=== PATIENT | female | born 1955 | race Caucasian/White ===

== ENCOUNTER → 2020-04-05 | Outpatient (CLI) | payer OTHER, SELFPAY ==
--- NOTE | 2020-04-05 09:29 | US_ITS ---
STUDY: ULTRASOUND BREAST - RIGHT REASON FOR EXAM: Female, 64 years old. Pain in the right breast. TECHNIQUE: Axial and longitudinal images of the RIGHT breast were performed with a high resolution ultrasound transducer. # OF IMAGES: 71 COMPARISON: Comparison is made with prior mammogram done earlier today. FINDINGS: RIGHT Breast: There is a 1.2 cm x 1.8 cm x 0.9 cm well-defined hypoechoic nodule with central echogenic hilum in the axillary region of the breast. This is in keeping with a small benign appearing axillary lymph node. US/Breast Limited Unilateral IMPRESSION: Findings in keeping with a 1.2 cm x 1.8 cm x 0.9 cm benign appearing lymph node in the right axillary region. ASSESSMENT CATEGORY: BIRADS Category 2: Benign. A letter regarding these results will be sent to the patient by the facility within 30 days. Electronically Signed: Manjeet Owens, at 12:25 EDT , Service support ,
--- NOTE | 2020-04-05 09:29 | BI_ITS ---
MAMMOGRAPHY - BILATERAL DIAGNOSTIC REASON FOR EXAM: Female, 64 years old. Right upper quadrant breast pain. PERTINENT HISTORY: Sister with breast cancer. Aunt with breast cancer. TECHNIQUE: Digital bilateral breast alma (3D mammographic acquisition) in the CC and MLO projections. 2-D mediolateral oblique (MLO) and craniocaudad (CC) views of both breasts were obtained. CAD: Full Field Digital Mammography with Computer Added Detection was performed. COMPARISON: Comparison is made with prior examination dated 08/12/2016. FINDINGS: Breast Composition: There are scattered areas of fibroglandular density. There are no dominant masses or suspicious calcifications. Stable small benign appearing bilateral axillary lymph nodes. No other significant abnormalities are identified. There has been no significant change since the prior study. BI/DIAG MAMM W/CAD, BILAT IMPRESSION: Stable bilateral diagnostic mammogram. One year follow-up recommended. (A) ASSESSMENT CATEGORY: BIRADS Category 2: Benign. A letter regarding these results will be sent to the patient by the facility within 30 days. Approximately 10% of breast cancers are not detected by mammography. A normal mammogram should not delay biopsy of a clinically suspicious abnormality. Electronically Signed: Manjeet Owens, at 10:51 EDT , Service support ,
--- NOTE | 2020-04-05 10:19 | RAD_ITS ---
STUDY: X-RAY CHEST REASON FOR EXAM: Female, 64 years old. RIGHT SIDE PAIN UNDER BREAST THAT RADIATES TO BACK X 1 WEEK TECHNIQUE: PA and lateral views of the chest. COMPARISON: Comparison is made with prior examination dated 08/04/2015. FINDINGS: Hyperinflation. The lungs are clear. There is no demonstrated pleural abnormality. Normal size heart. Normal mediastinum and derrell. Normal visualized pulmonary arteries. Normal visualized aortic arch and descending thoracic aorta. Normal visualized thoracic spine. Normal visualized ribs, clavicles, and shoulders. There is no demonstrated abnormality of the visualized soft tissue structures of the upper abdomen. RAD/Chest PA and Lateral IMPRESSION: Hyperinflation. No acute abnormality is seen. Electronically Signed: Manjeet Owens, at 15:28 EDT , Service support ,
== END | disposition home or self-care (01) ==
PROVIDERS: PCP Nurse Practitioner Family; Referring Provider Nurse Practitioner Family; Visit Provider Nurse Practitioner Family
DX: N64.4 Mastodynia (principal); R07.9 Chest pain, unspecified
CPT/HCPCS: 71046; 76642; 77062; 77066; G0279

== ENCOUNTER → 2020-07-06 16:38 | Outpatient (CLI) | payer OTHER, SELFPAY ==
--- NOTE | 2020-07-06 16:55 | RAD_ITS ---
STUDY: X-RAY CHEST REASON FOR EXAM: Female, 64 years old. SOB FOR MONTHS. HEART BURN WHEN EATING. TECHNIQUE: PA and lateral COMPARISON: 04/05/2020. FINDINGS: The lungs are clear and expanded. There is no demonstrated pleural abnormality. Normal size heart. Normal mediastinum and derrell. Normal visualized pulmonary arteries. Normal visualized aortic arch and descending thoracic aorta. Dorsal spine demonstrates mild spondylosis.. Normal visualized ribs, clavicles, and shoulders. There is no demonstrated abnormality of the visualized soft tissue structures of the upper abdomen No significant change since prior exam.. RAD/Chest PA and Lateral IMPRESSION: No acute cardiopulmonary pathology Electronically Signed: Domenico Deluna MD at 22:49 EST , Service support ,
[2020-07-06 17:30] LABS: Absolute Neutrophil Count 4.8 X10^3/uL (2.0-7.7); Basophil# 0.04 X10^3/uL; Basophil% 0.4 % (0-1); Eosinophil# 0.16 X10^3/uL; Eosinophils% 1.8 % (0-5); Hemoglobin 15.5 g/dL (12.0-15.0); Mean Corp Hgb Conc 33.7 g/dL (32-36); Mean Corpuscular Hgb 31.3 pg (27.0-32.0); Mean Corpuscular Volume 92.7 fL (81-99); Mean Platelet Vol. 11.3 fl (6.2-12.0); Monocyte# 1.02 X10^3/uL; Monocyte% 11.2 % (0-10); NRBC Flagged by Analyzer 0 % (0-5); Neutrophil # 4.77 X10^3/uL (2.7-7.7); Neutrophil % 52.4 % (47-70); Platelet Count 277 K/mm3 (150-450); RBC Distribution Width CV 12.3 % (11.6-14.6); RBC Distribution Width SD 42.1 fl (35.1-43.9); Red Blood Count 4.96 M/mm3 (4.2-5.4); White Blood Count 9.1 K/mm3 (4.4-11.0)
[2020-07-06 18:12] LABS: ALB/GLOB Ratio 1.1 RATIO (0.9-2.4); AST(SGOT) 32 U/L (15-37); Alanine Aminotransfer ALT/SGPT 70 U/L (13-56); Alkaline Phosphatase 73 U/L (45-117); Anion Gap 6 (5-15); BUN 10 mg/dL (7-18); Calcium,Total 9.2 mg/dL (8.5-10.1); Chloride 100 mmol/L (98-107); Creatinine, Serum 0.84 mg/dL (0.55-1.02); EST Glomerular Filtration Rate 73 mL/min (>60); Est Glom Filt Rate - Afr Amer 89 mL/min (>60); Globulin 3.6 g/dL (2.2-4.2); Glucose 89 mg/dL (74-106); Potassium 3.7 mmol/L (3.5-5.1); Protein, Total 7.6 g/dL (6.4-8.2); Sodium Level 138 mmol/L (136-145); Thyroid Stim Hormone (TSH) 0.68 uIU/mL (0.358-3.74)
[2020-07-07 10:00] LABS: Hepatitis C Antibody Non-Reactive (Nonreactive); Vitamin D,25 Hydroxy 20.8 ng/mL
[2020-07-08 06:07] LABS: HEPATITIS B SURFACE AG Negative (Negative); Hepatitis A AB, Total Positive (Negative); Hepatitis A IgM Antibody Negative (Negative); Hepatitis B Core AB IgM Negative (Negative); Hepatitis B Core Ab Total Negative (Negative); Hepatitis C Ab <0.1 s/co ratio (0.0-0.9)
[2020-07-09 04:43] LABS: Hep B Surface Antibodies Non Reactive (.)
== END ==
LOC: POLAB3 16:39 → RAD 16:54
PROVIDERS: PCP Family Medicine Geriatric Medicine; Referring Provider Family Medicine Geriatric Medicine; Visit Provider Family Medicine Geriatric Medicine
DX: E55.9 Vitamin D deficiency, unspecified (principal); I10 Essential (primary) hypertension; Z13.89 Encounter for screening for other disorder
CPT/HCPCS: 36415; 71046; 80053; 82306; 84443; 85025; 86704; 86705; 86706; 86708; 86709; 86803; 87340

== ENCOUNTER → 2020-07-12 08:51 | Outpatient (CLI) | payer OTHER, SELFPAY ==
--- NOTE | 2020-07-12 08:55 | US_ITS ---
STUDY: ABDOMINAL ULTRASOUND - RIGHT UPPER QUADRANT REASON FOR VISIT: Female, 64 years old ELEVATED ALT TECHNIQUE: Ultrasound evaluation of the right upper quadrant was performed with real-time and static reece-scale imaging. TECHNICAL QUALITY: Adequate. COMPARISON: Comparison with prior examination dated 09/07/2012. FINDINGS: Liver: The liver measures 16.2 cm. There is normal echogenicity of the liver. The bile ducts are within normal limits. There is hepatic color flow. The direction of portal flow is hepatopetal. There is no demonstrated mass lesion. Gallbladder: Normal distended gallbladder. The gallbladder wall measures 3 mm. There is a negative sonographic Schwartz''s sign. There is no pericholecystic fluid. There are no gallstones. Common Bile Duct (C.B.D.): The common bile duct measures 4 mm. Pancreas: Normal size of the head, body and tail of the pancreas. There is mild increased echogenicity of the pancreas. There is no demonstrated pancreatic mass or cyst. Right Kidney: Normal size of the right kidney. The right kidney measures 12.5 cm x 4.9 cm x 4.9 cm. Normal renal cortex. The right cortex measures 1.5 cm. There is no demonstrated renal mass or cyst. There is no right hydronephrosis. US/Abdomen Limited IMPRESSION: Normal right upper quadrant ultrasound examination. Electronically Signed: Manjeet Owens, at 10:17 EST , Service support ,
== END ==
PROVIDERS: PCP Nurse Practitioner Family; Referring Provider Family Medicine Geriatric Medicine; Visit Provider Family Medicine Geriatric Medicine
DX: R74.8 Abnormal levels of other serum enzymes (principal)
CPT/HCPCS: 76705

== ENCOUNTER 2020-07-12 18:49 | Emergency (ER) | payer OTHER, SELFPAY ==
[2020-07-12 18:51] VITALS: BP 125/71; PULSE 92; RESP 16; TEMP 36.6; O2SAT 97; BMI 31.3
--- NOTE | 2020-07-12 19:23 | CT_ITS ---
STUDY: CT ABDOMEN AND PELVIS WITHOUT CONTRAST REASON FOR EXAM: Female, 64 years old. LEFT LOWR PELVIC PAIN WITH ALL OVER WEAKNESS, HX HTN RADIATION DOSAGE (If Supplied By Facility): CTDIvol = ( 11.21 ) mGy, DLP = ( 551.54 ) mGycm TECHNIQUE: Transaxial images were obtained from the dome of the diaphragm to the symphysis pubis without oral contrast, and without intravenous contrast. Sagittal and coronal images were reconstructed. Individualized dose optimization techniques were used for this CT. COMPARISON: None. FINDINGS: The visualized lung bases are unremarkable. The visualized portions of the heart are within normal limits. Normal liver. Normal gallbladder and extrahepatic biliary system. Normal spleen. Normal pancreas. Normal bilateral adrenal glands. Normal right kidney. Normal left kidney. Normal visualized stomach. Normal small intestine. Mild diverticulosis of the colon. Mesenteric inflammation adjacent to the proximal sigmoid colon which can be due to focal diverticulitis or possible epiploic appendagitis. The appendix is visualized and appears normal. Normal abdominal aorta. Normal inferior vena cava. Normal retroperitoneum. Normal urinary bladder. Normal abdominal wall. Mild degenerative vertebral changes. CT/Abdomen/Pelvis without Cont IMPRESSION: Mild diverticulosis of the colon. Mesenteric inflammation adjacent to the proximal sigmoid colon which can be due to focal diverticulitis or possible epiploic appendagitis. Electronically Signed: Billy Lopez DO at 21:07 EST Tel [phone], Service support ,
--- NOTE | 2020-07-12 19:24 | ED.DCSUM_ITS ---
- ER Visit Summary Date of Service: 07/12/20 Chief Complaint: Left lower abdominal pain History of Present Illness: The patient is a 64 F who presents with left lower abdominal pain and pelvic pain that has been getting worse over the past 3 days. Patient describes the pain is aching. Patient states it is worse whenever she ambulates or pushes on the left lower quadrant. Patient states it gets better when she rests. Patient admits to some nausea today but denies any vomiting. Patient admits to some dysuria but denies any hematuria. Patient denies any fevers or chills. Patient admits to a mild headache. Physical Examination: Vital signs are stable. Patient is afebrile. Patient is in no acute distress. Oral mucosa is pink and moist. Neck is supple. Trachea is midline. There is no JVD noted. Heart was regular rate and rhythm. Lungs are clear and equal bilaterally. Abdomen is soft. Bowel sounds are normal. There is mild left lower quadrant tenderness. There is no rebound or guarding noted. Skin is warm dry. Cranial nerves II through XII are intact. There are no focal motor or sensory deficits noted. Extremities are intact. There is no calf tenderness or edema. Test Results: CBC shows a mild leukocytosis of 12.6. Comprehensive metabolic profile and urinalysis were obtained and were essentially within normal limits. CT scan of the abdomen pelvis was obtained. There is some inflammation adjacent to the proximal sigmoid colon. This could be due to focal diverticulitis or possible epiploic appendagitis. This was interpreted by the radiologist and reviewed by myself. COVID-19 rapid antigen test was obtained and was negative. Emergency Department Course and Treatment: Patient was given IV fluids. Patient was feeling better on reevaluation. Patient was given a prescription for Augmentin. Patient was given her first dose here. Patient was instructed to follow-up with her primary care physician in 5 to 7 days. Patient understood and was agreeable with the plan. All questions were answered. Disposition: Discharge home Impression: 1. Diverticulitis This note was generated with eTippingation software. It may contain incorrect words, spelling, and punctuation that were not noted in review of the chart prior to signing ED Disposition - Plan for ED Patient: Disposition: Home or Assisted Living Diagnosis: Diverticulitis Instructions: ED Diverticulitis Prescriptions: Amox/Clavulanate Tablet [Augmentin Tablet] 875 mg PO Q12H #20 tab Transmission Status: Pending to [id number] Referrals: Christo Gonzalez BIOMEDICAL ENGINEER, BIOMEDICAL ENGINEER-C [Primary Care Provider] - 5-7 Days
[2020-07-12 19:34] LABS: Absolute Neutrophil Count 7.8 X10^3/uL (2.0-7.7); Basophil# 0.04 X10^3/uL; Basophil% 0.3 % (0-1); Eosinophil# 0.14 X10^3/uL; Eosinophils% 1.1 % (0-5); Hematocrit 44.9 % (37-47); Hemoglobin 15.4 g/dL (12.0-15.0); Lymphocyte % 24.5 % (19-41); Mean Corp Hgb Conc 34.3 g/dL (32-36); Mean Corpuscular Hgb 31.4 pg (27.0-32.0); Mean Corpuscular Volume 91.4 fL (81-99); Mean Platelet Vol. 11.2 fl (6.2-12.0); Monocyte% 11.9 % (0-10); NRBC Flagged by Analyzer 0 % (0-5); Neutrophil % 61.8 % (47-70); Platelet Count 265 K/mm3 (150-450); RBC Distribution Width CV 12.2 % (11.6-14.6); RBC Distribution Width SD 40.8 fl (35.1-43.9); Red Blood Count 4.91 M/mm3 (4.2-5.4); White Blood Count 12.6 K/mm3 (4.4-11.0)
[2020-07-12 19:44] LABS: AST(SGOT) 21 U/L (15-37); Alanine Aminotransfer ALT/SGPT 55 U/L (13-56); Albumin, Serum 3.9 g/dL (3.2-5.0); Alkaline Phosphatase 83 U/L (45-117); Anion Gap 8 (5-15); BUN 12 mg/dL (7-18); BUN/Creat Ratio 14.4 RATIO (10-20); Calcium,Total 9.3 mg/dL (8.5-10.1); Chloride 102 mmol/L (98-107); Creatinine, Serum 0.83 mg/dL (0.55-1.02); EST Glomerular Filtration Rate 73 mL/min (>60); Est Glom Filt Rate - Afr Amer 89 mL/min (>60); Estimated Creatinine Clearance 64.95 ml/min; Globulin 3.9 g/dL (2.2-4.2); Glucose 100 mg/dL (74-106); Potassium 3.3 mmol/L (3.5-5.1); Protein, Total 7.8 g/dL (6.4-8.2); Sodium Level 138 mmol/L (136-145)
[2020-07-12] MEDS: 0.9% Normal Saline 1,000 ML 1000 ML IV (19:49)
[2020-07-12 19:58] LABS: Mucous, Urine 0 SEEN /hpf (<or=2+); Red Blood Cells-Urine 0 SEEN /hpf (0-5)
[2020-07-12 20:01] LABS: Color, Urine Yellow (Yellow); Glucose, Dipstick Normal (Normal); Ketone-Dipstick Negative (Negative); Leukocyte Esterase-Dipstick 100 /ul (Negative); Nitrite-Dipstick Negative (Negative); Occult Blood-Urine Negative /ul (Negative); Protein-Dipstick Negative (Negative); Urine Bilirubin Dipstick Negative (Negative); Urine Clarity Clear (Clear); Urine Urobilinogen Normal (Normal); Urine pH 6.5 (5.0 - 8.0)
[2020-07-12 20:08] LABS: Bacteria 1+ /hpf (None Seen); Squamous Epithelial Cells - UA 0-5 SEEN /hpf (5-10); White Blood Cells 0-5 SEEN /hpf (0-5)
[2020-07-12 21:09] VITALS: BP 158/77; PULSE 69; RESP 20; O2SAT 99
[2020-07-12] MEDS: Amox/Clavulanate 875 MG Tablet PO (21:29)
== END 2020-07-12 21:34 | disposition home or self-care (01) ==
PROVIDERS: Emergency Provider Emergency Medicine; PCP Nurse Practitioner Family
DX: K57.32 Diverticulitis of large intestine without perforation or abscess without bleeding (principal); I10 Essential (primary) hypertension; F32.9 Major depressive disorder, single episode, unspecified; Z79.899 Other long term (current) drug therapy
CPT/HCPCS: 74176; 80053; 81001; 85025; 87426; 96360; 96361; 99284; J7030; A4216

== ENCOUNTER → 2020-10-04 15:32 | Outpatient (CLI) | payer OTHER, SELFPAY ==
[2020-10-04 17:08] LABS: Absolute Lymphocyte Count 3.34 X10^3/uL (0.83-4.51); Absolute Neutrophil Count 5.4 X10^3/uL (2.0-7.7); Basophil# 0.05 X10^3/uL; Basophil% 0.5 % (0-1); Eosinophil# 0.14 X10^3/uL; Eosinophils% 1.4 % (0-5); Hemoglobin 15.4 g/dL (12.0-15.0); Lymphocyte # 3.34 X10^3/ul (4.0); Lymphocyte % 32.4 % (19-41); Mean Corp Hgb Conc 33.5 g/dL (32-36); Mean Corpuscular Hgb 31.2 pg (27.0-32.0); Mean Corpuscular Volume 93.1 fL (81-99); Mean Platelet Vol. 11.9 fl (6.2-12.0); Monocyte# 1.35 X10^3/uL; Monocyte% 13.1 % (0-10); NRBC Flagged by Analyzer 0 % (0-5); Neutrophil # 5.39 X10^3/uL (2.7-7.7); Neutrophil % 52.3 % (47-70); Platelet Count 304 K/mm3 (150-450); RBC Distribution Width CV 12.6 % (11.6-14.6); RBC Distribution Width SD 42.8 fl (35.1-43.9); Red Blood Count 4.94 M/mm3 (4.2-5.4); White Blood Count 10.3 K/mm3 (4.4-11.0)
[2020-10-04 17:24] LABS: Vitamin D,25 Hydroxy 10.8 ng/mL
[2020-10-04 19:01] LABS: AST(SGOT) 41 U/L (15-37); Alanine Aminotransfer ALT/SGPT 77 U/L (13-56); Albumin, Serum 3.9 g/dL (3.2-5.0); Alkaline Phosphatase 81 U/L (45-117); Anion Gap 8 (5-15); BUN 9 mg/dL (7-18); BUN/Creat Ratio 8.1 RATIO (10-20); Calcium,Total 9.6 mg/dL (8.5-10.1); Chloride 102 mmol/L (98-107); Creatinine, Serum 1.11 mg/dL (0.55-1.02); EST Glomerular Filtration Rate 53 mL/min (>60); Est Glom Filt Rate - Afr Amer 64 mL/min (>60); Globulin 3.8 g/dL (2.2-4.2); Glucose 77 mg/dL (74-106); Potassium 3.4 mmol/L (3.5-5.1); Protein, Total 7.7 g/dL (6.4-8.2); Sodium Level 140 mmol/L (136-145); Thyroid Stim Hormone (TSH) 0.58 uIU/mL (0.358-3.74)
== END ==
PROVIDERS: PCP Family Medicine Geriatric Medicine; Visit Provider Family Medicine Geriatric Medicine
DX: E55.9 Vitamin D deficiency, unspecified (principal); I10 Essential (primary) hypertension
CPT/HCPCS: 36415; 80053; 82306; 84443; 85025

== ENCOUNTER → 2020-11-01 10:19 | Outpatient (CLI) | payer OTHER, SELFPAY ==
--- NOTE | 2020-11-01 12:35 | RAD_ITS ---
STUDY: X-RAY - ABDOMEN/PELVIS REASON FOR EXAM: Female, 64 years old. OTALGIA TECHNIQUE: AP supine and upright views of the abdomen and pelvis. COMPARISON: None. FINDINGS: Normal visualized lung bases. There is an unremarkable bowel gas pattern. There is no demonstrated free abdominal air. The visualized liver, spleen and kidneys are grossly normal in size and morphology. Normal soft tissue structures. Mild dextroscoliosis of the lumbar spine with degenerative disc disease. RAD/Abd Inc Decub and/or Erect IMPRESSION: Normal x-ray examination of the abdomen and pelvis. Electronically Signed: Christo Greene MD at 9:09 EDT Tel , Service support ,
[2020-11-01 12:48] LABS: Absolute Lymphocyte Count 1.87 X10^3/uL (0.83-4.51); Absolute Neutrophil Count 4.9 X10^3/uL (2.0-7.7); Basophil# 0.02 X10^3/uL; Basophil% 0.3 % (0-1); Eosinophil# 0.01 X10^3/uL; Eosinophils% 0.1 % (0-5); Hematocrit 53.9 % (37-47); Lymphocyte # 1.87 X10^3/ul (0.83-4.51); Mean Corp Hgb Conc 33.4 g/dL (32-36); Mean Corpuscular Hgb 30.9 pg (27.0-32.0); Mean Corpuscular Volume 92.6 fL (81-99); Mean Platelet Vol. 11.4 fl (6.2-12.0); Monocyte# 0.95 X10^3/uL; Monocyte% 12.2 % (0-10); NRBC Flagged by Analyzer 0 % (0-5); Neutrophil # 4.91 X10^3/uL (2.7-7.7); Platelet Count 249 K/mm3 (150-450); RBC Distribution Width CV 12.8 % (11.6-14.6); RBC Distribution Width SD 43.8 fl (35.1-43.9); Red Blood Count 5.82 M/mm3 (4.2-5.4); White Blood Count 7.8 K/mm3 (4.4-11.0)
[2020-11-01 12:59] LABS: Anion Gap 7 (5-15); BUN 15 mg/dL (7-18); BUN/Creat Ratio 17.1 RATIO (10-20); Calcium,Total 9.4 mg/dL (8.5-10.1); Chloride 98 mmol/L (98-107); Creatinine, Serum 0.88 mg/dL (0.55-1.02); EST Glomerular Filtration Rate 69 mL/min (>60); Est Glom Filt Rate - Afr Amer 84 mL/min (>60); Glucose 99 mg/dL (74-106); Sodium Level 130 mmol/L (136-145)
== END ==
PROVIDERS: PCP Family Medicine Geriatric Medicine; Referring Provider Family Medicine Geriatric Medicine; Visit Provider Family Medicine Geriatric Medicine
DX: H92.09 Otalgia, unspecified ear (principal)
CPT/HCPCS: 36415; 74019; 80048; 85025

== ENCOUNTER → 2020-11-01 16:32 | Outpatient (CLI) | payer OTHER, SELFPAY | PROVIDERS: PCP Family Medicine Geriatric Medicine; Referring Provider Family Medicine Geriatric Medicine; Visit Provider Family Medicine Geriatric Medicine | DX: U07.1 COVID-19 (principal) | CPT/HCPCS: 87635; C9803; U0002 ==

== ENCOUNTER → 2022-10-24 | Outpatient (CLI) | payer MEDICARE, SELFPAY ==
[2022-10-24 10:45] LABS: AST(SGOT) 27 U/L (15-37); Alanine Aminotransfer ALT/SGPT 49 U/L (13-56); Albumin, Serum 3.7 g/dL (3.2-5.0); Alkaline Phosphatase 59 U/L (45-117); Anion Gap 3 (5-15); BUN 11 mg/dL (7-18); BUN/Creat Ratio 15.8 RATIO (10-20); Calcium,Total 8.9 mg/dL (8.5-10.1); Chloride 106 mmol/L (98-107); Cholesterol 196 mg/dL (200); EST Glomerular Filtration Rate 89 mL/min (>60); Est Glom Filt Rate - Afr Amer 108 mL/min (>60); Globulin 3.6 g/dL (2.2-4.2); Glucose 91 mg/dL (74-106); High Density Lipoprotein 63 mg/dL; Potassium 3.6 mmol/L (3.5-5.1); Protein, Total 7.3 g/dL (6.4-8.2); Sodium Level 137 mmol/L (136-145); Triglycerides 138 mg/dL; Very Low Density Lipoprotein 28 mg/dL (5-40)
== END | disposition home or self-care (01) ==
PROVIDERS: PCP Nurse Practitioner Family; Referring Provider Nurse Practitioner Family; Visit Provider Nurse Practitioner Family
DX: Z13.1 Encounter for screening for diabetes mellitus (principal); Z13.6 Encounter for screening for cardiovascular disorders
CPT/HCPCS: 36415; 80053; 80061

== ENCOUNTER 2022-11-12 13:08 | Day surgery (SDC) | payer MEDICARE, SELFPAY ==
[2022-11-12 13:57] VITALS: BP 163/90; PULSE 67; RESP 17; TEMP 36.9; O2SAT 97; BMI 30.2
[2022-11-12] MEDS: Lactated Ringers 1,000 ML 15 ML IV (13:57)
--- NOTE | 2022-11-12 14:23 | PCM.HP.BLA ---
History and Physical Date of Admission: 11/12/22 66 F who presents to the office today for Initial consult. GI Hx diverticulitis with hospitalization. PMH anxiety, HTN, hyperinflation of lung, axillary lymphadenopathy Colonoscopy approximately 8-10 years prior without polyps. *BGI established 2.. with referral from PCP. Constipation (straining with difficulty initiating BM that is relieved with manual manipulation. Stool is then soft/formed but thin, BM occur daily) is an issue recently with subsequent intermittent BRBPR with concern for hemorrhoids, rectal pain and fecal smearing approximately 3 times a week, though not consistent. Focuses on increased dietary fiber following diverticulitis; if she does not feel she gets enough during the day she supplements with Metamucil. Has noted decreased movement r/t husbands? recent hospitalizations. ROS Const Constitutional: No anorexia, fatigue, fever(s), weight change or sleep problems Eyes Eyes: No change in vision ENT ENT: No abnormal hearing, difficulty swallowing, mouth lesions, tongue swelling or throat swelling Resp Respiratory: No cough or shortness of breath Cardio Cardiology: No chest pain at rest, chest pain with exertion, shortness of breath or dyspnea on exertion Gastro GI: No difficulty swallowing Genitourinary-Female: No difficulty urinating or burning urination Musc Musculoskeletal: No joint pain, joint swelling, muscle weakness or decreased muscle mass Skin Skin: No hair loss in leg, yellowing of the eye, itchy eyes, rash, skin ulcer or skin swelling Neuro Neurology: No abnormal hearing, abnormal movements, confusion, unsteady gait/balance or memory loss Psych Psychiatric: No anxiety, No confusion and No memory loss Endo Endocrine: No fatigue or weight change Aller/Imm Allergy/Immunologic: No itchy eyes, throat swelling or tongue swelling Jose Luis/Lymp Hematologic/Lymphatic: No easy bleeding, easy bruising or enlarged lymph nodes Exam Const General: cooperative and comfortable Nutritional Appearance: average body habitus and well nourished HENMT Head: normal to inspection Ears: hearing grossly normal bilaterally Nose: external nose normal Face and sinus: normal facial exam Mouth: oral mucosae normal Throat: posterior oropharynx normal Eyes General: appearance normal, both eyes and all related structures Neck Neck: normal visual inspection Chest Chest palpation & inspection: normal inspection of the chest and normal palpation of entire chest wall Resp Effort & Inspection: normal respiratory effort Auscultation: Bilateral: Clear to Auscultation Cardio Palpation: normal PMI Rate: regular rate Rhythm: regular rhythm GI Inspection: normal to inspection Auscultation: normal bowel sounds Percussion: normal to percussion Palpation: no hepatosplenomegaly Skin General: no rashes or lesions noted Neuro General: patient alert Extrem General: normal to inspection Psych Affect: normal affect Quality Reporting Tobacco Screening ([facility] 138) Smoking Status: Never smoker Assessment and Plan Assessment and Plan (1) Constipation: ?Status:?Chronic ?Plan: The differential diagnosis for her symptoms to include celiac disease, inflammatory bowel disease, IBS with diarrhea, hypergastrinemia, protein-losing enteropathy, exocrine pancreatic insufficiency.? We will do biochemical testing and stool testing For full evaluation of her GI tract as she has had other evaluations including upper and lower endoscopy which may need to be repeated.? However I would like to see if we can find a organic cause prior to invasive testing. I have examined the patient and the H&P has been reviewed. There are no clinical changes since date of exam.
--- NOTE | 2022-11-12 14:30 | COLBX_PTH ---
PATIENT: ARMIDA CASTRO LOC: [facility] U#:[id number] AGE/SX: 66/F ROOM: RE11/12/[address]: Dr. Mt Hope DO : 1955 BED: DIS: 11/12/2022 SPEC #: [id number] RECD: 11/12/22 16:05 STATUS: JAIRON VICTORINA #: [id number] SANTIAGO: 11/12/22 14:[address]: Mt Hope DEPT: SURGICAL PATHOLOGY RECD BY: Oriana Andrews ENTERED: 11/13/22 08:04 SP TYPE: COLON BX NGUYEN DR: Christo Gonzalez, EDUCATOR SENIOR CLINICAL-C Tissues: A - Ileum, NOS B - COLON BIOPSY Procedures: Surgery Specimen Level IV HEADER OPERATION: Colonoscopy with biopsies ([facility] [place]), hemorrhoid banding PRE-OP DIAGNOSIS: Lower GI bleed TISSUE SUBMITTED: A ? Terminal ileum biopsy, B ? Random colon biopsy MICROSCOPIC DIAGNOSIS A. Terminal ileum, biopsy: No pathologic change. B. Colon, random biopsy: Tubular adenoma. See comment. AM:heather 11/14/2022 COMMENT B. Adenomatous change is identified in one fragment. The remainder of the colonic mucosal fragments are unremarkable. Clinical correlation is suggested. MICROSCOPIC DESCRIPTION Slides are reviewed. GROSS DESCRIPTION A - Received in fixative is one container labeled with the patient's name and designated terminal ileum biopsy. The specimen consists of two irregular fragments of light angelo soft tissue that in aggregate measure 0.8 x 0.5 x 0.1 cm. The specimen is totally submitted in one cassette. B - Received in fixative is one container labeled with the patient's name and designated random colon biopsy. The specimen consists of multiple irregular fragments of light angelo soft tissue that in aggregate measure 1.5 x 0.5 x 0.1 cm. The specimen is totally submitted in one cassette. / AM:heather 11/13/2022 TC:5 [facility]: [id number] x2
[2022-11-12 14:55] VITALS: BP 118/62; BP 163/90; PULSE 67; RESP 16; TEMP 36.4; O2SAT 94
--- NOTE | 2022-11-12 14:59 | OP.COLON_ITS ---
Patient Name: Ade Villar Procedure Date: 11/12/2022 2:15 PM Date of : 1955 Age: 66 Procedure: Colonoscopy Indications: Pelvic pain, Constipation, Obstipation, Fecal incontinence, Rectal pain Providers: Mt Hope DO Referring MD: Christo Gonzalez Medicines: Monitored Anesthesia Care Patient Profile: This is a 66 year old female. Refer to note in patient chart for documentation of history and physical. Last Colonoscopy: 10 years ago. Complications: No immediate complications. Procedure: Pre-Anesthesia Assessment: - Prior to the procedure, a History and Physical was performed, and patient medications and allergies were reviewed. The patient is competent. The risks and benefits of the procedure and the sedation options and risks were discussed with the patient. All questions were answered and informed consent was obtained. Patient identification and proposed procedure were verified by the physician in the pre-procedure area. Mental Status Examination: alert and oriented. Airway Examination: normal oropharyngeal airway and neck mobility. Respiratory Examination: clear to auscultation. CV Examination: normal. Prophylactic Antibiotics: The patient does not require prophylactic antibiotics. Prior Anticoagulants: The patient has taken no previous anticoagulant or antiplatelet agents. ASA Grade Assessment: III - A patient with severe systemic disease. After reviewing the risks and benefits, the patient was deemed in satisfactory condition to undergo the procedure. The anesthesia plan was to use monitored anesthesia care (MAC). Immediately prior to administration of medications, the patient was re-assessed for adequacy to receive sedatives. The heart rate, respiratory rate, oxygen saturations, blood pressure, adequacy of pulmonary ventilation, and response to care were monitored throughout the procedure. The physical status of the patient was re-assessed after the procedure. After I obtained informed consent, the scope was passed under direct vision. Throughout the procedure, the patient's blood pressure, pulse, and oxygen saturations were monitored continuously. The colonoscope was introduced through the anus and advanced to the terminal ileum. The colonoscopy was performed without difficulty. The patient tolerated the procedure well. The quality of the bowel preparation was adequate. Scope In: 2:31:01 PM Scope Withdrawal Time 0 hours 16 minutes 2 seconds Scope Out: 2:50:20 PM Total Procedure Duration Time 0 hours 19 minutes 19 seconds Findings: The perianal and digital rectal examinations were normal. A few small and large-mouthed diverticula were found in the recto-sigmoid colon, sigmoid colon and descending colon. An area of mildly congested mucosa was found in the recto-sigmoid colon, in the sigmoid colon, in the descending colon, at the splenic flexure and at the hepatic flexure. Biopsies were taken with a cold forceps for histology. Verification of patient identification for the specimen was done. Estimated blood loss was minimal. A patchy area of the terminal ileum was congested. Biopsies were taken with a cold forceps for histology. Verification of patient identification for the specimen was done. Estimated blood loss was minimal. Non-bleeding internal hemorrhoids were found during retroflexion. The hemorrhoids were Grade II (internal hemorrhoids that prolapse but reduce spontaneously). A hemorrhoid was isolated with anoscopy. The ShortShot ligator was positioned over the hemorrhoid at the left lateral position. Suction was applied and one rubber band was placed over the hemorrhoid. This was checked to make certain that the muscularis was free of the band. Post-banding digital rectal exam showed band in good position. The patient appeared stable and comfortable at the end of the procedure. Impression: - Diverticulosis in the recto-sigmoid colon, in the sigmoid colon and in the descending colon. - Congested mucosa in the recto-sigmoid colon, in the sigmoid colon, in the descending colon, at the splenic flexure and at the hepatic flexure. Biopsied. - Congested mucosa in the terminal ileum. Biopsied. - Non-bleeding internal hemorrhoids. Banded. Recommendation: - Repeat colonoscopy in 10 years for screening purposes. - Continue present medications. Procedure Code(s): --- Professional --- 59726, Colonoscopy, flexible; with band ligation(s) (eg, hemorrhoids) 15045, Colonoscopy, flexible; with biopsy, single or multiple CPT copyright 2017 [employer]. All rights reserved. The codes documented in this report are preliminary and upon storekeeper steward review may be revised to meet current compliance requirements. Mt Hope DO 11/12/2022 2:59:25 PM This report has been signed electronically. Number of Addenda: 0 Note Initiated On: 11/12/2022 2:15 PM
--- NOTE | 2022-11-12 15:00 | OP.CCLET_ITS ---
11/12/2022 Christo Gonzalez Re : Colonoscopy procedure for Ade Villar Dear Lisa This procedure was performed on Saturday, November 12, 2022. My impressions and recommendations are as follows: Impressions : - Diverticulosis in the recto-sigmoid colon, in the sigmoid colon and in the descending colon. - Congested mucosa in the recto-sigmoid colon, in the sigmoid colon, in the descending colon, at the splenic flexure and at the hepatic flexure. Biopsied. - Congested mucosa in the terminal ileum. Biopsied. - Non-bleeding internal hemorrhoids. Banded. Recommendations : - Repeat colonoscopy in 10 years for screening purposes. - Continue present medications. My findings are described in the full procedure note, which is enclosed. If I can be of further assistance, please feel free to contact me at . Sincerely, Mt Hope, 11/12/2022 2:59:25 PM This report has been signed electronically.
[2022-11-12 15:01] VITALS: BP 127/69; BP 163/90; PULSE 64; RESP 16; O2SAT 92
[2022-11-12 15:05] VITALS: BP 120/68; BP 163/90; PULSE 58; RESP 16; O2SAT 93
[2022-11-12 15:10] VITALS: BP 124/68; BP 163/90; PULSE 62; RESP 16; TEMP 36.1; O2SAT 93
[2022-11-12 15:30] VITALS: BP 163/90
== END 2022-11-12 15:48 | disposition home or self-care (01) ==
LOC: EN 13:09 → AC 13:10
PROVIDERS: PCP Nurse Practitioner Family; Referring Provider Nurse Practitioner Family; Visit Provider Internal Medicine Gastroenterology
PROC: 0DJD8ZZ Inspection of Lower Intestinal Tract, Via Natural or Artificial Opening Endoscopic (ICD-10-PCS; CPT 45378; principal; 2022-11-12 14:25)
DX: K57.30 Diverticulosis of large intestine without perforation or abscess without bleeding (principal); K64.1 Second degree hemorrhoids; I10 Essential (primary) hypertension; D12.6 Benign neoplasm of colon, unspecified; Z79.899 Other long term (current) drug therapy; Z87.19 Personal history of other diseases of the digestive system
CPT/HCPCS: 45380; 45398; 88305; J7120; J2405

== ENCOUNTER → 2023-05-12 | Outpatient (CLI) | payer MEDICARE, SELFPAY ==
[2023-05-12 09:35] LABS: ALB/GLOB Ratio 0.9 RATIO (0.9-2.4); AST(SGOT) 41 U/L (15-37); Alanine Aminotransfer ALT/SGPT 44 U/L (13-56); Albumin, Serum 3.7 g/dL (3.2-5.0); Alkaline Phosphatase 60 U/L (45-117); Anion Gap 4 (5-15); BUN 11 mg/dL (7-18); BUN/Creat Ratio 14.3 RATIO (10-20); Calcium,Total 9.2 mg/dL (8.5-10.1); Chloride 105 mmol/L (98-107); Cholesterol 206 mg/dL (200); Creatinine, Serum 0.77 mg/dL (0.55-1.02); EST Glomerular Filtration Rate 80 mL/min (>60); Est Glom Filt Rate - Afr Amer 96 mL/min (>60); Glucose 98 mg/dL (74-106); High Density Lipoprotein 62 mg/dL; Potassium 3.8 mmol/L (3.5-5.1); Protein, Total 7.7 g/dL (6.4-8.2); Sodium Level 140 mmol/L (136-145); Triglycerides 186 mg/dL; Very Low Density Lipoprotein 37 mg/dL (5-40)
[2023-05-12 09:36] LABS: Hemoglobin A1c 5.4 % (3.8-5.6)
== END | disposition home or self-care (01) ==
LOC: LAB 08:26
PROVIDERS: PCP Nurse Practitioner Family; Referring Provider Nurse Practitioner Family; Visit Provider Nurse Practitioner Family
DX: Z00.00 Encounter for general adult medical examination without abnormal findings (principal); Z13.1 Encounter for screening for diabetes mellitus; Z13.6 Encounter for screening for cardiovascular disorders
CPT/HCPCS: 36415; 80053; 80061; 83036

== ENCOUNTER 2023-06-05 06:45 | Day surgery (SDC) | payer MEDICARE, SELFPAY ==
--- NOTE | 2023-06-05 07:10 | PCM.HP.BLA ---
History and Physical Date of Admission: 06/05/23 67 F who presents to the office today for GI Hx diverticulitis with hospitalization. PMH anxiety, HTN, hyperinflation of lung, axillary lymphadenopathy Colonoscopy approximately 8-10 years prior without polyps. *BGI established 2. with referral from PCP. Constipation (straining with difficulty initiating BM that is relieved with manual manipulation. Stool is then soft/formed but thin, BM occur daily) is an issue recently with subsequent intermittent BRBPR with concern for hemorrhoids, rectal pain and fecal smearing approximately 3 times a week, though not consistent. Focuses on increased dietary fiber following diverticulitis; if she does not feel she gets enough during the day she supplements with Metamucil. Has noted decreased movement r/t husbands? recent hospitalizations. Colonoscopy 11.12.22 colonic diverticulosis; congested RS through splenic flexure and hepatic flexure and TI colons; nonbleeding internal hemorrhoids, banded. Random biopsy TA. OV 11.27.22 BM in the morning with initial incomplete evacuation and second evacuation with complete; no straining but will sometimes use perineal pressure, but not as often. Bleeding has resolved. Notes some chronic urinary difficulty which she has discussed with PCP and will follow up with PCP and/or urology in the future. ROS Const Constitutional: No anorexia, fatigue, fever(s), weight change or sleep problems Eyes Eyes: No change in vision ENT ENT: No abnormal hearing, difficulty swallowing, mouth lesions, tongue swelling or throat swelling Resp Respiratory: No cough or shortness of breath Cardio Cardiology: No chest pain at rest, chest pain with exertion, shortness of breath or dyspnea on exertion Gastro GI: No difficulty swallowing Genitourinary-Female: No difficulty urinating or burning urination Musc Musculoskeletal: No joint pain, joint swelling, muscle weakness or decreased muscle mass Skin Skin: No hair loss in leg, yellowing of the eye, itchy eyes, rash, skin ulcer or skin swelling Neuro Neurology: No abnormal hearing, abnormal movements, confusion, unsteady gait/balance or memory loss Psych Psychiatric: No anxiety, No confusion and No memory loss Endo Endocrine: No fatigue or weight change Aller/Imm Allergy/Immunologic: No itchy eyes, throat swelling or tongue swelling Jose Luis/Lymp Hematologic/Lymphatic: No easy bleeding, easy bruising or enlarged lymph nodes Exam Const General: cooperative and comfortable Nutritional Appearance: average body habitus and well nourished [facility] Head: normal to inspection Ears: hearing grossly normal bilaterally Nose: external nose normal Face and sinus: normal facial exam Mouth: oral mucosae normal Throat: posterior oropharynx normal Eyes General: appearance normal, both eyes and all related structures Neck Neck: normal visual inspection Chest Chest palpation & inspection: normal inspection of the chest and normal palpation of entire chest wall Resp Effort & Inspection: normal respiratory effort Auscultation: Bilateral: Clear to Auscultation Cardio Palpation: normal PMI Rate: regular rate Rhythm: regular rhythm GI Inspection: normal to inspection Auscultation: normal bowel sounds Percussion: normal to percussion Palpation: no hepatosplenomegaly Skin General: no rashes or lesions noted Neuro General: patient alert Extrem General: normal to inspection Psych Affect: normal affect Quality Reporting Tobacco Screening ([facility] 138) Smoking Status: Never smoker Assessment and Plan Assessment and Plan (1) Constipation: Status: Chronic Plan: Constipation secondary to hemorrhoidal disease status post banding. She has a history of chronic idiopathic constipation that is likely secondary to slow transit constipation with the presence of a pelvic floor dysfunction with perineal manipulation in order to have a complete evacuation. That is a lot better and she is having 2 bowel movements in the morning with the use of Metamucil every morning. She is also taking extra supplemental fiber. She is very satisfied after undergoing banding of internal hemorrhoids. She had prolapsed internal hemorrhoids and 3 bands were placed to hemorrhoidal tissue. She is not requiring any stool softeners. She is having less obstipation symptoms. She did have a small tubular adenoma that was removed so we will request that repeat colonoscopy back in 5 years. Continue current bowel regimen. I have examined the patient and the H&P has been reviewed. There are no clinical changes since date of exam.
[2023-06-05] MEDS: Lactated Ringers 1,000 ML 15 ML IV (07:12)
[2023-06-05 07:13] VITALS: BP 132/65; PULSE 70; RESP 18; TEMP 36.9; O2SAT 97; BMI 36.5
--- NOTE | 2023-06-05 08:00 | IMM_PTH ---
PATIENT: ARMIDA CASTRO LOC: EN U#:[id number] AGE/SX: 67/F ROOM: RE06/05/[address]: Dr. Mt Hope DO : 1955 BED: DIS: 06/05/2023 SPEC #: [id number] RECD: 06/05/23 14:50 STATUS: JAIRON REJen #: [id number] SANTIAGO: 06/05/23 08:[address]: Mt Hope DEPT: IMMUNOHISTOCHEMISTRY RECD BY: Jeanette Flynn ENTERED: 06/05/23 14:51 SP TYPE: IMMUNO OTHR DR: Christo Gonzalez, GETTER OPERATOR-C Tissues: C - Stomach, NOS A - Esophagus, NOS Procedures: H Pylori (initial) P53 (initial) KI-67 (add) MOC-31 (add) PHYSICIAN & INSTITUTION [place] [id number] SPECIMEN INFORMATION: Tissue Source: A - Distal esophagus, C - Antrum Clinical Info: Bourgeois's esophagus Specimen Number: [id number] A & C CPT code: 87867 x2, 99535 x2 METHODOLOGY: Deparaffinized sections of prefer/formalin-fixed tissue or PAP/DQ stained slides are incubated with monoclonal/polyclonal antibodies/oligonucleotide probes. Localization is made via biotin free immunoperoxidase method. Appropriate controls are performed and reacted as expected. Results on target cell population are indicated in the following table: RESULTS: ANTIBODY / CLONE RESULT Block A P53 (DO-7) positive, wild type pattern Ki-67 (30-9) positive, low MOC-31 (4561) positive Block C H Pylori (polyclonal) negative These tests were developed and their performance characteristics determined by [facility]. They may not have been cleared or approved by the U.S. Food and Drug Administration. The FDA has determined that such clearance or approval is not necessary. The above immunohistochemical/dualISH markers are ordered and reviewed by the Pathologist. INTERPRETATION: A. Distal esophagus, biopsy: No evidence of dysplasia. C. Gastric antrum, biopsy: Negative for Helicobacter pylori organisms. AM:heather 06/09/2023
--- NOTE | 2023-06-05 08:00 | EGD_PTH ---
PATIENT: ARMIDA CASTRO LOC: EN U#:[id number] AGE/SX: 67/F ROOM: RE06/05/[address]: Dr. Mt Hope DO : 1955 BED: DIS: 06/05/2023 SPEC #: [id number] RECD: 06/05/23 11:50 STATUS: JAIRON VICTORINA #: [id number] SANTIAGO: 06/05/23 08:[address]: Mt Hope DEPT: SURGICAL PATHOLOGY RECD BY: Lilia Paz ENTERED: 06/05/23 11:51 SP TYPE: EGD BIOPSY OT DR: Christo Gonzalez, DISTRIBUTION SYSTEMS SUPERINTENDENT-C Tissues: A - Esophageal mucous membrane B - Duodenum, NOS C - Gastric mucous membrane Procedures: Special Stain Group II Surgery Specimen Level IV Alcian Blue/PAS (control) HEADER OPERATION: EGD PRE-OP DIAGNOSIS: Bourgeois's esophagus TISSUE SUBMITTED: A - Distal esophagus biopsy, B - Duodenum biopsy, C - Antrum for H. pylori and path MICROSCOPIC DIAGNOSIS A. Distal esophagus, biopsy: Gastroesophageal junctional mucosa with mild chronic inflammation. 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 No evidence of dysplasia. See comment. B. Duodenum, biopsy: Focal gastric metaplasia. C. Gastric antrum, biopsy: Mild chronic gastritis. See comment. AM:heather 06/06/2023 COMMENT A. Immunohistochemistry ([id number]) for P53 and Ki-67 will be performed and results will be reported separately. Alcian blue/PAS stain with matched control supports the above diagnosis. C. The results of immunohistochemistry for Helicobacter pylori will be reported separately ([id number]). MICROSCOPIC DESCRIPTION Slides are reviewed. GROSS DESCRIPTION A - Received in fixative is one container labeled with the patient's name and designated distal esophagus. The specimen consists of multiple irregular fragments of light angelo soft tissue that in aggregate measure 2.0 x 0.6 x 0.1 cm. The specimen is totally submitted in one cassette. B - Received in fixative is one container labeled with the patient's name and designated duodenal biopsy. The specimen consists of two irregular fragments of light angelo soft tissue that in aggregate measure 0.6 x 0.3 x 0.1 cm. The specimen is totally submitted in one cassette. C - Received in fixative is one container labeled with the patient's name and designated antrum. The specimen consists of two irregular fragments of light angelo soft tissue that in aggregate measure 0.7 x 0.3 x 0.1 cm. The specimen is totally submitted in one cassette. / AM:heather 06/05/2023 TC:3 CPT: 17406 x3, 32985
[2023-06-05 08:10] VITALS: BP 120/65; BP 132/65; PULSE 72; RESP 18; TEMP 36.8; O2SAT 95
--- NOTE | 2023-06-05 08:14 | OP.EGD_ITS ---
Patient Name: Ade Villar Procedure Date: 06/05/2023 7:48 AM Date of : 1955 Age: 67 Procedure: Upper GI endoscopy Indications: Epigastric abdominal pain, Functional Dyspepsia, Heartburn Providers: Mt Hope DO Referring MD: Mt Hope DO Medicines: Monitored Anesthesia Care Patient Profile: This is a 67 year old female. Refer to note in patient chart for documentation of history and physical. Patient has symptoms of chronic abdominal distention, chronic dyspepsia and chronic heartburn. Refer to note in patient chart for documentation of history and physical. Complications: No immediate complications. Procedure: Pre-Anesthesia Assessment: - Prior to the procedure, a History and Physical was performed, and patient medications and allergies were reviewed. The patient is competent. The risks and benefits of the procedure and the sedation options and risks were discussed with the patient. All questions were answered and informed consent was obtained. Patient identification and proposed procedure were verified by the physician in the pre-procedure area. Mental Status Examination: alert and oriented. Airway Examination: normal oropharyngeal airway and neck mobility. Respiratory Examination: clear to auscultation. CV Examination: normal. Prophylactic Antibiotics: The patient does not require prophylactic antibiotics. Prior Anticoagulants: The patient has taken no anticoagulant or antiplatelet agents. ASA Grade Assessment: II - A patient with mild systemic disease. After reviewing the risks and benefits, the patient was deemed in satisfactory condition to undergo the procedure. The anesthesia plan was to use monitored anesthesia care (MAC). Immediately prior to administration of medications, the patient was re-assessed for adequacy to receive sedatives. The heart rate, respiratory rate, oxygen saturations, blood pressure, adequacy of pulmonary ventilation, and response to care were monitored throughout the procedure. The physical status of the patient was re-assessed after the procedure. After obtaining informed consent, the endoscope was passed under direct vision. Throughout the procedure, the patient's blood pressure, pulse, and oxygen saturations were monitored continuously. The Endoscope was introduced through the mouth, and advanced to the second part of duodenum. The upper GI endoscopy was accomplished without difficulty. The patient tolerated the procedure well. Scope In: 7:58:47 AM Scope Out: 8:05:11 AM Total Procedure Duration Time 0 hours 6 minutes 24 seconds Findings: There were esophageal mucosal changes consistent with short-segment Bourgeois's esophagus present in the lower third of the esophagus. The maximum longitudinal extent of these mucosal changes was 2 cm in length. Mucosa was biopsied with a cold forceps for histology in 4 quadrants at intervals of 1 cm in the lower third of the esophagus. One specimen bottle was sent to pathology. Verification of patient identification for the specimen was done. Estimated blood loss was minimal. A medium-sized hiatal hernia was present. Patchy mildly erythematous mucosa without bleeding was found in the gastric antrum. Biopsies were taken with a cold forceps for histology. Verification of patient identification for the specimen was done. Estimated blood loss was minimal. No gross lesions were noted in the second portion of the duodenum. Biopsies were taken with a cold forceps for histology. Verification of patient identification for the specimen was done. Estimated blood loss was minimal. 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 Biopsied. - Medium-sized hiatal hernia. - Erythematous mucosa in the antrum. Biopsied. - No gross lesions in the second portion of the duodenum. Biopsied. Recommendation: - Discharge patient to home. - Resume previous diet. - Continue present medications. - Await pathology results. Procedure Code(s): --- Professional --- 02933, Esophagogastroduodenoscopy, flexible, transoral; with biopsy, single or multiple CPT copyright 2021 [employer]. All rights reserved. The codes documented in this report are preliminary and upon newspaper photojournalist review may be revised to meet current compliance requirements. Mt Hope DO 06/05/2023 8:14:30 AM This report has been signed electronically. Number of Addenda: 0 Note Initiated On: 06/05/2023 7:48 AM
[2023-06-05 08:15] VITALS: BP 116/71; BP 132/65; PULSE 67; RESP 18; O2SAT 100
--- NOTE | 2023-06-05 08:15 | OP.CCLET_ITS ---
06/05/2023 Christo Gonzalez Re : Upper GI endoscopy procedure for Ade Villar Dear Lisa This procedure was performed on May. 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 Biopsied. - Medium-sized hiatal hernia. - Erythematous mucosa in the antrum. Biopsied. - No gross lesions in the second portion of the duodenum. Biopsied. Recommendations : - Discharge patient to home. - Resume previous diet. - Continue present medications. - Await pathology results. My findings are described in the full procedure note, which is enclosed. If I can be of further assistance, please feel free to contact me at . Sincerely, Mt Hope, 06/05/2023 8:14:30 AM This report has been signed electronically.
[2023-06-05 08:20] VITALS: BP 124/74; BP 132/65; PULSE 65; RESP 16
[2023-06-05 08:25] VITALS: BP 110/71; BP 132/65; PULSE 67; RESP 18; TEMP 36.8; O2SAT 97
[2023-06-05 08:32] VITALS: BP 132/65
== END 2023-06-05 08:36 | disposition home or self-care (01) ==
LOC: EN 06:46 → AC 06:47
PROVIDERS: PCP Nurse Practitioner Family; Referring Provider Nurse Practitioner Family; Visit Provider Internal Medicine Gastroenterology
PROC: 0DJ08ZZ Inspection of Upper Intestinal Tract, Via Natural or Artificial Opening Endoscopic (ICD-10-PCS; CPT 43235; principal; 2023-06-05 07:55)
DX: K22.70 Barrett's esophagus without dysplasia (principal); K44.9 Diaphragmatic hernia without obstruction or gangrene; I10 Essential (primary) hypertension; K20.90 Esophagitis, unspecified without bleeding; K31.A0 Gastric intestinal metaplasia, unspecified; K29.50 Unspecified chronic gastritis without bleeding; Z79.899 Other long term (current) drug therapy; Z87.19 Personal history of other diseases of the digestive system
CPT/HCPCS: 43239; 81002; 88305; 88313; 88341; 88342; J7120; J2405

== ENCOUNTER → 2023-12-08 | Outpatient (CLI) | payer MEDICARE, SELFPAY ==
[2023-12-12 16:10] LABS: Giardia Lamblia, Stool EIA Negative (Negative); Pancreatic Elastase, Fecal > 800 (>200)
[2023-12-18 00:07] LABS: Calprotectin, Stool 100 ug/g (0-120)
== END | disposition home or self-care (01) ==
LOC: LAB 14:01
PROVIDERS: PCP Nurse Practitioner Family; Referring Provider Internal Medicine Gastroenterology; Visit Provider Internal Medicine Gastroenterology
DX: K22.70 Barrett's esophagus without dysplasia (principal); R13.19 Other dysphagia; K59.01 Slow transit constipation; K58.9 Irritable bowel syndrome, unspecified
CPT/HCPCS: 82653; 83630; 83993; 87329

== ENCOUNTER → 2023-12-11 | Outpatient (CLI) | payer MEDICARE, SELFPAY ==
--- NOTE | 2023-12-11 09:55 | RAD_ITS ---
STUDY: X-RAY - ABDOMEN/PELVIS REASON FOR EXAM: Female, 68 years old. Sitz marker day 3 TECHNIQUE: Frontal views COMPARISON: November 01, 2020 FINDINGS: Normal visualized lung bases. There is an unremarkable bowel gas pattern. Colonic fecal retention is noted. Sitz markers are seen from the splenic flexure to the rectosigmoid colon level. There is no demonstrated free abdominal air. Normal soft tissue structures. Normal visualized osseous structures. RAD/Abdomen Single View IMPRESSION: Colonic fecal retention is noted. Sitz markers are seen from the splenic flexure to the rectosigmoid colon level. Electronically Signed: Billy Lopez DO at 16:19 EDT ,
== END | disposition home or self-care (01) ==
LOC: RAD 09:51
PROVIDERS: PCP Nurse Practitioner Family; Referring Provider Internal Medicine Gastroenterology; Visit Provider Internal Medicine Gastroenterology
DX: K59.01 Slow transit constipation (principal)
CPT/HCPCS: 74018

== ENCOUNTER → 2023-12-13 | Outpatient (CLI) | payer MEDICARE, SELFPAY ==
--- NOTE | 2023-12-13 09:20 | RAD_ITS ---
EXAM: XR ABDOMEN, 1 VIEW CLINICAL INDICATION: Sitz marker day 5 TECHNIQUE: Frontal supine view of the abdomen/pelvis. COMPARISON: 12/11/2023 FINDINGS: LOWER THORAX: No acute pathology. GASTROINTESTINAL TRACT: There is a single Sitz marker in the descending colon. No other markers are identified. Non-obstructive. No bowel or stomach distention. ORGANS: Unremarkable as visualized. No organomegaly. No abnormal calcifications. BONES/JOINTS: No acute pathology. SOFT TISSUES: No acute pathology. RAD/Abdomen Single View IMPRESSION: A single Sitz marker is in the mid to distal descending colon. Electronically Signed: Farzad Arriaga MD at 0:02 EDT ,
== END | disposition home or self-care (01) ==
LOC: RAD 09:16
PROVIDERS: PCP Nurse Practitioner Family; Referring Provider Internal Medicine Gastroenterology; Visit Provider Internal Medicine Gastroenterology
DX: K59.01 Slow transit constipation (principal)
CPT/HCPCS: 74018

== ENCOUNTER → 2024-05-12 | Outpatient (CLI) | payer MEDICARE, SELFPAY ==
[2024-05-12 12:18] LABS: Hemoglobin A1c 5.7 % (3.8-5.6)
[2024-05-12 13:10] LABS: ALB/GLOB Ratio 0.9 RATIO (0.9-2.4); AST(SGOT) 55 U/L (15-37); Alanine Aminotransfer ALT/SGPT 65 U/L (13-56); Albumin, Serum 3.6 g/dL (3.2-5.0); Alkaline Phosphatase 90 U/L (45-117); Anion Gap 7 (5-15); BUN 10 mg/dL (7-18); BUN/Creat Ratio 14.3 RATIO (10-20); Calcium,Total 9.4 mg/dL (8.5-10.1); Chloride 103 mmol/L (98-107); Cholesterol 157 mg/dL (200); EST Glomerular Filtration Rate 89 mL/min (>60); Est Glom Filt Rate - Afr Amer 107 mL/min (>60); Globulin 3.9 g/dL (2.2-4.2); Glucose 100 mg/dL (74-106); High Density Lipoprotein 53 mg/dL; Potassium 4.2 mmol/L (3.5-5.1); Protein, Total 7.5 g/dL (6.4-8.2); Sodium Level 136 mmol/L (136-145); Triglycerides 346 mg/dL; Very Low Density Lipoprotein 69 mg/dL (5-40)
== END | disposition home or self-care (01) ==
PROVIDERS: PCP Nurse Practitioner Family; Referring Provider Nurse Practitioner Family; Visit Provider Nurse Practitioner Family
DX: I10 Essential (primary) hypertension (principal); E78.1 Pure hyperglyceridemia; R74.8 Abnormal levels of other serum enzymes; E55.9 Vitamin D deficiency, unspecified
CPT/HCPCS: 36415; 80053; 80061; 83036

== ENCOUNTER → 2024-06-15 | Outpatient (CLI) | payer MEDICARE, SELFPAY ==
--- NOTE | 2024-06-15 12:51 | BI_ITS ---
MAMMOGRAPHY - BILATERAL SCREENING 3-D TOMOSYNTHESIS REASON FOR EXAM: Female, 68 years old. SCREENING PERTINENT HISTORY: No significant family history. TECHNIQUE: 2-D mammograms and 3-D Tomosynthesis of the breast (s) were performed. CAD was performed. COMPARISON: 02/10/2023 FINDINGS: The breast composition is composed of scattered fibroglandular density. Scattered benign calcifications are seen. No dense spiculated masses or suspicious microcalcifications are identified. No architectural distortion is identified. There is no skin thickening or retraction. There has been no significant change since the prior study. BI/SCRN MAMM (CAD)W/MINDI BILAT IMPRESSION: No mammographic signs of malignancy. Routine yearly mammograms recommended. ASSESSMENT CATEGORY: BIRADS Category 1: Negative. A letter regarding these results will be sent to the patient by the facility within 30 days. FOLLOW UP RECOMMENDATION: Yearly follow up mammogram recommended. (A) Approximately 10% of breast cancers are not detected by mammography. A normal mammogram should not delay biopsy of a clinically suspicious abnormality. Electronically Signed: Christo Greene MD at 14:50 EST ,
--- NOTE | 2024-06-15 12:56 | BD_ITS ---
STUDY: DUAL ENERGY X-RAY ABSORPTIOMETRY / DXA REASON FOR EXAM: Female, 68 years old. Z780 TECHNIQUE: Bone Mineral Density (BMD) measurements of lumbar spine and bilateral hips were obtained. COMPARISON: None. FINDINGS: Lumbar Spine (L1-L4): g/cm2 (1.315) / T-score (2.4) / Z-score (4.4) Findings are suggestive of normal bone density with a low fracture risk. Left Femur Total: g/cm2 (0.898) / T-score (-0.4) / Z-score (1.0) Left Femoral Neck: g/cm2 (0.807) / T-score (-0.4) / Z-score (1.3) Right Femur Total: g/cm2 (0.895) / T-score (-0.4) / Z-score (1.0) Right Femoral Neck: g/cm2 (0.785) / T-score (-0.6) / Z-score (1.1) BD/Dexa Bone Density Study IMPRESSION: The patient is considered normal as outlined below according to World [employer] Organization (WHO) criteria with a low fracture risk. Reference Information: The T-score is the number of standard deviations above or below the standard which is normal for young adults at their peak bone mineral density. The World Health Organization (WHO) interprets the T-scores as follows: Above -1 Normal bone density Between -1 and -2.5 Osteopenia Equal to / or below -2.5 Osteoporosis As a practical clinical guideline, osteopenia may be graded as follows: Mild -1 through -1.5 Moderate -1.6 through -2.0 Severe -2.1 through -2.4 The Z-score is the number of standard deviations above or below age-matched controls. A Z-score of less than -1.5 would be considered abnormal. References: 1. NIH Osteoporosis and Related Bone Diseases www osteo.org 2. International Society for Clinical Densitometry www iscd.org 3. National Osteoporosis Foundation www nof.org Electronically Signed: Manjeet Owens MD at 14:41 EST ,
== END | disposition home or self-care (01) ==
LOC: OPBD 12:49
PROVIDERS: PCP Nurse Practitioner Family; Referring Provider Nurse Practitioner Family; Visit Provider Nurse Practitioner Family
DX: Z12.31 Encounter for screening mammogram for malignant neoplasm of breast (principal); Z78.0 Asymptomatic menopausal state
CPT/HCPCS: 77063; 77067; 77080

== ENCOUNTER → 2024-09-28 | Outpatient (CLI) | payer MEDICARE, SELFPAY ==
--- NOTE | 2024-09-28 09:40 | US_ITS ---
PROCEDURE: BREAST LIMITED UNILATERAL REASON FOR EXAM: 68-year-old female presents with palpable concern with associated pain in her right axilla. Family history of breast cancer in her sister and maternal great aunt. TECHNIQUE: Targeted right axilla ultrasound. COMPARISON: Mammogram 06/15/2024 FINDINGS: RIGHT: Ultrasound performed of the area of palpable concern with associated pain in the right axilla demonstrates a prominent architecturally normal-appearing lymph node with preserved fatty derrell and normal cortical thickness, measuring 2.4 x 1.3 x 0.7 cm. Otherwise, there are no suspicious sonographic findings. US/Breast Limited Unilateral IMPRESSION: Palpable area of concern with associated pain in the right axilla correlates to a normal right axillary lymph node. There are no suspicious sonographic findings. BI-RADS 2: BENIGN. RECOMMEND ANNUAL MAMMOGRAPHIC SCREENING. Follow-up code: Routine Follow-up Reading Location: [id number]
[2024-09-28 11:08] LABS: Microalbumin,Random Urine < 12.0 mg/L (NO RANGE EST.); Microalbumin:Creatinine Ratio UNABLE TO CALCULATE mg/g CRE
[2024-09-28 12:06] LABS: Cholesterol 186 mg/dL (<=200); High Density Lipoprotein 60 mg/dL; Low Density Lipoprotein Calc. 91 mg/dL; Triglycerides 174 mg/dL; Very Low Density Lipoprotein 35 mg/dL (5-40); Vitamin D,25 Hydroxy 25.8 ng/mL (30-100); cholesterol:hdl ratio screen 3.09
[2024-09-28 12:16] LABS: ALB/GLOB Ratio 1.4 RATIO (0.9-2.4); AST(SGOT) 26 U/L (<=31); Alanine Aminotransfer ALT/SGPT 27 U/L (<=34); Albumin, Serum 4.2 g/dL (3.4-4.8); Alkaline Phosphatase 76 U/L (35-104); Anion Gap 11 (5-15); BUN 9 mg/dL (4-19); BUN/Creat Ratio 13.9 RATIO (10-20); Calcium,Total 9.4 mg/dL (7.6-11.0); Carbon Dioxide 25.8 mmol/L (21.0-32.0); Chloride 100 mmol/L (98-108); Creatinine, Serum 0.64 mg/dL (0.70-1.20); EST Glomerular Filtration Rate 97 (>60); Glucose 98 mg/dL (70-99); Potassium 3.3 mmol/L (3.3-5.1); Protein, Total 7.2 g/dL (5.9-8.4); Sodium Level 137 mmol/L (133-145); Total Bilirubin 0.47 mg/dL (0.00-1.30)
== END | disposition home or self-care (01) ==
LOC: OPBI 09:28 → OPUS 09:38
PROVIDERS: PCP Nurse Practitioner Family; Referring Provider Nurse Practitioner Family; Visit Provider Nurse Practitioner Family
DX: N63.11 Unspecified lump in the right breast, upper outer quadrant (principal); N64.4 Mastodynia; M79.621 Pain in right upper arm; I10 Essential (primary) hypertension; E78.1 Pure hyperglyceridemia; R74.8 Abnormal levels of other serum enzymes; E55.9 Vitamin D deficiency, unspecified
CPT/HCPCS: 36415; 76642; 80053; 80061; 82043; 82306; 82570

== ENCOUNTER → 2024-11-02 | Outpatient (CLI) | payer MEDICARE, SELFPAY ==
[2024-11-02 11:46] LABS: Absolute Neutrophil Count 4.7 X10^3/uL (2.0-7.7); Basophil# 0.03 X10^3/uL; Basophil% 0.4 % (0-1); Eosinophil# 0.15 X10^3/uL; Eosinophils% 1.8 % (0-5); Hematocrit 41.6 % (37-47); Hemoglobin 13.9 g/dL (12.0-15.0); Lymphocyte % 29.1 % (19-41); Mean Corp Hgb Conc 33.4 g/dL (32-36); Mean Corpuscular Hgb 30.2 pg (27.0-32.0); Mean Corpuscular Volume 90.4 fL (81-99); Mean Platelet Vol. 10.7 fl (6.2-12.0); Monocyte% 10.9 % (0-10); NRBC Flagged by Analyzer 0 % (0-5); Neutrophil # 4.73 X10^3/uL (2.7-7.7); Neutrophil % 57.4 % (47-70); Platelet Count 383 K/mm3 (150-450); RBC Distribution Width CV 12.5 % (11.6-14.6); RBC Distribution Width SD 41.6 fl (35.1-43.9); White Blood Count 8.2 K/mm3 (4.4-11.0)
[2024-11-02 12:28] LABS: ALB/GLOB Ratio 1.1 RATIO (0.9-2.4); AST(SGOT) 27 U/L (<=31); Alanine Aminotransfer ALT/SGPT 22 U/L (<=34); Alkaline Phosphatase 82 U/L (35-104); Anion Gap 12 (5-15); BUN 10 mg/dL (4-19); BUN/Creat Ratio 13.5 RATIO (10-20); Calcium,Total 9.5 mg/dL (7.6-11.0); Carbon Dioxide 26.6 mmol/L (21.0-32.0); Chloride 99 mmol/L (98-108); Creatinine, Serum 0.75 mg/dL (0.70-1.20); EST Glomerular Filtration Rate 88 (>60); Globulin 3.6 g/dL (2.2-4.2); Glucose 92 mg/dL (70-99); Potassium 3.5 mmol/L (3.3-5.1); Protein, Total 7.6 g/dL (5.9-8.4); Rheumatoid Factor < 10.0 IU/mL (<15); Sodium Level 137 mmol/L (133-145); Total Bilirubin 0.32 mg/dL (0.00-1.30)
[2024-11-03 12:08] LABS: ANTINUCLEAR ANTIBODIES DIRECT Negative (Negative)
[2024-11-09 17:08] LABS: Immunoglobulin A 247 mg/dL (87-352); Immunoglobulin E 20 IU/mL (6-495); Immunoglobulin G 1146 mg/dL (586-1602); Immunoglobulin M 64 mg/dL (26-217)
== END | disposition home or self-care (01) ==
PROVIDERS: PCP Nurse Practitioner Family; Referring Provider Specialist; Visit Provider Specialist
DX: J45.50 Severe persistent asthma, uncomplicated (principal); J30.9 Allergic rhinitis, unspecified; M35.9 Systemic involvement of connective tissue, unspecified
CPT/HCPCS: 36415; 80053; 82784; 82785; 85025; 86038; 86140; 86431

== ENCOUNTER 2025-02-15 05:58 | Day surgery (SDC) | payer MEDICARE, SELFPAY ==
[2025-02-15] VITALS (8 sets, daily range): BP systolic 102–146; BP diastolic 56–75; PULSE 59–76; RESP 16; TEMP 36.8–37.2; O2SAT 92–99; BMI 34.9
--- OUTSIDE RECORDS SUMMARY | 2025-02-15 06:19 | XMS RPT_ITS | CCD ---
Author Organization [facility] Care Team Providers Care Certified Rehabilitation Counselor Name Role Phone SALLY OCHOA APRN, CNP Primary Care Phys ician Sally Gonzalez CNP Primary Care Provider SALLY GONZALEZ Primary Care Unavailable Dr. Jackson Roman Chi Primary Care Provider [phone] Dr. Jackson Roman Chi Referring Provider FriendDr. Amor Attending Provider [phone] Lisa RADIO STATION MANAGER, RADIO STATION MANAGER-C Sally Daily Primary Care Pr ovider Lisa RADIO STATION MANAGER, RADIO STATION MANAGER-C Sally Daily Referring Provi shama FriendDr. Amor Other Provider Lisa RADIO STATION MANAGER, RADIO STATION MANAGER-C Sally Daily Primary Care Pr ovider Lisa RADIO STATION MANAGER, RADIO STATION MANAGER-C Sally Daily Referring Provi shama FriendDr. Amor Attending Provider [phone] FriendDr. Amor Other Provider SALLY OCHOA APRN, CNP Attending U navailable LISA WORLEY - DEANDRE, SALLY Rawls Primary Care U navailable LISA WORLEY - SALLY CARRERA Attending U navailable LISADESTIN WORLEY - DEANDRE, SALLY Rawls Primary Care U navailable Lisa RADIO STATION MANAGER-C, Sally Daily Primary Care Provi shama Lisa RADIO STATION MANAGER-CSally Attending Provider Lisa RADIO STATION MANAGER-C, Sally Daily Referring Provider LISA [facility] - DOG BEHAVIORIST, SALLY Rawls Primary Care U navailable LISA ACCESS ASSOC - DOG BEHAVIORIST, SALLY Rawls Attending U navailable LISA [facility]ESS ASSOC - DOG BEHAVIORIST, SALLY Rawls Primary Care U navailable HERBERT [facility]-DOG BEHAVIORIST, HAMIDA Hess Attending Un available Lisa RADIO STATION MANAGER-C, Sally Dialy Primary Care Provi shama Lisa RADIO STATION MANAGER-C, Sally Daily Attending Provider [place] RADIO STATION MANAGER-C, Sally Daily Referring Provider Dalila MENDEZ, Dr. Herrera Attending Provider Dalila MENDEZ, Dr. Herrera Referring Provider Herminia DO, Dr. Amor Attending Provider Lisa RADIO STATION MANAGER, Sally Daily Attending Unav ailable [place] RADIO STATION MANAGER, Sally Daily Referring Unav ailable [place] RADIO STATION MANAGER, Sally Daily Primary Care Unav ailable Lisa RADIO STATION MANAGER, Sally Daily Primary Care Unav ailable Lisa RADIO STATION MANAGER, Sally Daily Attending Unav ailable Lisa RADIO STATION MANAGER, Sally Daily Referring Unav ailable Lisa RADIO STATION MANAGER, Sally Daily Primary Care Unav ailable [place] RADIO STATION MANAGER, Sally Daily Attending Unav ailable Lisa RADIO STATION MANAGER, Sally Daily Referring Unav ailable Friend, Mt Attending Unavailable Lisa RADIO STATION MANAGER, Sally Daily Primary Care Unav ailable Friend, Mt Attending Unavailable [place] RADIO STATION MANAGER, Sally Daily Referring Unav ailable [place] RADIO STATION MANAGER, Sally Daily Primary Care Unav ailable [place] RADIO STATION MANAGER, Sally Daily Primary Care Unav ailable Friend, Mt Attending Unavailable [place] RADIO STATION MANAGER, Sally Daily Referring Unav ailable Javier Conner Attending Unavailable Javier Conner Referring Unavailable Lisa RADIO STATION MANAGER, Sally Daily Primary Care Unav ailable Allergies Allergy Classification Reported Allergen(s) Allergy Type Date of Onset Reaction(s) Facility (2 sources) Angiotensin-conv erting enzyme inhibitor agent; Translations: [angiotensin converting enzyme inhibitors] Drug allergy Cough, joint aches [facility] [place] Comment on above: lisinopril (12 sources) Erythromycin; Translations: [erythromycin] Drug Allergy 5 GI Upset [facility] [place] (2 sources) ct scan dye [Other] Propensity to adverse reactions 9 Rash [facility] Work Phone: (2 sources) seasonal rhinitis [Other] Propensity to adverse reactions 7 [facility] (1 source) OTHER; Translations: [OTHER] Propensity to adverse reactions (disorder) 9 [facility] (7 sources) Angiotensin Converting Enzyme (Cat) Inhibitors Allergy to substance [address] [facility] (1 source) Angiotensin Converting Enzyme (Cat) Inhibitors Drug allergy (disorder) [address] [facility] (1 source) Erythromycin Drug Allergy [address] [facility] Medications Current Medications Medication Drug Class(es) Dates Sig (Normalized) Sig (Original) albuterol MDI (90 mcg/inh) CFC free inhalation aerosol (1 source) Start: 05-05-2023 End: 11-01-2023 take 2 puff(s) by inhalation every six hours albuterol MDI (90 mcg/inh) CFC free inhalation aerosol 2 puff(s), Inhalation, q6h, # 18 gram(s), 5 Refill(s), Pharmacy: [facility], Seasonal asthma, 165, cm, 05/05/23 13:40:00 EDT, Height, kg, 05/05/23 13:40:00 EDT, Dosing Weight Start Date: 05/05/23 Stop Date: 11/01/23 Status: Ordered benzonatate 100 mg oral capsule (2 sources) Non-narcotic Antitussive Start: 10-12-2022 End: 10-19-2022 take 1 capsule by mouth every eight hours as needed for cough and cough benzonatate (TESSALON PERLES) 100 mg capsule Indications: Acute cough Take 1 capsule by mouth three times daily as needed for up to 7 days. 21 capsule 0 10/12/2022 10/19/2022 Active Comment on above: Take 1 capsule by mo ut three times daily as needed for up to 7 days. CoQ10 100 mg oral capsule (1 source) Start: 01-31-2022 take 1 mg by mouth once daily CoQ10 100 mg oral capsule mg = cap(s), Oral, qDay, 0 Refill(s) Start Date: 01/31/22 Status: Ordered dexamethasone 4 mg oral tablet (1 source) Corticosteroid Start: 09-18-2023 End: 09-25-2023 dexAMETHasone 4 mg oral tablet Dose : 4 mg = 1 tab(s), Oral, qDay, X 7 day(s), # 7 tab(s), 0 Refill(s), 09/25/23 2:25:00 PM EST, Pharmacy: [facility], Acute sinusitis with symptoms > 10 days, 165, cm, 09/18/23 13:42:00 EST, Height, kg, 09/18/23 13:42:00 EST, Dosing Weight Start Date: 09/18/23 Stop Date: 09/25/23 Status: Ordered doxycycline hyclate 100 mg oral capsule (1 source) Tetracycline-class Drug Start: 09-18-2023 End: 10-02-2023 doxycycline hyclate 100 mg oral capsule Dose : 100 mg = 1 cap(s), Oral, BID, X 14 day(s), # 28 cap(s), 0 Refill(s), 10/02/23 2:25:00 PM EDT, Pharmacy: [facility], Acute sinusitis with symptoms > 10 days, 165, cm, 09/18/23 13:42:00 EST, Height, 80.7, kg, 09/18/23 13:42:00 EST, Dosing Weight Start Date: 09/18/23 Stop Date: 10/02/23 Status: Ordered FLUoxetine 20 mg oral capsule (11 sources) Serotonin Reuptake Inhibitor Start: 05-05-2023 FLUoxetine 20 mg oral capsule Dose : 20 mg = 1 cap(s), Oral, qDay, # 90 cap(s), 1 Refill(s), Pharmacy: [facility], 165, cm, 05/05/23 13:40:00 EDT, Height, kg, 05/05/23 13:40:00 EDT, Dosing Weight Start Date: 05/05/23 Status: Ordered Start: 01-31-2022 End: 05-17-2024 take 1 capsule by mouth once daily Fluoxetine 10 mg capsule Discontinued 10 mg PO DAILY June 11, 2022 1:00am December 05, 2023 8:17am Comment on above: Take 10 mg by mouth. fluticasone propionate 0.05 mg/actuat metered dose nasal spray (2 sources) Corticosteroid Start : 10-12 End: 11-11 take 2 spray(s) by mouth once daily fluticasone (FLONASE) 50 mcg/actuation nasal spray Indications: Nasal congestion Use 2 Sprays in each nostril once daily. Rinse mouth after use. 1 Each 0 10/12/2022 11/11/2022 Active Comment on above: Use 2 Sprays in each nostril once daily. Rinse mouth after use. 12 hr guaiFENesin 1200 mg extended release oral tablet (1 source) Start : End: 10-01 guaiFENesin 1200 mg oral tablet, extended release Dose : 1,200 mg = 1 tab(s), Oral, q12h, X 14 day(s), # 28 tab(s), 0 Refill(s), 10/02/23 2:25:00 PM EDT, Pharmacy: [facility], Acute sinusitis with symptoms > 10 days, 165, cm, 09/18/23 13:42:00 EST, Height, kg, 09/18/23 13:42:00 EST, Dosing Weight Start Date: 09/18/23 Stop Date: 10/02/23 Status: Ordered hydroCHLOROthiazide 25 mg oral tablet (11 sources) Thiazide Diuretic Start : 06-26 End: 10-31 take 1 tablet by mouth once daily Hydrochlorothiazide 25 MG tablet Active 25 mg PO DAILY July 12, 2020 1:00am Comment on above: Take 1 tablet by wolf once daily. ibuprofen 200 mg oral tablet (2 sources) Nonsteroidal Anti-inflammatory Drug Start : 11-28 ibuprofen 200 mg oral tablet Dose : 400 mg = 2 tab(s), Oral, q6hr, PRN pain or fever, 0 Refill(s) Start Date: 11/28/21 Status: Ordered levocetirizine dihydrochloride 5 mg oral tablet (1 source) Histamine-1 Receptor Antagonist Start : 03-31 levocetirizine 5 mg oral tablet Dose : 5 mg = 1 tab(s), Oral, qHS, # 30 tab(s), 0 Refill(s) Start Date: 03/31/23 Status: Ordered loperamide hydrochloride 2 mg oral tablet (1 source) Opioid Agonist Start : End: 09-24 take 1 tablet by mouth once Imodium A-D 2 mg oral tablet Dose : 2 mg = 1 tab(s), Oral, q4h, not to exceed 8 capsules, or 16 mg, in 24 hours, X 7 day(s), # 42 tab(s), 0 Refill(s), 09/25/23 2:25:00 PM EST, Pharmacy: [facility], Diarrhea, 165, cm, 09/18/23 13:42:00 EST, Height, kg, 09/18/23 13:42:00 EST, Dosing Weight Start Date: 09/18/23 Stop Date: 09/25/23 Status: Ordered loratadine 10 mg oral tablet (5 sources) Start : 12-04 take 1 tablet by mouth once daily Loratadine (Claritin) 10 mg tablet Active 10 mg PO DAILY December 05, 2023 12:00am LORATADINE (CLAR ITIN ORAL) Take 1 tablet by mouth as needed. 0 Active Comment on above: Take 1 tablet by wolf th as needed. Multivitamin preparation (6 sources) Start: 10-11-2022 take 1 tablet by mouth once daily Multivitamin Active 1 TABLET PO DAILY October 10, 2022 11:00pm Start: 10-11-2022 take 1 tablet by wolf th once daily Multivitamin Active 1 TABLET PO DAILY October 11, 2022 12:00am Start: 01-31-2022 take 1 tablet by wolf th once daily Multivitamin Dose = 1 tab(s), Oral, Daily, 0 Refill(s) Start Date: 01/31/22 Status: Ordered omeprazole 20 mg delayed release oral capsule (3 sources) Proton Pump Inhibitor Start: 04-12-2024 take 1 capsule by mouth once daily Omeprazole 20 mg capsule,delayed release(DR/EC) Active 20 mg PO daily April 12, 2024 12:00am Completed/Discontinued Medications Medication Drug Class(es) Dates Sig (Normalized) Sig (Original) cetirizine hydrochloride 10 mg oral capsule (8 sources) Histamine-1 Receptor Antagonist Start: 06-11-2022 End: 12-05-2023 take 1 capsule by mouth once daily Cetirizine (Zyrtec) 10 mg capsule Discontinued 10 mg PO DAILY June 11, 2022 1:00am December 05, 2023 8:17am Start: 07-10-2021 take 1 mg by mouth once daily Zyrtec 10 mg oral tablet mg = tab(s), Oral, qDay, 0 Refill(s) Start Date: 07/10/21 Status: Ordered citalopram 20 mg oral tablet (9 sources) Serotonin Reuptake Inhibitor Start: 07-12-2020 End: 06-11-2022 take 1 tablet by mouth at bedtime Citalopram 20 MG tablet Discontinued 20 mg PO AT BEDTIME July 12, 2020 1:00am June 11, 2022 5:59pm Comment on above: Take 20 mg by mouth once daily. DULoxetine 20 mg delayed release oral capsule (3 sources) Serotonin and Norepinephrine Reuptake Inhibitor Start: 12-05-2023 End: 04-12-2024 take 1 capsule by mouth once daily Duloxetine (Cymbalta) 20 mg capsule,delayed release(DR/EC) Discontinued 20 mg PO DAILY December 05, 2023 12:00am April 12, 2024 2:33pm Hydrocortisone / Lidocaine (7 sources) Antiarrhythmic, Corticosteroid, Amide Local Anesthetic Start: 06-11-2022 End: 12-05-2023 Hydrocortisone 2.5% / Lidocaine 5% Ointment (Cmpd) [Hydrocortisone 2.5%/Lidocaine 5% Ointment (Compound)] (Hydrocortisone ) ointment Discontinued 0 .Route June 11, 2022 1:00am December 05, 2023 8:19am As directed Start: 06-11-2022 Hydrocortisone 2.5% / Lidocaine 5% Ointment (Cmpd) [Hydrocortisone 2.5%/Lidocaine 5% Ointment (Compound)] (Hydrocortisone ) ointment Active 0 .ROUTE June 11, 2022 12:00am As directed Start: 06-11-2022 Hydrocortisone 2.5% / Lidocaine 5% Ointment (Cmpd) [Hydrocortisone 2.5%/Lidocaine 5% Ointment (Compound)] (Hydrocortisone ) ointment Active 0 .ROUTE June 11, 2022 1:00am As directed linaclotide 0.145 mg oral capsule (3 sources) Guanylate Cyclase-C Agonist Start: 12-30-2023 End: 04-12-2024 take 1 capsule by mouth once daily in the morning Linaclotide (Linzess) 145 mcg capsule Discontinued 145 ug PO EVERY MORNING December 30, 2023 12:00am April 12, 2024 2:33pm montelukast 10 mg oral tablet (1 source) Leukotriene Receptor Antagonist Start: 05-05-2023 End: 07-04-2023 Singulair 10 mg oral tablet Dose : 10 mg = 1 tab(s), Oral, qDay, # 90 tab(s), 1 Refill(s), Pharmacy: [facility], Seasonal allergies, 165, cm, 05/05/23 13:40:00 EDT, Height, kg, 05/05/23 13:40:00 EDT, Dosing Weight Start Date: 05/05/23 Stop Date: 07/04/23 Status: Ordered Multivitamin Tablet (3 sources) Start: 10-11-2022 End: 12-05-2023 Multivitamin Tablet Discontinued 1 {tbl} PO DAILY October 11, 2022 12:00am December 05, 2023 8:18am plecanatide 3 mg oral tablet (3 sources) Start: 12-18-2023 End: 12-30-2023 take 1 tablet by mouth once daily in the morning Plecanatide (Trulance) 3 mg tablet Discontinued 3 mg PO DAILY December 18, 2023 12:00am December 30, 2023 8:40am Take one tablet by mouth every morning Problems Active Problems Problem Classification Problem Date Documented Da te Episodic/Chronic Anxiety disorders (2 sources) Generalized anxiety disorder 01-31-2022 Chronic Asthma (2 sources) Seasonal asthma; Translations: [Severe persistent asthma, uncomplicated] Onset: 5 02-03-2023 Chronic Diverticulosis and diverticulitis (16 sources) Diverticulitis of large intestine without perforation or abscess without bleeding; Translations: [Diverticulitis of colon (without mention of hemorrhage)] Onset: 7 05-18-2007 Chronic Esophageal disorders (4 sources) Gastroesophageal reflux disease; 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] 02-03-2023 Chronic Essential hypertension (10 sources) Hypertensive disorder; Translations: [Essential hypertension] Onset: 4 07-30-2019 Chronic Genitourinary symptoms and ill-defined conditions (2 sources) Dysuria; Translations: [Dysuria] Onset: 4 Episodic Hemorrhoids (1 source) Hemorrhoids 06-04-2022 Episodic Lymphadenitis (1 source) Axillary lymphadenopathy 04-17-2020 Episodic Other gastrointestinal disorders (7 sources) Constipation; Translations: [Constipation, unspecified] 09-06-2022 Episodic Other gastrointestinal disorders (2 sources) Constipation, unspecified; Translations: [Constipation, unspecified] 09-06-2022 Episodic Other gastrointestinal disorders (5 sources) Dysphagia; Translations: [Dysphagia, unspecified] 04-16-2023 Episodic Other gastrointestinal disorders (3 sources) Incontinence of feces; Translations: [Full incontinence of feces] 12-05-2023 Episodic Other lower respiratory disease (2 sources) Air trapping 04-07-2020 Episodic Other lower respiratory disease (1 source) Cough; Translations: [Acute cough] Episodic Other skin disorders (2 sources) Lichen sclerosus et atrophicus; Translations: [Circumscribed scleroderma] Onset: 4 12-22-2013 Chronic Other upper respiratory disease (2 sources) Seasonal allergy 07-30-2019 Chronic Other upper respiratory disease (1 source) Allergic rhinitis, unspecified; Translations: [Allergic rhinitis, unspecified] Onset: 5 Chronic Other upper respiratory disease (1 source) Nasal congestion; Translations: [Nasal congestion] Episodic Other upper respiratory infections (2 sources) Sinusitis; Translations: [Chronic sinusitis, unspecified] Onset: 4 12-22-2013 Chronic Other upper respiratory infections (1 source) Acute upper respiratory infection; Translations: [Acute upper respiratory infection, unspecified] Episodic Residual codes; unclassified (2 sources) Family history of breast cancer 04-17-2020 Episodic Residual codes; unclassified (2 sources) Increased body mass index 01-31-2022 Episodic Screening and history of mental health and substance abuse codes (7 sources) H/O: depression; Translations: [Personal history of other mental and behavioral disorders] 07-15-2013 Episodic Unclassified (7 sources) Patient encounter status 04-03-2020 Unclassified (1 source) Other specified cough; Translations: [Other specified cough] Onset: Past or Other Problems Problem Classification Problem Date Documented Da te Episodic/Chronic Nonmalignant breast conditions (1 source) Unspecified lump in the right breast, upper outer quadrant; Translations: [Unspecified lump in the right breast, upper outer quadrant] Onset: 10-08-2024 Episodic Other and unspecified benign neoplasm (2 sources) Lipoma (clinical); Translations: [Benign lipomatous neoplasm, unspecified] Onset: 12-22-2013 12-22-2013 Episodic Other screening for suspected conditions (not mental disorders or infectious disease) (1 source) Encounter for screening mammogram for malignant neoplasm of breast; Translations: [Encounter for screening mammogram for malignant neoplasm of breast] Onset: 07-15-2024 Episodic Results Test Name Value Interpretation Reference Range Facility Gastroenterology Visit Repor ton 12-03-2024 Gastroenterology Visit Report [facility] [address] [place] [address] OFFICE VISIT Date of Service: 12/03/24 MR#: [id number] Acct: [id number] Name: ADE VILLAR Rep #: [id number] : 1955 Provider: Mt Hope DO Age/Sex: 69/F Location: [facility] [place] Status: Signed Intake Vital Signs 06/05/23 07:13 Height 5 ft Intake Visit Reasons: 6 M FU Allergies CAT Inhibitors Allergy (Intermediate, Verified 06/03/23 09:39) Other erythromycin base Adverse Reaction (Verified 06/03/23 09:39) Upset Stomach Have you fallen in the past year?: No PFSH Medical History (Updated 12/03/24 @ 09:[address] Mt Hope DO) Anxiety Arthritis Difficulty swallowing Wears glasses Post-menopausal Depression Bladder disease Restless legs Non-smoker Shortness of breath on exertion History of edema History of stress test Cardiology follow-up encounter Diverticulitis Lymphadenopathy, axillary HTN (hypertension) [place] (generalized anxiety disorder) Rectal prolapse Hemorrhoids Abdominal pain Diverticulosis of sigmoid colon Surgical History (Updated 06/03/23 @ 09:47 by Loraine Casper) Hx of colonoscopy Hx of rotator cuff surgery History of Family History Sister Breast cancer Hypertension Thyroid disorder Father Kidney disease Mother Thyroid disorder Social History Smoking Status: Never smoker HPI HPI Details: ADE VILLAR, is a 69 F who presents to the office today for follow up. GI Hx diverticulitis with hospitalization. PMH anxiety, HTN, hyperinflation of lung, axillary lymphadenopathy Colonoscopy approximately 8-10 years prior without polyps *BGI established 09.06.22 with referral from PCP. Constipation (straining with difficulty initiating BM that is relieved with manual manipulation. Stool is then soft/formed but thin, BM occur daily) is an issue recently with subsequent intermittent BRBPR with concern for hemorrhoids, rectal pain and fecal smearing approximately 3 times a week, though not consistent. Focuses on increased dietary fiber following diverticulitis; if she does not feel she gets enough during the day she supplements with Metamucil. Has noted decreased movement r/t husbands??? recent hospitalizations. Colonoscopy 11.12.22 colonic diverticulosis; congested mucosa; nonbleeding internal hemorrhoids, banded. Random biopsy TA. OV 11.27.22 BM in the morning with initial incomplete evacuation and second evacuation with complete; no straining but will sometimes use perineal pressure, but not as often. Bleeding has resolved. Notes some chronic urinary difficulty which she has discussed with PCP and will follow up with PCP and/or urology in the future. Contact 04.14.23 reporting being seen by ENT who said she needed EGD for hoarse voice; also reports pain with swallowing. ? 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 H.Pylori neg. OV 07.01.23 continues to have some pain with swallowing; reports recent family emergency with family member being life-flighted. Reports a lot of anxiety/stress/depress ion of recent months and this could be the reason she continues to have pain with swallowing and epigastric upset. Has a concern that a hemorrhoid has returned; she has been having difficult BM as she has not been consistent with her fiber intake. OV 5.17.24 pt reports that she has been experiencing fecal incontinence when she is moving around during her day; reports this happens 2-3 times a week. Pt reports that she may have a hemorrhoid. Pt reports at least one formed bm per day; denies blood in the stool. Reports that her difficulty swallowing has improved since LV and that it occurs maybe once every 2 weeks if she takes too big of a bite. SITZ 5.2023 Day 3 Colonic fecal retention is noted. Sitz markers are seen from the splenic flexure to the rectosigmoid colon level. Day 5 A single Sitz marker is in the mid to distal d escending colon. OV 9.23.24 pt reports that she is feeling well overall and denies GI symptoms of concern at this time. Pt states that she has occasional gas and bloating and will take a Gas-X which she reports is effective. OV 5.16.25- Pt states she is well since last visit. States she has a hemorrhoid that has flared up due to eating some prunes. Continues with Omeprazole 20mg QD. Denies heartburn, abd pain, dysphagia N V. ROS Const Constitutional: No fatigue, fever(s) or weight change ENT ENT: No difficulty swallowing Gastro GI: No abdominal pain, belching, bloating, change in bowel habits, change in stool character, coffee ground emesis, constipation, cramping, diarrhea, heartburn, d (more content not included)... Normal [facility] 4 COMMENT Normal . [facility] Comment on above: Order Comment: [id number] 0MBL TIGER RT Result Comment: Test Ordered: [id number] Mannose Binding Lectin (MBL) Test(s) 866630-[id number] Binding Lectin (MBL) This test was developed and its performance characteristics determined by [facility]. It has not been cleared or approved by the Food and Drug Administration. Mannose Binding Lectin (MBL) 2460 ng/mL Reference Range: . Low: 0 - 50 Intermediate: 51 - 500 Normal: >500 Performed at: [address] [id number] [employer] Operator: Mukund Marlow MD, Phone: [phone] Performed at: [facility] [address] [place] [id number] [employer] Operator: Ted Collins PhD, Phone: [phone] Performed By: #### L 500.4100, L501.9985, L500.4050 #### [facility] [address] [place], [address] Immunoglobulins G/A/M/Ricco IMMUNOGLOB A QN 247 mg/dL Normal 87-[address] [facility] Comment on above: Order Comment: N Performed By: #### L 500.4100, L501.9985, L500.4050 #### [facility] [address] [place], [place], [facility] IMMUNOGLOB E QN 20 IU/mL Normal 6-[address] [facility] Comment on above: Order Comment: N Result Comment: Perf ormed at: [facility] [employer] [id number] [employer] Operator: Ted Collins PhD, Phone: [phone] Performed at: [address] [id number] [employer] Operator: Mukund Marlow MD, Phone: [phone] Performed By: #### L 500.4100, L501.9985, L500.4050 #### [facility] [address] [place], [address] IMMUNOGLOB G QN 1146 mg/dL Normal 586-[address] [facility] Comment on above: Order Comment: N Performed By: #### L 500.4100, L501.9985, L500.4050 #### [facility] [address] [place], [address] IMMUNOGLOB M QN 64 mg/dL Normal 26-[address] [facility] Comment on above: Order Comment: N Performed By: #### L 500.4100, L501.9985, L500.4050 #### [facility] [address] [place], [place], [id number] AYDIN w/ Reflex Mult Confirmon 11-03-2024 AYDIN,DIRECT Negative Normal Negative [facility] Comment on above: Result Comment: Perf ormed at: - [facility] [address] [place], [place] [id number] [employer] Operator: Ted Collins PhD, Phone: [phone] Performed By: #### L 500.4100, L501.9923, L500.4050 #### [facility] [address] [place], [place], [id number] AYDIN serumOrdered By: Javier larson on 11-02-2024 Anti-Nuclear Antibody Screen Negative Negative [facility] Comment on above: Performed at: [facility] [address] [id number] Director: Ted Collins PhD, Phone: [phone] Absolute lymphocyte countOrd ered By: Javier Conner on 11-02-2024 Lymphocytes Auto (Unsp spec) [#/Vol] 2.40 10*3/uL 0.83-4.[address] [facility] Absolute neutrophil countOrd ered By: Javier Conner on 11-02-2024 Neutrophils (Bld) [#/Vol] 4.7 10*3/uL 2.0-7.[address] [facility] Anion gap in Serum or Plasma Ordered By: Javier Conner on 11-02-2024 Anion gap [Moles/Vol] 12 mmol/L 5- [facility] Automated lymphocyte count a s percentage of total leukocytesOrdered By: Javier Conner on 11-02-2024 Lymphocytes/100 WBC Auto (Unsp spec) 29.1 % -[address] [facility] BUN/creatinine ratioOrdered By: Javier Conner on 11-02-2024 Urea nitrogen/Creatinine [Mass ratio] 13.5 mg/mg 10-[address] [facility] Basophil percentageOrdered B y: Javier Conner on 11-02-2024 Basophils/100 WBC (Bld) 0.4 % 0-1 [facility] Bilirubin, totalOrdered By: Javier Conner on 11-02-2024 Bilirubin [Mass/Vol] 0.32 mg/dL 0.00-1.30 [facility] CBC W/Diff, Automatedon 10-19 Absolute Lymph 2.40 X10 3/uL Normal 0.83-4.[address] [facility] Comment on above: Performed By: #### L 500.4100, L501.9985, L500.4050 #### [facility] [address] [place], [address] Absolute Neut 4.7 X10 3/uL Normal 2.0-7.[address] [facility] Comment on above: Performed By: #### L 500.4100, L501.9985, L500.4050 #### [facility] [address] [place], [address] Basophils/100 WBC (Bld) 0.4 % Normal 0-1 [facility] Comment on above: Performed By: #### L 500.4100, L501.9985, L500.4050 #### [facility] [address] [place], [address] Eosinophils/100 WBC (Bld) 1.8 % Normal 0-[address] [facility] Comment on above: Performed By: #### L 500.4100, L501.9985, L500.4050 #### [facility] [address] [place], [address] Erythrocyte distribution width (RBC) [Ratio] 12.5 % Normal 11.6-14.[address] [facility] Comment on above: Performed By: #### L 500.4100, L501.9985, L500.4050 #### [facility] [address] [place], [address] Hematocrit (Bld) [Volume fraction] 41.6 % Normal 37-[address] [facility] Comment on above: Performed By: #### L 500.4100, L501.9985, L500.4050 #### [facility] [address] [place], [address] Hemoglobin (Bld) [Mass/Vol] 13.9 g/dL Normal 12.0-15.[address] [facility] Comment on above: Performed By: #### L 500.4100, L501.9985, L500.4050 #### [facility] [address] [place], [address] IG% 0.400 Normal 0.0-0.[address] [facility] Comment on above: Result Comment: IG% - Immature Granulocytes (promyelocytes, myelocytes and metamyelocytes) > 1% indicates that a LEFT SHIFT is Present. Performed By: #### L 500.4100, L501.9985, L500.4050 #### [facility] [address] [place], [address] Lymphocytes/100 WBC (Bld) 29.1 % Normal 19-[address] [facility] Comment on above: Performed By: #### L 500.4100, L501.9985, L500.4050 #### [facility] [address] [place], [address] MCH (RBC) [Entitic mass] 30.2 pg Normal 27.0-32.[address] [facility] Comment on above: Performed By: #### L 500.4100, L501.9985, L500.4050 #### [facility] [address] [place], [address] MCHC (RBC) [Mass/Vol] 33.4 g/dL Normal 32-36 [facility] Comment on above: Performed By: #### L 500.4100, L501.9985, L500.4050 #### [facility] [address] [place], [address] MCV (RBC) [Entitic vol] 90.4 fL Normal 81-99 [facility] Comment on above: Performed By: #### L 500.4100, L501.9985, L500.4050 #### [facility] [address] [place], [address] Monocytes/100 WBC (Bld) 10.9 % High 0-10 [facility] Comment on above: Performed By: #### L 500.4100, L501.9985, L500.4050 #### [facility] [address] [place], [address] Neutrophils/100 WBC (Bld) 57.4 % Normal 47-[address] [facility] Comment on above: Performed By: #### L 500.4100, L501.9985, L500.4050 #### [facility] [address] [place], [address] Nucleated RBC (Bld) [#/Vol] 0 10*3/uL Normal 0-[address] [facility] Comment on above: Performed By: #### L 500.4100, L501.9985, L500.4050 #### [facility] [address] [place], [address] Platelet mean volume (Bld) [Entitic vol] 10.7 fL Normal 6.2-12.[address] [facility] Comment on above: Performed By: #### L 500.4100, L501.9985, L500.4050 #### [facility] [address] [place], [address] Platelets (Bld) [#/Vol] 383 10*3/uL Normal 150-[address] [facility] Comment on above: Performed By: #### L 500.4100, L501.9985, L500.4050 #### [facility] [address] [place], [address] RBC (Bld) [#/Vol] 4.60 10*6/uL Normal 4.2-5.4 [facility] Comment on above: Performed By: #### L 500.4100, L501.9985, L500.4050 #### [facility] [address] [place], [address] RDW SD 41.6 fl Normal 35.1-43.[address] [facility] Comment on above: Performed By: #### L 500.4100, L501.9985, L500.4050 #### [facility] [address] [place], [address] WBC (Bld) [#/Vol] 8.2 10*3/uL Normal 4.4-11.0 [facility] Comment on above: Performed By: #### L 500.4100, L501.9985, L500.4050 #### [facility] [address] [place], [address] CRPon 11-02-2024 C-REACTIVE PROT 19.50 mg/L High 0.0-3.[address] [facility] Comment on above: Performed By: #### L 500.4100, L501.9985, L500.4050 #### [facility] [address] [place], [address] CRP [Mass/Vol]Ordered By: Sa maia Conner on 11-02-2024 C-Reactive Protein Extended Range 19.50 mg/L High 0.0-3.[address] [facility] Carbon dioxide, total [Moles /volume] in Central venous bloodOrdered By: Javier Conner on 11-02-2024 CO2 [Moles/Vol] 26.6 mmol/L 21.0-32.[address] [facility] Centromere B antibody assayO rdered By: Javier Conner on 11-02-2024 Centromere B Antibody TNP [facility] Comment on above: Test not performed Chloride assayOrdered By: Sa maia Conner on 11-02-2024 Chloride [Moles/Vol] 99 mmol/L 98-108 [facility] Chromatin antibody assayOrde red By: Javier Conner on 11-02-2024 Antichromatin Antibodies TNP [facility] Comment on above: Test not performed Comprehensive Metabolic Prof ilon 11-02-2024 Albumin [Mass/Vol] 4.0 g/dL Normal 3.4-4.8 [facility] Comment on above: Performed By: #### L 500.4100, L501.9985, L500.4050 #### [facility] [address] [place], [address] Albumin/Globulin [Mass ratio] 1.1 {ratio} Normal 0.9-2.[address] [facility] Comment on above: Performed By: #### L 500.4100, L501.9985, L500.4050 #### [facility] [address] [place], [address] ALK PHOS 82 U/L Normal 35-[address] [facility] Comment on above: Performed By: #### L 500.4100, L501.9985, L500.4050 #### [facility] [address] [place], [address] ALT [Catalytic activity/Vol] 22 U/L Normal <=[address] [facility] Comment on above: Performed By: #### L 500.4100, L501.9985, L500.4050 #### [facility] [address] [place], [address] AST [Catalytic activity/Vol] 27 U/L Normal <=[address] [facility] Comment on above: Performed By: #### L 500.4100, L501.9985, L500.4050 #### [facility] [address] [place], [address] Bilirubin [Mass/Vol] 0.32 mg/dL Normal 0.00-1.30 [facility] Comment on above: Performed By: #### L 500.4100, L501.9985, L500.4050 #### [facility] [address] [place], [address] BUN/CRE 13.5 RATIO Normal 10-[address] [facility] Comment on above: Performed By: #### L 500.4100, L501.9985, L500.4050 #### [facility] [address] [place], [address] Calcium [Mass/Vol] 9.5 mg/dL Normal 7.6-11.0 [facility] Comment on above: Performed By: #### L 500.4100, L501.9985, L500.4050 #### [facility] [address] [place], [address] Chloride [Moles/Vol] 99 mmol/L Normal 98-108 [facility] Comment on above: Performed By: #### L 500.4100, L501.9985, L500.4050 #### [facility] [address] [place], [address] CO2 [Moles/Vol] 26.6 mmol/L Normal 21.0-32.[address] [facility] Comment on above: Performed By: #### L 500.4100, L501.9985, L500.4050 #### [facility] [address] [place], [address] Creatinine [Mass/Vol] 0.75 mg/dL Normal 0.70-1.20 [facility] Comment on above: Performed By: #### L 500.4100, L501.9985, L500.4050 #### [facility] [address] [place], [address] GAP 12 Normal 5-[address] [facility] Comment on above: Performed By: #### L 500.4100, L501.9985, L500.4050 #### [facility] [address] [place], [address] GFR/1.73 sq M.predicted among non-blacks MDRD (S/P/Bld) [Vol rate/Area] 88 mL/min/{1.73_m2} Normal >[address] [facility] Comment on above: Result Comment: mL/m in/1.73m2 CKD-EPI Creatinine Equation (2020) Performed By: #### L 500.4100, L501.9985, L500.4050 #### [facility] [address] [place], [address] Globulin (S) [Mass/Vol] 3.6 g/dL Normal 2.2-4.2 [facility] Comment on above: Performed By: #### L 500.4100, L501.9985, L500.4050 #### [facility] [address] [place], [address] Glucose [Mass/Vol] 92 mg/dL Normal 70-99 [facility] Comment on above: Performed By: #### L 500.4100, L501.9985, L500.4050 #### [facility] [address] [place], [address] Potassium [Moles/Vol] 3.5 mmol/L Normal 3.3-5.1 [facility] Comment on above: Performed By: #### L 500.4100, L501.9985, L500.4050 #### [facility] [address] [place], [address] Sodium [Moles/Vol] 137 mmol/L Normal 133-145 [facility] Comment on above: Performed By: #### L 500.4100, L501.9985, L500.4050 #### [facility] [address] [place], [address] T PROT 7.6 g/dL Normal 5.9-8.[address] [facility] Comment on above: Performed By: #### L 500.4100, L501.9985, L500.4050 #### [facility] [address] [place], [address] Urea nitrogen [Mass/Vol] 10 mg/dL Normal 4-[address] [facility] Comment on above: Performed By: #### L 500.4100, L501.9985, L500.4050 #### [facility] [address] [place], [address] DNA double strand Ab Qn (S)O rdered By: Javier Conner on 11-02-2024 Anti-Double Strand DNA Antibody TNP [facility] Comment on above: Test not performed Eosinophil percentageOrdered By: Javier Conner on 11-02-2024 Eosinophils/100 WBC (Bld) 1.8 % 0-[address] [facility] Erythrocyte distribution wid th (RBC) [Ratio]Ordered By: Javiersinai Conner on 11-02-2024 Erythrocyte distribution width (RBC) [Entitic vol] 41.6 fL 35.1-43.[address] [facility] Erythrocyte distribution wid th ratioOrdered By: Javiersinai Conner on 11-02-2024 Erythrocyte distribution width (RBC) [Ratio] 12.5 % 11.6-14.[address] [facility] Erythrocyte distribution wid th standard deviationOrdered By: Javiersinai Conner on 11-02-2024 Erythrocyte distribution width (RBC) [Ratio] 41.6 fl 35.1-43.[address] [facility] GFR/1.73 sq M.predicted florinda g non-blacks MDRD (S/P/Bld) [Vol rate/Area]Ordered By: Javier Conner on 11-02-2024 Estimated GFR (MDRD) Non-Af Amer [address] [facility] Comment on above: mL/min/1.73m2 CKD-EP I Creatinine Equation (2020) Glomerular filtration rate ( GFR) estimation/1.73 sq m using serum, plasma, or whole bOrdered By: Javier Conner on 11-02-2024 GFR/1.73 sq M.predicted among non-blacks MDRD (S/P/Bld) [Vol rate/Area] 88 mL/min/{1.73_m2} >[address] [facility] Comment on above: mL/min/1.73m2 CKD-EP I Creatinine Equation (2020) Hematocrit Auto (Bld) [Volum e fraction]Ordered By: Javier Conner on 11-02-2024 Hematocrit (Bld) [Volume fraction] 41.6 % 37-[address] [facility] Hemoglobin measurementOrdere d By: Javier Conner on 11-02-2024 Hemoglobin (Bld) [Mass/Vol] 13.9 g/dL 12.0-15.[address] [facility] IgA [Mass/Vol]Ordered By: Sa maia Conner on 11-02-2024 Immunoglobulin A 247 mg/dL 87-[address] [facility] IgEOrdered By: Javier Conner on 11-02-2024 IgE 20 IU/mL [address] [place] [address] Comment on above: Performed at: [employer] [address] Director: Ted Collins PhD, Phone: [phone] at: [employer] [id number] Director: Mukund Marlow MD, Phone: [phone] Immunoglobulin E 20 IU/mL [address] [place] [address] Comment on above: Performed at: [employer] [address] [id number] Director: Ted Collins PhD, Phone: [phone] at: [employer] [address] [id number] Director: Mukund Marlow MD, Phone: [phone] IgG [Mass/Vol]Ordered By: Sa maia Conner on 11-02-2024 Immunoglobulin G 1146 mg/dL [phone] [facility] Immature granulocytes/100 WB C Auto (Bld)Ordered By: Javier Conner on 11-02-2024 Immature granulocytes/100 WBC (Bld) 0.400 % 0.0-0.[address] [facility] Comment on above: IG% - Immature Granu locytes (promyelocytes, myelocytes and metamyelocytes) > 1% indicates that a LEFT SHIFT is Present. Immunoglobulin M measurement Ordered By: Javiersinai Conner on 11-02-2024 Immunoglobulin M 64 mg/dL 26-[address] [facility] Kyleigh-1 antibody assayOrdered B y: Javiersinai Conner on 11-02-2024 KYLEIGH-[address] [facility] Comment on above: Test not performed Laboratory - Chemistry and C hemistry - challengeOrdered By: Javiersinai Conner on 11-02-2024 AST [Catalytic activity/Vol] 27 U/L <[address] [facility] Lymphocytes Auto (Unsp spec) [#/Vol]Ordered By: [facility] on 11-02-2024 Lymphocytes (Bld) [#/Vol] 2.40 10*3/uL 0.83-4.[address] [facility] Lymphocytes/100 WBC Auto (Un sp spec)Ordered By: Javiersinai Conner on 11-02-2024 Lymphocytes/100 WBC (Bld) 29.1 % 19-[address] [facility] MCV (mean corpuscular volume ) determinationOrdered By: Javiersinai Conner on 11-02-2024 MCV (RBC) [Entitic vol] 90.4 fL 81-99 [facility] Mean corpuscular hemoglobin (MCH) determinationOrdered By: Javiersinai Conner 11-02-2024 MCH (RBC) [Entitic mass] 30.2 pg 27.0-32.[address] [facility] Mean corpuscular hemoglobin concentration (MCHC) determinationOrdered By: Javiersinai Conner on 11-02-2024 MCHC (RBC) [Mass/Vol] 33.4 g/dL 32-36 [facility] Mean platelet volume determi nationOrdered By: [facility] Dalila on 11-02-2024 Platelet mean volume (Bld) [Entitic vol] 10.7 fL 6.2-12.[address] [facility] Monocyte percentageOrdered B y: Javier Conner on 11-02-2024 Monocytes/100 WBC (Bld) 10.9 % High 0-10 [facility] Neutrophil percentageOrdered By: Javiersinai Conner on 11-02-2024 Neutrophils/100 WBC (Bld) 57.4 % 47-[address] [facility] Nucleated red blood cell per centageOrdered By: Javier Conenr on 11-02-2024 Nucleated RBC/100 WBC (Bld) [Ratio] 0 % 0-[address] [facility] Platelet countOrdered By: Sa maia Conner on 11-02-2024 Platelets (Bld) [#/Vol] 383 10*3/uL 150-[address] [facility] Potassium (Unsp spec) [Mass/ Vol]Ordered By: Javier Conner on 11-02-2024 Potassium [Moles/Vol] 3.5 mmol/L 3.3-5.1 [facility] Potassium measurement (mass/ volume)Ordered By: Javier Conner on 11-02-2024 Potassium (Unsp spec) [Mass/Vol] 3.5 mmol/L 3.3-5.[address] [facility] RBC Auto (Bld) [#/Vol]Ordere d By: Javier Conner on 11-02-2024 RBC (Bld) [#/Vol] 4.60 10*6/uL 4.2-5.4 [facility] NANNY/HOUSEHOLD MANAGER abOrdered By: Javier pedersen on 11-02-2024 NANNY/HOUSEHOLD MANAGER Antibody [facility] Comment on above: Test not performed Rheumatoid Factoron 11-03-19 RHEUMATOID FAC < 10.0 Normal <[address] [facility] Comment on above: Performed By: #### L 500.4100, L501.9985, L500.4050 #### [facility] [address] [place] [address], [address] Rheumatoid factor Ql (S)Orde red By: Javier Conner on 11-02-2024 Rheumatoid Factor < 10.0 IU/mL <15 [facility] SCL-70 extractable nuclear A b Qn (S)Ordered By: Javier Conner on 11-02-2024 Scl-70 (Scleroderma) Antibody [facility] Comment on above: Test not performed SS-A IgG antibody assayOrder ed By: Javier Conner on 11-02-2024 SS-A/Ro IgG Antibody [facility] Comment on above: Test not performed SS-B IgG antibody assayOrder ed By: Javier Conner on 11-02-2024 SS-B/La [facility] Comment on above: Test not performed Serum DNA double strand anti body assay (units/volume)Ordered By: Javier Conner on 11-02-2024 DNA double strand Ab Qn (S) [facility] Comment on above: Test not performed Serum Scl-70 antibody assay (units/volume)Ordered By: Javier Conner on 11-02-2024 SCL-70 extractable nuclear Ab Qn (S) [facility] Comment on above: Test not performed Serum creatinine measurement (mass/volume)Ordered By: Javier Conner on 11-02-2024 Creatinine [Mass/Vol] 0.75 mg/dL 0.70-1.20 [facility] Serum globulin measurementOr dered By: Javier Conner on 11-02-2024 Globulin (S) [Mass/Vol] 3.6 g/dL 2.2-4.2 [facility] Serum glucose measurement (m ass/volume)Ordered By: Javier Conner on 11-02-2024 Glucose [Mass/Vol] 92 mg/dL 70-99 [facility] Serum or plasma C reactive p rotein measurement (mass/volume)Ordered By: Javier Conner on 11-02-2024 CRP [Mass/Vol] 19.50 mg/L High 0.0-3.[address] [facility] Serum or plasma IgA measurem ent (mass/volume)Ordered By: Javier Conner on 11-02-2024 IgA [Mass/Vol] 247 mg/dL 87-[address] [facility] Serum or plasma IgG measurem ent (mass/volume)Ordered By: Javier Conner on 11-02-2024 IgG [Mass/Vol] 1146 mg/dL 586-[address] [facility] Serum or plasma alanine casillas otransferase (ALT) measurementOrdered By: Javier Conner on 11-02-2024 ALT [Catalytic activity/Vol] 22 U/L <[address] [facility] Serum or plasma albumin jen urement (mass/volume)Ordered By: Javier Conner on 11-02-2024 Albumin [Mass/Vol] 4.0 g/dL 3.4-4.8 [facility] Serum or plasma albumin/glob ulin mass ratioOrdered By: Javier Conner on 11-02-2024 Albumin/Globulin [Mass ratio] 1.1 {ratio} 0.9-2.[address] [facility] Serum or plasma alkaline flakita sphatase measurementOrdered By: Javier Conner on 11-02-2024 ALP [Catalytic activity/Vol] 82 U/L 35-[address] [facility] Serum or plasma calcium jen urement (mass/volume)Ordered By: Javier Conner on 11-02-2024 Calcium [Mass/Vol] 9.5 mg/dL 7.6-11.0 [facility] Serum or plasma urea nitroge n measurement (mass/volume)Ordered By: Javier Conner on 11-02-2024 Urea nitrogen [Mass/Vol] 10 mg/dL 4-[address] [facility] Serum rheumatoid factor dete ctionOrdered By: Javier Conner on 11-02-2024 Rheumatoid factor Ql (S) < 10.0 IU/mL <[address] [facility] Crocker antibody assayOrdered By: Javier Conner on 11-02-2024 SM Antibody TNP [facility] Comment on above: Test not performed Sodium levelOrdered By: Javier Conner on 11-02-2024 Sodium [Moles/Vol] 137 mmol/L 133-145 [facility] Total proteinOrdered By: Alexis Conner on 11-02-2024 Protein [Mass/Vol] 7.6 g/dL 5.9-8.4 [facility] White blood cell (WBC) count Ordered By: Javier Conner on 11-02-2024 WBC (Bld) [#/Vol] 8.2 10*3/uL 4.4-11.0 [facility] .GFRon 10-18-2024 Estimated Glomerular Filtration Rate 82 ml/min/1.73sqm Normal [facility] Comment on above: Result Comment: Stages of Chronic Kidney Disease (CKD) Stage Description eGFR(ml/min/1.73 sq.m.) CKD 1 Normal kidney function or >=90 normal kindney function with possible kidney damage (ex. Proteinuria) CKD 2 Kidney damage with mild loss 60-89 of kidney function CKD 3a Mild to moderate loss of kidney 45-59 function CKD 3b Moderate to severe loss of 30-44 of kindey function CKD 4 Severe loss of kidney function 15-29 CKD 5 Kidney failure <15 Note: (go live 2024) the eGFR calculation was updated to the 2020 CKD-EPI creatinine equation without a race factor to calculate the eGFR results. Performed By: #### C BC, MORPH, DIFF, CMP, GFR, LIPID, VIDH #### [place] [address] .Manual Diffon 10-18-2024 Atypical Lymphs 3.0 % Normal 0.0-5.0 [facility] Comment on above: Performed By: #### C BC, MORPH, DIFF, CMP, GFR, LIPID, VIDH #### [place] [address] Aytpical Lymph, Abs Manual 0.5 10 3/mcL Normal 0.0-0.5 [facility] Comment on above: Performed By: #### C BC, MORPH, DIFF, CMP, GFR, LIPID, VIDH #### [place] [address] Bands 1.0 % Normal 0.0-5.0 [facility] Comment on above: Performed By: #### C BC, MORPH, DIFF, CMP, GFR, LIPID, VIDH #### [place] [address] Basophil %, Manual 1.0 % Normal 0.0-2.5 [facility] Comment on above: Performed By: #### C BC, MORPH, DIFF, CMP, GFR, LIPID, VIDH #### [place] [address] Basophil, Abs Manual 0.2 10 3/mcL Normal 0.0-0.2 [facility] Comment on above: Performed By: #### C BC, MORPH, DIFF, CMP, GFR, LIPID, VIDH #### [address] [address] Eosinophil %, Manual 3.0 % Normal 0.0-7.0 [facility] Comment on above: Performed By: #### C BC, MORPH, DIFF, CMP, GFR, LIPID, VIDH #### [address] [address] Eosinophil, Abs Manual 0.5 10 3/mcL Normal 0.0-0.7 [facility] Comment on above: Performed By: #### C BC, MORPH, DIFF, CMP, GFR, LIPID, VIDH #### [address] [address] Lymphocyte %, Manual 7.0 % Low 20.0-40.0 [facility] Comment on above: Performed By: #### C BC, MORPH, DIFF, CMP, GFR, LIPID, VIDH #### [address] [address] Lymphocyte, Abs Manual 1.2 10 3/mcL Normal 0.9-4.3 [facility] Comment on above: Performed By: #### C BC, MORPH, DIFF, CMP, GFR, LIPID, VIDH #### [address] [address] Monocyte %, Manual 8.0 % Normal 2.0-13.0 [facility] Comment on above: Performed By: #### C BC, MORPH, DIFF, CMP, GFR, LIPID, VIDH #### [address] [address] Monocyte, Abs Manual 1.4 10 3/mcL Normal 0.1-1.4 [facility] Comment on above: Performed By: #### C BC, MORPH, DIFF, CMP, GFR, LIPID, VIDH #### [address] [address] Neutrophil %, Manual 77.0 % High 50.0-75.0 [facility] Comment on above: Performed By: #### C BC, MORPH, DIFF, CMP, GFR, LIPID, VIDH #### [address] [address] Neutrophil, Abs Manual 13.7 10 3/mcL High 2.3-8.1 [facility] Comment on above: Performed By: #### C BC, MORPH, DIFF, CMP, GFR, LIPID, VIDH #### [address] [address] Nucleated RBC 0.0 /100 WBC Normal [facility] Comment on above: Performed By: #### C BC, MORPH, DIFF, CMP, GFR, LIPID, VIDH #### [address] [address] .Morphon 10-18-2024 Hyperseg 1+ Normal [facility] Comment on above: Performed By: #### C BC, MORPH, DIFF, CMP, GFR, LIPID, VIDH #### [address] [address] Large Platelets Few Normal [facility] Comment on above: Performed By: #### C BC, MORPH, DIFF, CMP, GFR, LIPID, VIDH #### [address] [address] Platelet Estimate Normal Normal [facility] Comment on above: Performed By: #### C BC, MORPH, DIFF, CMP, GFR, LIPID, VIDH #### [address] [address] Stomatocytes 1+ Normal [facility] Comment on above: Performed By: #### C BC, MORPH, DIFF, CMP, GFR, LIPID, VIDH #### [address] [address] Toxic Gran 1+ Normal [facility] Comment on above: Performed By: #### C BC, MORPH, DIFF, CMP, GFR, LIPID, VIDH #### [address] [address] Vacuolated Neutrophils 1+ Normal [facility] Comment on above: Performed By: #### C BC, MORPH, DIFF, CMP, GFR, LIPID, VIDH #### [address] [address] CBCon 10-18-2024 Erythrocyte distribution width (RBC) [Ratio] 14.1 % Normal 11.5-15.5 [facility] Comment on above: Performed By: #### C BC, MORPH, DIFF, CMP, GFR, LIPID, VIDH #### [address] [address] Hematocrit (Bld) [Volume fraction] 43.5 % Normal 34.0-46.0 [facility] Comment on above: Performed By: #### C BC, MORPH, DIFF, CMP, GFR, LIPID, VIDH #### [address] [address] Hgb 14.7 G/dL Normal 12.0-16.0 [facility] Comment on above: Performed By: #### C BC, MORPH, DIFF, CMP, GFR, LIPID, VIDH #### [address] [address] MCH (RBC) [Entitic mass] 30.6 pg Normal 27.0-33.0 [facility] Comment on above: Performed By: #### C BC, MORPH, DIFF, CMP, GFR, LIPID, VIDH #### [address] [address] MCHC 33.7 G/dL Normal 32.0-36.0 [facility] Comment on above: Performed By: #### C BC, MORPH, DIFF, CMP, GFR, LIPID, VIDH #### [address] [address] MCV (RBC) [Entitic vol] 90.8 fL Normal 80.0-99.0 [facility] Comment on above: Performed By: #### C BC, MORPH, DIFF, CMP, GFR, LIPID, VIDH #### [address] [address] Platelet 237 10 3/mcL Normal 150-450 [facility] Comment on above: Performed By: #### C BC, MORPH, DIFF, CMP, GFR, LIPID, VIDH #### [address] [address] Platelet mean volume (Bld) [Entitic vol] 9.5 fL Normal 6.6-10.5 [facility] Comment on above: Performed By: #### C BC, MORPH, DIFF, CMP, GFR, LIPID, VIDH #### [address] [address] RBC 4.80 10 6/mcL Normal 4.10-5.30 [facility] Comment on above: Performed By: #### C BC, MORPH, DIFF, CMP, GFR, LIPID, VIDH #### [address] [address] WBC 17.5 10 3/mcL High 4.5-10.8 [facility] Comment on above: Performed By: #### C BC, MORPH, DIFF, CMP, GFR, LIPID, VIDH #### [address] [address] CMPon 10-18-2024 Albumin Level 4.1 G/dL Normal 3.4-4.8 [facility] Comment on above: Performed By: #### C BC, MORPH, DIFF, CMP, GFR, LIPID, VIDH #### [address] [address] Albumin/Globulin [Mass ratio] 1.1 {ratio} Normal 1.1-2.5 [facility] Comment on above: Performed By: #### C BC, MORPH, DIFF, CMP, GFR, LIPID, VIDH #### [address] [address] ALP [Catalytic activity/Vol] 88 U/L Normal 40-135 [facility] Comment on above: Performed By: #### C BC, MORPH, DIFF, CMP, GFR, LIPID, VIDH #### [address] [address] ALT [Catalytic activity/Vol] 33 U/L Normal 14-59 [facility] Comment on above: Performed By: #### C BC, MORPH, DIFF, CMP, GFR, LIPID, VIDH #### [address] [address] AST [Catalytic activity/Vol] 20 U/L Normal 10-40 [facility] Comment on above: Performed By: #### C BC, MORPH, DIFF, CMP, GFR, LIPID, VIDH #### [address] [address] Bili Total 0.6 mg/dL Normal 0.2-1.0 [facility] Comment on above: Result Comment: Use of this assay is not recommended for patients undergoing treatment with eltrombopag due to the potential for falsely elevated results. Performed By: #### C BC, MORPH, DIFF, CMP, GFR, LIPID, VIDH #### [address] [address] BUN/Creatinine Ratio 10 ratio Normal 7-27 [facility] Comment on above: Performed By: #### C BC, MORPH, DIFF, CMP, GFR, LIPID, VIDH #### [address] [address] Calcium [Mass/Vol] 9.7 mg/dL Normal 8.4-10.2 [facility] Comment on above: Performed By: #### C BC, MORPH, DIFF, CMP, GFR, LIPID, VIDH #### [address] [address] Chloride [Moles/Vol] 98 mmol/L Normal 98-107 [facility] Comment on above: Performed By: #### C BC, MORPH, DIFF, CMP, GFR, LIPID, VIDH #### [address] [address] CO2 [Moles/Vol] 30 mmol/L Normal 23-31 [facility] Comment on above: Performed By: #### C BC, MORPH, DIFF, CMP, GFR, LIPID, VIDH #### [address] [address] Creatinine [Mass/Vol] 0.79 mg/dL Normal 0.55-1.02 [facility] Comment on above: Result Comment: Test ing performed on [place] Dimension EXL analyzer using a modified kinetic Anjali technique. Performed By: #### C BC, MORPH, DIFF, CMP, GFR, LIPID, VIDH #### [address] [address] Electrolyte Balance 8.0 mEq/L Normal 4.0-15.0 [facility] Comment on above: Performed By: #### C BC, MORPH, DIFF, CMP, GFR, LIPID, VIDH #### [address] [address] Globulin 3.9 G/dL High 1.5-3.8 [facility] Comment on above: Performed By: #### C BC, MORPH, DIFF, CMP, GFR, LIPID, VIDH #### [address] [address] Glucose [Mass/Vol] 95 mg/dL Normal 80-115 [facility] Comment on above: Performed By: #### C BC, MORPH, DIFF, CMP, GFR, LIPID, VIDH #### [address] [address] Potassium [Moles/Vol] 3.9 mmol/L Normal 3.5-5.1 [facility] Comment on above: Performed By: #### C BC, MORPH, DIFF, CMP, GFR, LIPID, VIDH #### [address] [address] Sodium [Moles/Vol] 136 mmol/L Normal 136-145 [facility] Comment on above: Performed By: #### C BC, MORPH, DIFF, CMP, GFR, LIPID, VIDH #### [address] [address] Total Protein 8.0 G/dL Normal 6.4-8.2 [facility] Comment on above: Performed By: #### C BC, MORPH, DIFF, CMP, GFR, LIPID, VIDH #### [address] [address] Urea nitrogen [Mass/Vol] 8 mg/dL Normal 7-18 [facility] Comment on above: Performed By: #### C BC, MORPH, DIFF, CMP, GFR, LIPID, VIDH #### [address] [address] LIPIDon 10-18-2024 Cholesterol [Mass/Vol] 211 mg/dL High 0-200 [facility] Comment on above: Result Comment: Chol esterol Reference Interval: Less than 200 Desirable 200-239 Borderline high risk 240 and above High risk Performed By: #### C BC, MORPH, DIFF, CMP, GFR, LIPID, VIDH #### [address] [address] Cholesterol in HDL [Mass/Vol] 70 mg/dL High 40-60 [facility] Comment on above: Performed By: #### C BC, MORPH, DIFF, CMP, GFR, LIPID, VIDH #### [address] [address] Cholesterol in LDL [Mass/Vol] 95 mg/dL Normal 0-130 [facility] Comment on above: Performed By: #### C BC, MORPH, DIFF, CMP, GFR, LIPID, VIDH #### [address] [address] Triglyceride [Mass/Vol] 231 mg/dL High 0-150 [facility] Comment on above: Result Comment: Trig lyceride Reference Interval: Less than 150 Normal 150-199 Borderline high risk 200-499 High risk 500 or higher Very high risk Performed By: #### C BC, MORPH, DIFF, CMP, GFR, LIPID, VIDH #### [address] [address] VIDHon 10-18-2024 Vit. D 25-Hydroxy 36.8 ng/mL Normal [facility] Comment on above: Result Comment: Inte rpretive Values Based on Total 25(OH) Vitamin D: Deficient <20 ng/mL Insufficient 20 - <30 ng/mL Sufficient 30-100 ng/mL Performed By: #### C BC, MORPH, DIFF, CMP, GFR, LIPID, VIDH #### [address] [address] Albumin DL <= 20 mg/L (U) [M ass/Vol]Ordered By: Sally Gonzalez on 09-28-2024 Urine Random Microalbumin < 12.0 mg/L NO RANGE EST. [facility] Anion gap in Serum or Plasma Ordered By: Sally Gonzalez on 09-28-2024 Anion gap [Moles/Vol] 11 mmol/L 5-15 [facility] BUN/creatinine ratioOrdered By: Sally Gonzalez on 09-28-2024 Urea nitrogen/Creatinine [Mass ratio] 13.9 mg/mg 10-[address] [facility] Bilirubin, totalOrdered By: Sally Gonzalez on 09-28-2024 Bilirubin [Mass/Vol] 0.47 mg/dL 0.00-1.30 [facility] Breast Limited Unilateralon 09-28-2024 Breast Limited Unilateral [facility] Imaging Services [address] [place], [place] [address] Breast Limited Unilateral MR#: [id number] Acct: [id number] Name: ADE VILLAR Rep #: [id number] : [id number] F [id number] From: Lou Rodriguez MD PCP: VINAY Acevedo Status: REG CLI Study: Breast Limited Unilateral Date of Exam: Exam# [id number] Ordering Dr: Sally Gonzalez NP [employer] PROCEDURE: BREAST LIMITED UNILATERAL REASON FOR EXAM: 68-year-old female presents with palpable concern with associated pain in her right axilla. Family history of breast cancer in her sister and maternal great aunt. TECHNIQUE: Targeted right axilla ultrasound. COMPARISON: Mammogram 06/15/2024 FINDINGS: RIGHT: Ultrasound performed of the area of palpable concern with associated pain in the right axilla demonstrates a prominent architecturally normal-appearing lymph node with preserved fatty derrell and normal cortical thickness, measuring 2.4 x 1.3 x 0.7 cm. Otherwise, there are no suspicious sonographic findings. US/Breast Limited Unilateral IMPRESSION: Palpable area of concern with associated pain in the right axilla correlates to a normal right axillary lymph node. There are no suspicious sonographic findings. BI-RADS 2: BENIGN. RECOMMEND ANNUAL MAMMOGRAPHIC SCREENING. Follow-up code: Routine Follow-up Reading Location: [id number] CC: VINAY Gonzalez Chip Separator: Signed Normal [facility] Calculated very low density lipoprotein (VLDL) cholesterol measurementOrdered By: Sally Gonzalez on 09-28-2024 Calculated very low density lipoprotein (VLDL) cholesterol measurement 35 mg/dL 5-[address] [facility] VLDL Cholesterol 35 mg/dL 5-[address] [facility] Carbon dioxide, total [Moles /volume] in Central venous bloodOrdered By: Sally Gonzalez on 09-28-2024 CO2 [Moles/Vol] 25.8 mmol/L 21.0-32.[address] [facility] Chloride assayOrdered By: Brandy Gonzalez on 09-28-2024 Chloride [Moles/Vol] 100 mmol/L 98-108 [facility] Comprehensive Metabolic Prof ilon 09-28-2024 Albumin [Mass/Vol] 4.2 g/dL Normal 3.4-4.8 [facility] Comment on above: Performed By: #### L 500.4100, L501.9985, L500.4050 #### [facility] [address] [place], [address] Albumin/Globulin [Mass ratio] 1.4 {ratio} Normal 0.9-2.[address] [facility] Comment on above: Performed By: #### L 500.4100, L501.9985, L500.4050 #### [facility] [address] [place], [address] ALK PHOS 76 U/L Normal 35-[address] [facility] Comment on above: Performed By: #### L 500.4100, L501.9985, L500.4050 #### [facility] [address] [place], [address] ALT [Catalytic activity/Vol] 27 U/L Normal <=[address] [facility] Comment on above: Performed By: #### L 500.4100, L501.9985, L500.4050 #### [facility] [address] [place], [address] AST [Catalytic activity/Vol] 26 U/L Normal <=[address] [facility] Comment on above: Performed By: #### L 500.4100, L501.9985, L500.4050 #### [facility] [address] [place], [address] Bilirubin [Mass/Vol] 0.47 mg/dL Normal 0.00-1.30 [facility] Comment on above: Performed By: #### L 500.4100, L501.9985, L500.4050 #### [facility] [address] [place], [address] BUN/CRE 13.9 RATIO Normal 10-[address] [facility] Comment on above: Performed By: #### L 500.4100, L501.9985, L500.4050 #### [facility] [address] [place], [address] Calcium [Mass/Vol] 9.4 mg/dL Normal 7.6-11.0 [facility] Comment on above: Performed By: #### L 500.4100, L501.9985, L500.4050 #### [facility] [address] [place], [address] Chloride [Moles/Vol] 100 mmol/L Normal 98-108 [facility] Comment on above: Performed By: #### L 500.4100, L501.9985, L500.4050 #### [facility] [address] [place], [address] CO2 [Moles/Vol] 25.8 mmol/L Normal 21.0-32.[address] [facility] Comment on above: Performed By: #### L 500.4100, L501.9985, L500.4050 #### [facility] [address] [place], [address] Creatinine [Mass/Vol] 0.64 mg/dL Low 0.70-1.20 [facility] Comment on above: Performed By: #### L 500.4100, L501.9985, L500.4050 #### [facility] [address] [place], [address] GAP 11 Normal 5-[address] [facility] Comment on above: Performed By: #### L 500.4100, L501.9985, L500.4050 #### [facility] [address] [place], [address] GFR/1.73 sq M.predicted among non-blacks MDRD (S/P/Bld) [Vol rate/Area] 97 mL/min/{1.73_m2} Normal >[address] [facility] Comment on above: Result Comment: mL/m in/1.73m2 CKD-EPI Creatinine Equation (2020) Performed By: #### L 500.4100, L501.9985, L500.4050 #### [facility] [address] [place], [address] Globulin (S) [Mass/Vol] 3.0 g/dL Normal 2.2-4.2 [facility] Comment on above: Performed By: #### L 500.4100, L501.9985, L500.4050 #### [facility] [address] [place], [address] Glucose [Mass/Vol] 98 mg/dL Normal 70-99 [facility] Comment on above: Performed By: #### L 500.4100, L501.9985, L500.4050 #### [facility] [address] [place], [address] Potassium [Moles/Vol] 3.3 mmol/L Normal 3.3-5.1 [facility] Comment on above: Performed By: #### L 500.4100, L501.9985, L500.4050 #### [facility] [address] [place], [address] Sodium [Moles/Vol] 137 mmol/L Normal 133-145 [facility] Comment on above: Performed By: #### L 500.4100, L501.9985, L500.4050 #### [facility] [address] [place], [address] T PROT 7.2 g/dL Normal 5.9-8.[address] [facility] Comment on above: Performed By: #### L 500.4100, L501.9985, L500.4050 #### [facility] [address] [place], [address] Urea nitrogen [Mass/Vol] 9 mg/dL Normal 4-[address] [facility] Comment on above: Performed By: #### L 500.4100, L501.9985, L500.4050 #### [facility] [address] [place], [address] Creatinine Unsp time (U) [Ma ss/Vol]Ordered By: Sally Gonzalez on 09-28-2024 Creatinine (U) [Mass/Vol] 75.70 mg/dL 28-[address] [facility] GFR/1.73 sq M.predicted florinda g non-blacks MDRD (S/P/Bld) [Vol rate/Area]Ordered By: Sally Gonzalez on 09-28-2024 Estimated GFR (MDRD) Non-Af Amer [address] [facility] Comment on above: mL/min/1.73m2 CKD-EP I Creatinine Equation (2020) Glomerular filtration rate ( GFR) estimation/1.73 sq m using serum, plasma, or whole bOrdered By: Sally Gonzalez on 09-28-2024 GFR/1.73 sq M.predicted among non-blacks MDRD (S/P/Bld) [Vol rate/Area] 97 mL/min/{1.73_m2} >[address] [facility] Comment on above: mL/min/1.73m2 CKD-EP I Creatinine Equation (2020) L506.1001on 09-28-2024 Vitamin D 25-OH 25.8 ng/mL Low 30-[address] [facility] Comment on above: Result Comment: Sophia min D Status Deficiency: <20 ng/mL (50nmol/L) Insufficiency: 20-30 ng/mL (50-75 nmol/L) Sufficiency: 30-100 ng/mL (75-250 nmol/L) Toxicity: >100 ng/mL (>250 nmol/L) Performed By: #### L 500.4100, L501.9985, L500.4050 #### [facility] [address] [place], [address] LDL calc ser/plasOrdered By: Sally Gonzalez on 09-28-2024 Cholesterol in LDL [Mass/Vol] 91 mg/dL [facility] Comment on above: Nxqsyujqlb=056-124 m g/dL & Higher Akng=469 mg/dL or greater LDL Cholesterol, Calculated 91 mg/dL [facility] Comment on above: Yznqxutlzi=469-036 m g/dL & Higher Dfpm=741 mg/dL or greater Laboratory - Chemistry and C hemistry - challengeOrdered By: Sally Gonzalez on 09-28-2024 AST [Catalytic activity/Vol] 26 U/L <[address] [facility] Lipid Profileon 09-28-2024 CHOL:HDL 3.[address] [facility] Comment on above: Performed By: #### L 502.0250, L500.4100, L506.1001, L500.4050 #### [facility] [address], [address] Cholesterol [Mass/Vol] 186 mg/dL Normal <=200 [facility] Comment on above: Result Comment: Chol esterol level, Desirable <200 mg/dL Borderline high cholesterol 200-239 mg/dL High cholesterol >=240 mg/dL Recommendations of the NCEP Adult Treatment Panel for the following risk-cutoff thresholds for the [place] population. Performed By: #### L 502.0250, L500.4100, L506.1001, L500.4050 #### [facility] [address] [place], [address] Cholesterol in HDL [Mass/Vol] 60 mg/dL Normal [facility] Comment on above: Result Comment: [place] onal Cholesterol Education Program (NCEP) guidelines: <40 mg/dL: Low HDL-cholesterol (major risk factor for CHD) >= 60 mg/dL: High HDL-cholesterol (negative risk factor for CHD) HDL-cholesterol is affected by a number of factors, e.g. smoking, exercise, hormones, sex and age. Performed By: #### L 502.0250, L500.4100, L506.1001, L500.4050 #### [facility] [address] [place], [address] Cholesterol in LDL [Mass/Vol] 91 mg/dL Normal [facility] Comment on above: Result Comment: Bord zrnkil=720-371 mg/dL Higher Pfje=899 mg/dL or greater Performed By: #### L 502.0250, L500.4100, L506.1001, L500.4050 #### [facility] [address] [place], [address] Cholesterol in VLDL [Mass/Vol] 35 mg/dL Normal 5-[address] [facility] Comment on above: Performed By: #### L 502.0250, L500.4100, L506.1001, L500.4050 #### [facility] [address] [place], [address] Triglyceride [Mass/Vol] 174 mg/dL Normal [facility] Comment on above: Result Comment: The drugs N-Acetylcysteine and Metamizole may falsely depress this assay. Normal range: <150 mg/dL Borderline High: 150-199 mg/dL High: 200-499 mg/dL Very High: >500 mg/dL Performed By: #### L 502.0250, L500.4100, L506.1001, L500.4050 #### [facility] [address] [place], [address] Microalb:Creat Ratio,Random URon 09-28-2024 Creatinine [Mass/Vol] 75.70 mg/dL Normal [facility] Comment on above: Performed By: #### L 502.0250, L500.4100, L506.1001, L500.4050 #### [facility] [address] [place], [address] MALB:CREAT UNABLE TO CALCULATE Normal [facility] Comment on above: Performed By: #### L 502.0250, L500.4100, L506.1001, L500.4050 #### [facility] [address] [place], [address] MICROALBUMIN,UR < 12.0 Normal NO RANGE EST. [facility] Comment on above: Performed By: #### L 502.0250, L500.4100, L506.1001, L500.4050 #### [facility] [address] [place], [address] Microalbumin/creat ratio urO rdered By: Sally Gonzalez on 09-28-2024 Urine Microalbumin/Creatinine Ratio UNABLE TO CALCULATE mg/g CRE [facility] Urine microalbumin/creatinine ratio measurement UNABLE TO CALCULATE mg/g CRE [facility] Potassium (Unsp spec) [Mass/ Vol]Ordered By: Sally Gonzalez on 09-28-2024 Potassium [Moles/Vol] 3.3 mmol/L 3.3-5.1 [facility] Potassium measurement (mass/ volume)Ordered By: Sally Gonzalez on 09-28-2024 Potassium (Unsp spec) [Mass/Vol] 3.3 mmol/L 3.3-5.[address] [facility] Random urine creatinine jen urement (mass/volume)Ordered By: Sally Gonzalez on 09-28-2024 Creatinine Unsp time (U) [Mass/Vol] 75.70 mg/dL [facility] Screening total cholesterol/ high density lipoprotein (HDL) cholesterol ratioOrdered By: Sally Gonzalez on 09-28-2024 Cholesterol.total/Niru sterol in HDL [Mass ratio] 3.09 {ratio} [facility] Serum creatinine measurement (mass/volume)Ordered By: Sally Gonzalez on 09-28-2024 Creatinine [Mass/Vol] 0.64 mg/dL Low 0.70-1.20 [facility] Serum globulin measurementOr dered By: Sally Gonzalez on 09-28-2024 Globulin (S) [Mass/Vol] 3.0 g/dL 2.2-4.2 [facility] Serum glucose measurement (m ass/volume)Ordered By: Sally Gonzalez on 09-28-2024 Glucose [Mass/Vol] 98 mg/dL 70-99 [facility] Serum or plasma alanine casillas otransferase (ALT) measurementOrdered By: Sally Gonzalez on 09-28-2024 ALT [Catalytic activity/Vol] 27 U/L <[address] [facility] Serum or plasma albumin jen urement (mass/volume)Ordered By: Sally Gonzalez on 09-28-2024 Albumin [Mass/Vol] 4.2 g/dL 3.4-4.8 [facility] Serum or plasma albumin/glob ulin mass ratioOrdered By: Sally Gonzalez on 09-28-2024 Albumin/Globulin [Mass ratio] 1.4 {ratio} 0.9-2.[address] [facility] Serum or plasma alkaline flakita sphatase measurementOrdered By: Sally Gonzalez on 09-28-2024 ALP [Catalytic activity/Vol] 76 U/L 35-[address] [facility] Serum or plasma calcium jen urement (mass/volume)Ordered By: Sally Gonzalez on 09-28-2024 Calcium [Mass/Vol] 9.4 mg/dL 7.6-11.0 [facility] Serum or plasma cholesterol in HDL measurement (mass/volume)Ordered By: Sally Gonzalez on 09-28-2024 Cholesterol in HDL [Mass/Vol] 60 mg/dL >[address] [facility] Comment on above: National Cholesterol Education Program (NCEP) guidelines:<40 mg/dL: Low HDL-cholesterol (major risk factor for CHD)>= 60 mg/dL: High HDL-cholesterol (negative risk factor for CHD)HDL-cholesterol is affected by a number of factors, e.g. smoking, exercise, hormones, sex and age. Serum or plasma cholesterol measurement (mass/volume)Ordered By: Sally Gonzalez on 09-28-2024 Cholesterol [Mass/Vol] 186 mg/dL <201 [facility] Comment on above: Cholesterol level, D esirable <200 mg/dLBorderline high cholesterol 200-239 mg/dLHigh cholesterol >=240 mg/dLRecommendations of the NCEP Adult Treatment Panel for the following risk-cutoff thresholds for the [place] population. Serum or plasma urea nitroge n measurement (mass/volume)Ordered By: Sally Gonzalez on 09-28-2024 Urea nitrogen [Mass/Vol] 9 mg/dL 4-[address] [facility] Sodium levelOrdered By: Luis Gonzalez on 09-28-2024 Sodium [Moles/Vol] 137 mmol/L 133-145 [facility] Total proteinOrdered By: Jamaal Gonzalez on 09-28-2024 Protein [Mass/Vol] 7.2 g/dL 5.9-8.4 [facility] Triglycerides measurementOrd ered By: Sally Gonzalez on 09-28-2024 Triglyceride [Mass/Vol] 174 mg/dL <199 [facility] Comment on above: The drugs N-Acetylcy steine and Metamizole may falsely depress this assay. Normal range: <150 mg/dLBorderline High: 150-199 mg/dLHigh: 200-499 mg/dLVery High: >500 mg/dL Urine albumin measurement [facility] detection limit of 20 mg/L or less (mass/volume)Ordered By: Sally Gonzalez on 09-28-2024 Albumin DL <= 20 mg/L (U) [Mass/Vol] < 12.0 mg/L NO RANGE EST. [facility] Vitamin D, 25-hydroxyOrdered By: Sally Gonzalez on 09-28-2024 Vitamin D 25-Hydroxy 25.8 ng/mL Low 30-100 [facility] Comment on above: Vitamin D StatusDefi ciency: <20 ng/mL (50nmol/L)Insufficiency: 20-30 ng/mL (50-75 nmol/L)Sufficiency: 30-100 ng/mL (75-250 nmol/L)Toxicity: >100 ng/mL (>250 nmol/L) Dexa Bone Density Studyon Dexa Bone Density Study [facility] Imaging Services [address] [place] [address] Dexa Bone Density Study MR#: [id number] Acct: [id number] Name: ADE VILLAR Rep #: [id number] : 1955 F 68 From: Manjeet castillo MD PCP: VINAY Acevedo Status: REG CLI Study: Dexa Bone Density Study Date of Exam: 06/15/24 Exam# [id number] Ordering Dr: Sally Gonzalez NP [id number] STUDY: DUAL ENERGY X-RAY ABSORPTIOMETRY / DXA REASON FOR EXAM: Female, 68 years old. [id number] TECHNIQUE: Bone Mineral Density (BMD) measurements of lumbar spine and bilateral hips were obtained. COMPARISON: None. FINDINGS: Lumbar Spine (L1-L4): g/cm2 (1.315) / T-score (2.4) / Z-score (4.4) Findings are suggestive of normal bone density with a low fracture risk. Left Femur Total: g/cm2 (0.898) / T-score (-0.4) / Z-score (1.0) Left Femoral Neck: g/cm2 (0.807) / T-score (-0.4) / Z-score (1.3) Right Femur Total: g/cm2 (0.895) / T-score (-0.4) / Z-score (1.0) Right Femoral Neck: g/cm2 (0.785) / T-score (-0.6) / Z-score (1.1) BD/Dexa Bone Density Study IMPRESSION: The patient is considered normal as outlined below according to World Lonnie Organization (WHO) criteria with a low fracture risk. Reference Information: The T-score is the number of standard deviations above or below the standard which is normal for young adults at their peak bone mineral density. The World Health Organization (WHO) interprets the T-scores as follows: Above -1 Normal bone density Between -1 and -2.5 Osteopenia Equal to / or below -2.5 Osteoporosis As a practical clinical guideline, osteopenia may be graded as follows: Mild -1 through -1.5 Moderate -1.6 through -2.0 Severe -2.1 through -2.4 The Z-score is the number of standard deviations above or below age-matched controls. A Z-score of less than -1.5 would be considered abnormal. References: 1. NIH Osteoporosis and Related Bone Diseases www osteo.org 2. International Society for Clinical Densitometry www iscd.org 3. National Osteoporosis Foundation www nof.org Electronically Signed: Manjeet Owens MD at 14:41 EST Reading Location ID and State: [facility] / [place] , Service support , CC: VINAY Gonzalez Chip Separator: Signed Normal [facility] SCRN MAMM (CAD)W/MINDI BILATo n 06-15-2024 SCRN MAMM (CAD)W/MINDI BILAT [facility] Imaging Services [address] [place], [place] [id number] SCRN MAMM (CAD)W/MINDI BILAT MR#: [id number] Acct: [id number] Name: ADE VILLAR Rep #: [id number] : 1955 F 68 From: Sally Greene MD PCP: VINAY Acevedo Status: REG CLI Study: SCRN MAMM (CAD)W/MINDI BILAT Date of Exam: 05/22 01/11 Exam# [id number] Ordering Dr: Sally Gonzalez NP [id number] MAMMOGRAPHY - BILATERAL SCREENING 3-D TOMOSYNTHESIS REASON FOR EXAM: Female, 68 years old. SCREENING PERTINENT HISTORY: No significant family history. TECHNIQUE: 2-D mammograms and 3-D Tomosynthesis of the breast (s) were performed. CAD was performed. COMPARISON: 02/10/2023 FINDINGS: The breast composition is composed of scattered fibroglandular density. Scattered benign calcifications are seen. No dense spiculated masses or suspicious microcalcifications are identified. No architectural distortion is identified. There is no skin thickening or retraction. There has been no significant change since the prior study. BI/SCRN MAMM (CAD)W/MINDI BILAT IMPRESSION: No mammographic signs of malignancy. Routine yearly mammograms recommended. ASSESSMENT CATEGORY: BIRADS Category 1: Negative. A letter regarding these results will be sent to the patient by the facility within 30 days. FOLLOW UP RECOMMENDATION: Yearly follow up mammogram recommended. (A) Approximately 10% of breast cancers are not detected by mammography. A normal mammogram should not delay biopsy of a clinically suspicious abnormality. Electronically Signed: Sally Greene MD at 14:50 EST , CC: VINAY Gonzalez Chip Separator: Signed Normal [facility] Comprehensive Metabolic Prof perryon 05-12-2024 Albumin [Mass/Vol] 3.6 g/dL Normal 3.2-5.0 [facility] Comment on above: Performed By: #### L 500.4100, L501.9985, L500.4050 #### [facility] [place], [address] Albumin/Globulin [Mass ratio] 0.9 {ratio} Normal 0.9-2.[address] [facility] Comment on above: Performed By: #### L 500.4100, L501.9985, L500.4050 #### [facility] [address] [place], [address] ALK P 90 U/L Normal 45-[address] [facility] Comment on above: Performed By: #### L 500.4100, L501.9985, L500.4050 #### [facility] [address] [place], [address] ALT [Catalytic activity/Vol] 65 U/L High 13-[address] [facility] Comment on above: Performed By: #### L 500.4100, L501.9985, L500.4050 #### [facility] [address] [place], [address] AST [Catalytic activity/Vol] 55 U/L High 15-[address] [facility] Comment on above: Result Comment: Mode rate Hemolysis, Result may be falsely increased. Performed By: #### L 500.4100, L501.9985, L500.4050 #### [facility] [address] [place], [address] Bilirubin [Mass/Vol] 0.40 mg/dL Normal 0.20-1.00 [facility] Comment on above: Result Comment: For patients on eltrombopag therapy, use of Dimension Lee TBIL is not recommended. Performed By: #### L 500.4100, L501.9985, L500.4050 #### [facility] [address] [place], [address] BUN/CRE 14.3 RATIO Normal 10-[address] [facility] Comment on above: Performed By: #### L 500.4100, L501.9985, L500.4050 #### [facility] [address] [place], [address] CA,Total 9.4 mg/dL Normal 8.5-10.[address] [facility] Comment on above: Performed By: #### L 500.4100, L501.9985, L500.4050 #### [facility] [address] [place], [address] Chloride [Moles/Vol] 103 mmol/L Normal 98-107 [facility] Comment on above: Performed By: #### L 500.4100, L501.9985, L500.4050 #### [facility] [address] [place], [address] CO2 [Moles/Vol] 26.0 mmol/L Normal 21.0-32.[address] [facility] Comment on above: Performed By: #### L 500.4100, L501.9985, L500.4050 #### [facility] [address] [place], [address] Creatinine [Mass/Vol] 0.70 mg/dL Normal 0.55-1.02 [facility] Comment on above: Result Comment: The validity of the calculated GFR GFRAA in patients over 70 years has not been determined. Clinical correlation is essential. Performed By: #### L 500.4100, L501.9985, L500.4050 #### [facility] [address] [place], [address] EST GFR - AA 107 mL/min Normal >[address] [facility] Comment on above: Result Comment: Afri can Samoan GFR Calc Performed By: #### L 500.4100, L501.9985, L500.4050 #### [facility] [address] [place], [address] GAP 7 Normal 5-[address] [facility] Comment on above: Performed By: #### L 500.4100, L501.9985, L500.4050 #### [facility] [address] [place], [address] GFR/1.73 sq M.predicted among non-blacks MDRD (S/P/Bld) [Vol rate/Area] 89 mL/min/{1.73_m2} Normal >[address] [facility] Comment on above: Result Comment: Non- GFR Calc Performed By: #### L 500.4100, L501.9985, L500.4050 #### [facility] [address] [place], [address] Globulin (S) [Mass/Vol] 3.9 g/dL Normal 2.2-4.2 [facility] Comment on above: Performed By: #### L 500.4100, L501.9985, L500.4050 #### [facility] [address] [place], [address] Glucose [Mass/Vol] 100 mg/dL Normal 74-106 [facility] Comment on above: Result Comment: Fast ing Glucose result from 100 to 125 mg/dL suggests IMPAIRED HOMEOSTASIS per A.D.A. criteria. Performed By: #### L 500.4100, L501.9985, L500.4050 #### [facility] [address] [place], [address] Potassium [Moles/Vol] 4.2 mmol/L Normal 3.5-5.1 [facility] Comment on above: Result Comment: Mode rate Hemolysis, Result may be falsely increased. Performed By: #### L 500.4100, L501.9985, L500.4050 #### [facility] [address] [place], [address] Sodium [Moles/Vol] 136 mmol/L Normal 136-145 [facility] Comment on above: Performed By: #### L 500.4100, L501.9985, L500.4050 #### [facility] [address] [place], [address] T PROT 7.5 g/dL Normal 6.4-8.[address] [facility] Comment on above: Performed By: #### L 500.4100, L501.9985, L500.4050 #### [facility] [address] [place], [address] Urea nitrogen [Mass/Vol] 10 mg/dL Normal 7-[address] [facility] Comment on above: Performed By: #### L 500.4100, L501.9985, L500.4050 #### [facility] [address] [place], [address] Hemoglobin A1con 05-12-2024 HbA1c (Bld) [Mass fraction] 5.7 % High 3.8-5.[address] [facility] Comment on above: Result Comment: Norm al < 5.7 % Prediabetic 5.7 - 6.4 % Diabetic >or= 6.5 % Please note range changes. Performed By: #### L 500.4100, L501.9985, L500.4050 #### [facility] [address] [place], [address] Lipid Profileon 05-12-2024 Cholesterol [Mass/Vol] 157 mg/dL Normal 200 [facility] Comment on above: Result Comment: <200 mg/dL Desirable 200-240 mg/dL Borderline >240 mg/dL High Risk Performed By: #### L 500.4100, L501.9985, L500.4050 #### [facility] [address] [place], [address] Cholesterol in HDL [Mass/Vol] 53 mg/dL Normal [facility] Comment on above: Result Comment: The drugs N-Acetylcysteine and Metamizole may falsely depress this assay. Reference Range HDL <40 mg/dL Low HDL Cholesterol HDL >or= 60 mg/dL High HDL Cholesterol Performed By: #### L 500.4100, L501.9985, L500.4050 #### [facility] [address] [place], [address] Cholesterol in LDL [Mass/Vol] 35 mg/dL Normal 0-[address] [facility] Comment on above: Performed By: #### L 500.4100, L501.9985, L500.4050 #### [facility] [address] [place], [address] Cholesterol in VLDL [Mass/Vol] 69 mg/dL High 5-[address] [facility] Comment on above: Performed By: #### L 500.4100, L501.9985, L500.4050 #### [facility] [address] [place], [address] Triglyceride [Mass/Vol] 346 mg/dL High [facility] Comment on above: Result Comment: The drugs N-Acetylcysteine and Metamizole may falsely depress this assay. Serum Triglycerides Reference Interval Normal <150 mg/dL Borderline high 150 - 199 mg/dL High 200 - 499 mg/dL Very High > or = 500 mg/dL Performed By: #### L 500.4100, L501.9985, L500.4050 #### [facility] [address] [place], [address] Gastroenterology Visit Repor ton 04-12-2024 Gastroenterology Visit Report [facility] [address] [place] [address] OFFICE VISIT Date of Service: 04/12/24 MR#: [id number] Acct: [id number] Name: ADE VLILAR Rep #: [id number] : 1955 Provider: [facility] DO Age/Sex: 68/F Location: [facility] [place] Status: Signed Intake Vital Signs 06/05/23 07:13 Height 5 ft Intake Visit Reasons: 4 M FU Allergies CAT Inhibitors Allergy (Intermediate, Verified 06/03/23 09:39) Other erythromycin base Adverse Reaction (Verified 06/03/23 09:39) Upset Stomach Medications ???Medication ???Instructions ???Recorded ???Confirmed ???Type hydrochlorothiazide 25 mg tablet 25 mg PO DAILY 07/12/20 04/12/24 History loratadine 10 mg tablet (Claritin) 10 mg PO DAILY 12/05/23 04/12/24 History omeprazole 20 mg capsule,delayed 20 mg PO QDAY 04/12/24 04/12/24 History release Have you fallen in the past year?: No PFSH Medical History (Updated 12/05/23 @ 09:[address] Amor Friend, DO) Anxiety Arthritis Difficulty swallowing Wears glasses Post-menopausal Depression Bladder disease Restless legs Non-smoker Shortness of breath on exertion History of edema History of stress test Cardiology follow-up encounter Diverticulitis Lymphadenopathy, axillary HTN (hypertension) [place] (generalized anxiety disorder) Rectal prolapse Hemorrhoids Abdominal pain Diverticulosis of sigmoid colon Surgical History (Updated 06/03/23 @ 09:47 by Loraine Casper) Hx of colonoscopy Hx of rotator cuff surgery History of Family History Sister Breast cancer Hypertension Thyroid disorder Father Kidney disease Mother Thyroid disorder Social History Smoking Status: Never smoker HPI HPI Details: ADE VILLAR, is a 68 F who presents to the office today for follow up. GI Hx diverticulitis with hospitalization. PMH anxiety, HTN, hyperinflation of lung, axillary lymphadenopathy Colonoscopy approximately 8-10 years prior without polyps *BGI established 09.06.22 with referral from PCP. Constipation (straining with difficulty initiating BM that is relieved with manual manipulation. Stool is then soft/formed but thin, BM occur daily) is an issue recently with subsequent intermittent BRBPR with concern for hemorrhoids, rectal pain and fecal smearing approximately 3 times a week, though not consistent. Focuses on increased dietary fiber following diverticulitis; if she does not feel she gets enough during the day she supplements with Metamucil. Has noted decreased movement r/t husbands??? recent hospitalizations. Colonoscopy 11.12.22 colonic diverticulosis; congested mucosa; nonbleeding internal hemorrhoids, banded. Random biopsy TA. OV 11.27.22 BM in the morning with initial incomplete evacuation and second evacuation with complete; no straining but will sometimes use perineal pressure, but not as often. Bleeding has resolved. Notes some chronic urinary difficulty which she has discussed with PCP and will follow up with PCP and/or urology in the future. Contact 04.14.23 reporting being seen by ENT who said she needed EGD for hoarse voice; also reports pain with swallowing. ? 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 H.Pylori neg. OV 07.01.23 continues to have some pain with swallowing; reports recent family emergency with family member being life-flighted. Reports a lot of anxiety/stress/depress ion of recent months and this could be the reason she continues to have pain with swallowing and epigastric upset. Has a concern that a hemorrhoid has returned; she has been having difficult BM as she has not been consistent with her fiber intake. OV 5 pt reports that she has been experiencing fecal incontinence when she is moving around during her day; reports this happens 2-3 times a week. Pt reports that she may have a hemorrhoid. Pt reports at least one formed bm per day; denies blood in the stool. Reports that her difficulty swallowing has improved since LV and that it occurs maybe once every 2 weeks if she takes too big of a bite. SITZ .2023 Day 3 Colonic fecal retention is noted. Sitz markers are seen from the splenic flexure to the rectosigmoid colon level. Day 5 A single Sitz marker is in the mid to distal descending colon. OV 04.12.24 pt reports that she is feeling well overall and denies GI symptoms of concern at this time. Pt states that she has occasional gas and bloating and will take a Gas-X which she reports is effective. ROS Const Constitutional: No fatigue, fever(s) or weight change ENT ENT: No difficulty swallowing Gastro GI: Positive for bloating and exces (more content not included)... Normal [facility] No Panel Informationon Culture Urine 10,000 - 50,000 cfu/ ml Mixed growth consistent with normal urogenital jaret. [facility] Basophil percentageOrdered B y: Sally Lisa on 05-12-2023 Bilirubin [Mass/Vol] 0.60 mg/dL 0.20-1.00 [facility] Comment on above: For patients on eltr ombopag therapy, use of Dimension Lee TBIL is not recommended. Chloride [Moles/Vol] 105 mmol/L 98-107 [facility] Cholesterol [Mass/Vol] 206 mg/dL <200 [facility] Comment on above: <200 mg/dL Desirable 200-240 mg/dL Borderline >240 mg/dL High Risk Glucose [Mass/Vol] 98 mg/dL 74-106 [facility] Potassium [Moles/Vol] 3.8 mmol/L 3.5-5.1 [facility] Comment on above: Moderate Hemolysis, Result may be falsely increased. Protein [Mass/Vol] 7.7 g/dL 6.4-8.2 [facility] Sodium [Moles/Vol] 140 mmol/L 136-145 [facility] Triglyceride [Mass/Vol] 186 mg/dL <199 [facility] Comment on above: The drugs N-Acetylcy steine and Metamizole may falsely depress this assay.Serum Triglycerides Reference Interval Normal <150 mg/dL Borderline high 150 - 199 mg/dL High 200 - 499 mg/dL Very High > or = 500 mg/dL Laboratory - Chemistry and C hemistry - challengeOrdered By: Sally Gonzalez on 05-12-2023 ALP [Catalytic activity/Vol] 60 U/L 45-[address] [facility] ALT [Catalytic activity/Vol] 44 U/L 13-[address] [facility] CO2 [Moles/Vol] 31.0 mmol/L 21.0-32.[address] [facility] Globulin (S) [Mass/Vol] 4.0 g/dL 2.2-4.2 [facility] Urea nitrogen/Creatinine [Mass ratio] 14.3 mg/mg 10-[address] [facility] No Panel InformationOrdered By: Sally Gonzalez on 05-12-2023 Estimated GFR (MDRD) Amer 96 mL/min >[address] [facility] Comment on above: GFR Calc Estimated GFR (MDRD) Non-Af Amer 80 mL/min >[address] [facility] Comment on above: Non- GFR Calc Serum or plasma albumin jen urement (mass/volume)Ordered By: Sally Gonzalez on 05-12-2023 Albumin [Mass/Vol] 3.7 g/dL 3.2-5.0 [facility] Serum or plasma albumin/glob ulin mass ratioOrdered By: Sally Gonzalez on 05-12-2023 Albumin/Globulin [Mass ratio] 0.9 {ratio} 0.9-2.[address] [facility] Serum or plasma calcium jen urement (mass/volume)Ordered By: Sally Gonzalez on 05-12-2023 Calcium [Mass/Vol] 9.2 mg/dL 8.5-10.1 [facility] Serum or plasma cholesterol in HDL measurement (mass/volume)Ordered By: Sally Gonzalez on 05-12-2023 Cholesterol in HDL [Mass/Vol] 62 mg/dL >[address] [facility] Comment on above: The drugs N-Acetylcy steine and Metamizole may falsely depress this assay. Reference Range HDL <40 mg/dL Low HDL Cholesterol HDL >or= 60 mg/dL High HDL Cholesterol Serum or plasma cholesterol in VLDL measurement (mass/volume)Ordered By: Sally Gonzalez on 05-12-2023 Cholesterol in VLDL [Mass/Vol] 37 mg/dL 5-[address] [facility] Serum or plasma creatinine m easurement (mass/volume)Ordered By: Sally Gonzalez on 05-12-2023 Creatinine [Mass/Vol] 0.77 mg/dL 0.55-1.02 [facility] Comment on above: The validity of the calculated GFR & GFRAA in patients over 70 years has not been determined. Clinical correlation is essential. Serum or plasma low density lipoprotein (LDL) cholesterol measurement (mass/volume)Ordered By: Sally Gonzalez on 05-12-2023 Cholesterol in LDL [Mass/Vol] 107 mg/dL 0-[address] [facility] Serum or plasma urea nitroge n measurement (mass/volume)Ordered By: Sally Gonzalez on 05-12-2023 Urea nitrogen [Mass/Vol] 11 mg/dL 7-[address] [facility] Thin prep Papanicolaou smear with manual screeningOrdered By: Sally Gonzalez on 05-12-2023 Thin prep Papanicolaou smear with manual screening 41 U/L 15-[address] [facility] Comment on above: Moderate Hemolysis, Result may be falsely increased. Thin prep Papanicolaou smear with manual screening 4 5-[address] [facility] Whole blood hemoglobin A1c/t otal hemoglobin ratio (mass fraction)Ordered By: Sally Gonzalez on 05-12-2023 HbA1c (Bld) [Mass fraction] 5.4 % 3.8-5.[address] [facility] Comment on above: Normal < 5.7 % Predi abetic 5.7 - 6.4 % Diabetic >or= 6.5 % Please note range changes. MA MAMMOGRAM SCREENING BILAT ERAL W/TOMOon 02-10-2023 MA MAMMOGRAM SCREENING BILATERAL W/MINDI ORIGINAL FROM: [facility] [address] [place] [id number] PROCEDURE FOR: ADE Pulido [address] [place] [address] Home: PID#: [id number] Exam#: [id number] : 1955 Age: 67 TO: SALLY GONZALEZ [facility] [address] [place] [address] Fax: NO FAX EXAMINATION: SCREENING DIGITAL BILATERAL MAMMOGRAM WITH TOMOSYNTHESIS, 02/10/2023 10:55 am TECHNIQUE: Screening mammography of the bilateral breasts was performed with tomosynthesis. 2D standard and 3D tomosynthesis combination imaging performed through both breasts in the MLO and CC projection. Computer aided detection was utilized in the interpretation of this exam. COMPARISON: 02/08/2022 HISTORY: Breast cancer screening. FINDINGS: BREAST DENSITY: Scattered fibroglandular tissue There are benign appearing calcifications in both breasts. There are no significant masses or calcifications. IMPRESSION: No mammographic evidence of malignancy. Continued screening with annual mammograms is recommended. BIRADS: MAMMOGRAM BI-RADS: 2: Benign finding RECALL: 1 year screening RECALL TYPE: mammo LETTER SENT: Normal BI-RADS 1 and 2 Interpreted by: Hasrha Judd MD Preliminary Report By: Harsha Judd MD Electronically signed By Harsha Judd MD Dictated Date: 02/10/2023 6:34:14 PM Prelim Date: 02/10/2023 6:38:30 PM Sign Date: 02/10/2023 6:38:30 PM Ordering Provider: SALLY GONZALEZ Cableman: SANDY WILLIS RT(R) (M) letter sent: Normal BI-RADS 1 and 2 Mammogram BI-RADS: 2 Benign Normal [facility] ([place]) Basophil percentageOrdered B y: Sally Gonzalez on 10-24-2022 Bilirubin [Mass/Vol] 0.60 mg/dL 0.20-1.00 [facility] Comment on above: For patients on eltr ombopag therapy, use of Dimension Lee TBIL is not recommended. Chloride [Moles/Vol] 106 mmol/L 98-107 [facility] Cholesterol [Mass/Vol] 196 mg/dL <200 [facility] Comment on above: <200 mg/dL Desirable 200-240 mg/dL Borderline >240 mg/dL High Risk Glucose [Mass/Vol] 91 mg/dL 74-106 [facility] Potassium [Moles/Vol] 3.6 mmol/L 3.5-5.1 [facility] Protein [Mass/Vol] 7.3 g/dL 6.4-8.2 [facility] Sodium [Moles/Vol] 137 mmol/L 136-145 [facility] Triglyceride [Mass/Vol] 138 mg/dL <199 [facility] Comment on above: The drugs N-Acetylcy steine and Metamizole may falsely depress this assay.Serum Triglycerides Reference Interval Normal <150 mg/dL Borderline high 150 - 199 mg/dL High 200 - 499 mg/dL Very High > or = 500 mg/dL Laboratory - Chemistry and C hemistry - challengeOrdered By: Sally Gonzalez on 10-24-2022 ALP [Catalytic activity/Vol] 59 U/L 45-[address] [facility] ALT [Catalytic activity/Vol] 49 U/L 13-[address] [facility] CO2 [Moles/Vol] 28.0 mmol/L 21.0-32.[address] [facility] Globulin (S) [Mass/Vol] 3.6 g/dL 2.2-4.2 [facility] Urea nitrogen/Creatinine [Mass ratio] 15.8 mg/mg 10-[address] [facility] No Panel InformationOrdered By: Sally Gonzalez on 10-24-2022 Estimated GFR (MDRD) Amer 108 mL/min >[address] [facility] Comment on above: GFR Calc Estimated GFR (MDRD) Non-Af Amer 89 mL/min >[address] [facility] Comment on above: Non- GFR Calc Serum or plasma albumin jen urement (mass/volume)Ordered By: Sally Gonzalez on 10-24-2022 Albumin [Mass/Vol] 3.7 g/dL 3.2-5.0 [facility] Serum or plasma albumin/glob ulin mass ratioOrdered By: Sally Gonzalez on 10-24-2022 Albumin/Globulin [Mass ratio] 1.0 {ratio} 0.9-2.[address] [facility] Serum or plasma calcium jen urement (mass/volume)Ordered By: Sally Gonzalez on 10-24-2022 Calcium [Mass/Vol] 8.9 mg/dL 8.5-10.1 [facility] Serum or plasma cholesterol in HDL measurement (mass/volume)Ordered By: Sally Gonzalez on 10-24-2022 Cholesterol in HDL [Mass/Vol] 63 mg/dL >[address] [facility] Comment on above: The drugs N-Acetylcy steine and Metamizole may falsely depress this assay. Reference Range HDL <40 mg/dL Low HDL Cholesterol HDL >or= 60 mg/dL High HDL Cholesterol Serum or plasma cholesterol in VLDL measurement (mass/volume)Ordered By: Sally Gonzalez on 10-24-2022 Cholesterol in VLDL [Mass/Vol] 28 mg/dL 5-[address] [facility] Serum or plasma creatinine m easurement (mass/volume)Ordered By: Sally Gonzalez on 10-24-2022 Creatinine [Mass/Vol] 0.70 mg/dL 0.55-1.02 [facility] Comment on above: The validity of the calculated GFR & GFRAA in patients over 70 years has not been determined. Clinical correlation is essential. Serum or plasma low density lipoprotein (LDL) cholesterol measurement (mass/volume)Ordered By: Sally Gonzalez on 10-24-2022 Cholesterol in LDL [Mass/Vol] 105 mg/dL 0-[address] [facility] Serum or plasma urea nitroge n measurement (mass/volume)Ordered By: Sally Gonzalez on 10-24-2022 Urea nitrogen [Mass/Vol] 11 mg/dL 7-[address] [facility] Thin prep Papanicolaou smear with manual screeningOrdered By: Sally Gonzalez on 10-24-2022 Thin prep Papanicolaou smear with manual screening 27 U/L 15-[address] [facility] Thin prep Papanicolaou smear with manual screening 3 5-[address] [facility] CNPNon 10-13-2022 CNPN Telephone (UCTR) DUTY,ADE Mauro ([id number]) 1955 F Date Time Provider Department 10/13/22 JOSE MATTHEWS RUST During your visit today, we recorded the following information about you: Jose Matthews APRN.DOG BEHAVIORIST 10/13/2022 8:12 AM Signed Patient was negative for COVID and flu. Please notify thank you Kaley Hendricks 10/13/2022 8:24 AM Signed Patient given results and verbalized understanding of instructions given. Kaley Hendricks Allergies As of Date: 10/13/[address] scan dye [Other] 02/13/2009 2 - Rash ERYTHROMYCIN 03/28/2005 8 - GI Upset seasonal rhinitis [Other] 06/16/2007 Date Reviewed: 10/12/2022 Reviewed by: Kaley Hendricks - Fully Assessed Reason for Visit: Results [95] Prescriptions as of 10/13/2022 - FLUoxetine (PROZAC) 10 mg capsule Take 10 mg by mouth. - benzonatate (TESSALON PERLES) 100 mg capsule Take 1 capsule by mouth three times daily as needed for up to 7 days. - fluticasone (FLONASE) 50 mcg/actuation nasal spray Use 2 Sprays in each nostril once daily. Rinse mouth after use. - hydroCHLOROthiazide (HYDRODIURIL, ESIDRIX) 25 mg tablet Take 1 tablet by mouth once daily. - LORATADINE (CLARITIN ORAL) Take 1 tablet by mouth as needed. - citalopram (CELEXA) 20 mg tablet Take 20 mg by mouth once daily. Problem List As Of Date 10/13/2022 Noted Resolved DIVERTICULITIS OF COLON W/O BLEED [K57.32] 05/18/2007 Lipoma of unspecified site [D17.9] 12/22/2013 Sinusitis [J32.9] 12/22/2013 Lichen sclerosus et atrophicus [L90.0] 12/22/2013 Encounter Status:Closed by KALEY HENDRICKS on 10/13/22 [facility] CNOVon 10-12-2022 CNOV Office Visit (UCWSTR ) ADE VILLAR ([id number]) 1955 F Date Time Provider Department 10/12/22 11:00 AM [facility] During your visit today, we recorded the following information about you: Temperature Pulse Respiration Blood pressure 98.7 degrees 88/minute 18/minute 132/76 Weight 88.5 kg Jose Matthews APRN.[facility] 10/12/2022 11:14 AM Signed CC: Patient presents with: Sinus Problem: drainage and right ear pain x 3 days HPI: Ade Villar is a 66 year old female who presents to the office with complaint of sinus symptoms and ear symptoms for a few days. Symptoms are staying the same. Associated symptoms includes nasal congestion and ear pain. Denies headache, body aches, fever, nausea, vomiting , and diarrhea. Treatments tried include nothing so far. with no relief of symptoms. Sick contacts: unknown. History of asthma, frequent episodes of bronchitis, chronic bronchitis, bronchiectasis or COPD: No Smoker: No Seasonal/environmental allergies: No The ROS is otherwise negative. The patient's pmh, medications, allergies, and past visits are reviewed. PHYSICAL EXAM: BP 132/76 Pulse 88 Temp 37.1 ?C (98.7 ?F) Resp 18 Wt 88.5 kg (195 lb) LMP 10/29/2006 SpO2 96% BMI 32.95 kg/m? General appearance: alert, cooperative, pleasant, in no acute distress Head: Normocephalic Eyes: EOM's intact, conjunctiva pink and moist, no icterus, sclera white, non-injected Ears: Right ear: External ear/canal- Normal, TM - clear with good landmarks. Left ear: External ear/canal- Normal, TM - clear with good landmarks Oropharynx:moist without lesions, No erythema, exudates or tonsillar hypertrophy. Heart: Negative. RRR without obvious murmur, gallop, or rubs. No ectopy. Lungs: clear to auscultation, without rales or wheeze, good air exchange PAST MEDICAL HISTORY Diagnosis Date Allergic rhinitis, cause unspecified Displacement of cervical intervertebral disc without myelopathy Diverticulitis of colon (without mention of hemorrhage)(562.11) 05/18/2007 Diverticulitis of colon (without mention of hemorrhage)(562.11) Dysplasia of cervix, unspecified Esophageal reflux External hemorrhoids with other complication PAST SURGICAL HISTORY Procedure Laterality Date DELIVERY ONLY COLONOSCOPY FLX DX W/COLLJ SPEC WHEN PFRMD 06/16/072011 Sigmoid diverticular dz CONIZATION CERVIX W/WO DANDC RPR ELTRD EXC LIG/TRNSXJ FLP TUBE ABDL/VAG APPR UNI/BI Tubal ligation ROTATOR CUFF REPAIR Right SINUS SURGERY HX ALLERGIES Ct Scan Dye [Other], Erythromycin, and Seasonal Rhinitis [Other] MEDICATIONS FLUoxetine (PROZAC) 10 mg capsule Take 10 mg by mouth. hydroCHLOROthiazide (HYDRODIURIL, ESIDRIX) 25 mg tablet Take 1 tablet by mouth once daily. LORATADINE (CLARITIN ORAL) Take 1 tablet by mouth as needed. benzonatate (TESSALON PERLES) 100 mg capsule Take 1 capsule by mouth three times daily as needed for up to 7 days. fluticasone (FLONASE) 50 mcg/actuation nasal spray Use 2 Sprays in each nostril once daily. Rinse mouth after use. citalopram (CELEXA) 20 mg tablet Take 20 mg by mouth once daily. (Patient not taking: Reported on 10/12/2022) FAMILY HISTORY Problem Relation Age of Onset Heart Father IN Thyroid Mother Hypertension Sister Hypertension Sister Thyroid Sister Thyroid Sister Breast Cancer Sister 61 Social History Tobacco Use Smoking status: Never Smokeless tobacco: Never Substance Use Topics Alcohol use: No Alcohol/week: 1.7 standard drinks Drug use: No ASSESSMENT/PLAN: 1. Acute cough - ICD9: 786.2, ICD10: R05.1 (primary diagnosis) - BENZONATATE 100 MG CAPSULE 2. Nasal congestion - ICD9: 478.19, ICD10: R09.81 - FLUTICASONE PROPIONATE 50 MCG/ACTUATION NASAL SPRAY,SUSPENSION 3. URI, acute - ICD9: 465.9, ICD10: J06.9 - COVID WITH FLUA+B, ROUTINE Educated about being in a viral window. Prescription instructions reviewed with patient as applicable. Potential red flag symptoms discussed with the patient. Reviewed appropriate action plan to take if red flag symptoms occur. Patient agreeable to treatment plan. Jose Matthews APRN.DOG BEHAVIORIST Allergies As of Date: 10/12/[address] scan dye [Other] 02/13/2009 2 - Rash ERYTHROMYCIN 03/28/2005 8 - GI Upset seasonal rhinitis [Other] 06/16/2007 Date Reviewed: 10/12/2022 Reviewed by: Kaley Hendricks - Fully Assessed Reason for Visit: Sinus Problem [99] Cmt: drainage and right ear pain x 3 days Primary Visit Diagnosis:Acute cough [R05.1] Other Visit Diagnoses:Nasal congestion [R09.81] URI, acute [J06.9] Order(s):benzonatate (TESSALON PERLES) 100 mg capsuleTake 1 capsule by mouth three times daily as needed for up to 7 days.Disp: 21 capsuleRfl: 0 fluticasone (FLONASE) 50 mcg/actuation nasal sprayUse 2 Sprays in each nostril once daily. Rinse mouth after use.Disp: 1 (more content not included)... Normal [facility] FLUABV + SARS-CoV-2 Pnl Resp BATSHEVA+prbon 10-12-2022 Influenza virus A and B RNA and SARS-CoV-2 (COVID-19) N gene panel BATSHEVA+probe (Resp) COVID 19 RESULT: Not detected The method used is RT-PCR or an equivalent NAAT method. Reference Range (the expected result in uninfected individuals): Not detected INFLUENZA A PCR: Not detected INFLUENZA B PCR: Not detected Normal [facility] Comment on above: Performed By: #### 9 [id number] #### [facility] CLIA [id number] [address] [id number] [place] Vital Signs Date Time Vital Sign Value Performing Clinician Facility 06-05-2023 08:25-0500 Body temperature 98.2 [degF] RADIO STATION MANAGER-C Sally Gonzalez RADIO STATION MANAGER Work Phone: [facility] 06-05-2023 08:25-0500 Diastolic blood pressure 71 mm[Hg] RADIO STATION MANAGER-C Sally Gonzalez RADIO STATION MANAGER Work Phone: [facility] 06-05-2023 08:25-0500 Heart rate 67 /min RADIO STATION MANAGER-C Sally Gonzalez RADIO STATION MANAGER Work Phone: [facility] 06-05-2023 08:25-0500 Respiratory rate 18 /min RADIO STATION MANAGER-C Sally Gonzalez RADIO STATION MANAGER Work Phone: [facility] 06-05-2023 08:25-0500 SaO2% (BldA) [Mass fraction] 97 % RADIO STATION MANAGER-C Sally Gonzalez RADIO STATION MANAGER Work Phone: [facility] 06-05-2023 08:25-0500 Systolic blood pressure 110 mm[Hg] RADIO STATION MANAGER-C Sally Gonzalez RADIO STATION MANAGER Work Phone: [facility] 06-05-2023 07:13-0500 Body height 152.4 cm RADIO STATION MANAGER-C Sally Gonzalez RADIO STATION MANAGER Work Phone: [facility] 06-05-2023 07:13-0500 Body mass index (BMI) [Ratio] 36.5 kg/m2 RADIO STATION MANAGER-C Sally Gonzalez RADIO STATION MANAGER Work Phone: [facility] 06-05-2023 07:13-0500 Body weight 84.82 kg RADIO STATION MANAGER-C Sally Gonzalez RADIO STATION MANAGER Work Phone: [facility] 11-12-2022 15:10-0400 Body temperature 97 [degF] Dr. [place] Roman Work Phone: [facility] 11-12-2022 15:10-0400 Diastolic blood pressure 68 mm[Hg] Dr. [place] Roman Work Phone: [facility] 11-12-2022 15:10-0400 Heart rate 62 /min Dr. [place] Roman Work Phone: [facility] 11-12-2022 15:10-0400 Respiratory rate 16 /min Dr. [place] Roman Work Phone: [facility] 11-12-2022 15:10-0400 SaO2% (BldA) [Mass fraction] 93 % Dr. [place] Roman Work Phone: [facility] 11-12-2022 15:10-0400 Systolic blood pressure 124 mm[Hg] Dr. [place] Roman Work Phone: [facility] 11-12-2022 13:57-0400 Body height 167.[address] [place] Roman Work Phone: [facility] 11-12-2022 13:57-0400 Body mass index (BMI) [Ratio] 30.2 kg/m2 Dr. [place] Roman Work Phone: [facility] 11-12-2022 13:57-0400 Body weight [address] [place] Roman Work Phone: [facility] 10-12-2022 10:51-0400 Body temperature 98.71 [degF] Jose Matthews APRN.DOG BEHAVIORIST Work Phone: [facility] 10-12-2022 10:51-0400 Body weight 88.45 kg Jose Matthews APRN.DOG BEHAVIORIST Work Phone: [facility] 10-12-2022 10:51-0400 Diastolic blood pressure 76 mm[Hg] Jose Matthews APRN.DOG BEHAVIORIST Work Phone: [facility] 10-12-2022 10:51-0400 Heart rate 88 /min Jose Matthews APRN.DOG BEHAVIORIST Work Phone: [facility] 10-12-2022 10:51-0400 Respiratory rate 18 /min Jose Matthews APRN.DOG BEHAVIORIST Work Phone: [facility] 10-12-2022 10:51-0400 SaO2% (BldA) [Mass fraction] 96 % Josebree Matthews ACCESS ASSOC.DOG BEHAVIORIST Work Phone: [facility] 10-12-2022 10:51-0400 Systolic blood pressure 132 mm[Hg] Jose Marcin WORLEY.DOG BEHAVIORIST Work Phone: [facility] Encounters Encounter Date Encounter Type Care Provider Facility Start: 02-15-2025 ambulatory [facility] Facility :[facility] Start: 12-03-2024 End: 12-03-2024 Patient encounter procedure [facility] DO -[facility] Work Phone: Start: 12-03-2024 End: 12-03-2024 ambulatory Sally Gonzalez RADIO STATION MANAGER-C Work Phone: [facility] Work Phone: Start: 11-02-2024 End: 11-02-2024 ambulatory Sally Gonzalez RADIO STATION MANAGER-C Work Phone: [facility] Work Phone: Start: 11-02-2024 End: 11-02-[address] Javier Conner MD -Laboratory Work Phone: Start: 11-02-2024 End: 11-02-2024 ambulatory Javier Conner Facility:[facility] Start: 10-18-2024 End: 10-18-2024 ambulatory SALLY GONZALEZ ACCESS ASSOC - DOG BEHAVIORIST Facility:[facility] Start: 09-28-2024 End: 09-28-2024 ambulatory Sally Gonzalez RADIO STATION MANAGER-C Work Phone: [facility] Work Phone: Start: 09-28-2024 End: 09-28-2024 Patient encounter procedure Sally Gonzalez RADIO STATION MANAGER-C -[facility] Work Phone: Start: 09-28-2024 End: 09-28-2024 ambulatory Sally Gonzalez RADIO STATION MANAGER Facility:[facility] Start: 09-17-2024 ambulatory SALLY WEIR ACCESS ASSOC - DOG BEHAVIORIST Facility:[facility] Start: 06-15-2024 End: 06-15-2024 Patient encounter procedure Sally Gonzalez RADIO STATION MANAGER-C -Outpatient Bone Densitometry Work Phone: Start: 06-15-2024 End: 06-15-2024 ambulatory Sally Gonzalez RADIO STATION MANAGER Facility:[facility] Start: 05-12-2024 End: 05-12-2024 ambulatory Sally Gonzalez RADIO STATION MANAGER Facility:[facility] Start: 04-12-2024 End: 04-12-2024 ambulatory Sally Gonzalez RADIO STATION MANAGER Facility:[facility] Start: 09-18-2023 End: 09-23-2023 ambulatory SALLY GONZALEZ ACCESS ASSOC - DOG BEHAVIORIST Facility:[facility] Start: 09-18-2023 End: 09-22-2023 Outreach Lab SALLY GONZALEZ ACCESS ASSOC - DOG BEHAVIORIST [facility] Start: 06-05-2023 Non-patient / Non-visit RADIO STATION MANAGER-C Sally Gonzalez RADIO STATION MANAGER Work Phone: [facility] Start: 06-05-2023 End: 06-05-2023 Admission to same day surgery center RADIO STATION MANAGER-C Sally Gonzalez RADIO STATION MANAGER Work Phone: [facility]Endoscopy Work Phone: Start: 06-05-2023 End: 06-05-2023 ambulatory RADIO STATION MANAGER-C Sally Gonzalez RADIO STATION MANAGER Work Phone: [facility] Work Phone: Start: 05-12-2023 End: 05-12-2023 ambulatory [facility] spital Work Phone: Start: 05-12-2023 End: 05-12-[address] [facility]-Laboratory Work Phone: Start: 02-10-2023 End: 02-11-2023 ambulatory SALLY GONZALEZ ACCESS ASSOC - DOG BEHAVIORIST Facility:[facility] Start: 11-12-2022 Non-patient / Non-visit Dr. [place] Roman Work Phone: [facility] Start: 11-12-2022 End: 11-12-2022 Admission to same day surgery center Dr. [place] Roman Work Phone: [facility] Start: 11-12-2022 End: 11-12-[address] [place] Roman Work Phone: [facility] Work Phone: Start: 10-24-2022 End: 10-24-[address] [place] Roman Work Phone: [facility] Work Phone: Start: 10-24-2022 End: 10-24-[address] [place] Roman Work Phone: [facility]Laboratory Start: 10-13-2022 Telephone encounter Jose Matthews APRN.DOG BEHAVIORIST Work Phone: [facility] Comment on above: Results Start: 10-12-2022 End: 10-12-2022 ambulatory SALLY GONZALEZ Facility:[facility] Start: 10-12-2022 End: 10-12-2022 Patient encounter procedure Jose Matthews APRN.DOG BEHAVIORIST Work Phone: [facility] Comment on above: Acute cough (Primary Dx); Nasal congestion; URI, acute Start: 09-06-2022 End: 09-06-[address] [place] Roman Work Phone: [facility] Start: 02-08-2022 End: 02-08-2022 Patient encounter procedure SALLY GONZALEZ ACCESS ASSOC - DOG BEHAVIORIST [facility] Procedures Date Procedure Procedure Detail Performing Clinician Start: 11-02-2024 AYDIN measurement Sally Gonzalez RADIO STATION MANAGER-C Work Phone: Comment on above: Performed at: [address] [id number] Director: Ted Collins PhD, Phone: [phone] Start: 11-02-2024 Antibody to centromere measurement Jemima Gonzalez RADIO STATION MANAGER-C Work Phone: Comment on above: Test not performed Start: 11-02-2024 Antibody to extractable nuclear antigen measurement Sally Gonzalez RADIO STATION MANAGER-C Work Phone: Comment on above: Test not performed Start: 11-02-2024 Antibody to KYLEIGH-1 measurement Sally rose RADIO STATION MANAGER-C Work Phone: Comment on above: Test not performed Start: 11-02-2024 Antibody to lupus La protein measurement Sally Gonzalez RADIO STATION MANAGER-C Work Phone: Comment on above: Test not performed Start: 11-02-2024 Antibody to SS-A measurement Sally rose RADIO STATION MANAGER-C Work Phone: Comment on above: Test not performed Start: 11-02-2024 Autoantibody measurement Sally Rouse s RADIO STATION MANAGER-C Work Phone: Comment on above: Test not performed Start: 11-02-2024 Immunoglobulin M measurement Sally rose RADIO STATION MANAGER-C Work Phone: Start: 11-02-2024 Procedure Sally Gonzalez RADIO STATION MANAGER-C Work Phone: Comment on above: Test Ordered: [id number] Mannose Binding Lec tin (MBL)Test(s) 117816-Pxamqub Binding Lectin (MBL)This test was developed and its performance characteristicsdetermined by [employer]. It has not been cleared orapproved by the Food and Drug Administration.Mannose Binding Lectin (MBL) 2460 ng/mL Reference Range: . Low: 0 - 50 Intermediate: 51 - 500 Normal: >500Performed at: [address] [id number] Director: Mukund Marlow MD, Phone: [phone] at: [address] [id number] Director: Ted Collins PhD, Phone: [phone] Start: 11-02-2024 NANNY/HOUSEHOLD MANAGER antibody measurement Sally Tompkin s RADIO STATION MANAGER-C Work Phone: Comment on above: Test not performed Start: 09-28-2024 Ultrasonography of breast Sally yepez RADIO STATION MANAGER-C Work Phone: Start: 09-28-2024 Vitamin D, 25-hydroxy measurement Pacheco d Lisa RADIO STATION MANAGER-C Work Phone: Comment on above: Vitamin D StatusDeficiency: <20 ng/mL (5 0nmol/L)Insufficiency: 20-30 ng/mL (50-75 nmol/L)Sufficiency: 30-100 ng/mL (75-250 nmol/L)Toxicity: >100 ng/mL (>250 nmol/L) Start: 06-15-2024 Dual energy X-ray absorptiometry Sally Gonzalez RADIO STATION MANAGER-C Work Phone: Start: 06-15-2024 Screening mammography Sally Gonzalez RADIO STATION MANAGER-C Work Phone: Start: 06-05-2023 Esophagogastroduodenoscopy RADIO STATION MANAGER-C Sally Gonzalez RADIO STATION MANAGER Work Phone: Start: 11-12-[address] [place] Roman Work Phone: Start: 03-31-2015 Mammography Jose Matthews APRN.DOG BEHAVIORIST Work Phone: Start: 07-22-2011 Colonoscopy Jose Matthews APRN.DOG BEHAVIORIST Work Phone: Plan of Treatment Date Care Activity Detail Author Start: 06-05-2023 Patient discharge [facility] Start: 11-12-2022 Colonoscopy flexible with band ligation(s) COLONOSCOPY W/BAND LIGATION [facility] Start: 11-12-2022 Colonoscopy w/biopsy single/multiple COLONOSCOPY AND BIOPSY [facility] Start: 11-12-2022 Patient discharge [facility] Start: 10-12-2022 End: 10-26-2022 Influenza virus A and B RNA and SARS-CoV-2 (COVID-19) N gene panel - Respiratory specimen by BATSHEVA with probe detection COVID WITH FLUA+B, ROUTINE Microbiology Routine URI, acute Expected: 10/12/2022, Expires: 10/26/2022 [facility] Work Phone: Comment on above: Expected: 10/12/2022 , Expires: 10/26/2022 Start: 07-21-2022 ADVANCE DIRECTIVE DISCUSSION ADVANCE DIRECTIVE DISCUSSION [facility] Start: 07-21-2022 DEPRESSION ASSESSMENT DEPRESSION ASS ESSMENT [facility] Start: 03-21-2022 Influenza vaccination INFLUENZA (#1) [facility] Start: 2021 BONE DENSITY BONE DENSITY [facility] Start: 2021 PNEUMOCOCCAL: 65+ (1 - PCV) PNEUMOCOCCAL: 65+ (1 - PCV) [facility] Start: 07-22-2021 Colonoscopy COLONOSCOPY [facility] Start: 07-22-2021 COLORECTAL CANCER SCREENING COLORECTAL CANCER SCREENING [facility] Start: 01-13-2020 LIPID SCREEN LIPID SCREEN [facility] Start: 03-31-2016 Mammography MAMMOGRAM [facility] Start: 01-10-2012 DIABETES SCREEN DIABETES SCREEN [facility] Start: 2006 SHINGRIX VACCINE (1 of 2) SHINGRIX VACCINE (1 of 2) [facility] Start: 2001 COLOGUARD (FIT-DNA) COLOGUARD (FIT-D NA) [facility] Start: [address] [facility] Start: 2001 FECAL OCCULT BLOOD FECAL OCCULT BLOO D [facility] Start: 2001 SIGMOIDOSCOPY SIGMOIDOSCOPY [facility] Start: 11-21-1975 Urine microalbumin profile DTAP,TDAP,TD (1 - Tdap) [facility] Start: 1974 HEPATITIS C SCREENING HEPATITIS C SC REENING [facility] Start: 1974 HIV SCREENING HIV SCREENING [facility] Start: 05-23-1957 COVID-19 VACCINE (#1) COVID-19 VACCI NE (#1) [facility] Patient referral [facility] Work Phone: Procedure [facility] Payers Date Payer Category Payer Self-pay [id number] 2021 Medicare [employer] MEDICARE A ETNA MEDICARE HMO [id number] 2021-Present [phone] [address] [place] [address] O [id number] 2011 Medicare [id number] 1955 Unknown [id number] 1955 Unknown [id number] 1955 Unknown [id number] 1955 Unknown [id number] Unknown [facility] [id number] 2061 [id number] Unknown [id number] Unknown [id number] Unknown [id number] Unknown [id number] Unknown [id number] Unknown [id number] Unknown [id number] Social History Date Type Detail Facility Start: 04-17-2020 End: 07-01-2023 Tobacco smoking status Never smoked tobacco (finding) [facility] Sex Assigned At Sex [facility] Start: 10-12-2022 Tobacco use and exposure Smokeless tobacco non-user [facility] Work Phone: Start: 10-12-2022 Alcohol intake 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 Start: 06-11-2022 Rare [facility] Start: 06-11-2022 None [facility] Start: 06-11-2022 Non-smoker [facility] Start: 1955 Sex Assigned At Female [facility] Start: 10-08-2024 End: 11-09-2024 Sex Female (finding) [facility] NEGATED: Highlighted row [facility] Goals Date Patient Goal Desired Activity /State Mental Status Date Assessment Result Facility 06-05-2023 Cognitive function Voice/Name;Touch/Shaki ng [facility] Work Phone: 11-12-2022 Cognitive function Voice/Name [facility] Work Phone: Clinical Notes 01-31-2022 to 09-28-2024 Telephone Encounter - Kaley Hendricks - 10/13/2022 8:24 AM EDTTelephone Encounter - Jose Matthews APRN.[facility] - 10/13/2022 8:12 AM Anupam Matthews APRN.[facility] - 10/12/2022 11:09 AM EDTLaboratory Note Date & Type Note Facility 09-28-2024 Radiology Diagnostic study note [facility] Imaging Services [address] [place], [place] [address] Breast Limited Unilateral MR#: [id number] Acct: [id number] Name: ADE VILLAR Rep #: [id number] : 1955 F 68 From: Genna Rodriguez MD PCP: VINAY Acevedo Status: REG CLI Study:Breast Limited Unilateral Date of Exam: 09/28/24 Exam# [id number] Ordering Dr: Sally Gonzalez NP RADIO STATION MANAGER-C PROCEDURE: BREAST LIMITED UNILATERAL REASON FOR EXAM: 68-year-old female presents with palpable concern with associated pain in her right axilla. Family history of breast cancer in her sister and maternal great aunt. TECHNIQUE: Targeted right axilla ultrasound. COMPARISON: Mammogram 06/15/2024 FINDINGS: RIGHT: Ultrasound performed of the area of palpable concern with associated pain in theright axilla demonstrates a prominent architecturally normal-appearing lymph node with preserved fatty derrell and normalcortical thickness, measuring 2.4 x 1.3 x 0.7 cm. Otherwise, there are no suspicious sonographic findings. US/Breast Limited Unilateral IMPRESSION: Palpable area of concern with associated pain in the right axilla correlates to a normal right axillary lymph node. There are no suspicious sonographic findings. BI-RADS 2: BENIGN. RECOMMEND ANNUAL MAMMOGRAPHIC SCREENING. Follow-up code: Routine Follow-up Reading Location: [id number] CC: VINAY Gonzalez ~ Chip Separator: Signed [facility] 09-20-2023 Note . MICRO - Microbiology PROCEDURE: Urine Culture [*1] SOURCE: Urine, Clean Catch BODY SITE: COLLECTED DATE/TIME: 09/18/2023 16:42 EST RECEIVED DATE/TIME: 09/18/2023 20:40 EST START DATE/TIME: 09/18/2023 20:40 EST FREE TEXT SOURCE: FINAL REPORTS Final Report [] Verified Date/Time/Personnel: 09/20/2023 07:24 EST 10,000 - 50,000 cfu/ml Mixed growth consistent with normal urogenital jaret. PRELIMINARY REPORTS Preliminary Report [] Verified Date/Time/Personnel: 09/19/2023 10:46 EST No growth to date Performing Locations *1: This test was performed at: [facility], [address] [place] [address], [id number] , [facility] ([place]) 06-05-2023 Procedure note [facility] 06-05-2023 Procedure note [facility] 11-12-2022 Procedure note [facility] 11-12-2022 Procedure note [facility] 10-13-2022 Miscellaneous Notes Patient given results and verbalized understanding of instructions given. Kaley Hendricks Patient was negative for COVID and flu. Please notify thank you documented in this encounter [facility] 10-12-2022 Note HNO ID: [id number] Author: Jose Matthews APRN.DEANDRE Service: ? Author Type: Nurse Practitioner Type: Progress Notes Filed: 10/12/2022 11:14 AM Note Text: CC: Patient presents with: Sinus Problem: drainage and right ear pain x 3 days HPI: Ade Villar is a 66 year old female who presents to the office with complaint of sinus symptoms and ear symptoms for a few days. Symptoms are staying the same. Associated symptoms includes nasal congestion and ear pain. Denies headache, body aches, fever, nausea, vomiting , and diarrhea. Treatments tried include nothing so far. with no relief of symptoms. Sick contacts: unknown. History of asthma, frequent episodes of bronchitis, chronic bronchitis, bronchiectasis or COPD: No Smoker: No Seasonal/environmental allergies: No The ROS is otherwise negative. The patient's pmh, medications, allergies, and past visits are reviewed. PHYSICAL EXAM: BP 132/76 Pulse 88 Temp 37.1 ?C (98.7 ?F) Resp 18 Wt 88.5 kg (195 lb) LMP 10/29/2006 SpO2 96% BMI 32.95 kg/m? General appearance: alert, cooperative, pleasant, in no acute distress Head: Normocephalic Eyes: EOM's intact, conjunctiva pink and moist, no icterus, sclera white, non-injected Ears: Right ear: External ear/canal- Normal, TM - clear with good landmarks. Left ear: External ear/canal- Normal, TM - clear with good landmarks Oropharynx:moist without lesions, No erythema, exudates or tonsillar hypertrophy. Heart: Negative. RRR without obvious murmur, gallop, or rubs. No ectopy. Lungs: clear to auscultation, without rales or wheeze, good air exchange PAST MEDICAL HISTORY Diagnosis Date Allergic rhinitis, cause unspecified Displacement of cervical intervertebral disc without myelopathy Diverticulitis of colon (without mention of hemorrhage)(562.11) 05/18/2007 Diverticulitis of colon (without mention of hemorrhage)(562.11) Dysplasia of cervix, unspecified Esophageal reflux External hemorrhoids with other complication PAST SURGICAL HISTORY Procedure Laterality Date DELIVERY ONLY COLONOSCOPY FLX DX W/COLLJ SPEC WHEN PFRMD 06/16/072011 Sigmoid diverticular dz CONIZATION CERVIX W/WO DANDC RPR ELTRD EXC LIG/TRNSXJ FLP TUBE ABDL/VAG APPR UNI/BI Tubal ligation ROTATOR CUFF REPAIR Right SINUS SURGERY HX ALLERGIES Ct Scan Dye [Other], Erythromycin, and Seasonal Rhinitis [Other] MEDICATIONS FLUoxetine (PROZAC) 10 mg capsule Take 10 mg by mouth. hydroCHLOROthiazide (HYDRODIURIL, ESIDRIX) 25 mg tablet Take 1 tablet by mouth once daily. LORATADINE (CLARITIN ORAL) Take 1 tablet by mouth as needed. benzonatate (TESSALON PERLES) 100 mg capsule Take 1 capsule by mouth three times daily as needed for up to 7 days. fluticasone (FLONASE) 50 mcg/actuation nasal spray Use 2 Sprays in each nostril once daily. Rinse mouth after use. citalopram (CELEXA) 20 mg tablet Take 20 mg by mouth once daily. (Patient not taking: Reported on 10/12/2022) FAMILY HISTORY Problem Relation Age of Onset Heart Father IN Thyroid Mother Hypertension Sister Hypertension Sister Thyroid Sister Thyroid Sister Breast Cancer Sister 61 Social History Tobacco Use Smoking status: Never Smokeless tobacco: Never Substance Use Topics Alcohol use: No Alcohol/week: 1.7 standard drinks Drug use: No ASSESSMENT/PLAN: 1. Acute cough - ICD9: 786.2, ICD10: R05.1 (primary diagnosis) - BENZONATATE 100 MG CAPSULE 2. Nasal congestion - ICD9: 478.19, ICD10: R09.81 - FLUTICASONE PROPIONATE 50 MCG/ACTUATION NASAL SPRAY,SUSPENSION 3. URI, acute - ICD9: 465.9, ICD10: J06.9 - COVID WITH FLUA+B, ROUTINE Educated about being in a viral window. Prescription instructions reviewed with patient as applicable. Potential red flag symptoms discussed with the patient. Reviewed appropriate action plan to take if red flag symptoms occur. Patient agreeable to treatment plan. Jose Matthews APRN.[facility] 10-12-2022 History of Presen t illness Narrative CC: Patient presents with: Sinus Problem: drainage and right ear pain x 3 days HPI: Ade Villar is a 66 year old female who presents to the office with complaint of sinus symptoms and ear symptoms for a few days. Symptoms are staying the same. Associated symptoms includes nasal congestion and ear pain. Denies headache, body aches, fever, nausea, vomiting , and diarrhea. Treatments tried include nothing so far. with no relief of symptoms. Sick contacts: unknown. History of asthma, frequent episodes of bronchitis, chronic bronchitis, bronchiectasis or COPD: No Smoker: No Seasonal/environmental allergies: No The ROS is otherwise negative. The patient's pmh, medications, allergies, and past visits are reviewed. PHYSICAL EXAM: BP 132/76 Pulse 88 Temp 37.1 C (98.7 F) Resp 18 Wt 88.5 kg (195 lb) LMP 10/29/2006 SpO2 96% BMI 32.95 kg/m General appearance: alert, cooperative, pleasant, in no acute distress Head: Normocephalic Eyes: EOM's intact, conjunctiva pink and moist, no icterus, sclera white, non-injected Ears: Right ear: External ear/canal- Normal, TM - clear with good landmarks. Left ear: External ear/canal- Normal, TM - clear with good landmarks Oropharynx:moist without lesions, No erythema, exudates or tonsillar hypertrophy. Heart: Negative. RRR without obvious murmur, gallop, or rubs. No ectopy. Lungs: clear to auscultation, without rales or wheeze, good air exchange PAST MEDICAL HISTORY Diagnosis Date Allergic rhinitis, cause unspecified Displacement of cervical intervertebral disc without myelopathy Diverticulitis of colon (without mention of hemorrhage)(562.11) 05/18/2007 Diverticulitis of colon (without mention of hemorrhage)(562.11) Dysplasia of cervix, unspecified Esophageal reflux External hemorrhoids with other complication PAST SURGICAL HISTORY Procedure Laterality Date DELIVERY ONLY COLONOSCOPY FLX DX W/COLLJ SPEC WHEN PFRMD 06/16/072011 Sigmoid diverticular dz CONIZATION CERVIX W/WO D&C RPR ELTRD EXC LIG/TRNSXJ FLP TUBE ABDL/VAG APPR UNI/BI Tubal ligation ROTATOR CUFF REPAIR Right SINUS SURGERY HX ALLERGIES Ct Scan Dye [Other], Erythromycin, and Seasonal Rhinitis [Other] MEDICATIONS FLUoxetine (PROZAC) 10 mg capsule Take 10 mg by mouth. hydroCHLOROthiazide (HYDRODIURIL, ESIDRIX) 25 mg tablet Take 1 tablet by mouth once daily. LORATADINE (CLARITIN ORAL) Take 1 tablet by mouth as needed. benzonatate (TESSALON PERLES) 100 mg capsule Take 1 capsule by mouth three times daily as needed for up to 7 days. fluticasone (FLONASE) 50 mcg/actuation nasal spray Use 2 Sprays in each nostril once daily. Rinse mouth after use. citalopram (CELEXA) 20 mg tablet Take 20 mg by mouth once daily. (Patient not taking: Reported on 10/12/2022) FAMILY HISTORY Problem Relation Age of Onset Heart Father IN Thyroid Mother Hypertension Sister Hypertension Sister Thyroid Sister Thyroid Sister Breast Cancer Sister 61 Social History Tobacco Use Smoking status: Never Smokeless tobacco: Never Substance Use Topics Alcohol use: No Alcohol/week: 1.7 standard drinks Drug use: No ASSESSMENT/PLAN: 1. Acute cough - ICD9: 786.2, ICD10: R05.1 (primary diagnosis) - BENZONATATE 100 MG CAPSULE 2. Nasal congestion - ICD9: 478.19, ICD10: R09.81 - FLUTICASONE PROPIONATE 50 MCG/ACTUATION NASAL SPRAY,SUSPENSION 3. URI, acute - ICD9: 465.9, ICD10: J06.9 - COVID WITH FLUA+B, ROUTINE Educated about being in a viral window. Prescription instructions reviewed with patient as applicable. Potential red flag symptoms discussed with the patient. Reviewed appropriate action plan to take if red flag symptoms occur. Patient agreeable to treatment plan. Jose Matthews APRN.DEANDRE documented in this encounter [facility] 02-08-2022 Note ORIGINAL FROM: [place] [id number] PROCEDURE FOR: ADE VILLAR [address] [place] [address] Home: PID#: [id number] Exam#: [id number] : 1955 Age: 66 TO: SALLY GONZALEZ APRN DOG BEHAVIORIST [address] [place] [address] Fax: NO FAX EXAMINATION: SCREENING DIGITAL BILATERAL MAMMOGRAM WITH TOMOSYNTHESIS, 02/08/2022 9:01 am TECHNIQUE: Screening mammography of the bilateral breasts was performed with tomosynthesis. 2D standard and 3D tomosynthesis combination imaging performed through both breasts in the MLO and CC projection. Computer aided detection was utilized in the interpretation of this exam. COMPARISON: 04/05/2020, 08/12/2016 HISTORY: Breast cancer screening. FINDINGS: BREAST DENSITY: Scattered fibroglandular tissue There are benign calcifications in both breasts. There are no significant masses or calcifications. IMPRESSION: No mammographic evidence of malignancy. Continued screening with annual mammograms is recommended. BIRADS: MAMMOGRAM BI-RADS: 2: Benign finding RECALL: 1 year screening RECALL TYPE: mammo LETTER SENT: Normal BI-RADS 1 and 2 Interpreted by: Harsha Judd MD Preliminary Report By: Harsha Judd MD Electronically signed By Harsha Judd MD Dictated Date: 02/08/2022 2:50:21 PM Prelim Date: 02/08/2022 2:55:39 PM Sign Date: 02/08/2022 2:55:39 PM Ordering Provider: SALLY GONZALEZ Cableman: ELY ROGERS RT (R) (M) (CT) letter sent: Normal BI-RADS 1 and 2 Mammogram BI-RADS: [address] [facility] 02-08-2022 Note ORIGINAL FROM: [address] [address] PROCEDURE FOR: ADE Pulido DUTY [address] [place] [address] Home: PID#: [id number] Exam#: [id number] : 1955 Age: 66 TO: SALLY GONZALEZ APRN DOG BEHAVIORIST [address] [address] Fax: NO FAX EXAMINATION: SCREENING DIGITAL BILATERAL MAMMOGRAM WITH TOMOSYNTHESIS, 02/08/2022 9:01 am TECHNIQUE: Screening mammography of the bilateral breasts was performed with tomosynthesis. 2D standard and 3D tomosynthesis combination imaging performed through both breasts in the MLO and CC projection. Computer aided detection was utilized in the interpretation of this exam. COMPARISON: 04/05/2020, 08/12/2016 HISTORY: Breast cancer screening. FINDINGS: BREAST DENSITY: Scattered fibroglandular tissue There are benign calcifications in both breasts. There are no significant masses or calcifications. IMPRESSION: No mammographic evidence of malignancy. Continued screening with annual mammograms is recommended. BIRADS: MAMMOGRAM BI-RADS: 2: Benign finding RECALL: 1 year screening RECALL TYPE: mammo LETTER SENT: Normal BI-RADS 1 and 2 Interpreted by: Harsha Judd MD Preliminary Report By: Harsha Judd MD Electronically signed By Harsha Judd MD Dictated Date: 02/08/2022 2:50:21 PM Prelim Date: 02/08/2022 2:55:39 PM Sign Date: 02/08/2022 2:55:39 PM Ordering Provider: SALLY GONZALEZ Cableman: ELY ROGERS RT (R) (M) (CT) letter sent: Normal BI-RADS 1 and 2 Mammogram BI-RADS: [address] [facility] 01-31-2022 Evaluation + Plan note Future Scheduled TestsLipid Profile 01/31/22Complete Metabolic Panel 01/31/[address] [facility] Evaluation + Plan note Future Appointments Appointment Date:11/03/2023 02:00:00 PM Scheduled Provider:SALLY GONZALEZ APRN - DOG BEHAVIORIST Location:[facility] Appointment Type:PC OV Follow Up Future Scheduled TestsStool Culture 09/28/23Clostridium difficile toxin A and B (PCR) (AO) 09/28/23Complete Blood Count 09/28/23Complete Metabolic Panel 09/28/23XR Sinuses Paranasal Minimum 3 Views 09/28/[address] [facility] Evaluation note Diagnosis Acute cough- Primary Nasal congestion Other diseases of nasal cavity and sinuses URI, acute Acute upper respiratory infections of unspecified site [facility] Onset Date Resolution Status Constipation chronic [facility] Work Phone: Evaluation noteNo assessment information available [facility] Work Phone: History and physical note Author Mt Friend [facility] November 12, 2022 2:24pm Note Date/Time November 12, 2022 2:[address] [facility] Medical Records Department [address] [place] [address] History & Physical Exam 11/12/22 1423 MR#: [id number] Acct: [id number] Name: ADE VILLAR Rep #:[id number] : 1955 66 From: [facility] DO PCP: Sally Gonzalez, RADIO STATION MANAGER-C Sta tus:REG [facility] Location: [place] [address] History and Physical Date of Admission: 11/12/22 66 F who presents to the office today for Initial consult. GI Hx diverticulitis with hospitalization. PMH anxiety, HTN, hyperinflation of lung, axillary lymphadenopathy Colonoscopy approximately 8-10 years prior without polyps. *BGI established 2.17.23 with referral from PCP. Constipation (straining with difficulty initiating BM that is relieved with manual manipulation. Stool is then soft/formed but thin, BM occur daily) is an issue recently with subsequent intermittent BRBPR with concern for hemorrhoids, rectal pain and fecal smearing approximately 3 times a week, though not consistent. Focuses on increased dietary fiber following diverticulitis; if she does not feel she gets enough during the day she supplements with Metamucil. Has noted decreased movement r/t husbands? recent hospitalizations. ROS Const Constitutional: No anorexia, fatigue, fever(s), weight change or sleep problems Eyes Eyes: No change in vision ENT ENT: No abnormal hearing, difficulty swallowing, mouth lesions, tongue swelling or throat swelling Resp Respiratory: No cough or shortness of breath Cardio Cardiology: No chest pain at rest, chest pain with exertion, shortness of breathor dyspnea on exertion Gastro GI: No difficulty swallowing Genitourinary-Female: No difficulty urinating or burning urination Musc Musculoskeletal: No joint pain, joint swelling, muscle weakness or decreased muscle mass Skin Skin: No hair loss in leg, yellowing of the eye, itchy eyes, rash, skin ulcer orskin swelling Neuro Neurology: No abnormal hearing, abnormal movements, confusion, unsteady gait/balance or memory loss Psych Psychiatric: No anxiety, No confusion and No memory loss Endo Endocrine: No fatigue or weight change Aller/Imm Allergy/Immunologic: No itchy eyes, throat swelling or tongue swelling Jose Luis/Lymp Hematologic/Lymphatic: No easy bleeding, easy bruising or enlarged lymph nodes Exam Const General: cooperative and comfortable Nutritional Appearance: average body habitus and well nourished HENMT Head: normal to inspection Ears: hearing grossly normal bilaterally Nose: external nose normal Face and sinus: normal facial exam Mouth: oral mucosae normal Throat: posterior oropharynx normal Eyes General: appearance normal, both eyes and all related structures Neck Neck: normal visual inspection Chest Chest palpation & inspection: normal inspection of the chest and normal palpation of entire chest wall Resp Effort & Inspection: normal respiratory effort Auscultation: Bilateral: Clear to Auscultation Cardio Palpation: normal PMI Rate: regular rate Rhythm: regular rhythm GI Inspection: normal to inspection Auscultation: normal bowel sounds Percussion: normal to percussion Palpation: no hepatosplenomegaly Skin General: no rashes or lesions noted Neuro General: patient alert Extrem General: normal to inspection Psych Affect: normal affect Quality Reporting Tobacco Screening ([facility] 138) Smoking Status: Never smoker Assessment and Plan Assessment and Plan (1) Constipation: ?Status:?Chronic ?Plan: The differential diagnosis for her symptoms to include celiac disease, inflammatory bowel disease, IBS with diarrhea, hypergastrinemia, protein-losing enteropathy, exocrine pancreatic insufficiency.? We will do biochemical testing and stool testing For full evaluation of her GI tract as she has had other evaluations including upper and lower endoscopy which may need to be repeated.? However I would like to see if we can find a organic cause prior to invasive testing. I have examined the patient and the H&P has been reviewed. There are no clinicalchanges since date of exam. 11/12/22 4525 <Electronically signed by Mt Friend DO> Cosigner Signature (if applicable): CC: VINAY Gonzalez; Mt DO Herminia~ Signed [facility] Work Phone: History and physical note Author Mtnacho Hope [facility] June 05, 2023 7:10am Note Date/Time June 05, 2023 7:10am [facility] Medical Records Department [address] [place] [address] History & Physical Exam 06/05/23 0710 MR#: [id number] Acct: [id number] Name: ADE VILLAR Rep #:[id number] : 1955 67 From: [facility] DO PCP: VINAY Acevedo Sta tus:REG [place] Location: [place] [address] History and Physical Date of Admission: 06/05/23 67 F who presents to the office today for GI Hx diverticulitis with hospitalization. PMH anxiety, HTN, hyperinflation of lung, axillary lymphadenopathy Colonoscopy approximately 8-10 years prior without polyps. *BGI established 2.17. with referral from PCP. Constipation (straining with difficulty initiating BM that is relieved with manual manipulation. Stool is then soft/formed but thin, BM occur daily) is an issue recently with subsequent intermittent BRBPR with concern for hemorrhoids, rectal pain and fecal smearing approximately 3 times a week, though not consistent. Focuses on increased dietary fiber following diverticulitis; if she does not feel she gets enough during the day she supplements with Metamucil. Has noted decreased movement r/t husbands? recent hospitalizations. Colonoscopy 11.12. colonic diverticulosis; congested RS through splenic flexureand hepatic flexure and TI colons; nonbleeding internal hemorrhoids, banded. Random biopsy TA. OV 5.. BM in the morning with initial incomplete evacuation and second evacuation with complete; no straining but will sometimes use perineal pressure,but not as often. Bleeding has resolved. Notes some chronic urinary difficulty which she has discussed with PCP and will follow up with PCP and/or urology in the future. ROS Const Constitutional: No anorexia, fatigue, fever(s), weight change or sleep problems Eyes Eyes: No change in vision ENT ENT: No abnormal hearing, difficulty swallowing, mouth lesions, tongue swelling or throat swelling Resp Respiratory: No cough or shortness of breath Cardio Cardiology: No chest pain at rest, chest pain with exertion, shortness of breathor dyspnea on exertion Gastro GI: No difficulty swallowing Genitourinary-Female: No difficulty urinating or burning urination Musc Musculoskeletal: No joint pain, joint swelling, muscle weakness or decreased muscle mass Skin Skin: No hair loss in leg, yellowing of the eye, itchy eyes, rash, skin ulcer orskin swelling Neuro Neurology: No abnormal hearing, abnormal movements, confusion, unsteady gait/balance or memory loss Psych Psychiatric: No anxiety, No confusion and No memory loss Endo Endocrine: No fatigue or weight change Aller/Imm Allergy/Immunologic: No itchy eyes, throat swelling or tongue swelling Jose Luis/Lymp Hematologic/Lymphatic: No easy bleeding, easy bruising or enlarged lymph nodes Exam Const General: cooperative and comfortable Nutritional Appearance: average body habitus and well nourished HENMT Head: normal to inspection Ears: hearing grossly normal bilaterally Nose: external nose normal Face and sinus: normal facial exam Mouth: oral mucosae normal Throat: posterior oropharynx normal Eyes General: appearance normal, both eyes and all related structures Neck Neck: normal visual inspection Chest Chest palpation & inspection: normal inspection of the chest and normal palpation of entire chest wall Resp Effort & Inspection: normal respiratory effort Auscultation: Bilateral: Clear to Auscultation Cardio Palpation: normal PMI Rate: regular rate Rhythm: regular rhythm GI Inspection: normal to inspection Auscultation: normal bowel sounds Percussion: normal to percussion Palpation: no hepatosplenomegaly Skin General: no rashes or lesions noted Neuro General: patient alert Extrem General: normal to inspection Psych Affect: normal affect Quality Reporting Tobacco Screening ([facility] 138) Smoking Status: Never smoker Assessment and Plan Assessment and Plan (1) Constipation: Status: Chronic Plan: Constipation secondary to hemorrhoidal disease status post banding. She has a history of chronic idiopathic constipation that is likely secondary to slow transit constipation with the presence of a pelvic floor dysfunction with perineal manipulation in order to have a complete evacuation. That is a lot better and she is having 2 bowel movements in the morning with the use of Metamucil every morning. She is also taking extra supplemental fiber. She is very satisfied after undergoing banding of internal hemorrhoids. She had prolapsed internal hemorrhoids and 3 bands were placed to hemorrhoidal tissue. She is not requiring any stool softeners. She is having less obstipation symptoms. She did have a small tubular adenoma that was removed so we will request that repeat colonoscopy back in 5 years. Continue current bowel regimen. I have examined the patient and the H&P has been reviewed. There are no clinicalchanges since date of exam. 06/05/23 0710 <Electronically signed by [facility] Hope DO> Cosigner Signature (if applicable): CC: VINAY Gonzalez; [facility] DO~ Signed [facility] Work Phone: Hospital course Narrative No data available for this section [facility] Hospital Discharge instructions No data available for this section [facility] Progress note No data available for this section [facility] Reason for referral (narrative)No reason for referral information availableWUniversity [facility]als [facility] Work Phone: Health Concerns Infection Onset Date Last Indicated Resolved Time COVID-19 Rule-Out 10/12/2022 10/12/2022 Summary Purpose Family History No Family History Records Found Relationship Condition Age at Onset Recorded Date/T gil sister Malignant neoplasm of breast Unknown Hypertension Unknown Disorder of thyroid Unknown father Kidney disorder Unknown mother Disorder of thyroid Unknown Advance Directives No Advanced Directives Records Found Advance Directive Response Recorded Date/ Time Name of Medical Power of Merchandise Coordinator SPOUSE October 11, 2022 9:07am Living Will Yes October 11, 2022 9:07am Power of Merchandise Coordinator Yes October 11 9:07am Advance Directive Response Recorded Date/ Time Living Will Yes October 11, 2022 9:07am Power of Merchandise Coordinator Yes October 11 9:07am Advance Directive Response Recorded Date/ Time Living Will No June 03 023 9:40am Power of Merchandise Coordinator No June 03, 2023 9:40am Advance Directive Response Recorded Date/ Time Living Will No June 03 10:40am Do you have a Healthcare Power of Merchandise Coordinator? No June 03, 2023 10:40am Chief Complaint and Reason for Visit Chief Complaint Consult Reason for Visit Constipation Chief Complaint Admit Date SCREENING POST JOSE MANUEL June 15, 2024 12:49pm RIGHT BREAST MASS September 28, 2024 9:2 6am Chief Complaint Admit Date RIGHT BREAST MASS September 28, 2024 9:2 6am Chief Complaint Admit Date RIGHT BREAST MASS September 28, 2024 9:2 6am 6 M FU December 03, 2024 8:37a m Additional Source Comments Care Team (unrecognized sect ion and content) Care Team Personnel Name: SALLY GONZALEZ [employer] - DOG BEHAVIORIST Position: P4 Advanced Practice Nurse Med Service: Employed Provider Member Role: Primary Care Physician Address: Address: [address] [place], [place] [address] Care Team Related Persons Name: PATTY VILLAR Source Comments (unrecognize d section and content) In the event this informatio n is protected by the Federal Confidentiality of Alcohol and Drug Abuse Patient Records regulations: The Federal rules restrict any use of the information to criminally investigate or prosecute any alcohol or drug abuse patient.[facility] the event this information is protected by the Federal Confidentiality of Alcohol and Drug Abuse Patient Records regulations: The Federal rules restrict any use of the information to criminally investigate or prosecute any alcohol or drug abuse patient.[facility] Reason for Visit (unrecogniz ed section and content) Reason Comments Sinus Problem drainage and right e ar pain x 3 days Reason Comments Results Care Teams (unrecognized sec tion and content) Certified Rehabilitation Counselor Relationship Specialty Start Date End Date [place] Sally Sinai, DOG BEHAVIORIST [address] [place] [address] PCP - General Family Medicine 12/19/15 Certified Rehabilitation Counselor Relationship Specialty Start Date End Date [place] Sally Sinai, DOG BEHAVIORIST [address] [place] [address] PCP - General Family Medicine 12/19/15 Team Status: Active Member Role Status Dates Sally Gonzalez RADIO STATION MANAGER, RADIO STATION MANAGER-C Family Provider Activ e Sally Gonzalez RADIO STATION MANAGER, RADIO STATION MANAGER-C Primary Care Provider Active Team Status: Inactive Member Role Status Dates Dr. Jackson Roman MD Primary Care Provider, Referring Provider Active Dr. [facility] Hope DO Attending Provider Active Team Status: Active Member Role Status Dates Sally Gonzalez RADIO STATION MANAGER, RADIO STATION MANAGER-C Primary Care Provider, Referring Provider Active Dr. Mt Hope DO Attending Provider, Other Prov ider Active Team Status: Inactive Member Role Status Dates Sally Gonzalez RADIO STATION MANAGER, RADIO STATION MANAGER-C Primary Care Provider, Referring Provider Active Dr. [facility] Hope DO Attending Provider Active Team Status: Active Member Role Status Dates Sally Gonzalez RADIO STATION MANAGER, RADIO STATION MANAGER-C Primary Care Provider, Attending Provider, Referring Provider Active Team Status: Inactive Member Role Status Dates Sally Gonzalez RADIO STATION MANAGER, RADIO STATION MANAGER-C Primary Care Provider, Attending Provider, Referring Provider Active Team Status: Active Member Role Status Dates Sally Gonzalez RADIO STATION MANAGER, RADIO STATION MANAGER-C Primary Care Provider Active Team Status: Inactive Member Role Status Dates Sally Gonzalez RADIO STATION MANAGER, RADIO STATION MANAGER-C Primary Care Provider Active Start: June [id number] End: June 15, 2024 Sally Gonzalez RADIO STATION MANAGER, RADIO STATION MANAGER-C Attending Provider Active Start: May End: June 15, 2024 Sally Gonzalez RADIO STATION MANAGER, RADIO STATION MANAGER-C Referring Provider Active Start: May End: June 15, 2024 Team Status: Inactive Member Role Status Dates Sally Gonzalez RADIO STATION MANAGER, RADIO STATION MANAGER-C Primary Care Provider Active Start: September 28, 2024 End: September 28, 2024 Sally Gonzalez RADIO STATION MANAGER, RADIO STATION MANAGER-C Attending Provider Ac tive Start: September 28, 2024 End: September 28, 2024 Sally Daily Lisa RADIO STATION MANAGER, RADIO STATION MANAGER-C Referring Provider Ac tive Start: September 28, 2024 End: September 28, 2024 Team Status: Inactive Member Role Status Dates Sally Daily Lisa RADIO STATION MANAGER, RADIO STATION MANAGER-C Primary Care Provider Active Start: November 02, 2024 End: November 02, 2024 Dr. Javier Conner MD Attending Provider Active Start: November 02, 2024 End: November 02, 2024 Dr. Javier Conner MD Referring Provider Active Start: November 02, 2024 End: November 02, 2024 Team Status: Inactive Member Role Status Dates Sally Daily Lisa RADIO STATION MANAGER, RADIO STATION MANAGER-C Primary Care Provider Active Start: December 03, 2024 End: December 03, 2024 Sally Daily Lisa RADIO STATION MANAGER, RADIO STATION MANAGER-C Referring Provider Ac tive Start: December 03, 2024 End: December 03, 2024 Dr. Mt Hope DO Attending Provider Active Start: December 03, 2024 End: December 03, 2024 INFORMATION SOURCE (unrecogn ized section and content) DATE CREATED AUTHOR 10/13/2022 [facility] DATE CREATED AUTHOR AUTHOR'S ORGANIZ ATION 09/23/2023 [facility] ([place]) DATE CREATED AUTHOR AUTHOR'S ORGANIZ ATION 10/29/2024 [facility] DATE CREATED AUTHOR AUTHOR'S ORGANIZ ATION 02/15/2025 [facility] Goals (unrecognized section and content) Goals may be documented in a n alternate section FOR RECORDS PERTAINING TO PATIENTS WHO ARE OR HAVE BEEN ENROLLED IN A CHEMICAL DEPENDENCY/SUBSTANCEABUSE PROGRAM, SOME INFORMATION MAY BE OMITTED. This clinical summary was aggregated from multiple sources. Caution should be exercised in using it in the provision of clinical care. This summary normalizes information from multiple sources, and as a consequence, information in this document may materially change the coding, format and clinical context of patient data. In addition, data may be omitted in some cases. CLINICAL DECISIONS SHOULD BE BASED ON THE PRIMARY CLINICAL RECORDS. [employer] [facility]. provides no warranty or guarantee of the accuracy or completeness of information in this document.
[2025-02-15] MEDS: Lactated Ringers 1,000 ML 15 ML IV (06:25)
--- NOTE | 2025-02-15 06:53 | PCM.HP.STD ---
HPI - General General Date of Admission: 02/15/25 Date of Service: 02/15/25 Chief Complaint: wright's esophagus HPI Narrative ARMIDA CASTRO, is a 69 F who presents for surveillance of Wright's esophagus. *BGI established 09.06.22 with referral from PCP. Constipation (straining with difficulty initiating BM that is relieved with manual manipulation. Stool is then soft/formed but thin, BM occur daily) is an issue recently with subsequent intermittent BRBPR with concern for hemorrhoids, rectal pain and fecal smearing approximately 3 times a week, though not consistent. Focuses on increased dietary fiber following diverticulitis; if she does not feel she gets enough during the day she supplements with Metamucil. Has noted decreased movement r/t husbands? recent hospitalizations. Colonoscopy 11.12.22 colonic diverticulosis; congested mucosa; nonbleeding internal hemorrhoids, banded. Random biopsy TA. OV 11.27.22 BM in the morning with initial incomplete evacuation and second evacuation with complete; no straining but will sometimes use perineal pressure, but not as often. Bleeding has resolved. Notes some chronic urinary difficulty which she has discussed with PCP and will follow up with PCP and/or urology in the future. Contact 04.14.23 reporting being seen by ENT who said she needed EGD for hoarse voice; also reports pain with swallowing. ? EGD 06.05.23 short-segment Wright?s, metaplasia +; medium hiatal hernia; gastritis; duodenal metaplasia. H.Pylori neg. OV 07.01.23 continues to have some pain with swallowing; reports recent family emergency with family member being life-flighted. Reports a lot of anxiety/stress/depression of recent months and this could be the reason she continues to have pain with swallowing and epigastric upset. Has a concern that a hemorrhoid has returned; she has been having difficult BM as she has not been consistent with her fiber intake. OV 5.17.24 pt reports that she has been experiencing fecal incontinence when she is moving around during her day; reports this happens 2-3 times a week. Pt reports that she may have a hemorrhoid. Pt reports at least one formed bm per day; denies blood in the stool. Reports that her difficulty swallowing has improved since LV and that it occurs maybe once every 2 weeks if she takes too big of a bite. SITZ 5.2024 Day 3 Colonic fecal retention is noted. Sitz markers are seen from the splenic flexure to the rectosigmoid colon level. Day 5 A single Sitz marker is in the mid to distal descending colon. OV 9.23.24 pt reports that she is feeling well overall and denies GI symptoms of concern at this time. Pt states that she has occasional gas and bloating and will take a Gas-X which she reports is effective. OV 5.16.25- Pt states she is well since last visit. States she has a hemorrhoid that has flared up due to eating some prunes. Continues with Omeprazole 20mg QD. Denies heartburn, abd pain, dysphagia N&V. [facility] Medical History Gastric reflux Leg cramps Anxiety Arthritis Wears glasses Post-menopausal Depression Bladder disease Restless legs Non-smoker Shortness of breath on exertion History of edema History of stress test Cardiology follow-up encounter Diverticulitis Lymphadenopathy, axillary HTN (hypertension) DAKOTA (generalized anxiety disorder) Rectal prolapse Hemorrhoids Diverticulosis of sigmoid colon Home Medications ?Medication ?Instructions ?Recorded ?Last Taken ?Type hydrochlorothiazide 25 mg tablet 25 mg PO DAILY 07/12/20 02/14/25 History loratadine 10 mg tablet (Claritin) 10 mg PO DAILY 12/05/23 02/14/25 History omeprazole 20 mg capsule,delayed 20 mg PO QDAY 04/12/24 02/14/25 History release hydrocortisone acetate 25 mg 25 mg DE QHS 21 days #12 ea 12/03/24 Unknown Rx rectal suppository cholecalciferol (vitamin D3) 25 25 mcg PO DAILY 02/09/25 Unknown History mcg (1,000 unit) capsule (Vitamin D3) fluoxetine 20 mg capsule 20 mg PO DAILY 02/09/25 02/14/25 History Allergy/AdvReac Type Severity Reaction Status Date / Time CAT Inhibitors Allergy Intermediate Other Verified 02/09/25 12:35 erythromycin base AdvReac Upset Verified 02/09/25 12:35 Stomach Family History Sister Breast cancer Hypertension Thyroid disorder Father Kidney disease Mother Thyroid disorder Surgical History Hx of esophagogastroduodenoscopy Hx of colonoscopy Hx of rotator cuff surgery History of Social History Smoking Status: Never smoker ROS Constitutional Constitutional: Denies fatigue, fever(s), poor appetite, weight gain or weight loss Gastrointestinal Gastrointestinal: Denies belching, bloating, change in bowel habits, change in stool character, chewing difficulty, coffee ground emesis, constipation, cramping, diarrhea, dyspepsia, dysphagia, early satiety, excessive flatus, fecal incontinence, heartburn, hematemesis, hematochezia, hemorrhoids, loose stools, melena, nausea, odynophagia, rectal bleeding, tenesmus, vomiting or weight changes Vital Signs Vital Signs Vital Signs: 02/15/25 06:20 02/15/25 06:20 Temperature 99.0 F Temperature Source Temporal Pulse Rate 76 Respiratory Rate 16 Respiratory Pattern Normal Blood Pressure 146/74 H Blood Pressure Mean 98 Blood Pressure Source Monitor Blood Pressure Position Sitting Blood Pressure Location Left Arm Pulse Ox 99 Oxygen Delivery Method Room Air Weight Weight: 178 lb 9.191 oz Body Mass Index (BMI) 34.9 Physical Exam Const alert, oriented x3, no apparent distress and healthy appearing General Appearance: cooperative GI normal to inspection, nondistended, normoactive bowel sounds, soft to palpation, non-tender and non-distended Percussion: normal to percussion Rectal Exam: deferred Assessment & Plan Assessment/Plan (1) Barretts esophagus: QUALIFIERS: Wright's esophagus type: without dysplasia Qualified Code(s): K22.70 - Wright's esophagus without dysplasia (2) Dysphagia: QUALIFIERS: Dysphagia type: esophageal phase Qualified Code(s): R13.19 - Other dysphagia PLAN: Assessment and Plan Assessment and Plan (1) Acute hemorrhoid: Status: Acute Plan: I will send her hydrocortisone suppositories. (2) Barretts esophagus: Status: Acute Qualifiers: Wright's esophagus type: without dysplasia Qualified Code(s): K22.70 - Wright's esophagus without dysplasia Plan: She will need surveillance upper endoscopy in approximately 6 months for short segment Wright's esophagus. (3) Dysphagia: Status: Chronic Qualifiers: Dysphagia type: esophageal phase Qualified Code(s): R13.19 - Other dysphagia Plan: This is alot better on PPI therapy after dilation of the distal esophagus. (4) Constipation: Status: Chronic Qualifiers: Constipation type: slow transit constipation Qualified Code(s): K59.01 - Slow transit constipation Plan: Constipation secondary to hemorrhoidal disease status post banding. She has a history of chronic idiopathic constipation that is likely secondary to slow transit constipation with the presence of a pelvic floor dysfunction with perineal manipulation in order to have a complete evacuation. That is a lot better and she is having 2 bowel movements in the morning with the use of Metamucil every morning. She is also taking extra supplemental fiber. She is very satisfied after undergoing banding of internal hemorrhoids. She had prolapsed internal hemorrhoids and 3 bands were placed to hemorrhoidal tissue. She is not requiring any stool softeners. She is having less obstipation symptoms. She did have a small tubular adenoma that was removed so we will request that repeat colonoscopy back in 5 years. Continue current bowel regimen. (5) Fecal incontinence: Status: Acute Plan: Patient is stable since she has fecal incontinence and stress incontinence. I think she may have a pelvic floor problem. We will check a CT scan abdomen pelvis to evaluate her pelvic floor and also get CT scan of the abdomen pelvis. She will also undergo a sits marker test and stool testing for exocrine pancreatic insufficiency. Medications: New hydrocortisone acetate 25 mg DE QHS 12 ea 2RF 21 days
--- NOTE | 2025-02-15 06:59 | PCM.PRE.AN2 ---
ASA Classification* ASA Classification ASA Classification: 2 Assessment & Plan Anesthesia* Anesthesia Assessment Anesthesia Assessment: Discussed sedation and/or anesthesia options, risks, benefits, and alternatives with patient/parents/legal guardian/POA. Questions invited. The patient/parents/legal guardian/POA seems to understand and agrees to proceed with anesthesia plan. Reviewed the physical assessment, medical history, allergy history and patient home medications list prior to surgery/procedure/anesthetic and documented any changes. Performed airway and anesthesia risk assessments. Anesthesia Type Anesthesia Type: MAC History Source History Obtained from:: Patient and Chart Anesthesia Focused Assessment* Temperature: 99.0 F Pulse Rate: 76 Blood Pressure: 146/74 Respiratory Rate: 16 Pulse Ox: 99 Oxygen Delivery Method: Room Air Airway Assessment Mouth opens: >3 cm Mallampati Score: I Teeth Condition: Caps/Crowns (Patient has couple caps on the front incisor. They are tight.) Neck Range of motion (ROM): Full ROM Labs Anesthesia Preop lab: CBC WBC 8.2 K/mm3 (4.4-11.0) 11/02/24 11:14 11/02/24 RBC 4.60 M/mm3 (4.2-5.4) 11/02/24 11:14 11/02/24 Hgb 13.9 g/dL (12.0-15.0) 11/02/24 11:14 11/02/24 Hct 41.6 % (37-47) 11/02/24 11:14 11/02/24 Plt Count 383 K/mm3 (150-450) 11/02/24 11:14 11/02/24 CHEMISTRY Potassium 3.5 mmol/L (3.3-5.1) 11/02/24 11:14 11/02/24 Sodium 137 mmol/L (133-145) 11/02/24 11:14 11/02/24 BUN 10 mg/dL (4-19) 11/02/24 11:14 11/02/24 Creatinine 0.75 mg/dL (0.70-1.20) 11/02/24 11:14 11/02/24 Glucose 92 mg/dL (70-99) 11/02/24 11:14 11/02/24 TSH 0.58 uIU/mL (0.358-3.74) 10/04/20 15:33 10/04/20 COAG Pre-Assessment Diagnosis/Proposed Procedure Planned Operative Procedure(s): EGD Anesthesia History Anesthesia History - reconcilement clerk: Anesthesia History - reconcilement clerk Hx Hospitalization No 02/09/25 12:36 Any Problems With Anesthesia No 02/09/25 12:36 Cholinesterase deficiency No 02/09/25 12:36 You/Your Family Experience No 02/09/25 12:36 fever (hyperthermia) with Relationship Recent Exposure to Contagious No 02/15/25 06:20 Disease Does patient have nerve No 02/09/25 12:36 stimulator Patient instructed to have device shut off --Does patient have Pacemaker No 02/15/25 06:20 or ICD? When Was Last Pacemaker Check QUESTION #4 FULL TEXT: You/Your Family Experience fever (hyperthermia) with Anesthesia Last Oral Intake Last Oral intake: Last Oral Intake NPO since 18:30 02/15/25 06:20 Meds taken in AM with sips of No 02/15/25 06:20 water? Meds patient instructed to take am of surgery PONV PONV - reconcilement clerk: PONV - reconcilement clerk Female Yes 02/09/25 12:36 HX of Motion Sickness No 02/09/25 12:36 HX of N/V After Surgery No 02/09/25 12:36 Non-Smoker No 02/09/25 12:36 Duration of Surgery greater No 02/09/25 12:36 than 60 minutes Number of Risk Factors 1 02/09/25 12:36 PONV Score Low Risk 02/09/25 12:36 Height & Weight Height & Weight: Anesthesia: Height & Weight Height 5 ft 02/15/25 06:20 Weight: 81 kg 02/15/25 06:20 Body Mass Index (BMI) 34.9 02/15/25 06:20 Respiratory Assessment Respiratory Assessment - reconcilement clerk: Respiratory Tract Infection Hx - reconcilement clerk Hx Respiratory Tract Infection No 02/09/25 12:36 STOP Sleep Apnea STOP Sleep Apnea - reconcilement clerk: STOP Sleep Apnea - reconcilement clerk Hx Hypertension Yes: CONTROLLED WITH MED 02/09/25 12:36 Hx Sleep Apnea No 02/09/25 12:36 CPAP BIPAP Do you snore loudly (louder Yes 02/09/25 12:36 than talking or can be heard Do you often feel tired/ Yes 02/09/25 12:36 fatigued/ sleepy during daytime? Has anyone observed you stop Yes 02/09/25 12:36 breathing during sleep? STOP Results Positive 02/09/25 12:36 QUESTION #5 FULL TEXT : Do you snore loudly (louder than talking or can be heard through closed doors)? Tobacco Use History Tobacco Use History - reconcilement clerk: Tobacco Use History - reconcilement clerk Tobacco Use Non-smoker 06/11/22 16:22 Smoking Status Never smoker 02/09/25 12:36 Hx Tobacco Use No 02/09/25 12:36 Years Smoking Packs Smoked per Day Smoking Cessation Date was within the last 15 years Hx Smoking Cessation Date Hx Smoking Cessation Counseling Hematologic Medial History Hematologic Hx - reconcilement clerk: Hematologic Medical Hx - speech and language specialist Hx of Blood Transfusion No 02/09/25 12:36 Hx of Transfusion in last 3 No 02/09/25 12:36 Months Date of Last Transfusion (if within last 3 months) Ever experience any problems No 02/09/25 12:36 with transfusion(s)? Specify any problems Hx of Preganancy in last 3 No 02/09/25 12:36 Months Nurse Filling Out Transfusion DSCHRIBER 02/09/25 12:36 & Questions: Date: 02/09/25 02/09/25 12:36 Time: 12:38 02/09/25 12:36 Patient unable to answer at this time (ie. confused, unrespo /Reproduction History /Reproductive History - reconcilement clerk: /Reproductive Hx- reconcilement clerk Hx Now Gestational Age (in weeks): EDC: Hx Hx Para Hx Section SAB No 02/09/25 12:36 Active Medications Active Medications: Current Medications Generic Name Dose Route Start Last Admin Trade Name Freq PRN Reason Stop Dose Admin Lactated Ringer's 1,000 mls @ 15 mls/hr 02/15/25 06:15 02/15/25 06:25 IV 15 mls/hr .Q48H PALMA Administration PFSH Medical History Gastric reflux Leg cramps Anxiety Arthritis Wears glasses Post-menopausal Depression Bladder disease Restless legs Non-smoker Shortness of breath on exertion History of edema History of stress test Cardiology follow-up encounter Diverticulitis Lymphadenopathy, axillary HTN (hypertension) DAKOTA (generalized anxiety disorder) Rectal prolapse Hemorrhoids Diverticulosis of sigmoid colon Home Medications ?Medication ?Instructions ?Recorded ?Last Taken ?Type hydrochlorothiazide 25 mg tablet 25 mg PO DAILY 07/12/20 02/14/25 History loratadine 10 mg tablet (Claritin) 10 mg PO DAILY 12/05/23 02/14/25 History omeprazole 20 mg capsule,delayed 20 mg PO QDAY 04/12/24 02/14/25 History release hydrocortisone acetate 25 mg 25 mg IN QHS 21 days #12 ea 12/03/24 Unknown Rx rectal suppository cholecalciferol (vitamin D3) 25 25 mcg PO DAILY 02/09/25 Unknown History mcg (1,000 unit) capsule (Vitamin D3) fluoxetine 20 mg capsule 20 mg PO DAILY 02/09/25 02/14/25 History Allergy/AdvReac Type Severity Reaction Status Date / Time CAT Inhibitors Allergy Intermediate Other Verified 02/09/25 12:35 erythromycin base AdvReac Upset Verified 02/09/25 12:35 Stomach Family History Sister Breast cancer Hypertension Thyroid disorder Father Kidney disease Mother Thyroid disorder Surgical History Hx of esophagogastroduodenoscopy Hx of colonoscopy Hx of rotator cuff surgery History of Social History Smoking Status: Never smoker Review of Systems (Anesthesia) ROS Narrative System reviewed and no additional complaints, except as documented.
--- NOTE | 2025-02-15 07:00 | EGD_PTH ---
PATIENT: ARMIDA CASTRO LOC: EN U#:[id number] AGE/SX: 69/F ROOM: RE02/15/[address]: Dr. Mt Hope DO : 1955 BED: DIS: 02/15/2025 SPEC #: [id number] RECD: 02/15/25 09:45 STATUS: JAIRON VICTORINA #: [id number] SANTIAGO: 02/15/25 07:[address]: Mt Hope DEPT: SURGICAL PATHOLOGY RECD BY: Grayson Amos ENTERED: 02/15/25 10:48 SP TYPE: EGD BIOPSY NGUYEN DR: Christo Gonzalez, SKY DIVER-C Tissues: A - Esophagus, NOS Procedures: Surgery Specimen Level IV HEADER OPERATION: EGD with biopsy PRE-OP DIAGNOSIS: Bourgeois's esophagus, dysphagia TISSUE SUBMITTED: A- Distal esophagus biopsy MICROSCOPIC DIAGNOSIS A. Distal esophagus, biopsy: * Benign squamous epithelium * Oxyntocardiac type mucosa with mild chronic inflammation, negative for goblet cells MICROSCOPIC DESCRIPTION Slides are reviewed. GROSS DESCRIPTION A. Received in fixative is one container labeled with the patient's name and designated Distal esophagus biopsy. The specimen consists of four irregular fragments of light angelo soft tissue that in aggregate measure 0.2 to 0.4 cm. The specimen is totally submitted in one cassette. MN 02/15/2025 CPT:76359
--- NOTE | 2025-02-15 07:21 | OP.PROVAT_ITS ---
02/15/2025 Christo Gonzalez Re : Upper GI endoscopy procedure for [facility] Dear Lisa This procedure was performed on Saturday, February 15, 2025. My impressions and recommendations are as follows: Impressions : - Esophageal mucosal changes secondary to established short-segment Bourgeois's disease. Biopsied. - Normal stomach. - Normal examined duodenum. Recommendations : - Discharge patient to home. - Resume previous diet. - Continue present medications. - Await pathology results. My findings are described in the full procedure note, which is enclosed. If I can be of further assistance, please feel free to contact me at . Sincerely, Mt Hope, 02/15/2025 7:20:47 AM This report has been signed electronically.
--- NOTE | 2025-02-15 07:21 | OP.EGD_ITS ---
Patient Name: Ade Villar Procedure Date: 02/15/2025 7:02 AM Date of : 1955 Age: 69 Procedure: Upper GI endoscopy Indications: Follow-up of Bourgeois's esophagus Providers: Mt Hope DO Medicines: Monitored Anesthesia Care Patient Profile: This is a 69 year old female. Refer to note in patient chart for documentation of history and physical. Patient has symptoms of chronic heartburn. Complications: No immediate complications. Procedure: Pre-Anesthesia Assessment: - Prior to the procedure, a History and Physical was performed, and patient medications and allergies were reviewed. The patient is competent. The risks and benefits of the procedure and the sedation options and risks were discussed with the patient. All questions were answered and informed consent was obtained. Patient identification and proposed procedure were verified by the physician in the pre-procedure area. Mental Status Examination: alert and oriented. Airway Examination: normal oropharyngeal airway and neck mobility. Respiratory Examination: clear to auscultation. CV Examination: normal. Prophylactic Antibiotics: The patient does not require prophylactic antibiotics. Prior Anticoagulants: The patient has taken no anticoagulant or antiplatelet agents except for NSAID medication. ASA Grade Assessment: II - A patient with mild systemic disease. After reviewing the risks and benefits, the patient was deemed in satisfactory condition to undergo the procedure. The anesthesia plan was to use monitored anesthesia care (MAC). Immediately prior to administration of medications, the patient was re-assessed for adequacy to receive sedatives. The heart rate, respiratory rate, oxygen saturations, blood pressure, adequacy of pulmonary ventilation, and response to care were monitored throughout the procedure. The physical status of the patient was re-assessed after the procedure. After obtaining informed consent, the endoscope was passed under direct vision. Throughout the procedure, the patient's blood pressure, pulse, and oxygen saturations were monitored continuously. The gastroscope was introduced through the mouth, and advanced to the second part of duodenum. The upper GI endoscopy was accomplished without difficulty. The patient tolerated the procedure well. Scope In: 7:13:06 AM Scope Out: 7:16:38 AM Total Procedure Duration Time 0 hours 3 minutes 32 seconds Findings: There were esophageal mucosal changes secondary to established short-segment Bourgeois's disease present in the lower third of the esophagus. The maximum longitudinal extent of these mucosal changes was 2 cm in length. Mucosa was biopsied with a cold forceps for histology in a targeted manner at intervals of 1 cm in the lower third of the esophagus. One specimen bottle was sent to pathology. Verification of patient identification for the specimen was done. Estimated blood loss was minimal. The entire examined stomach was normal. The examined duodenum was normal. Impression: - Esophageal mucosal changes secondary to established short-segment Bourgeois's disease. Biopsied. - Normal stomach. - Normal examined duodenum. Recommendation: - Discharge patient to home. - Resume previous diet. - Continue present medications. - Await pathology results. Procedure Code(s): --- Professional --- 53181, Esophagogastroduodenoscopy, flexible, transoral; with biopsy, single or multiple CPT copyright 2021 [employer]. All rights reserved. The codes documented in this report are preliminary and upon production assembler review may be revised to meet current compliance requirements. Mt Hope DO 02/15/2025 7:20:47 AM This report has been signed electronically. Number of Addenda: 0 Note Initiated On: 02/15/2025 7:02 AM
--- NOTE | 2025-02-15 07:30 | PCM.POST.ANE ---
Anesthesia: Postop Eval I Current Vital Signs Temperature: 98.4 F Pulse Rate: 62 Blood Pressure: 102/57 Respiratory Rate: 16 Pulse Ox: 97 Oxygen Delivery Method: Room Air Assessment Airway patent: Yes Spontaneous unlabored respirations: Yes Mental status: Awake and Calm nausea: No Vomiting: No Anesthesia Complication: No Fluid Hydration Crystalloid volume administer (ml): 300 Total IV fluid infused: 300 Progress Note Anesthesia document: Postop Eval 1 completed: Yes
== END 2025-02-15 07:52 | disposition home or self-care (01) ==
LOC: EN 05:59 → AC 06:01
PROVIDERS: PCP Nurse Practitioner Family; Referring Provider Nurse Practitioner Family; Visit Provider Internal Medicine Gastroenterology
PROC: 0DJ08ZZ Inspection of Upper Intestinal Tract, Via Natural or Artificial Opening Endoscopic (ICD-10-PCS; CPT 43235; principal; 2025-02-15 06:55)
DX: K22.70 Barrett's esophagus without dysplasia (principal); K59.01 Slow transit constipation; R19.5 Other fecal abnormalities; I10 Essential (primary) hypertension; F41.1 Generalized anxiety disorder; F32.A Depression, unspecified; Z87.19 Personal history of other diseases of the digestive system; Z86.0101 Personal history of adenomatous and serrated colon polyps; Z79.899 Other long term (current) drug therapy
CPT/HCPCS: 43239; 88305; J2405

== ENCOUNTER → 2025-07-13 | Outpatient (CLI) | payer MEDICARE, SELFPAY ==
--- OUTSIDE RECORDS SUMMARY | 2025-07-13 09:23 | XMS RPT_ITS | CCD ---
Author Organization [facility] Care Team Providers Care Change Control Coordinator Name Role Phone SALLY OCHOA APRN, CNP Primary Care Phys ician Sally Gonzalez CNP Primary Care Provider SALLY GONZALEZ Primary Care Unavailable Dr. Jackson Roman Chi Primary Care Provider [phone] Dr. Jackson Roman Chi Referring Provider [phone] FriendDr[address] Amor Attending Provider Lisa HORSE EXERCISER, HORSE EXERCISER-C Sally Daily Primary Care Pr ovider Lisa HORSE EXERCISER, HORSE EXERCISER-C Sally Daily Referring Provi shama FriendDr. Amor Other Provider Lisa HORSE EXERCISER, HORSE EXERCISER-C Sally Daily Primary Care Pr ovider Lisa HORSE EXERCISER, HORSE EXERCISER-C Sally Daily Referring Provi shama FriendDr. Amor Attending Provider FriendDr. Amor Other Provider LISA WORLEY - SALLY CARRERA Attending U navailable LISADESTIN WORLEY - DEANDRE, SALLY Rawls Primary Care U navailable LISADESTIN WORLEY - SALLY CARRERA Attending U navailable LISADESTIN WORLEY - DEANDRE, SALLY Rawls Primary Care U navailable Lisa HORSE EXERCISER-C, Sally Daily Primary Care Provi shama Lisa HORSE EXERCISER-CSally Attending Provider Lisa HORSE EXERCISER-C, Sally Daily Referring Provider Lisa HORSE EXERCISER-C, Sally Daily Primary Care Provi shama Lisa HORSE EXERCISER-C, Sally Daily Attending Provider Menard HORSE EXERCISER-C, Slaly Daily Referring Provider Dalila MENDEZ, Dr. Herrera Attending Provider Dalila MENDEZ, Dr. Herrera Referring Provider Friend , Dr. Amor Attending Provider Menard HORSE EXERCISER-C, Sally Daily Primary Care Provi shama Menard HORSE EXERCISER-C, Sally Daily Referring Provider Dr. [place] DO Other Provider Lisa HORSE EXERCISER, Sally Daily Attending Unav ailable Lisa HORSE EXERCISER, Sally Daily Referring Unav ailable Lisa HORSE EXERCISER, Sally Daily Primary Care Unav ailable Javier Conner Attending Unavailable Javier Conner Referring Unavailable Menard HORSE EXERCISER, Sally Daily Primary Care Unav ailable Friend, Mt Attending Unavailable Lisa HORSE EXERCISER, Sally Daily Referring Unav ailable Lisa HORSE EXERCISER, Sally Daily Primary Care Unav ailable Lisa HORSE EXERCISER, Sally Daily Referring Unav ailable Menard HORSE EXERCISER, Sally Daily Primary Care Unav ailable Friend, Mt Consulting Unavailable Friend, Mt Attending Unavailable Menard HORSE EXERCISER, Sally Daily Referring Unav ailable Menard HORSE EXERCISER, Sally Daily Primary Care Unav ailable Friend, Mt Attending Unavailable Menard HORSE EXERCISER, Sally Daily Referring Unav ailable Menard HORSE EXERCISER, Sally Daily Primary Care Unav ailable Friend, Mt Attending Unavailable Menard HORSE EXERCISER, Sally Daily Attending Unav ailable Menard HORSE EXERCISER, Sally Daily Referring Unav ailable Lisa HORSE EXERCISER, Sally Daily Primary Care Unav ailable Menard HORSE EXERCISER, Sally Daily Attending Unav ailable Menard HORSE EXERCISER, Sally Daily Referring Unav ailable Menard HORSE EXERCISER, Sally Daily Primary Care Unav ailable HERBERT CONVEYOR LINE BATTERY CHARGER-BUSINESS SERVICES ASSOCIATE, HAMIDA Hess Attending Un available LISA CONVEYOR LINE BATTERY CHARGER - BUSINESS SERVICES ASSOCIATE, SALLY Rawls Primary Care U navailable LISA CONVEYOR LINE BATTERY CHARGER - BUSINESS SERVICES ASSOCIATE, SALLY Rawls Primary Care U navailable LISA CONVEYOR LINE BATTERY CHARGER - BUSINESS SERVICES ASSOCIATE, SALLY Rawls Attending U navailable LISA CONVEYOR LINE BATTERY CHARGER - BUSINESS SERVICES ASSOCIATE, SALLY Rawls Primary Care U navailable ROMAR DO, DR PADILLA Attending Unavailable LISA CONVEYOR LINE BATTERY CHARGER - BUSINESS SERVICES ASSOCIATE, SALLY Rawls Primary Care U navailable LISA CONVEYOR LINE BATTERY CHARGER - BUSINESS SERVICES ASSOCIATE, SALLY Rawls Attending U navailable LISA CONVEYOR LINE BATTERY CHARGER - BUSINESS SERVICES ASSOCIATE, SALLY Rawls Primary Care U navailable LORI MENDEZ, ANNA Ashraf Unavailable RENETTA CONVEYOR LINE BATTERY CHARGER-BUSINESS SERVICES ASSOCIATE, JACKSON OLIVA Attending U navailable LISA CONVEYOR LINE BATTERY CHARGER - BUSINESS SERVICES ASSOCIATE, SALLY Rawls Primary Care U navailable ROMAR DO, DR PADILLA Attending Unavailable ROMAR DO, DR PADILLA Attending Unavailable LISA CONVEYOR LINE BATTERY CHARGER - BUSINESS SERVICES ASSOCIATE, SALLY Rawls Primary Care U navailable SEFFENS CONVEYOR LINE BATTERY CHARGER-BUSINESS SERVICES ASSOCIATE, VIKY Attending [facility] CON[employer]YOR LINE BATTERY CHARGER - BUSINESS SERVICES ASSOCIATE, SALLY Rawls Primary Care U navailable LISA CONVEYOR LINE BATTERY CHARGER - BUSINESS SERVICES ASSOCIATE, SALLY Rawls Attending U navailable LISA CONVEYOR LINE BATTERY CHARGER - BUSINESS SERVICES ASSOCIATE, SALLY Rawls Primary Care U navailable Allergies Allergy Classification Reported Allergen(s) Allergy Type Date of Onset Reaction(s) Facility (9 sources) Angiotensin-conv erting enzyme inhibitor agent; Translations: [angiotensin converting enzyme inhibitors] Drug allergy Cough, joint aches [facility] Comment on above: lisinopril (20 sources) Erythromycin; Translations: [erythromycin] Drug Allergy 5 GI Upset [facility] (2 sources) ct scan dye [Other] Propensity to adverse reactions 9 Rash [facility] Work Phone: (2 sources) seasonal rhinitis [Other] Propensity to adverse reactions 7 [facility] (1 source) OTHER; Translations: [OTHER] Propensity to adverse reactions (disorder) 9 [facility] Repository (8 sources) Angiotensin Converting Enzyme (Cat) Inhibitors Allergy to substance 3 Other [facility] (1 source) Angiotensin Converting Enzyme (Cat) Inhibitors Drug allergy (disorder) 5 [facility] Repository (1 source) Erythromycin Drug Allergy 5 [facility] Repository Medications Current Medications Medication Drug Class(es) Dates Sig (Normalized) Sig (Original) albuterol MDI (90 mcg/inh) CFC free inhalation aerosol (8 sources) Start: 05-16-2025 End: 11-12-2025 take 2 puff(s) by inhalation every six hours albuterol MDI (90 mcg/inh) CFC free inhalation aerosol 2 puff(s), Inhalation, q6h, # 18 gram(s), 5 Refill(s), Pharmacy: [facility], Seasonal asthma, 166, cm, 05/16/25 12:54:00 EDT, Height, kg, 05/16/25 12:54:00 EDT, Dosing Weight Start Date: 05/16/25 Stop Date: 11/12/25 Status: Ordered Medication Dispense Status: Completed Quantity: 18.0 Unit: g Total Allowed Fills: 6 Fills Dispensed: 0 Indications: Other asthma; Start: 11-15-2024 End: 05-14-2025 take 2 puff(s) by inhalation every six hours albuterol MDI (90 mcg/inh) CFC free inhalation aerosol 2 puff(s), Inhalation, q6h, # 18 gram(s), 5 Refill(s), Pharmacy: [facility], Seasonal asthma, 166, cm, 11/15/24 13:11:00 EDT, Height, kg, 11/15/24 13:11:00 EDT, Dosing Weight Start Date: 11/15/24 Stop Date: 05/14/25 Status: Ordered Medication Dispense Status: Completed Quantity: 18.0 Unit: g Total Allowed Fills: 6 Fills Dispensed: 0 Indications: Other asthma; Start: 11-15-2024 End: 05-14-2025 take 2 puff(s) by inhalation every six hours albuterol MDI (90 mcg/inh) CFC free inhalation aerosol 2 puff(s), Inhalation, q6h, # 18 gram(s), 5 Refill(s), Pharmacy: [facility], Seasonal asthma, 166, cm, 11/15/24 13:11:00 EDT, Height, kg, 11/15/24 13:11:00 EDT, Dosing Weight Start Date: 11/15/24 Stop Date: 05/14/25 Status: Ordered Quantity: 18.0 Unit: g Repeat number: 6 Indications: Other asthma; Start: 05-05-2023 End: 11-01-2023 take 2 puff(s) by inhalation every six hours albuterol MDI (90 mcg/inh) CFC free inhalation aerosol 2 puff(s), Inhalation, q6h, # 18 gram(s), 5 Refill(s), Pharmacy: [facility], Seasonal asthma, 165, cm, [...] as needed for up to 7 days. cephalexin 500 mg oral capsule (1 source) Cephalosporin Antibacterial Start: 02-16-2025 End: 02-23-2025 cephalexin 500 mg oral capsule Dose : 500 mg = 1 cap(s), Oral, q12h, X 7 day(s), # 14 cap(s), 0 Refill(s), 02/23/25 11:21:00 AM EDT, Pharmacy: [facility], 166, cm, 02/16/25 10:48:00 EDT, Height, 82.4, kg, 02/16/25 10:48:00 EDT, Dosing Weight Start Date: 02/16/25 Stop Date: 02/23/25 Status: Ordered Quantity: 14.0 Unit: cap(s) Repeat number: 1 cetirizine hydrochloride 10 mg oral tablet (16 sources) Histamine-1 Receptor Antagonist Start: 10-18-2024 cetirizine 10 mg oral tablet Dose : 10 mg = 1 tab(s), Oral, qDay, # 30 tab(s), 0 Refill(s) Start Date: 10/18/24 Status: Ordered Medication Dispense Status: Completed Quantity: 30.0 Unit: tab(s) Total Allowed Fills: 1 Fills Dispensed: 0 Start: 06-11-2022 End: 12-05-2023 take 1 capsule by mouth once daily Cetirizine (Zyrtec) 10 mg capsule Discontinued 10 mg PO DAILY June 11, 2022 1:00am December 05, 2023 8:17am Start: 07-10-2021 take 1 mg by mouth once daily Zyrtec 10 mg oral tablet mg = tab(s), Oral, qDay, 0 Refill(s) Start Date: 07/10/21 Status: Ordered cholecalciferol 0.025 mg oral capsule (1 source) Vitamin D Start: 02-09-2025 take 1 capsule by mouth once daily Cholecalciferol (Vitamin D3) (Vitamin D3) 25 mcg (1,000 unit) capsule Active 25 ug PO DAILY February 09, 2025 12:00am CoQ10 100 mg oral capsule (1 source) [...] 0 Refill(s), 09/25/23 2:25:00 PM EST, Pharmacy: [facility], Acute sinusitis with symptoms [...] 0 Refill(s), 10/02/23 2:25:00 PM EDT, Pharmacy: [facility], Acute sinusitis with symptoms > 10 days, 165, cm, 09/18/23 13:42:00 EST, Height, 80.7, kg, 09/18/23 13:42:00 EST, Dosing Weight Start Date: 09/18/23 Stop Date: 10/02/23 Status: Ordered esomeprazole 20 mg delayed release oral capsule (7 sources) Proton Pump Inhibitor Start: 05-17-2024 take 1 mg by mouth once daily esomeprazole 20 mg oral delayed release capsule mg = cap(s), Oral, qDay, 0 Refill(s) Start Date: 05/17/24 Status: Ordered Medication Dispense Status: Completed Total Allowed Fills: 1 Fills Dispensed: 0 FLUoxetine 20 mg oral capsule (20 sources) Serotonin Reuptake Inhibitor Start: 05-16-2025 End: 11-12-2025 FLUoxetine 20 mg oral capsule Dose : 20 mg = 1 cap(s), Oral, qDay, # 90 cap(s), 1 Refill(s), Pharmacy: [facility], [place] (generalized anxiety disorder), 166, cm, 05/16/25 12:54:00 EDT, Height, kg, 05/16/25 12:54:00 EDT, Dosing Weight Start Date: 05/16/25 Stop Date: 11/12/25 Status: Ordered Medication Dispense Status: Completed Quantity: 90.0 Unit: cap(s) Total Allowed Fills: 2 Fills Dispensed: 0 Indications: Generalized anxiety disorder; Start: 11-15-2024 End: 05-14-2025 FLUoxetine 20 mg oral capsul e Dose : 20 mg = 1 cap(s), Oral, qDay, # 90 cap(s), 1 Refill(s), Pharmacy: [facility], 166, cm, 11/15/24 13:11:00 EDT, Height, kg, 11/15/24 13:11:00 EDT, Dosing Weight Start Date: 11/15/24 Stop Date: 05/14/25 Status: Ordered Medication Dispense Status: Completed Quantity: 90.0 Unit: cap(s) Total Allowed Fills: 2 Fills Dispensed: 0 Start: 05-05-2023 FLUoxetine 20 mg oral capsule Dose : 20 mg = 1 cap(s), Oral, qDay, # 90 cap(s), 1 Refill(s), Pharmacy: [facility], 165, cm, 05/05/23 13:40:00 EDT, Height, kg, 05/05/23 13:40:00 EDT, Dosing Weight Start Date: 05/05/23 Status: Ordered Start: 01-31-2022 End: 12-05-2023 take 1 capsule by mouth once daily Fluoxetine 10 mg capsule Discontinued 10 mg PO DAILY June 11, 2022 1:00am December 05, 2023 8:17am Comment on above: Take 10 mg by mouth. fluticasone propionate 0.05 mg/actuat metered dose nasal spray (2 sources) Corticosteroid Start: 2022 End: 2022 take 2 spray(s) by mouth once daily fluticasone (FLONASE) 50 mcg/actuation nasal spray Indications: Nasal congestion Use 2 Sprays in each nostril once daily. Rinse mouth after use. 1 Each 0 10/12/2022 11/11/2022 Active Comment on above: Use 2 Sprays in each nostril once daily. Rinse mouth after use. 12 hr guaiFENesin 1200 mg extended release oral tablet (1 source) Start: 2023 End: 2023 guaiFENesin 1200 mg oral tablet, extended release Dose : 1,200 mg = 1 tab(s), Oral, q12h, X 14 day(s), # 28 tab(s), 0 Refill(s), 10/02/23 2:25:00 PM EDT, Pharmacy: [facility], Acute sinusitis with symptoms > 10 days, 165, cm, 09/18/23 13:42:00 EST, Height, kg, 09/18/23 13:42:00 EST, Dosing Weight Start Date: 09/18/23 Stop Date: 10/02/23 Status: Ordered hydroCHLOROthiazide 25 mg oral tablet (19 sources) Thiazide Diuretic Start: 2024 End: 2025 hydroCHLOROthiazide 25 mg oral tablet Dose : 25 mg = 1 tab(s), Oral, qDay, # 90 tab(s), 1 Refill(s), Pharmacy: [facility], HTN, goal below 140/90, 166, cm, 05/16/25 12:54:00 EDT, Height, kg, 05/16/25 12:54:00 EDT, Dosing Weight Start Date: 05/16/25 Stop Date: 11/12/25 Status: Ordered Medication Dispense Status: Completed Quantity: 90.0 Unit: tab(s) Total Allowed Fills: 2 Fills Dispensed: 0 Indications: Essential (primary) hypertension; Start: 11-15-2024 End: 05-14-2025 hydroCHLOROthiazide 25 mg or al tablet Dose : 25 mg = 1 tab(s), Oral, qDay, # 90 tab(s), 1 Refill(s), Pharmacy: [facility], 166, cm, 11/15/24 13:11:00 EDT, Height, kg, 11/15/24 13:11:00 EDT, Dosing Weight Start Date: 11/15/24 Stop Date: 05/14/25 Status: Ordered Medication Dispense Status: Completed Quantity: 90.0 Unit: tab(s) Total Allowed Fills: 2 Fills Dispensed: 0 Start: 06-26-2020 End: 11-01-2023 take 1 tablet by mouth once daily Hydrochlorothiazide 25 MG tablet Active 25 mg PO DAILY July 12, 2020 1:00am Comment on above: Take 1 tablet by wolf once daily. Hydrocortisone Acetate 25 mg suppository (1 source) Start: 12-04-19 Hydrocortisone Acetate 25 mg suppository Active 25 mg RC AT BEDTIME 07 10 2 December 03, 2024 12:00am ibuprofen 200 mg oral tablet (3 sources) Nonsteroidal Anti-inflammatory Drug Start: 11-29-19 ibuprofen 200 mg oral tablet Dose : 400 mg = 2 tab(s), Oral, q6hr, PRN pain or fever, 0 Refill(s) Start Date: 11/28/21 Status: Ordered Repeat number: 1 levocetirizine dihydrochloride 5 mg oral tablet (1 source) Histamine-1 Receptor Antagonist Start: 03-31-20 levocetirizine 5 mg oral tablet Dose : 5 mg = 1 tab(s), Oral, qHS, # 30 tab(s), 0 Refill(s) Start Date: 03/31/23 Status: Ordered loperamide hydrochloride 2 mg oral tablet (1 source) Opioid Agonist Start: 09-18-19 End: 09-25-19 take 1 tablet by mouth once Imodium A-D 2 mg oral tablet Dose : 2 mg = 1 tab(s), Oral, q4h, not to exceed 8 capsules, or 16 mg, in 24 hours, X 7 day(s), # 42 tab(s), 0 Refill(s), 09/25/23 2:25:00 PM EST, Pharmacy: [facility], Diarrhea, 165, cm, 09/18/23 13:42:00 EST, Height, kg, 09/18/23 13:42:00 EST, Dosing Weight Start Date: 09/18/23 Stop Date: 09/25/23 Status: Ordered loratadine 10 mg oral tablet (6 sources) Start: 12-05-19 take 1 tablet by mouth once daily Loratadine (Claritin) 10 mg tablet Active 10 mg PO DAILY December 05, 2023 12:00am LORATADINE (CLAR ITIN ORAL) Take 1 tablet by mouth as needed. 0 Active Comment on above: Take 1 tablet by wolf th as needed. [facility] Medication (7 sources) Start: 05-17-2024 [facility] Medication Berberine HCL, 0 Refill(s), 82.7 Start Date: 05/17/24 Status: Ordered Medication Dispense Status: Completed Total Allowed Fills: 1 Fills Dispensed: 0 Start: 05-17-2024 [facility] Medicatio n Berberine HCL, 0 Refill(s), 82.7 Start Date: 05/17/24 Status: Ordered Repeat number: 1 montelukast 10 mg oral tablet (7 sources) Leukotriene Receptor Antagonist Start: 11-15-2024 montelukast 10 mg oral tablet Dose : 10 mg = 1 tab(s), Oral, qDay, 0 Refill(s) Start Date: 11/15/24 Status: Ordered Medication Dispense Status: Completed Total Allowed Fills: 1 Fills Dispensed: 0 Start: 05-05-2023 End: 07-04-2023 Singulair 10 mg oral tablet Dose : 10 mg = 1 tab(s), Oral, qDay, # 90 tab(s), 1 Refill(s), Pharmacy: [facility], Seasonal allergies, 165, cm, 05/05/23 13:40:00 EDT, Height, kg, 05/05/23 13:40:00 EDT, Dosing Weight Start Date: 05/05/23 Stop Date: 07/04/23 Status: Ordered Multivitamin preparation (13 sources) Start: 10-11-2022 take 1 tablet by [...] 0 Refill(s) Start Date: 01/31/22 Status: Ordered Medication Dispense Status: Completed Total Allowed Fills: 1 Fills Dispensed: 0 Start: 01-31-2022 take 1 tablet by wolf th once daily Multivitamin Dose = 1 tab(s), Oral, Daily, 0 Refill(s) Start Date: 01/31/22 Status: Ordered Repeat number: 1 Start: 01-31-2022 take 1 tablet by wolf th once daily Multivitamin Dose = 1 tab(s), Oral, Daily, 0 Refill(s) Start Date: 01/31/22 Status: Ordered omeprazole 20 mg delayed release oral capsule (4 sources) Proton Pump Inhibitor Start: 04-12-2024 take 1 capsule by mouth once daily Omeprazole 20 mg capsule,delayed release(DR/EC) Active 20 mg PO daily April 12, 2024 12:00am Completed/Discontinued Medications Medication Drug Class(es) Dates Sig (Normalized) Sig (Original) citalopram 20 mg oral tablet (10 sources) Serotonin Reuptake Inhibitor Start: 07-12-2020 End: 06-11-2022 take 1 tablet by mouth at bedtime Citalopram 20 MG tablet Discontinued 20 mg PO AT BEDTIME July 12, 2020 1:00am June 11, 2022 5:59pm Comment on above: Take 20 mg by mouth once daily. DULoxetine 20 mg delayed release oral capsule (4 sources) Serotonin and Norepinephrine Reuptake Inhibitor Start: 12-05-2023 End: 04-12-2024 take 1 capsule by mouth once daily Duloxetine (Cymbalta) 20 mg capsule,delayed release(DR/EC) Discontinued 20 mg PO DAILY December 05, 2023 12:00am April 12, 2024 2:33pm Hydrocortisone / Lidocaine (8 sources) Antiarrhythmic, Corticosteroid, Amide Local Anesthetic Start: [...] As directed linaclotide 0.145 mg oral capsule (4 sources) Guanylate Cyclase-C Agonist Start: 12-30-2023 End: 04-12-2024 take 1 capsule by mouth once daily in the morning Linaclotide (Linzess) 145 mcg capsule Discontinued 145 ug PO EVERY MORNING 19 08December 30, 2023 12:00am April 12, 2024 2:33pm meloxicam 15 mg oral tablet (5 sources) Nonsteroidal Anti-inflammatory Drug Start: 04-13-2025 End: 05-13-2025 meloxicam 15 mg oral tablet Dose : 15 mg = 1 tab(s), Oral, qDayM, PRN Pain, Take with food/milk and fluids. Do not take any other NSAIDs while on this medication., # 30 tab(s), 0 Refill(s), Pharmacy: [facility], 166, cm, 09/24/25 14:34:00 EDT, Height, kg, 04/13/25 14:34:00 EDT, Dosing Weight Start Date: 04/13/25 Stop Date: 05/13/25 Status: Ordered Medication Dispense Status: Completed Quantity: 30.0 Unit: tab(s) Total Allowed Fills: 1 Fills Dispensed: 0 Multivitamin Tablet (4 sources) Start: 10-11-2022 End: 12-05-2023 Multivitamin Tablet Discontinued 1 {tbl} PO DAILY October 11, 2022 12:00am December 05, 2023 8:18am plecanatide 3 mg oral tablet (4 sources) Start: 12-18-2023 End: 12-30-2023 take 1 tablet by mouth once daily in the morning Plecanatide (Trulance) 3 mg tablet Discontinued 3 mg PO DAILY 90 2 December 18, 2023 12:00am December 30, 2023 8:40am Constipation Take one tablet by mouth every morning Problems Active Problems Problem Classification Problem Date Documented Da te Episodic/Chronic Abdominal pain (8 sources) Right lower quadrant pain; Translations: [Right lower quadrant pain] Onset: 5 Episodic Anxiety disorders (9 sources) Generalized anxiety disorder 01-31-2022 Chronic Appendicitis and other appendiceal conditions (1 source) Epiploic appendagitis 05-16-2025 Episodic Asthma (9 sources) Seasonal asthma; Translations: [Severe persistent asthma, uncomplicated] Onset: 5 02-03-2023 Chronic Disorders of lipid metabolism (8 sources) Hypertriglyceridemia; Translations: [Pure hyperglyceridemia] Onset: 5 05-17-2024 Chronic Diverticulosis and diverticulitis (18 sources) Diverticulitis of large intestine without perforation or abscess without bleeding; Translations: [Diverticulitis of colon (without mention of hemorrhage)] Onset: 7 05-18-2007 Chronic Esophageal disorders (15 sources) Gastroesophageal reflux disease; Translations: [Wright's esophagus] Onset: 5 02-03-2023 Chronic Essential hypertension (19 sources) Hypertensive disorder; Translations: [Essential hypertension] Onset: 4 07-30-2019 Chronic Genitourinary symptoms and ill-defined conditions (4 sources) Dysuria; Translations: [Dysuria] Onset: 4 Episodic Hemorrhoids (10 sources) Hemorrhoids; Translations: [Unspecified hemorrhoids] 06-04-2022 Episodic Lymphadenitis (8 sources) Axillary lymphadenopathy; Translations: [Localized enlarged lymph nodes] 04-17-2020 Episodic Nonmalignant breast conditions (8 sources) Breast lump; Translations: [Unspecified lump in the right breast, upper outer quadrant] Onset: 5 09-17-2024 Episodic Nutritional deficiencies (7 sources) Vitamin D deficiency 05-17-2024 Chronic Other bone disease and musculoskeletal deformities (5 sources) Costal chondritis 04-13-2025 Episodic Other connective tissue disease (6 sources) Pain in axilla 09-17-2024 Episodic Other gastrointestinal disorders (9 sources) Constipation; Translations: [Constipation, unspecified] 09-06-2022 Episodic Other gastrointestinal disorders (2 sources) Constipation, unspecified; Translations: [Constipation, unspecified] 09-06-2022 Episodic Other gastrointestinal disorders (8 sources) Dysphagia; Translations: [Dysphagia, unspecified] 04-16-2023 Episodic Other gastrointestinal disorders (5 sources) Incontinence of feces; Translations: [Full incontinence of feces] 12-05-2023 Episodic Other gastrointestinal disorders (2 sources) Other dysphagia; Translations: [Other dysphagia] Onset: 5 Episodic Other infections; including parasitic (7 sources) H/O: infectious disease; Translations: [Personal history of other infectious and parasitic diseases] Episodic Other infections; including parasitic (2 sources) Personal history of other infectious and parasitic diseases; Translations: [Personal history of other infectious and parasitic diseases] Onset: 5 Episodic Other liver diseases (7 sources) Elevated liver enzymes level 05-17-2024 Episodic Other liver diseases (1 source) Abnormal levels of other serum enzymes; Translations: [Abnormal levels of other serum enzymes] Onset: 5 Episodic Other lower respiratory disease (9 sources) Air trapping 04-07-2020 Episodic Other lower respiratory disease (1 source) Cough; Translations: [Acute cough] Episodic Other skin disorders (2 sources) Lichen sclerosus et atrophicus; Translations: [Circumscribed scleroderma] Onset: 4 12-22-2013 Chronic Other upper respiratory disease (9 sources) Seasonal allergy 07-30-2019 Chronic Other upper respiratory disease (7 sources) Allergic rhinitis 10-18-2024 Chronic Other upper respiratory disease (1 source) [...] respiratory infection, unspecified] Episodic Residual codes; unclassified (9 sources) Family history of breast cancer 04-17-2020 Episodic Residual codes; unclassified (9 sources) Increased body mass index 01-31-2022 Episodic Residual codes; unclassified (7 sources) Postmenopausal state 05-17-2024 Episodic Screening and history of mental health and substance abuse codes (8 sources) H/O: depression; Translations: [Personal history of other mental and behavioral disorders] 07-15-2013 Episodic Unclassified (20 sources) Patient encounter status 04-03-2020 Unclassified (7 sources) Pain of right breast 09-17-2024 Unclassified (1 source) Other specified cough; Translations: [Other specified cough] Onset: Past or Other Problems Problem Classification Problem Date Documented Da te Episodic/Chronic Other and unspecified benign neoplasm (2 sources) Lipoma (clinical); Translations: [Benign lipomatous neoplasm, unspecified] Onset: 12-22-2013 12-22-2013 Episodic Other screening for suspected conditions (not mental disorders or infectious disease) (1 source) Encounter for screening mammogram for malignant neoplasm of breast; Translations: [Encounter for screening mammogram for malignant neoplasm of breast] Onset: 07-15-2024 Episodic Urinary tract infections (2 sources) Urinary tract infection, site not specified; Translations: [Urinary tract infection, site not specified] Onset: 02-16-2025 Episodic Results Test Name Value Interpretation Reference Range Facility GENTAMICIN:SUSC:PT:ISOLATE:O RDQN:MICon 05-16-2025 Gentamicin WILEY [Susc] >100,000 cfu/ml Escherichia coli [facility] Work Phone: Gentamicin WILEY [Susc]on 04-[address] [facility] Marvin Work Phone: CT ABDOMEN/PELVIS W/O CONTRA STon 05-14-2025 CT ABDOMEN/PELVIS W/O CONTRAST ORIGINAL EXAMINATION: CT OF THE ABDOMEN AND PELVIS WITHOUT CONTRAST 05/13/2025 10:12 am TECHNIQUE: CT of the abdomen and pelvis was performed without the administration of intravenous contrast. Multiplanar reformatted images are provided for review. Automated exposure control, iterative reconstruction, and/or weight based adjustment of the mA/kV was utilized to reduce the radiation dose to as low as reasonably achievable. COMPARISON: None available HISTORY: ORDERING SYSTEM PROVIDED HISTORY: Reason for Exam: right lower quadrant abdominal pain FINDINGS: Lower Chest: Lung bases are unremarkable. Hepatobiliary: There is no focal hepatic mass. The gallbladder is unremarkable. There is no intrahepatic or extrahepatic biliary ductal dilatation. Spleen: The spleen is unremarkable. Pancreas: The pancreas is unremarkable. Adrenal glands: The adrenal glands are unremarkable. Kidneys and Urinary Tract: There is no evidence of urinary tract calculus. No hydronephrosis. Urinary bladder is unremarkable. Appearing suggesting supracervical hysterectomy. Correlate clinically. Low-density within the expected location of the cervix, possibly in nabothian cyst. Peritoneum/Retroperito neum: The peritoneum and retroperitoneum are unremarkable. There is no ascites. GI/Bowel: There is no bowel wall thickening or obstruction. The appendix is identified and appears unremarkable. There are scattered colonic diverticula, most numerous within the sigmoid colon. There is mild focal inflammatory fat stranding within the anterior left lower quadrant anterior to the proximal sigmoid colon ([phone]), which may reflect acute diverticulitis. Alternatively, epiploic appendagitis is also within differential considerations. There is no surrounding free fluid, abscess formation or free air.. Lymph nodes: Lymph nodes are unremarkable. Vasculature: Aorta and iliac vessels are normal in caliber. Bones: No aggressive osseous lesion. There are degenerative changes of the visualized spine including intervertebral disc space narrowing with adjacent degenerative endplate changes and anterior greater than posterior osteophytic lipping. Soft tissues: The other soft tissues including abdominopelvic wall are unremarkable. IMPRESSION: Mild focal inflammatory fat stranding anterior to the proximal sigmoid colon within the left lower quadrant, which may reflect acute diverticulitis. Alternatively, epiploic appendagitis is also within differential considerations. Interpreted by: Apurva Suárez Preliminary Report By: Apurva Suárez Electronically signed By Apurva Suárez Dictated Date: 05/14/2025 9:47:12 PM Prelim Date: 05/14/2025 9:56:27 PM Sign Date: 05/14/2025 9:56:27 PM Ordering Provider: RANDY PICKERING Normal [facility] .GFRon 04-28-2025 Estimated Glomerular Filtration Rate 81 ml/min/1.73sqm Normal [facility] Comment on above: Result Comment: Stages of [...] calculate the eGFR results. Performed By: #### V IDH, CMP, LIPID, GFR #### [place] [address] [place], [place] [address] CMPon 04-28-2025 Albumin Level 3.7 G/dL Normal 3.4-4.8 [facility] Comment on above: Performed By: #### V IDH, CMP, LIPID, GFR #### [address] [place], [place] [address] Albumin/Globulin [Mass ratio] 0.9 {ratio} Low 1.1-2.5 [facility] Comment on above: Performed By: #### V IDH, CMP, LIPID, GFR #### [address] [place], [place] [address] ALP [Catalytic activity/Vol] 77 U/L Normal 40-135 [facility] Comment on above: Performed By: #### V IDH, CMP, LIPID, GFR #### [address] [address] ALT [Catalytic activity/Vol] 38 U/L Normal 14-59 [facility] Comment on above: Performed By: #### V IDH, CMP, LIPID, GFR #### [address] [address] AST [Catalytic activity/Vol] 25 U/L Normal 10-40 [facility] Comment on above: Performed By: #### V IDH, CMP, LIPID, GFR #### [address] [address] Bili Total 0.5 mg/dL Normal 0.2-1.0 [facility] Comment on above: Result Comment: Use of this assay is not recommended for patients undergoing treatment with eltrombopag due to the potential for falsely elevated results. Performed By: #### V IDH, CMP, LIPID, GFR #### [address] [address] BUN/Creatinine Ratio 15 ratio Normal 7-27 [facility] Comment on above: Performed By: #### V IDH, CMP, LIPID, GFR #### [address] [address] Calcium [Mass/Vol] 9.7 mg/dL Normal 8.4-10.2 [facility] Comment on above: Performed By: #### V IDH, CMP, LIPID, GFR #### [address] [address] Chloride [Moles/Vol] 103 mmol/L Normal 98-107 [facility] Comment on above: Performed By: #### V IDH, CMP, LIPID, GFR #### [address] [address] CO2 [Moles/Vol] 30 mmol/L Normal 23-31 [facility] Comment on above: Performed By: #### V IDH, CMP, LIPID, GFR #### [address] [address] Creatinine [Mass/Vol] 0.79 mg/dL Normal 0.51-0.95 [facility] Comment on above: Performed By: #### V IDH, CMP, LIPID, GFR #### [address] [address] Electrolyte Balance 6.0 mEq/L Normal 4.0-15.0 [facility] Comment on above: Performed By: #### V IDH, CMP, LIPID, GFR #### [address] [address] Globulin 4.0 G/dL Normal 2.7-4.4 [facility] Comment on above: Performed By: #### V IDH, CMP, LIPID, GFR #### [address] [address] Glucose [Mass/Vol] 99 mg/dL Normal 80-115 [facility] Comment on above: Performed By: #### V IDH, CMP, LIPID, GFR #### [address] [address] Potassium [Moles/Vol] 4.5 mmol/L Normal 3.5-5.1 [facility] Comment on above: Performed By: #### V IDH, CMP, LIPID, GFR #### [address] [address] Sodium [Moles/Vol] 139 mmol/L Normal 136-145 [facility] Comment on above: Performed By: #### V IDH, CMP, LIPID, GFR #### [address] [address] Total Protein 7.7 G/dL Normal 6.4-8.2 [facility] Comment on above: Performed By: #### V IDH, CMP, LIPID, GFR #### [address] [address] Urea nitrogen [Mass/Vol] 12 mg/dL Normal 7-18 [facility] Comment on above: Performed By: #### V IDH, CMP, LIPID, GFR #### [address] [address] LABORATORYOrdered By: Gretta Jones on 04-28-2025 Albumin DL <= 20 mg/L (U) [Mass/Vol] 28.6 mg/L Invalid Interpretation Code AO ADM SS Albumin/Creatinine DL <= 20 mg/L (U) [Mass ratio] 15 mg/G Normal 0 - 30 mg/G AO Chemistry S Creatinine (U) [Mass/Vol] 185.3 mg/dL Invalid Interpretation Code AO ADM SS Cholesterol [Mass/Vol] 202 mg/dL High 0 - 2 00 mg/dL AO ADM SS Comment on above: Interpretive Data: C holesterol Reference Interval: Less than 200 Desirable 200-239 Borderline high risk 240 and above High risk Cholesterol in HDL [Mass/Vol] 47 mg/dL Normal 40 - 60 mg/dL AO ADM SS Cholesterol in LDL [Mass/Vol] 112 mg/dL Normal 0 - 130 mg/dL AO ADM SS Triglyceride [Mass/Vol] 213 mg/dL High 0 - 150 mg/dL AO ADM SS Comment on above: Interpretive Data: T riglyceride Reference Interval: Less than 150 Normal 150-199 Borderline high risk 200-499 High risk 500 or higher Very high risk LABORATORYOrdered By: SYSTEM SYSTEM on 04-28-2025 25-hydroxyvitamin D3 [Mass/Vol] 35.0 ng/mL Invalid Interpretation Code AO ADM SS Comment on above: Interpretive Data: I nterpretive Values Based on Total 25(OH) Vitamin D: Deficient <20 ng/mL Insufficient 20 - <30 ng/mL Sufficient 30-100 ng/mL Albumin BCP dye [Mass/Vol] 3.7 G/dL Normal 3.4 - 4.8 G/dL AO ADM SS Albumin/Globulin [Mass ratio] 0.9 {ratio} Low 1.1 - 2.5 ratio AO ADM SS ALP [Catalytic activity/Vol] 77 U/L Normal 40 - 135 U/L AO ADM SS ALT With P-5'-P [Catalytic activity/Vol] 38 U/L Normal 14 - 59 U/L AO ADM SS AST With P-5'-P [Catalytic activity/Vol] 25 U/L Normal 10 - 40 U/L AO ADM SS Bilirubin [Mass/Vol] 0.5 mg/dL Normal 0.2 - 1 .0 mg/dL AO ADM SS Comment on above: Interpretive Data: U se of this assay is not recommended for patients undergoing treatment with eltrombopag due to the potential for falsely elevated results. Calcium [Mass/Vol] 9.7 mg/dL Normal 8.4 - 10. 2 mg/dL AO ADM SS Chloride [Moles/Vol] 103 mmol/L Normal 98 - 10 7 mmol/L AO ADM SS CO2 [Moles/Vol] 30 mmol/L Normal 23 - 31 mmol/L AO ADM SS Creatinine [Mass/Vol] 0.79 mg/dL Normal 0.51 - 0.95 mg/dL AO ADM SS Electrolyte Balance 6.0 mEq/L Normal 4.0 - 15 .0 mEq/L AO ADM SS Globulin 4.0 G/dL Normal 2.7 - 4.4 G/dL AO ADM SS GLOMERULAR FILTRATION RATE/1.73 SQ M.PREDICTED:ARVRAT:PT:S ER/PLAS/BLD:QN:CREATINI NE-BASED FORMULA (CKD-EPI 2020) 81 ml/min/1.73sqm Invalid Interpretation Code AO Chemistry S Comment on above: Interpretive Data: Stages of Chronic Kidney Disease (CKD) Stage [...] race factor to calculate the eGFR results. Glucose [Mass/Vol] 99 mg/dL Normal 80 - 115 mg/dL AO ADM SS Potassium [Moles/Vol] 4.5 mmol/L Normal 3.5 - 5.1 mmol/L AO ADM SS Protein [Mass/Vol] 7.7 G/dL Normal 6.4 - 8.2 G/dL AO ADM SS Sodium [Moles/Vol] 139 mmol/L Normal 136 - 145 mmol/L AO ADM SS Urea nitrogen [Mass/Vol] 12 mg/dL Normal 7 - 18 mg/dL AO ADM SS Urea nitrogen/Creatinine [Mass ratio] 15 ratio Normal 7 - 27 ratio AO ADM SS LIPIDon 04-28-2025 Cholesterol [Mass/Vol] 202 mg/dL High 0-200 [facility] Comment on above: Result Comment: Chol esterol Reference Interval: Less than 200 Desirable 200-239 Borderline high risk 240 and above High risk Performed By: #### V IDH, CMP, LIPID, GFR #### [address] [address] Cholesterol in HDL [Mass/Vol] 47 mg/dL Normal 40-60 [facility] Comment on above: Performed By: #### V IDH, CMP, LIPID, GFR #### [address] [address] Cholesterol in LDL [Mass/Vol] 112 mg/dL Normal 0-130 [facility] Comment on above: Performed By: #### V IDH, CMP, LIPID, GFR #### [address] [address] Triglyceride [Mass/Vol] 213 mg/dL High 0-150 [facility] Comment on above: Result Comment: Trig lyceride Reference Interval: Less than 150 Normal 150-199 Borderline high risk 200-499 High risk 500 or higher Very high risk Performed By: #### V IDH, CMP, LIPID, GFR #### [address] [address] MALBRon 04-28-2025 U Creatinine 185.3 mg/dL Normal [facility] Comment on above: Performed By: #### M ALBR #### [address] [address] U Microalb 28.6 mg/L Normal [facility] Comment on above: Performed By: #### M ALBR #### [address] [address] U Ratio Alb/Cre 15 mg/G Normal 0-30 [facility] Comment on above: Performed By: #### M ALBR #### [address] [address] VIDHon 04-28-2025 Vit. D 25-Hydroxy 35.0 ng/mL Normal [facility] Comment on above: Result Comment: Inte rpretive Values Based on Total 25(OH) Vitamin D: Deficient <20 ng/mL Insufficient 20 - <30 ng/mL Sufficient 30-100 ng/mL Performed By: #### V IDH, CMP, LIPID, GFR #### [place] [address] MA MAMMOGRAM DIAGNOSTIC BILA TERAL W/TOMOon 04-21-2025 MA MAMMOGRAM DIAGNOSTIC BILATERAL W/FANTASMA ORIGINAL FROM: [place] [address] PROCEDURE FOR: ADE Pulido DUTY [address] [place] [id number] Home: PID#: [id number] Exam#: [id number] : 1955 Age: 69 TO: JACKSON JACKSON [employer] [place] [address] Fax: NO FAX EXAMINATION: DIAGNOSTIC BILATERAL MAMMOGRAM WITH TOMOSYNTHESIS, 04/21/2025 9:26 am TECHNIQUE: Tomosynthesis was performed as part of the diagnostic bilateral mammogram. 2D standard and 3D tomosynthesis combination imaging performed. Current study was also evaluated with a Computer Aided Detection (CAD) system. COMPARISON: 09/28/2024 ultrasound 01/08/2024 mammogram HISTORY: ORDERING SYSTEM PROVIDED HISTORY: Reason for Exam: Right axilla enlarged lymph node FINDINGS: BREAST DENSITY: There are scattered areas of fibroglandular density. No significant masses, calcifications, or other findings. IMPRESSION: No mammographic findings to correlate with the patient's palpable lump. An ultrasound will be performed today and will be reported separately. Tyrer Brendanzick risk calculations, generated with the history provided, report this patient's 10 year risk and lifetime risk for developing breast cancer at 4.9% and 88.8%, respectively. Based on this assessment tool, if the patient's calculated lifetime risk is below 20%, then the patient is considered at average risk for developing breast cancer. If the patient's calculated lifetime risk is at or above 20%, then the patient is considered high risk for developing breast cancer and may be a candidate for supplemental breast MRI screening in addition to annual mammographic screening per the [employer]. BIRADS: BI-RADS: 0: Incomplete: Need Additional Imaging Evaluation RECALL: immediate RECALL TYPE: US LETTER SENT: Normal-Needs additional work up BI-RADS 0 Interpreted by: Lucila Shukla MD Preliminary Report By: Lucila Shukla MD Electronically signed By Lucila Shukla MD Dictated Date: 04/21/2025 10:25:36 AM Prelim Date: 04/21/2025 10:30:28 AM Sign Date: 04/21/2025 10:30:28 AM Ordering Provider: JACKSON JACKSON [employer] Hand: SANDY CARTER RT(R)(M)(CT) letter sent: Normal-Needs additional work up BI-RADS 0 Mammogram BI-RADS: 0 Needs additional imaging evaluation Normal [facility] US AXILLA BREAST RIGHTon US AXILLA BREAST RIGHT ORIGINAL FROM: [place] [address] PROCEDURE FOR: ADE Pulido [address] [id number] Home: PID#: [id number] Exam#: [id number] : 1955 Age: 69 TO: JACKSON JACSKON [employer] [place] [address] Fax: NO FAX EXAMINATION: ULTRASOUND OF THE RIGHT AXILLA 04/21/2025 9:27 am TECHNIQUE: Color flow and reece scale targeted ultrasound of the right axilla were performed. Permanently stored images were reviewed. COMPARISON: 09/28/2024 HISTORY: ORDERING SYSTEM PROVIDED HISTORY: Reason for Exam: Palpable lump right axilla. Right axilla lymphadenopathy FINDINGS: In the right axilla corresponding to the area palpable clinical concern there is a 1.9 by 1 x 1.5 cm lymph node with a normal fatty hilum and smooth thin cortex. No other significant finding. IMPRESSION: Lymph node in the right axilla corresponding the area of palpable clinical concern, this is consistent with a benign reactive lymph node. Clinical follow up is recommended. The patient may return to annual mammographic screening. Hannah Mccain risk calculations, generated with the history provided, report this patient's 10 year risk and lifetime risk for developing breast cancer at 4.9% and 8.8%, respectively. Based on this assessment tool, if the patient's calculated lifetime risk is below 20%, then the patient is considered at average risk for developing breast cancer. If the patient's calculated lifetime risk is at or above 20%, then the patient is considered high risk for developing breast cancer and may be a candidate for supplemental breast MRI screening in addition to annual mammographic screening per the [employer]. BIRADS: BI-RADS: 2: Benign RECALL: 1 year screening RECALL TYPE: mammo LETTER SENT: Normal BI-RADS 1 and 2 Interpreted by: Lucila Shukal MD Preliminary Report By: Lucila Shukla MD Electronically signed By Lucila Shukla MD Dictated Date: 04/21/2025 10:42:11 AM Prelim Date: 04/21/2025 10:45:05 AM Sign Date: 04/21/2025 10:45:05 AM Ordering Provider: JACKSON JACKSON Prec[employer] Filer Hand: JAGRUTI REESE RT (R, CT), [facility] letter sent: Normal BI-RADS 1 and 2 Ultrasound BI-RADS: 2 Benign Normal [facility] .Auto Diffon 04-13-2025 Basophil, Absolute 0.0 10 3/mcL Normal 0.0-0.3 [facility] Comment on above: Performed By: #### A SATISH, CMP, ADIFF, CBC, GFR, LIP ####[place] [place], [place] [address] Basophils/100 WBC (Bld) 0.6 % Normal 0.0-2.5 [facility] Comment on above: Performed By: #### A SATISH, CMP, ADIFF, CBC, GFR, LIP ####[place] [place], [place] [address] Eosinophil, Absolute 0.2 10 3/mcL Normal 0.0-0.7 [facility] Comment on above: Performed By: #### A SATISH, CMP, ADIFF, CBC, GFR, LIP ####[place] [id number] [place] [address] Eosinophils/100 WBC (Bld) 2.3 % Normal 0.0-6.0 [facility] Comment on above: Performed By: #### A SATISH, CMP, ADIFF, CBC, GFR, LIP ####[place] [id number] [place], [place] [address] Lymphocyte, Absolute 3.0 10 3/mcL Normal 0.9-4.3 [facility] Comment on above: Performed By: #### A SATISH, CMP, ADIFF, CBC, GFR, LIP ####[address] [address] Lymphocytes/100 WBC (Bld) 36.6 % Normal 20.0-40.0 [facility] Comment on above: Performed By: #### A SATISH, CMP, ADIFF, CBC, GFR, LIP ####[address] [address] Monocyte, Absolute 0.9 10 3/mcL Normal 0.1-1.4 [facility] Comment on above: Performed By: #### A SATISH, CMP, ADIFF, CBC, GFR, LIP ####[address] [address] Monocytes/100 WBC (Bld) 11.0 % Normal 2.0-13.0 [facility] Comment on above: Performed By: #### A SATISH, CMP, ADIFF, CBC, GFR, LIP ####[address] [address] Neutrophils/100 WBC (Bld) 49.5 % Low 50.0-75.0 [facility] Comment on above: Performed By: #### A SATISH, CMP, ADIFF, CBC, GFR, LIP ####[address] [address] .GFRon 04-13-2025 Estimated Glomerular Filtration Rate 90 ml/min/1.73sqm Normal [facility] Comment on above: Result Comment: Stages of [...] calculate the eGFR results. Performed By: #### A SATISH, CMP, ADIFF, CBC, GFR, LIP ####[place] [id number] .NEUABSon 04-13-2025 Neutrophil, Absolute 4.0 10 3/mcL Normal 2.3-8.1 [facility] Comment on above: Performed By: #### A SATISH, CMP, ADIFF, CBC, GFR, LIP ####[place] [id number] CBCon 04-13-2025 Erythrocyte distribution width (RBC) [Ratio] 13.0 % Normal 11.5-15.5 [facility] Comment on above: Performed By: #### A SATISH, CMP, ADIFF, CBC, GFR, LIP ####[place] [address] Hematocrit (Bld) [Volume fraction] 42.3 % Normal 34.0-46.0 [facility] Comment on above: Performed By: #### A SATISH, CMP, ADIFF, CBC, GFR, LIP ####[place] [id number] Hgb 14.4 G/dL Normal 12.0-16.0 [facility] Comment on above: Performed By: #### A SATISH, CMP, ADIFF, CBC, GFR, LIP ####[place] [id number] MCH (RBC) [Entitic mass] 31.1 pg Normal 27.0-33.0 [facility] Comment on above: Performed By: #### A SATISH, CMP, ADIFF, CBC, GFR, LIP ####[place] [address] [place], [place] [address] MCHC 34.1 G/dL Normal 32.0-36.0 [facility] Comment on above: Performed By: #### A SATISH, CMP, ADIFF, CBC, GFR, LIP ####[place] [id number] [place], [place] [address] MCV (RBC) [Entitic vol] 91.2 fL Normal 80.0-99.0 [facility] Comment on above: Performed By: #### A SATISH, CMP, ADIFF, CBC, GFR, LIP ####[place] [id number] [place], [place] [address] Platelet 249 10 3/mcL Normal 150-450 [facility] Comment on above: Performed By: #### A SATISH, CMP, ADIFF, CBC, GFR, LIP ####[place] [id number] [place], [place] [address] Platelet mean volume (Bld) [Entitic vol] 9.7 fL Normal 6.6-10.5 [facility] Comment on above: Performed By: #### A SATISH, CMP, ADIFF, CBC, GFR, LIP ####[address] [address] RBC 4.64 10 6/mcL Normal 4.10-5.30 [facility] Comment on above: Performed By: #### A SATISH, CMP, ADIFF, CBC, GFR, LIP ####[address] [address] WBC 8.2 10 3/mcL Normal 4.5-10.8 [facility] Comment on above: Performed By: #### A SATISH, CMP, ADIFF, CBC, GFR, LIP ####[place] [id number] [place], [place] [address] CMPon 04-13-2025 Albumin Level 3.7 G/dL Normal 3.4-4.8 [facility] Comment on above: Performed By: #### A SATISH, CMP, ADIFF, CBC, GFR, LIP ####[address] [address] Albumin/Globulin [Mass ratio] 1.0 {ratio} Low 1.1-2.5 [facility] Comment on above: Performed By: #### A SATISH, CMP, ADIFF, CBC, GFR, LIP ####[address] [address] ALP [Catalytic activity/Vol] 82 U/L Normal 40-135 [facility] Comment on above: Performed By: #### A SATISH, CMP, ADIFF, CBC, GFR, LIP ####[place] [address] ALT [Catalytic activity/Vol] 28 U/L Normal 14-59 [facility] Comment on above: Performed By: #### A SATISH, CMP, ADIFF, CBC, GFR, LIP ####[place] [address] AST [Catalytic activity/Vol] 14 U/L Normal 10-40 [facility] Comment on above: Performed By: #### A SATISH, CMP, ADIFF, CBC, GFR, LIP ####[place] [address] Bili Total 0.3 mg/dL Normal 0.2-1.0 [facility] Comment on above: Result Comment: Use of this assay is not recommended for patients undergoing treatment with eltrombopag due to the potential for falsely elevated results. Performed By: #### A SATISH, CMP, ADIFF, CBC, GFR, LIP ####[place] [address] BUN/Creatinine Ratio 14 ratio Normal 7-27 [facility] Comment on above: Performed By: #### A SATISH, CMP, ADIFF, CBC, GFR, LIP ####[place] [address] Calcium [Mass/Vol] 9.0 mg/dL Normal 8.4-10.2 [facility] Comment on above: Performed By: #### A SATISH, CMP, ADIFF, CBC, GFR, LIP ####[id number] [place], [place] [address] Chloride [Moles/Vol] 104 mmol/L Normal 98-107 [facility] Comment on above: Performed By: #### A SATISH, CMP, ADIFF, CBC, GFR, LIP ####[place] [id number] [place], [place] [address] CO2 [Moles/Vol] 33 mmol/L High 23-31 [facility] Comment on above: Performed By: #### A SATISH, CMP, ADIFF, CBC, GFR, LIP ####[place] [id number] [place], [place] [address] Creatinine [Mass/Vol] 0.73 mg/dL Normal 0.51-0.95 [facility] Comment on above: Performed By: #### A SATISH, CMP, ADIFF, CBC, GFR, LIP ####[place] [address] [place], [place] [address] Electrolyte Balance 5.0 mEq/L Normal 4.0-15.0 [facility] Comment on above: Performed By: #### A SATISH, CMP, ADIFF, CBC, GFR, LIP ####[address] [address] Globulin 3.6 G/dL Normal 2.7-4.4 [facility] Comment on above: Performed By: #### A SATISH, CMP, ADIFF, CBC, GFR, LIP ####[address] [address] Glucose [Mass/Vol] 98 mg/dL Normal 80-115 [facility] Comment on above: Performed By: #### A SATISH, CMP, ADIFF, CBC, GFR, LIP ####[address] [address] Potassium [Moles/Vol] 3.7 mmol/L Normal 3.5-5.1 [facility] Comment on above: Performed By: #### A SATISH, CMP, ADIFF, CBC, GFR, LIP ####[address] [address] Sodium [Moles/Vol] 142 mmol/L Normal 136-145 [facility] Comment on above: Performed By: #### A SATISH, CMP, ADIFF, CBC, GFR, LIP ####[place] [id number] [place], [place] [address] Total Protein 7.3 G/dL Normal 6.4-8.2 [facility] Comment on above: Performed By: #### A SATISH, CMP, ADIFF, CBC, GFR, LIP ####[place] [address] [place], [place] [address] Urea nitrogen [Mass/Vol] 10 mg/dL Normal 7-18 [facility] Comment on above: Performed By: #### A SATISH, CMP, ADIFF, CBC, GFR, LIP ####[place] [address] [place], [place] [address] LABORATORYOrdered By: SYSTEM SYSTEM on 04-13-2025 Albumin BCP dye [Mass/Vol] 3.7 G/dL Normal 3.4 - 4.8 G/dL AO ADM SS Albumin/Globulin [Mass ratio] 1.0 {ratio} Low 1.1 - 2.5 ratio AO ADM SS ALP [Catalytic activity/Vol] 82 U/L Normal 40 - 135 U/L AO ADM SS ALT With P-5'-P [Catalytic activity/Vol] 28 U/L Normal 14 - 59 U/L AO ADM SS AST With P-5'-P [Catalytic activity/Vol] 14 U/L Normal 10 - 40 U/L AO ADM SS Basophils (Bld) [#/Vol] 0.0 103/mcL Normal 0.0 - 0.3 10^3/mcL AO Workflow SS Basophils/100 WBC (Bld) 0.6 % Normal 0.0 - 2.5 % AO Workflow SS Bilirubin [Mass/Vol] 0.3 mg/dL Normal 0.2 - 1 .0 mg/dL AO ADM SS Comment on above: Interpretive Data: U se of this assay is not recommended for patients undergoing treatment with eltrombopag due to the potential for falsely elevated results. Calcium [Mass/Vol] 9.0 mg/dL Normal 8.4 - 10. 2 mg/dL AO ADM SS Chloride [Moles/Vol] 104 mmol/L Normal 98 - 10 7 mmol/L AO ADM SS CO2 [Moles/Vol] 33 mmol/L High 23 - 31 mmol/L AO ADM SS Creatinine [Mass/Vol] 0.73 mg/dL Normal 0.51 - 0.95 mg/dL AO ADM SS Electrolyte Balance 5.0 mEq/L Normal 4.0 - 15 .0 mEq/L AO ADM SS Eosinophil, Absolute 0.2 103/mcL Normal 0.0 - 0 .7 10^3/mcL AO Workflow SS Eosinophils/100 WBC (Bld) 2.3 % Normal 0.0 - 6.0 % AO Workflow SS Erythrocyte distribution width (RBC) [Ratio] 13.0 % Normal 11.5 - 15.5 % AO Workflow SS Estimated Glomerular Filtration Rate 90 ml/min/1.73sqm Invalid Interpretation Code AO Chemistry S Comment on above: Interpretive Data: Stages of Chronic Kidney Disease (CKD) Stage [...] race factor to calculate the eGFR results. Globulin 3.6 G/dL Normal 2.7 - 4.4 G/dL AO ADM SS Glucose [Mass/Vol] 98 mg/dL Normal 80 - 115 mg/dL AO ADM SS Hematocrit (Bld) [Volume fraction] 42.3 % Normal 34.0 - 46.0 % AO Workflow SS Hemoglobin (Bld) [Mass/Vol] 14.4 G/dL Normal 12.0 - 16.0 G/dL AO Workflow SS Lipase [Catalytic activity/Vol] 37 U/L Normal 16 - 77 U/L AO ADM SS Lymphocytes (Bld) [#/Vol] 3.0 103/mcL Normal 0.9 - 4.3 10^3/mcL AO Workflow SS Lymphocytes/100 WBC (Bld) 36.6 % Normal 20.0 - 40.0 % AO Workflow SS MCH (RBC) [Entitic mass] 31.1 pg Normal 27.0 - 33.0 pg AO Workflow SS MCHC 34.1 G/dL Normal 32.0 - 36.0 G/dL AO Workflow SS MCV (RBC) [Entitic vol] 91.2 fL Normal 80.0 - 99.0 fL AO Workflow SS Monocytes (Bld) [#/Vol] 0.9 103/mcL Normal 0.1 - 1.4 10^3/mcL AO Workflow SS Monocytes/100 WBC (Bld) 11.0 % Normal 2.0 - 13.0 % AO Workflow SS Neutrophils (Bld) [#/Vol] 4.0 103/mcL Normal 2.3 - 8.1 10^3/mcL AO Workflow SS Neutrophils/100 WBC (Bld) 49.5 % Low 50.0 - 75.0 % AO Workflow SS Platelet mean volume (Bld) [Entitic vol] 9.7 fL Normal 6.6 - 10.5 fL AO Workflow SS Platelets (Bld) [#/Vol] 249 103/mcL Normal 150 - 450 10^3/mcL AO Workflow SS Potassium [Moles/Vol] 3.7 mmol/L Normal 3.5 - 5.1 mmol/L AO ADM SS Protein [Mass/Vol] 7.3 G/dL Normal 6.4 - 8.2 G/dL AO ADM SS RBC (Bld) [#/Vol] 4.64 106/mcL Normal 4.10 - 5.3 0 10^6/mcL AO Workflow SS Sodium [Moles/Vol] 142 mmol/L Normal 136 - 145 mmol/L AO ADM SS Urea nitrogen [Mass/Vol] 10 mg/dL Normal 7 - 18 mg/dL AO ADM SS Urea nitrogen/Creatinine [Mass ratio] 14 ratio Normal 7 - 27 ratio AO ADM SS WBC (Bld) [#/Vol] 8.2 103/mcL Normal 4.5 - 10.8 10^3/mcL AO Workflow SS LIPon 04-13-2025 Lipase Level 37 U/L Normal 16-77 [facility] Comment on above: Performed By: #### A SATISH, CMP, ADIFF, CBC, GFR, LIP ####[place] [address] [place], [place] [address] No Panel Informationon 04-13 Culture Urine 10,000 - 50,000 cfu/ ml Mixed growth consistent with normal urogenital jaret. [facility] Work Phone: IMIPENEM:SUSC:PT:ISOLATE:ORD QN:MICon 02-16-2025 Imipenem WILEY [Susc] >100,000 cfu/ml Escherichia coli ESBL Extended-Spectrum B-Lactamase isolate may be clinically resistant to therapy with Penicillins, Cephalosporinsor Aztreonam despite apparent in vitro susceptibility to some of these agents. Use of Imipenem is currently restricted to Infectious Disease /Intensivists. Please consult Physicians accordingly. [facility] Work Phone: Imipenem WILEY [Susc]on 2024 Escherichia coli ESBL Escherichia coli ESBL [facility] Work Phone: EGD Reporton 02-15-2025 EGD Report [facility] Medical Records Department [address] [place] [address] EGD Report MR#: [id number] Acct: [id number] Name: ADE VILLAR Rep #: [id number] : 1955 69 From: [facility] DO PCP: VINAY Acevedo Status:REG [facility] [place] Patient Name: Ade Villar Procedure Date: 02/15/2025 7:02 AM Date of : 1955 Age: 69 Procedure: Upper GI endoscopy Indications: Follow-up of Wright's esophagus Providers: Mt Hope DO Medicines: Monitored Anesthesia Care Patient Profile: This is a 69 year old female. Refer to note in patient chart for documentation of history and physical. Patient has symptoms of chronic heartburn. Complications: No immediate complications. Procedure: Pre-Anesthesia Assessment: - Prior to the procedure, a History and Physical was performed, and patient medications and allergies were reviewed. The patient is competent. The risks and benefits of the procedure and the sedation options and risks were discussed with the patient. All questions were answered and informed consent was obtained. Patient identification and proposed procedure were verified by the physician in the pre-procedure area. Mental Status Examination: alert and oriented. Airway Examination: normal oropharyngeal airway and neck mobility. Respiratory Examination: clear to auscultation. CV Examination: normal. Prophylactic Antibiotics: The patient does not require prophylactic antibiotics. Prior Anticoagulants: The patient has taken no anticoagulant or antiplatelet agents except for NSAID medication. ASA Grade Assessment: II - A patient with mild systemic disease. After reviewing the risks and benefits, the patient was deemed in satisfactory condition to undergo the procedure. The anesthesia plan was to use monitored anesthesia care (MAC). Immediately prior to administration of medications, the patient was re-assessed for adequacy to receive sedatives. The heart rate, respiratory rate, oxygen saturations, blood pressure, adequacy of pulmonary ventilation, and response to care were monitored throughout the procedure. The physical status of the patient was re-assessed after the procedure. After obtaining informed consent, the endoscope was passed under direct vision. Throughout the procedure, the patient's blood pressure, pulse, and oxygen saturations were monitored continuously. The gastroscope was introduced through the mouth, and advanced to the second part of duodenum. The upper GI endoscopy was accomplished without difficulty. The patient tolerated the procedure well. 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 The maximum longitudinal extent of these mucosal changes was 2 cm in length. Mucosa was biopsied with a cold forceps for histology in a targeted manner at intervals of 1 cm in the lower third of the esophagus. One specimen bottle was sent to pathology. Verification of patient identification for the specimen was done. Estimated blood loss was minimal. The entire examined stomach was normal. The examined duodenum was normal. Impression: - Esophageal mucosal changes secondary to established short-segment Wirght's disease. Biopsied. - Normal stomach. - Normal examined duodenum. Recommendation: - Discharge patient to home. - Resume previous diet. - Continue present medications. - Await pathology results. Procedure Code(s): --- Professional --- 86022, Esophagogastroduodenos copy, flexible, transoral; with biopsy, single or multiple CPT copyright 2021 [employer]. All rights reserved. The codes documented in this report are preliminary and upon manufacturing area manager review may be revised to meet current compliance requirements. [facility] Hope DO 02/15/2025 7:20:47 AM This report has been signed electronically. Number of Addenda: 0 Note Initiated On: 02/15/2025 7:02 AM 02/15/25720 Date Mt Dow Signature: Date (if indicated) CC: HORSE EXERCISER-C Sally Gonzalez; Mt Hope DO Date Dictated: 02/15/25701 Date Transcribed: Branch Manager: OLEGARIO Vasquez [facility] MR/OP.Dionne 02-15-2025 MR/OP.[facility] Medical Records Department [address] [facility] [place] [address] Provation Physician Letter MR#: [id number] Acct: [id number] Name: ADE VILLAR Rep #: [id number] : 1955 69 From: Mt Hope DO PCP: VINAY Acevedo Status:REG SD 02/15/2025 Sally Gonzalez Re : Upper GI endoscopy procedure for Ade Villar Dear Lisa This procedure was performed on Saturday, February 15, 2025. My impressions and recommendations are as follows: Impressions : - Esophageal mucosal changes secondary to established short-segment Wright's disease. Biopsied. - Normal stomach. - Normal examined duodenum. Recommendations : - Discharge patient to home. - Resume previous diet. - Continue present medications. - Await pathology results. My findings are described in the full procedure note, which is enclosed. If I can be of further assistance, please feel free to contact me at . Sincerely, Mt Hope DO 02/15/2025 7:20:47 AM This report has been signed electronically. 02/15/25720 Date Mt Dow Signature: Date (if indicated) CC: HORSE EXERCISER-C Sally Gonzalez; [facility] Hope DO Date Dictated: 02/15/25701 Date Transcribed: Branch Manager: OLEGARIO Signed [facility] MR/POSTOP.ANEon 02-15-2025 MR/POSTOP.[facility] Medical Records Department [address] [place] [address] Anesthesia Postop Eval I 02/15/25729 MR#: [id number] Acct: [id number] Name: ADE VILLAR Rep #: [id number] : 1955 69 From: Rao Duong PCP: VINAY Acevedo Status:REG SDC Y Race: C Location: [place] [address] Anesthesia: Postop Eval I Current Vital Signs Temperature: 98.4 F Pulse Rate: 62 Blood Pressure: 102/57 Respiratory Rate: 16 Pulse Ox: 97 Oxygen Delivery Method: Room Air Assessment Airway patent: Yes Spontaneous unlabored respirations: Yes Mental status: Awake and Calm nausea: No Vomiting: No Anesthesia Complication: No Fluid Hydration Crystalloid volume administer (ml): 300 Total IV fluid infused: 300 Progress Note Anesthesia document: Postop Eval 1 completed: Yes 02/15/25747 Date Rao Sullivan Signature: Date CC: Signed [facility] Surgery Specimen Level Renee 02-15-2025 Surgery Specimen Level IV ---- Patient Age/Sex Location Account Attending Physician ---- ADE VILLAR 69/F EN [id number] [facility] Hope DO ---- Specimen: [id number] Received: 02/15/25 Status: JAIRON Camacho Num: [id number] Spec Type: EGD BIOPSY Subm Dr: Mt Hope DO HEADDOMINGA OPERATION: EGD with biopsy PRE-OP DIAGNOSIS: Wright's esophagus, dysphagia TISSUE SUBMITTED: A- Distal esophagus biopsy ---- MICROSCOPIC DIAGNOSIS A. Distal esophagus, biopsy: * Benign squamous epithelium * Oxyntocardiac type mucosa with mild chronic inflammation, negative for goblet cells MICROSCOPIC DESCRIPTION Slides are reviewed. GROSS DESCRIPTION A. Received in fixative is one container labeled with the patient's name and designated Distal esophagus biopsy. The specimen consists of four irregular fragments of light angelo soft tissue that in aggregate measure 0.2 to 0.4 cm. The specimen is totally submitted in one cassette. [place] 02/15/2025 CPT:63598 ---- Patient Age/Sex Location Account Attending Physician ---- ADE VILLAR 69/F EN [id number] Mt Hope, DO ---- Signed (signature on file) Dr. Rita Blandon, 02/16/25 1129 ---- Normal [facility] Comment on above: Performed By: #### P JACQUI ####[facility] [address] [place], [address] Gastroenterology Visit Repor ton 12-03-2024 Gastroenterology Visit Report [facility] Gastroenterology [address] [place] [address] OFFICE VISIT Date of Service: 12/03/24 MR#: [id number] Acct: [id number] Name: ADE VILLAR Rep #: [id number] : 1955 Provider: Mt Hope DO Age/Sex: 69/F Location: [facility] [place].[facility] Status: Signed Intake Vital Signs 06/05/23 07:13 [...] 8-10 years prior without polyps *BGI established 2. with referral from PCP. Constipation (straining with [...] pain with swallowing. ? EGD 06.05.23 short-segment Wright???s, metaplasia +; medium hiatal hernia; gastritis; duodenal [...] been consistent with her fiber intake. OV 12.05.23 pt reports that she has been experiencing [...] mid to distal d escending colon. OV 04.12.24 pt reports that she [...] heartburn, d (more content not included)... Normal [facility] Misc.on 11-12-2024 [facility]. 4 COMMENT Normal . [facility] Comment on above: Order Comment: 01942 0MBL TIGER RT Result Comment: Test Ordered: [id number] Mann[place] Binding Lectin (MBL) Test(s) 952172-[id number] Binding Lectin (MBL) This test was developed and its performance characteristics determined by [facility]. It has not been cleared or approved by the Food and Drug Administration. Mann[place] Binding Lectin (MBL) 2460 ng/mL Reference Range: . Low: 0 - 50 Intermediate: 51 - 500 Normal: >500 Performed at: - [address] [id number] Perianesthesia Rn: Mukund Marlow MD, Phone: [phone] Performed at: [address] [id number] Perianesthesia Rn: Ted Collins PhD, Phone: [phone] Performed By: #### L 505.7010, L3200.1100, L3410.9998, L500.4050, L3100.5450, L100.0100, L501.6710 ####[facility] [address] [place], [place], [id number] Immunoglobulins G/A/M/Ricco IMMUNOGLOB A QN 247 mg/dL Normal 87-352 [facility] Comment on above: Order Comment: N Performed By: #### L 505.7010, L3200.1100, L3410.9998, L500.4050, L3100.5450, L100.0100, L501.6710 #### [facility] [address] [place], [place], [id number] IMMUNOGLOB E QN 20 IU/mL Normal 6-495 [facility] Comment on above: Order Comment: N Result Comment: Perf ormed at: [address] [id number] Perianesthesia Rn: Ted Collins PhD, Phone: [phone] Performed at: [address] [id number] Perianesthesia Rn: Mukund Marlow MD, Phone: [phone] Performed By: #### L 505.7010, L3200.1100, L3410.9998, L500.4050, L3100.5450, L100.0100, L501.6710 #### [facility] [address] [place], [address] IMMUNOGLOB G QN 1146 mg/dL Normal 586-1602 [facility] Comment on above: Order Comment: N Performed By: #### L 505.7010, L3200.1100, L3410.9998, L500.4050, L3100.5450, L100.0100, L501.6710 #### [facility] [address] [place], [address] IMMUNOGLOB M QN 64 mg/dL Normal 26-217 [facility] Comment on above: Order Comment: N Performed By: #### L 505.7010, L3200.1100, L3410.9998, L500.4050, L3100.5450, L100.0100, L501.6710 #### [facility] [address] [place], [place], [id number] AYDIN w/ Reflex Mult Confirmon 11-03-2024 AYDIN,DIRECT Negative Normal Negative [facility] Comment on above: Result Comment: Perf ormed at: [address], [place], [place] [id number] Perianesthesia Rn: Ted Collins PhD, Phone: [phone] Performed By: #### L 505.7010, L3200.1100, L3410.9998, L500.4050, L3100.5450, L100.0100, L501.6710 #### [facility] [place], [address] AYDIN serumOrdered By: Javier larson on 11-02-2024 Anti-Nuclear Antibody Screen Negative Negative [facility] Comment on above: Performed at: [facility] [id number] [place], [place] [id number] Director: Ted Collins PhD, Phone: [phone] Absolute lymphocyte countOrd ered By: Javier Conner on 11-02-2024 Lymphocytes Auto (Unsp spec) [#/Vol] 2.40 10*3/uL 0.83-4.51 [facility] Absolute neutrophil countOrd ered By: Javier Conner on 11-02-2024 Neutrophils (Bld) [#/Vol] 4.7 10*3/uL 2.0-7.7 [facility] Anion gap in Serum or Plasma Ordered By: Javier Conner on 11-02-2024 Anion gap [Moles/Vol] 12 mmol/L 5-15 [facility] Automated lymphocyte count a s percentage of total leukocytesOrdered By: Javier Conner on 11-02-2024 Lymphocytes/100 WBC Auto (Unsp spec) 29.1 % 19-41 [facility] BUN/creatinine ratioOrdered By: Javier Conner on 11-02-2024 Urea nitrogen/Creatinine [Mass ratio] 13.5 mg/mg 10-20 [facility] Basophil percentageOrdered B y: Javier Conner on 11-02-2024 Basophils/100 WBC (Bld) 0.4 % 0-1 [facility] Bilirubin, totalOrdered By: Javier Conner on 11-02-2024 Bilirubin [Mass/Vol] 0.32 mg/dL 0.00-1.30 [facility] CBC W/Diff, Automatedon 04-1 -2024 Absolute Lymph 2.40 X10 3/uL Normal 0.83-4.51 [facility] Comment on above: Performed By: #### L 505.7010, L3200.1100, L3410.9998, L500.4050, L3100.5450, L100.0100, L501.6710 #### [facility] [address] [place], [address] Absolute Neut 4.7 X10 3/uL Normal 2.0-7.7 [facility] Comment on above: Performed By: #### L 505.7010, L3200.1100, L3410.9998, L500.4050, L3100.5450, L100.0100, L501.6710 #### [facility] [address] [place], [address] Basophils/100 WBC (Bld) 0.4 % Normal 0-1 [facility] Comment on above: Performed By: #### L 505.7010, L3200.1100, L3410.9998, L500.4050, L3100.5450, L100.0100, L501.6710 #### [facility] [address] [place], [address] Eosinophils/100 WBC (Bld) 1.8 % Normal 0-5 [facility] Comment on above: Performed By: #### L 505.7010, L3200.1100, L3410.9998, L500.4050, L3100.5450, L100.0100, L501.6710 #### [facility] [address] [place], [address] Erythrocyte distribution width (RBC) [Ratio] 12.5 % Normal 11.6-14.6 [facility] Comment on above: Performed By: #### L 505.7010, L3200.1100, L3410.9998, L500.4050, L3100.5450, L100.0100, L501.6710 #### [facility] [address] [place], [address] Hematocrit (Bld) [Volume fraction] 41.6 % Normal 37-47 [facility] Comment on above: Performed By: #### L 505.7010, L3200.1100, L3410.9998, L500.4050, L3100.5450, L100.0100, L501.6710 #### [facility] [address] [place], [address] Hemoglobin (Bld) [Mass/Vol] 13.9 g/dL Normal 12.0-15.0 [facility] Comment on above: Performed By: #### L 505.7010, L3200.1100, L3410.9998, L500.4050, L3100.5450, L100.0100, L501.6710 #### [facility] [address] [facility] [place], [address] IG% 0.400 Normal 0.0-0.9 [facility] Comment on above: Result Comment: IG% - Immature Granulocytes (promyelocytes, myelocytes and metamyelocytes) > 1% indicates that a LEFT SHIFT is Present. Performed By: #### L 505.7010, L3200.1100, L3410.9998, L500.4050, L3100.5450, L100.0100, L501.6710 #### [facility] [address] [place], [address] Lymphocytes/100 WBC (Bld) 29.1 % Normal 19-41 [facility] Comment on above: Performed By: #### L 505.7010, L3200.1100, L3410.9998, L500.4050, L3100.5450, L100.0100, L501.6710 #### [facility] [address] [place], [address] MCH (RBC) [Entitic mass] 30.2 pg Normal 27.0-32.0 [facility] Comment on above: Performed By: #### L 505.7010, L3200.1100, L3410.9998, L500.4050, L3100.5450, L100.0100, L501.6710 #### [facility] [address] [place], [address] MCHC (RBC) [Mass/Vol] 33.4 g/dL Normal 32-36 [facility] Comment on above: Performed By: #### L 505.7010, L3200.1100, L3410.9998, L500.4050, L3100.5450, L100.0100, L501.6710 #### [facility] [address] [place], [address] MCV (RBC) [Entitic vol] 90.4 fL Normal 81-99 [facility] Comment on above: Performed By: #### L 505.7010, L3200.1100, L3410.9998, L500.4050, L3100.5450, L100.0100, L501.6710 #### [facility] [address] [place], [address] Monocytes/100 WBC (Bld) 10.9 % High 0-10 [facility] Comment on above: Performed By: #### L 505.7010, L3200.1100, L3410.9998, L500.4050, L3100.5450, L100.0100, L501.6710 #### [facility] [address] [place], [address] Neutrophils/100 WBC (Bld) 57.4 % Normal 47-70 [facility] Comment on above: Performed By: #### L 505.7010, L3200.1100, L3410.9998, L500.4050, L3100.5450, L100.0100, L501.6710 #### [facility] [address] [place], [address] Nucleated RBC (Bld) [#/Vol] 0 10*3/uL Normal 0-5 [facility] Comment on above: Performed By: #### L 505.7010, L3200.1100, L3410.9998, L500.4050, L3100.5450, L100.0100, L501.6710 #### [facility] [address] [place], [address] Platelet mean volume (Bld) [Entitic vol] 10.7 fL Normal 6.2-12.0 [facility] Comment on above: Performed By: #### L 505.7010, L3200.1100, L3410.9998, L500.4050, L3100.5450, L100.0100, L501.6710 #### [facility] [address] [place], [address] Platelets (Bld) [#/Vol] 383 10*3/uL Normal 150-450 [facility] Comment on above: Performed By: #### L 505.7010, L3200.1100, L3410.9998, L500.4050, L3100.5450, L100.0100, L501.6710 #### [facility] [address] [facility] [place], [address] RBC (Bld) [#/Vol] 4.60 10*6/uL Normal 4.2-5.4 [facility] Comment on above: Performed By: #### L 505.7010, L3200.1100, L3410.9998, L500.4050, L3100.5450, L100.0100, L501.6710 #### [facility] [address] [place], [address] RDW SD 41.6 fl Normal 35.1-43.9 [facility] Comment on above: Performed By: #### L 505.7010, L3200.1100, L3410.9998, L500.4050, L3100.5450, L100.0100, L501.6710 #### [facility] [address] [place], [address] WBC (Bld) [#/Vol] 8.2 10*3/uL Normal 4.4-11.[address] [facility] Comment on above: Performed By: #### L 505.7010, L3200.1100, L3410.9998, L500.4050, L3100.5450, L100.0100, L501.6710 #### [facility] [address] [place], [place], [id number] (190) CRPon 11-02-2024 C-REACTIVE PROT 19.50 mg/L High 0.0-3.0 [facility] Comment on above: Performed By: #### L 505.7010, L3200.1100, L3410.9998, L500.4050, L3100.5450, L100.0100, L501.6710 #### [facility] [address] [place], [place], [id number] CRP [Mass/Vol]Ordered By: Sa maia Conner on 11-02-2024 C-Reactive Protein Extended Range 19.50 mg/L High 0.0-3.0 [facility] Carbon dioxide, total [Moles /volume] in Central venous bloodOrdered By: Javier Conner on 11-02-2024 CO2 [Moles/Vol] 26.6 mmol/L 21.0-32.0 [facility] Centromere B antibody assayO rdered By: Javier Conner on 11-02-2024 Centromere B Antibody [facility] Comment on above: Test not performed Chloride assayOrdered By: Sa maia Conner on 11-02-2024 Chloride [Moles/Vol] 99 mmol/L 98-108 [facility] Chromatin antibody assayOrde red By: Javier Conner on 11-02-2024 Antichromatin Antibodies [facility] Comment on above: Test not performed Comprehensive Metabolic Prof ilon 11-02-2024 Albumin [Mass/Vol] 4.0 g/dL Normal 3.4-4.[address] [facility] Comment on above: Performed By: #### L 505.7010, L3200.1100, L3410.9998, L500.4050, L3100.5450, L100.0100, L501.6710 #### [facility] [address] [place], [address] Albumin/Globulin [Mass ratio] 1.1 {ratio} Normal 0.9-2.4 [facility] Comment on above: Performed By: #### L 505.7010, L3200.1100, L3410.9998, L500.4050, L3100.5450, L100.0100, L501.6710 #### [facility] [address] [place], [address] ALK PHOS 82 U/L Normal 35-104 [facility] Comment on above: Performed By: #### L 505.7010, L3200.1100, L3410.9998, L500.4050, L3100.5450, L100.0100, L501.6710 #### [facility] [address] [place], [address] ALT [Catalytic activity/Vol] 22 U/L Normal <=34 [facility] Comment on above: Performed By: #### L 505.7010, L3200.1100, L3410.9998, L500.4050, L3100.5450, L100.0100, L501.6710 #### [facility] [address] [place], [address] AST [Catalytic activity/Vol] 27 U/L Normal <=31 [facility] Comment on above: Performed By: #### L 505.7010, L3200.1100, L3410.9998, L500.4050, L3100.5450, L100.0100, L501.6710 #### [facility] [address] [place], [address] Bilirubin [Mass/Vol] 0.32 mg/dL Normal 0.00-1.30 [facility] Comment on above: Performed By: #### L 505.7010, L3200.1100, L3410.9998, L500.4050, L3100.5450, L100.0100, L501.6710 #### [facility] [address] [place], [address] BUN/CRE 13.5 RATIO Normal 10-20 [facility] Comment on above: Performed By: #### L 505.7010, L3200.1100, L3410.9998, L500.4050, L3100.5450, L100.0100, L501.6710 #### [facility] [address] [place], [address] Calcium [Mass/Vol] 9.5 mg/dL Normal 7.6-11.[address] [facility] Comment on above: Performed By: #### L 505.7010, L3200.1100, L3410.9998, L500.4050, L3100.5450, L100.0100, L501.6710 #### [facility] [address] [place], [address] Chloride [Moles/Vol] 99 mmol/L Normal 98-108 [facility] Comment on above: Performed By: #### L 505.7010, L3200.1100, L3410.9998, L500.4050, L3100.5450, L100.0100, L501.6710 #### [facility] [address] [place], [address] CO2 [Moles/Vol] 26.6 mmol/L Normal 21.0-32.0 [facility] Comment on above: Performed By: #### L 505.7010, L3200.1100, L3410.9998, L500.4050, L3100.5450, L100.0100, L501.6710 #### [facility] [address] [place], [address] Creatinine [Mass/Vol] 0.75 mg/dL Normal 0.70-1.20 [facility] Comment on above: Performed By: #### L 505.7010, L3200.1100, L3410.9998, L500.4050, L3100.5450, L100.0100, L501.6710 #### [facility] [address] [place], [address] GAP 12 Normal 5-15 [facility] Comment on above: Performed By: #### L 505.7010, L3200.1100, L3410.9998, L500.4050, L3100.5450, L100.0100, L501.6710 #### [facility] [address] [place], [place], [address] (315 GFR/1.73 sq M.predicted among non-blacks MDRD (S/P/Bld) [Vol rate/Area] 88 mL/min/{1.73_m2} Normal >60 [facility] Comment on above: Result Comment: mL/m in/1.73m2 CKD-EPI Creatinine Equation (2020) Performed By: #### L 505.7010, L3200.1100, L3410.9998, L500.4050, L3100.5450, L100.0100, L501.6710 #### [facility] [address] [place], [address] Globulin (S) [Mass/Vol] 3.6 g/dL Normal 2.2-4.2 [facility] Comment on above: Performed By: #### L 505.7010, L3200.1100, L3410.9998, L500.4050, L3100.5450, L100.0100, L501.6710 #### [facility] [address] [place], [address] Glucose [Mass/Vol] 92 mg/dL Normal 70-[address] [facility] Comment on above: Performed By: #### L 505.7010, L3200.1100, L3410.9998, L500.4050, L3100.5450, L100.0100, L501.6710 #### [facility] [address] [place], [address] Potassium [Moles/Vol] 3.5 mmol/L Normal 3.3-5.1 [facility] Comment on above: Performed By: #### L 505.7010, L3200.1100, L3410.9998, L500.4050, L3100.5450, L100.0100, L501.6710 #### [facility] [address] [place], [address] Sodium [Moles/Vol] 137 mmol/L Normal 133-[address] [facility] Comment on above: Performed By: #### L 505.7010, L3200.1100, L3410.9998, L500.4050, L3100.5450, L100.0100, L501.6710 #### [facility] [address] [place], [address] T PROT 7.6 g/dL Normal 5.9-8.4 [facility] Comment on above: Performed By: #### L 505.7010, L3200.1100, L3410.9998, L500.4050, L3100.5450, L100.0100, L501.6710 #### [facility] [address] [place], [address] Urea nitrogen [Mass/Vol] 10 mg/dL Normal 4-19 [facility] Comment on above: Performed By: #### L 505.7010, L3200.1100, L3410.9998, L500.4050, L3100.5450, L100.0100, L501.6710 #### [facility] [place], [address] DNA double strand Ab Qn (S)O rdered By: Javier Conner on 11-02-2024 Anti-Double Strand DNA Antibody TNP [facility] Comment on above: Test not performed Eosinophil percentageOrdered By: Javiersinai Conner on 11-02-2024 Eosinophils/100 WBC (Bld) 1.8 % 0-5 [facility] Erythrocyte distribution wid th (RBC) [Ratio]Ordered By: [facility] on 11-02-2024 Erythrocyte distribution width (RBC) [Entitic vol] 41.6 fL 35.1-43.9 [facility] Erythrocyte distribution wid th ratioOrdered By: [facility] Dalila on 11-02-2024 Erythrocyte distribution width (RBC) [Ratio] 12.5 % 11.6-14.6 [facility] Erythrocyte distribution wid th standard deviationOrdered By: Javiersinai Conner on 11-02-2024 Erythrocyte distribution width (RBC) [Ratio] 41.6 fl 35.1-43.9 [facility] GFR/1.73 sq M.predicted florinda g non-blacks MDRD (S/P/Bld) [Vol rate/Area]Ordered By: Javier Conner 11-02-2024 Estimated GFR (MDRD) Non-Af Amer 88 >60 [facility] Comment on above: mL/min/1.73m2 CKD-EP I Creatinine Equation (2020) Glomerular filtration rate ( GFR) estimation/1.73 sq m using serum, plasma, or whole bOrdered By: Javiersinai Conner on 11-02-2024 GFR/1.73 sq M.predicted among non-blacks MDRD (S/P/Bld) [Vol rate/Area] 88 mL/min/{1.73_m2} >60 [facility] Comment on above: mL/min/1.73m2 CKD-EP I Creatinine Equation (2020) Hematocrit Auto (Bld) [Volum e fraction]Ordered By: Javier Conner on 11-02-2024 Hematocrit (Bld) [Volume fraction] 41.6 % 37-47 [facility] Hemoglobin measurementOrdere d By: Javier Conner on 11-02-2024 Hemoglobin (Bld) [Mass/Vol] 13.9 g/dL 12.0-15.0 [facility] IgA [Mass/Vol]Ordered By: Sa maia Conner on 11-02-2024 Immunoglobulin A 247 mg/dL 87-352 [facility] IgEOrdered By: Javier Conner on 11-02-2024 IgE 20 IU/mL [address] [place] [address] Comment on above: Performed at: [facility] [address] [id number] Director: Ted Collins PhD, Phone: [phone] at: [employer] [address] [id number] Director: Mukund Marlow MD, Phone: [phone] Immunoglobulin E 20 IU/mL [address] [place] [address] Comment on above: Performed at: [employer] [facility] [address] Director: Ted Collins PhD, Phone: [phone] at: [employer] [address] [id number] Director: Mukund Marlow MD, Phone: [phone] IgG [Mass/Vol]Ordered By: Sa maia Conner on 11-02-2024 Immunoglobulin G 1146 mg/dL 586-1602 [facility] Immature granulocytes/100 WB C Auto (Bld)Ordered By: Javier Conner on 11-02-2024 Immature granulocytes/100 WBC (Bld) 0.400 % 0.0-0.9 [facility] Comment on above: IG% - Immature Granu locytes (promyelocytes, myelocytes and metamyelocytes) > 1% indicates that a LEFT SHIFT is Present. Immunoglobulin M measurement Ordered By: Javier Conner on 11-02-2024 Immunoglobulin M 64 mg/dL 26-217 [facility] Kyleigh-1 antibody assayOrdered B y: Javier Conner on 11-02-2024 KYLEIGH-1 Antibody TNP [facility] Comment on above: Test not performed Laboratory - Chemistry and C hemistry - challengeOrdered By: Javier Conner on 11-02-2024 AST [Catalytic activity/Vol] 27 U/L <32 [facility] Lymphocytes Auto (Unsp spec) [#/Vol]Ordered By: Javier Conner on 11-02-2024 Lymphocytes (Bld) [#/Vol] 2.40 10*3/uL 0.83-4.51 [facility] Lymphocytes/100 WBC Auto (Un sp spec)Ordered By: Javier Conner on 11-02-2024 Lymphocytes/100 WBC (Bld) 29.1 % 19-41 [facility] MCV (mean corpuscular volume ) determinationOrdered By: Javier Conner on 11-02-2024 MCV (RBC) [Entitic vol] 90.4 fL 81-99 [facility] Mean corpuscular hemoglobin (MCH) determinationOrdered By: Javiersinai Conner on 11-02-2024 MCH (RBC) [Entitic mass] 30.2 pg 27.0-32.0 [facility] Mean corpuscular hemoglobin concentration (MCHC) determinationOrdered By: Javier Conner on 11-02-2024 MCHC (RBC) [Mass/Vol] 33.4 g/dL 32-36 [facility] Mean platelet volume determi nationOrdered By: Javier Conner on 11-02-2024 Platelet mean volume (Bld) [Entitic vol] 10.7 fL 6.2-12.0 [facility] Monocyte percentageOrdered B y: Javier Conner on 11-02-2024 Monocytes/100 WBC (Bld) 10.9 % High 0-10 [facility] Neutrophil percentageOrdered By: Javier Conner on 11-02-2024 Neutrophils/100 WBC (Bld) 57.4 % 47-70 [facility] Nucleated red blood cell per centageOrdered By: Javier Conner on 11-02-2024 Nucleated RBC/100 WBC (Bld) [Ratio] 0 % 0-5 [facility] Platelet countOrdered By: Sa maia Conner on 04-15-2025 Platelets (Bld) [#/Vol] 383 10*3/uL 150-450 [facility] Potassium (Unsp spec) [Mass/ Vol]Ordered By: Javier Conner on 11-02-2024 Potassium [Moles/Vol] 3.5 mmol/L 3.3-5.1 [facility] Potassium measurement (mass/ volume)Ordered By: Javier Conner on 11-02-2024 Potassium (Unsp spec) [Mass/Vol] 3.5 mmol/L 3.3-5.1 [facility] RBC Auto (Bld) [#/Vol]Ordere d By: Javier Conner on 11-02-2024 RBC (Bld) [#/Vol] 4.60 10*6/uL 4.2-5.4 [facility] CORRECTIONAL CASE RECORDS SUPERVISOR abOrdered By: Javier pedersen on 11-02-2024 CORRECTIONAL CASE RECORDS SUPERVISOR Antibody [facility] Comment on above: Test not performed Rheumatoid Factoron 11-03-19 RHEUMATOID FAC < 10.0 Normal <15 [facility] Comment on above: Performed By: #### L 505.7010, L3200.1100, L3410.9998, L500.4050, L3100.5450, L100.0100, L501.6710 #### [facility] [place], [address] Rheumatoid factor Ql (S)Orde red By: Javier Conner on 11-02-2024 Rheumatoid Factor < 10.0 IU/mL <15 [facility] SCL-70 extractable nuclear A b Qn (S)Ordered By: Javier Conner on 11-02-2024 Scl-70 (Scleroderma) Antibody [facility] Comment on above: Test not performed SS-A IgG antibody assayOrder ed By: Javier Conner on 11-02-2024 SS-A/Ro IgG Antibody [facility] Comment on above: Test not performed SS-B IgG antibody assayOrder ed By: Javier Conner on 11-02-2024 SS-B/La IgG Antibody [facility] Comment on above: Test not performed Serum DNA double strand anti body assay (units/volume)Ordered By: Javier Conner on 11-02-2024 DNA double strand Ab Qn (S) [facility] Comment on above: Test not performed Serum Scl-70 antibody assay (units/volume)Ordered By: Javier Conner on 11-02-2024 SCL-70 extractable nuclear Ab Qn (S) [facility] Comment on above: Test not performed Serum creatinine measurement (mass/volume)Ordered By: Javier Conner on 11-02-2024 Creatinine [Mass/Vol] 0.75 mg/dL 0.70-1.20 [facility] Serum globulin measurementOr dered By: Javier Conner on 11-02-2024 Globulin (S) [Mass/Vol] 3.6 g/dL 2.2-4.2 [facility] Serum glucose measurement (m ass/volume)Ordered By: Javier Conner on 11-02-2024 Glucose [Mass/Vol] 92 mg/dL 70-[address] [facility] Serum or plasma C reactive p rotein measurement (mass/volume)Ordered By: Javier Conner on 11-02-2024 CRP [Mass/Vol] 19.50 mg/L High 0.0-3.0 [facility] Serum or plasma IgA measurem ent (mass/volume)Ordered By: Javier Conner on 11-02-2024 IgA [Mass/Vol] 247 mg/dL 87-352 [facility] Serum or plasma IgG measurem ent (mass/volume)Ordered By: Javier Conner on 11-02-2024 IgG [Mass/Vol] 1146 mg/dL 586-1602 [facility] Serum or plasma alanine casillas otransferase (ALT) measurementOrdered By: Javiersinai Conner on 11-02-2024 ALT [Catalytic activity/Vol] 22 U/L <35 [facility] Serum or plasma albumin jen urement (mass/volume)Ordered By: Javier Conner on 11-02-2024 Albumin [Mass/Vol] 4.0 g/dL 3.4-4.[address] [facility] Serum or plasma albumin/glob ulin mass ratioOrdered By: Javier Conner on 11-02-2024 Albumin/Globulin [Mass ratio] 1.1 {ratio} 0.9-2.4 [facility] Serum or plasma alkaline flakita sphatase measurementOrdered By: Javier Conner on 11-02-2024 ALP [Catalytic activity/Vol] 82 U/L 35-104 [facility] Serum or plasma calcium jen urement (mass/volume)Ordered By: Javier Conner on 11-02-2024 Calcium [Mass/Vol] 9.5 mg/dL 7.6-11.[address] [facility] Serum or plasma urea nitroge n measurement (mass/volume)Ordered By: Javier Conner on 11-02-2024 Urea nitrogen [Mass/Vol] 10 mg/dL 4-19 [facility] Serum rheumatoid factor dete ctionOrdered By: Javier Conner on 11-02-2024 Rheumatoid factor Ql (S) < 10.0 IU/mL <15 [facility] Crocker antibody assayOrdered By: Javier Conner on 11-02-2024 SM Antibody TNP [facility] Comment on above: Test not performed Sodium levelOrdered By: Javier Conner on 11-02-2024 Sodium [Moles/Vol] 137 mmol/L 133-[address] [facility] Total proteinOrdered By: Alexis Conner on 11-02-2024 Protein [Mass/Vol] 7.6 g/dL 5.9-8.[address] [facility] White blood cell (WBC) count Ordered By: Javier Conner on 11-02-2024 WBC (Bld) [#/Vol] 8.2 10*3/uL 4.4-11.[address] [facility] .GFRon 10-18-2024 Estimated Glomerular Filtration Rate 82 ml/min/1.73sqm Normal [facility] Comment on above: Result Comment: Stages of [...] eGFR results. Performed By: #### C BC, VIDH, LIPID, CMP, DIFF, GFR, MORPH ####[id number] [place] [address] .Manual Diffon 10-18-2024 Atypical Lymphs 3.0 % Normal 0.0-5.0 [facility] Comment on above: Performed By: #### C BC, VIDH, LIPID, CMP, DIFF, GFR, MORPH ####[facility] [id number] [place] [address] Aytpical Lymph, Abs Manual 0.5 10 3/mcL Normal 0.0-0.5 [facility] Comment on above: Performed By: #### C BC, VIDH, LIPID, CMP, DIFF, GFR, MORPH ####[place] [address] Bands 1.0 % Normal 0.0-5.0 [facility] Comment on above: Performed By: #### C BC, VIDH, LIPID, CMP, DIFF, GFR, MORPH ####[facility] [address] [place] [address] Basophil %, Manual 1.0 % Normal 0.0-2.5 [facility] Comment on above: Performed By: #### C BC, VIDH, LIPID, CMP, DIFF, GFR, MORPH ####[address] [place] [address] Basophil, Abs Manual 0.2 10 3/mcL Normal 0.0-0.2 [facility] Comment on above: Performed By: #### C BC, VIDH, LIPID, CMP, DIFF, GFR, MORPH ####[id number] [place] [address] Eosinophil %, Manual 3.0 % Normal 0.0-7.0 [facility] Comment on above: Performed By: #### C BC, VIDH, LIPID, CMP, DIFF, GFR, MORPH ####[place] [id number] [address] Eosinophil, Abs Manual 0.5 10 3/mcL Normal 0.0-0.7 [facility] Comment on above: Performed By: #### C BC, VIDH, LIPID, CMP, DIFF, GFR, MORPH ####[id number] [address] Lymphocyte %, Manual 7.0 % Low 20.0-40.0 [facility] Comment on above: Performed By: #### C BC, VIDH, LIPID, CMP, DIFF, GFR, MORPH ####[address] [place], [place] [address] Lymphocyte, Abs Manual 1.2 10 3/mcL Normal 0.9-4.3 [facility] Comment on above: Performed By: #### C BC, VIDH, LIPID, CMP, DIFF, GFR, MORPH ####[place] [id number] [address] Monocyte %, Manual 8.0 % Normal 2.0-13.0 [facility] Comment on above: Performed By: #### C BC, VIDH, LIPID, CMP, DIFF, GFR, MORPH ####[id number] [address] Monocyte, Abs Manual 1.4 10 3/mcL Normal 0.1-1.4 [facility] Comment on above: Performed By: #### C BC, VIDH, LIPID, CMP, DIFF, GFR, MORPH ####[place] [id number] [address] Neutrophil %, Manual 77.0 % High 50.0-75.0 [facility] Comment on above: Performed By: #### C BC, VIDH, LIPID, CMP, DIFF, GFR, MORPH ####[id number] [place], [place] [address] Neutrophil, Abs Manual 13.7 10 3/mcL High 2.3-8.1 [facility] Comment on above: Performed By: #### C BC, VIDH, LIPID, CMP, DIFF, GFR, MORPH ####[facility] [place], [place] [address] Nucleated RBC 0.0 /100 WBC Normal [facility] Comment on above: Performed By: #### C BC, VIDH, LIPID, CMP, DIFF, GFR, MORPH ####[facility] [place], [place] [address] .Morphon 10-18-2024 Hyperseg 1+ Normal [facility] Comment on above: Performed By: #### C BC, VIDH, LIPID, CMP, DIFF, GFR, MORPH ####[place] [address] [place], [place] [address] Large Platelets Few Normal [facility] Comment on above: Performed By: #### C BC, VIDH, LIPID, CMP, DIFF, GFR, MORPH ####[address] [address] Platelet Estimate Normal Normal [facility] Comment on above: Performed By: #### C BC, VIDH, LIPID, CMP, DIFF, GFR, MORPH ####[address] [address] Stomatocytes 1+ Normal [facility] Comment on above: Performed By: #### C BC, VIDH, LIPID, CMP, DIFF, GFR, MORPH ####[address] [address] Toxic Gran 1+ Normal [facility] Comment on above: Performed By: #### C BC, VIDH, LIPID, CMP, DIFF, GFR, MORPH ####[facility] [place], [place] [address] Vacuolated Neutrophils 1+ Normal [facility] Comment on above: Performed By: #### C BC, VIDH, LIPID, CMP, DIFF, GFR, MORPH ####[facility] [place], [place] [address] CBCon 10-18-2024 Erythrocyte distribution width (RBC) [Ratio] 14.1 % Normal 11.5-15.5 [facility] Comment on above: Performed By: #### C BC, VIDH, LIPID, CMP, DIFF, GFR, MORPH #### [address] [address] Hematocrit (Bld) [Volume fraction] 43.5 % Normal 34.0-46.0 [facility] Comment on above: Performed By: #### C BC, VIDH, LIPID, CMP, DIFF, GFR, MORPH #### [address] [address] Hgb 14.7 G/dL Normal 12.0-16.0 [facility] Comment on above: Performed By: #### C BC, VIDH, LIPID, CMP, DIFF, GFR, MORPH #### [place] [address] MCH (RBC) [Entitic mass] 30.6 pg Normal 27.0-33.0 [facility] Comment on above: Performed By: #### C BC, VIDH, LIPID, CMP, DIFF, GFR, MORPH #### [address] [address] MCHC 33.7 G/dL Normal 32.0-36.0 [facility] Comment on above: Performed By: #### C BC, VIDH, LIPID, CMP, DIFF, GFR, MORPH #### [address] [address] MCV (RBC) [Entitic vol] 90.8 fL Normal 80.0-99.0 [facility] Comment on above: Performed By: #### C BC, VIDH, LIPID, CMP, DIFF, GFR, MORPH #### [address] [address] Platelet 237 10 3/mcL Normal 150-450 [facility] Comment on above: Performed By: #### C BC, VIDH, LIPID, CMP, DIFF, GFR, MORPH #### [address] [address] Platelet mean volume (Bld) [Entitic vol] 9.5 fL Normal 6.6-10.5 [facility] Comment on above: Performed By: #### C BC, VIDH, LIPID, CMP, DIFF, GFR, MORPH #### [address] [address] RBC 4.80 10 6/mcL Normal 4.10-5.30 [facility] Comment on above: Performed By: #### C BC, VIDH, LIPID, CMP, DIFF, GFR, MORPH #### [address] [address] WBC 17.5 10 3/mcL High 4.5-10.8 [facility] Comment on above: Performed By: #### C BC, VIDH, LIPID, CMP, DIFF, GFR, MORPH #### [address] [address] CMPon 10-18-2024 Albumin Level 4.1 G/dL Normal 3.4-4.8 [facility] Comment on above: Performed By: #### C BC, VIDH, LIPID, CMP, DIFF, GFR, MORPH ####[address] [address] Albumin/Globulin [Mass ratio] 1.1 {ratio} Normal 1.1-2.5 [facility] Comment on above: Performed By: #### C BC, VIDH, LIPID, CMP, DIFF, GFR, MORPH ####[place] [address] [place], [place] [address] ALP [Catalytic activity/Vol] 88 U/L Normal 40-135 [facility] Comment on above: Performed By: #### C BC, VIDH, LIPID, CMP, DIFF, GFR, MORPH ####[place] [address] [place], [place] [address] ALT [Catalytic activity/Vol] 33 U/L Normal 14-59 [facility] Comment on above: Performed By: #### C BC, VIDH, LIPID, CMP, DIFF, GFR, MORPH ####[address] [address] [place], [place] [address] AST [Catalytic activity/Vol] 20 U/L Normal 10-40 [facility] Comment on above: Performed By: #### C BC, VIDH, LIPID, CMP, DIFF, GFR, MORPH ####[address] [address] Bili Total 0.6 mg/dL Normal 0.2-1.0 [facility] Comment on above: Result Comment: Use of this assay is not recommended for patients undergoing treatment with eltrombopag due to the potential for falsely elevated results. Performed By: #### C BC, VIDH, LIPID, CMP, DIFF, GFR, MORPH ####[address] [address] BUN/Creatinine Ratio 10 ratio Normal 7-27 [facility] Comment on above: Performed By: #### C BC, VIDH, LIPID, CMP, DIFF, GFR, MORPH ####[address] [address] Calcium [Mass/Vol] 9.7 mg/dL Normal 8.4-10.2 [facility] Comment on above: Performed By: #### C BC, VIDH, LIPID, CMP, DIFF, GFR, MORPH ####[address] [address] Chloride [Moles/Vol] 98 mmol/L Normal 98-107 [facility] Comment on above: Performed By: #### C BC, VIDH, LIPID, CMP, DIFF, GFR, MORPH ####[address] [address] CO2 [Moles/Vol] 30 mmol/L Normal 23-31 [facility] Comment on above: Performed By: #### C BC, VIDH, LIPID, CMP, DIFF, GFR, MORPH ####[address] [address] Creatinine [Mass/Vol] 0.79 mg/dL Normal 0.55-1.02 [facility] Comment on above: Result Comment: Test ing performed on Penana Dimension EXL analyzer using a modified kinetic Anjali technique. Performed By: #### C BC, VIDH, LIPID, CMP, DIFF, GFR, MORPH ####[address] [address] Electrolyte Balance 8.0 mEq/L Normal 4.0-15.0 [facility] Comment on above: Performed By: #### C BC, VIDH, LIPID, CMP, DIFF, GFR, MORPH ####[address] [place], [place] [address] Globulin 3.9 G/dL High 1.5-3.8 [facility] Comment on above: Performed By: #### C BC, VIDH, LIPID, CMP, DIFF, GFR, MORPH ####[address] [place], [place] [address] Glucose [Mass/Vol] 95 mg/dL Normal 80-115 [facility] Comment on above: Performed By: #### C BC, VIDH, LIPID, CMP, DIFF, GFR, MORPH ####[address] [place], [place] [address] Potassium [Moles/Vol] 3.9 mmol/L Normal 3.5-5.1 [facility] Comment on above: Performed By: #### C BC, VIDH, LIPID, CMP, DIFF, GFR, MORPH ####[address] [place], [place] [address] Sodium [Moles/Vol] 136 mmol/L Normal 136-145 [facility] Comment on above: Performed By: #### C BC, VIDH, LIPID, CMP, DIFF, GFR, MORPH ####[id number] [place], [place] [address] Total Protein 8.0 G/dL Normal 6.4-8.2 [facility] Comment on above: Performed By: #### C BC, VIDH, LIPID, CMP, DIFF, GFR, MORPH ####[address] [place], [place] [address] Urea nitrogen [Mass/Vol] 8 mg/dL Normal 7-18 [facility] Comment on above: Performed By: #### C BC, VIDH, LIPID, CMP, DIFF, GFR, MORPH ####[id number] [place], [place] [address] LIPIDon 10-18-2024 Cholesterol [Mass/Vol] 211 mg/dL High 0-200 [facility] Comment on above: Result Comment: Chol esterol Reference Interval: Less than 200 Desirable 200-239 Borderline high risk 240 and above High risk Performed By: #### C BC, VIDH, LIPID, CMP, DIFF, GFR, MORPH ####[facility] [place], [place] [address] Cholesterol in HDL [Mass/Vol] 70 mg/dL High 40-60 [facility] Comment on above: Performed By: #### C BC, VIDH, LIPID, CMP, DIFF, GFR, MORPH ####[id number] [place], [place] [address] Cholesterol in LDL [Mass/Vol] 95 mg/dL Normal 0-130 [facility] Comment on above: Performed By: #### C BC, VIDH, LIPID, CMP, DIFF, GFR, MORPH ####[place] [address] [place], [place] [address] Triglyceride [Mass/Vol] 231 mg/dL High 0-150 [facility] Comment on above: Result Comment: Trig lyceride Reference Interval: Less than 150 Normal 150-199 Borderline high risk 200-499 High risk 500 or higher Very high risk Performed By: #### C BC, VIDH, LIPID, CMP, DIFF, GFR, MORPH ####[place] [address] [place], [place] [address] VIDHon 10-18-2024 Vit. D 25-Hydroxy 36.8 ng/mL Normal [facility] Comment on above: Result Comment: Inte rpretive Values Based on Total 25(OH) Vitamin D: Deficient <20 ng/mL Insufficient 20 - <30 ng/mL Sufficient 30-100 ng/mL Performed By: #### C BC, VIDH, LIPID, CMP, DIFF, GFR, MORPH ####[place] [address] [place], [place] [address] Albumin DL <= 20 mg/L (U) [M ass/Vol]Ordered By: Sally Gonzalez on 09-28-2024 Urine Random Microalbumin < 12.0 mg/L NO RANGE EST. [facility] Anion gap in Serum or Plasma Ordered By: Sally Gonzalez on 09-28-2024 Anion gap [Moles/Vol] 11 mmol/L 5-15 [facility] BUN/creatinine ratioOrdered By: Sally Gonzalez on 09-28-2024 Urea nitrogen/Creatinine [Mass ratio] 13.9 mg/mg 10-20 [facility] Bilirubin, totalOrdered By: Sally Gonzalez on 09-28-2024 Bilirubin [Mass/Vol] 0.47 mg/dL 0.00-1.30 [facility] Breast Limited Unilateralon 09-28-2024 Breast Limited Unilateral [facility] Imaging Services [address] [place] [address] Breast Limited Unilateral MR#: [id number] Acct: [id number] Name: ADE VILLAR Rep #: [id number] : [id number] F 68 From: Lou Rodriguez MD PCP: Sally Gonzalez, HELIO-C Status: REG CLI Study: Breast Limited Unilateral Date of Exam: Exam# [id number] Ordering Dr: Sally Gonzalez NP HORSE EXERCISER-C PROCEDURE: BREAST LIMITED UNILATERAL REASON FOR EXAM: [...] SCREENING. Follow-up code: Routine Follow-up Reading Location: [id number] CC: HORSE EXERCISER-C Sally Gonzalez Branch Manager: Signed Normal [facility] Calculated very low density lipoprotein (VLDL) cholesterol measurementOrdered By: Sally Gonzalez on 09-28-2024 Calculated very low density lipoprotein (VLDL) cholesterol measurement 35 mg/dL 5-40 [facility] VLDL Cholesterol 35 mg/dL 5-40 [facility] Carbon dioxide, total [Moles /volume] in Central venous bloodOrdered By: Sally Gonzalez on 09-28-2024 CO2 [Moles/Vol] 25.8 mmol/L 21.0-32.0 [facility] Chloride assayOrdered By: Brandy Gonzalez on 09-28-2024 Chloride [Moles/Vol] 100 mmol/L 98-108 [facility] Comprehensive Metabolic Prof ilon 09-28-2024 Albumin [Mass/Vol] 4.2 g/dL Normal 3.4-4.[address] [facility] Comment on above: Performed By: #### L 502.0250, L500.4100, L506.1001, L500.4050 ####[facility] [address] [place], [address] Albumin/Globulin [Mass ratio] 1.4 {ratio} Normal 0.9-2.4 [facility] Comment on above: Performed By: #### L 502.0250, L500.4100, L506.1001, L500.4050 ####[facility] [address] [place], [address] ALK PHOS 76 U/L Normal 35-104 [facility] Comment on above: Performed By: #### L 502.0250, L500.4100, L506.1001, L500.4050 ####[facility] [address] [place], [address] ALT [Catalytic activity/Vol] 27 U/L Normal <=34 [facility] Comment on above: Performed By: #### L 502.0250, L500.4100, L506.1001, L500.4050 ####[facility] [address] [place], [address] AST [Catalytic activity/Vol] 26 U/L Normal <=31 [facility] Comment on above: Performed By: #### L 502.0250, L500.4100, L506.1001, L500.4050 ####[facility] [address], [address] Bilirubin [Mass/Vol] 0.47 mg/dL Normal 0.00-1.30 [facility] Comment on above: Performed By: #### L 502.0250, L500.4100, L506.1001, L500.4050 ####[facility] [address], [address] BUN/CRE 13.9 RATIO Normal 10-20 [facility] Comment on above: Performed By: #### L 502.0250, L500.4100, L506.1001, L500.4050 ####[facility] [address] [place], [address] Calcium [Mass/Vol] 9.4 mg/dL Normal 7.6-11.[address] [facility] Comment on above: Performed By: #### L 502.0250, L500.4100, L506.1001, L500.4050 ####[facility] [address] [place], [address] Chloride [Moles/Vol] 100 mmol/L Normal 98-108 [facility] Comment on above: Performed By: #### L 502.0250, L500.4100, L506.1001, L500.4050 ####[facility] [address], [address] CO2 [Moles/Vol] 25.8 mmol/L Normal 21.0-32.0 [facility] Comment on above: Performed By: #### L 502.0250, L500.4100, L506.1001, L500.4050 ####[facility] [address] [place], [address] Creatinine [Mass/Vol] 0.64 mg/dL Low 0.70-1.20 [facility] Comment on above: Performed By: #### L 502.0250, L500.4100, L506.1001, L500.4050 ####[facility] [address] [place], [address] GAP 11 Normal 5-15 [facility] Comment on above: Performed By: #### L 502.0250, L500.4100, L506.1001, L500.4050 ####[facility] [address] [place], [address] GFR/1.73 sq M.predicted among non-blacks MDRD (S/P/Bld) [Vol rate/Area] 97 mL/min/{1.73_m2} Normal >60 [facility] Comment on above: Result Comment: mL/m in/1.73m2 CKD-EPI Creatinine Equation (2020) Performed By: #### L 502.0250, L500.4100, L506.1001, L500.4050 ####[facility] [address] [place], [address] Globulin (S) [Mass/Vol] 3.0 g/dL Normal 2.2-4.2 [facility] Comment on above: Performed By: #### L 502.0250, L500.4100, L506.1001, L500.4050 ####[facility] [address] [place], [address] Glucose [Mass/Vol] 98 mg/dL Normal 70-[address] [facility] Comment on above: Performed By: #### L 502.0250, L500.4100, L506.1001, L500.4050 ####[facility] [address] [place], [address] Potassium [Moles/Vol] 3.3 mmol/L Normal 3.3-5.1 [facility] Comment on above: Performed By: #### L 502.0250, L500.4100, L506.1001, L500.4050 ####[facility] [address] [place], [address] Sodium [Moles/Vol] 137 mmol/L Normal 133-[address] [facility] Comment on above: Performed By: #### L 502.0250, L500.4100, L506.1001, L500.4050 ####[facility] [address] [place], [address] T PROT 7.2 g/dL Normal 5.9-8.4 [facility] Comment on above: Performed By: #### L 502.0250, L500.4100, L506.1001, L500.4050 ####[facility] [address] [place], [address] Urea nitrogen [Mass/Vol] 9 mg/dL Normal 4-19 [facility] Comment on above: Performed By: #### L 502.0250, L500.4100, L506.1001, L500.4050 ####[facility] [address] [place], [address] Creatinine Unsp time (U) [Ma ss/Vol]Ordered By: Sally Gonzalez on 09-28-2024 Creatinine (U) [Mass/Vol] 75.70 mg/dL 28-217 [facility] GFR/1.73 sq M.predicted florinda g non-blacks MDRD (S/P/Bld) [Vol rate/Area]Ordered By: Sally Gonzalez on 09-28-2024 Estimated GFR (MDRD) Non-Af Amer 97 >60 [facility] Comment on above: mL/min/1.73m2 CKD-EP I Creatinine Equation (2020) Glomerular filtration rate ( GFR) estimation/1.73 sq m using serum, plasma, or whole bOrdered By: Sally Gonzalez on 09-28-2024 GFR/1.73 sq M.predicted among non-blacks MDRD (S/P/Bld) [Vol rate/Area] 97 mL/min/{1.73_m2} >60 [facility] Comment on above: mL/min/1.73m2 CKD-EP I Creatinine Equation (2020) L506.1001on 09-28-2024 Vitamin D 25-OH 25.8 ng/mL Low 30-100 [facility] Comment on above: Result Comment: Sophia min D Status Deficiency: <20 ng/mL (50nmol/L) Insufficiency: 20-30 ng/mL (50-75 nmol/L) Sufficiency: 30-100 ng/mL (75-250 nmol/L) Toxicity: >100 ng/mL (>250 nmol/L) Performed By: #### L 502.0250, L500.4100, L506.1001, L500.4050 ####[facility] [address] [place], [address] LDL calc ser/plasOrdered By: Sally Gonzalez on 09-28-2024 Cholesterol in LDL [Mass/Vol] 91 mg/dL [facility] Comment on above: Drtfapgndx=967-818 m g/dL & Higher Mnvs=390 mg/dL or greater LDL Cholesterol, Calculated 91 mg/dL [facility] Comment on above: Lzpiopksoj=047-100 m g/dL & Higher Zwiz=129 mg/dL or greater Laboratory - Chemistry and C hemistry - challengeOrdered By: Sally Gonzalez on 09-28-2024 AST [Catalytic activity/Vol] 26 U/L <32 [facility] Lipid Profileon 09-28-2024 CHOL:HDL 3.09 Normal [facility] Comment on above: Performed By: #### L 502.0250, L500.4100, L506.1001, L500.4050 ####[facility] [address] [place], [place], [address] Cholesterol [Mass/Vol] 186 mg/dL Normal <=200 [facility] Comment on above: Result Comment: Chol esterol level, Desirable <200 mg/dL Borderline high cholesterol 200-239 mg/dL High cholesterol >=240 mg/dL Recommendations of the NCEP Adult Treatment Panel for the following risk-cutoff thresholds for the [place] population. Performed By: #### L 502.0250, L500.4100, L506.1001, L500.4050 ####[facility] [address] [place], [address] Cholesterol in HDL [Mass/Vol] 60 mg/dL Normal [facility] Comment on above: Result Comment: Magaly onal Cholesterol Education Program (NCEP) guidelines: <40 mg/dL: Low HDL-cholesterol (major risk factor for CHD) >= 60 mg/dL: High HDL-cholesterol (negative risk factor for CHD) HDL-cholesterol is affected by a number of factors, e.g. smoking, exercise, hormones, sex and age. Performed By: #### L 502.0250, L500.4100, L506.1001, L500.4050 ####[facility] [address] [place], [address] Cholesterol in LDL [Mass/Vol] 91 mg/dL Normal [facility] Comment on above: Result Comment: Bord zxmylk=999-138 mg/dL Higher Lnej=861 mg/dL or greater Performed By: #### L 502.0250, L500.4100, L506.1001, L500.4050 ####[facility] [address] [place], [address] Cholesterol in VLDL [Mass/Vol] 35 mg/dL Normal 5-40 [facility] Comment on above: Performed By: #### L 502.0250, L500.4100, L506.1001, L500.4050 ####[facility] [address] [place], [address] Triglyceride [Mass/Vol] 174 mg/dL Normal [facility] Comment on above: Result Comment: The drugs N-Acetylcysteine and Metamizole may falsely depress this assay. Normal range: <150 mg/dL Borderline High: 150-199 mg/dL High: 200-499 mg/dL Very High: >500 mg/dL Performed By: #### L 502.0250, L500.4100, L506.1001, L500.4050 ####[facility] [address] [place], [address] Microalb:Creat Ratio,Random URon 09-28-2024 Creatinine [Mass/Vol] 75.70 mg/dL Normal 28-217 [facility] Comment on above: Performed By: #### L 502.0250, L500.4100, L506.1001, L500.4050 ####[facility] [address] [place], [address] MALB:CREAT UNABLE TO CALCULATE Normal [facility] Comment on above: Performed By: #### L 502.0250, L500.4100, L506.1001, L500.4050 ####[facility] [address] [place], [address] MICROALBUMIN,UR < 12.0 Normal NO RANGE EST. [facility] Comment on above: Performed By: #### L 502.0250, L500.4100, L506.1001, L500.4050 ####[facility] [address] [place], [address] Microalbumin/creat ratio urO rdered By: Sally Gonzalez on 09-28-2024 Urine Microalbumin/Creatinine Ratio UNABLE TO CALCULATE mg/g CRE [facility] Urine microalbumin/creatinine ratio measurement UNABLE TO CALCULATE mg/g CRE [facility] Potassium (Unsp spec) [Mass/ Vol]Ordered By: Sally Gonzalez on 09-28-2024 Potassium [Moles/Vol] 3.3 mmol/L 3.3-5.1 [facility] Potassium measurement (mass/ volume)Ordered By: Sally Gonzalez on 09-28-2024 Potassium (Unsp spec) [Mass/Vol] 3.3 mmol/L 3.3-5.1 [facility] Random urine creatinine jen urement (mass/volume)Ordered By: Sally Gonzalez on 09-28-2024 Creatinine Unsp time (U) [Mass/Vol] 75.70 mg/dL 28-217 [facility] Screening total cholesterol/ high density lipoprotein (HDL) cholesterol ratioOrdered By: Sally Gonzalez on 09-28-2024 Cholesterol.total/Niru sterol in HDL [Mass ratio] 3.09 {ratio} [facility] Serum creatinine measurement (mass/volume)Ordered By: Sally Gonzalez on 09-28-2024 Creatinine [Mass/Vol] 0.64 mg/dL Low 0.70-1.20 [facility] Serum globulin measurementOr dered By: Sally Gonzalez on 09-28-2024 Globulin (S) [Mass/Vol] 3.0 g/dL 2.2-4.2 [facility] Serum glucose measurement (m ass/volume)Ordered By: Sally Gonzalez on 09-28-2024 Glucose [Mass/Vol] 98 mg/dL 70-[address] [facility] Serum or plasma alanine casillas otransferase (ALT) measurementOrdered By: Sally Gonzalez on 09-28-2024 ALT [Catalytic activity/Vol] 27 U/L <35 [facility] Serum or plasma albumin jen urement (mass/volume)Ordered By: Sally Gonzalez on 09-28-2024 Albumin [Mass/Vol] 4.2 g/dL 3.4-4.[address] [facility] Serum or plasma albumin/glob ulin mass ratioOrdered By: Sally Gonzalez on 09-28-2024 Albumin/Globulin [Mass ratio] 1.4 {ratio} 0.9-2.4 [facility] Serum or plasma alkaline flakita sphatase measurementOrdered By: Sally Gonzalez on 09-28-2024 ALP [Catalytic activity/Vol] 76 U/L 35-104 [facility] Serum or plasma calcium jen urement (mass/volume)Ordered By: Sally Gonzalez on 09-28-2024 Calcium [Mass/Vol] 9.4 mg/dL 7.6-11.[address] [facility] Serum or plasma cholesterol in HDL measurement (mass/volume)Ordered By: Sally Gonzalez on 09-28-2024 Cholesterol in HDL [Mass/Vol] 60 mg/dL >40 [facility] Comment on above: National Cholesterol Education Program (NCEP) guidelines:<40 mg/dL: Low HDL-cholesterol (major risk factor for CHD)>= 60 mg/dL: High HDL-cholesterol (negative risk factor for CHD)HDL-cholesterol is affected by a number of factors, e.g. smoking, exercise, hormones, sex and age. Serum or plasma cholesterol measurement (mass/volume)Ordered By: Sally Gonzalez on 09-28-2024 Cholesterol [Mass/Vol] 186 mg/dL <201 [facility] Comment on above: Cholesterol level, D esirable <200 mg/dLBorderline high cholesterol 200-239 mg/dLHigh cholesterol >=240 mg/dLRecommendations of the NCEP Adult Treatment Panel for the following risk-cutoff thresholds for the [place] population. Serum or plasma urea nitroge n measurement (mass/volume)Ordered By: Sally Gonzalez on 09-28-2024 Urea nitrogen [Mass/Vol] 9 mg/dL 4-19 [facility] Sodium levelOrdered By: Luis Gonzalez on 09-28-2024 Sodium [Moles/Vol] 137 mmol/L 133-[address] [facility] Total proteinOrdered By: Jamaal Gonzalez on 09-28-2024 Protein [Mass/Vol] 7.2 g/dL 5.9-8.[address] [facility] Triglycerides measurementOrd ered By: Sally Gonzalez on 09-28-2024 Triglyceride [Mass/Vol] 174 mg/dL <199 [facility] Comment on above: The drugs N-Acetylcy steine and Metamizole may falsely depress this assay. Normal range: <150 mg/dLBorderline High: 150-199 mg/dLHigh: 200-499 mg/dLVery High: >500 mg/dL Urine albumin measurement wi detection limit of 20 mg/L or less (mass/volume)Ordered By: Sally Gonzalez on 09-28-2024 Albumin DL <= 20 mg/L (U) [Mass/Vol] < 12.0 mg/L NO RANGE EST. [facility] Vitamin D, 25-hydroxyOrdered By: Sally Gonzalez on 09-28-2024 Vitamin D 25-Hydroxy 25.8 ng/mL Low 30-100 [facility] Comment on above: Vitamin D StatusDefi ciency: <20 ng/mL (50nmol/L)Insufficiency: 20-30 ng/mL (50-75 nmol/L)Sufficiency: 30-100 ng/mL (75-250 nmol/L)Toxicity: >100 ng/mL (>250 nmol/L) Dexa Bone Density Studyon Dexa Bone Density Study [facility] Imaging Services [address] [place] [address] Dexa Bone Density Study MR#: [id number] Acct: [id number] Name: ADE VILLAR Rep #: [id number] : 1955 F 68 From: Manjeet castillo MD PCP: VINAY Acevedo Status: [facility] Study: Dexa Bone Density Study Date of Exam: 06/15/24 Exam# [id number] Ordering Dr: Sally Gonzalez NP HORSE EXERCISER-C [id number] STUDY: DUAL ENERGY X-RAY ABSORPTIOMETRY / DXA [...] Signed: Manjeet Owens MD at 14:41 EST , CC: VINAY Gonzalez Branch Manager: Signed Normal [facility] SCRN MAMM (CAD)W/FANTASMA Daniels n 06-15-2024 SCRN MAMM (CAD)W/FANTASMA PAULINO [facility] Imaging Services [address] [place], [place] [address] SCRN MAMM (CAD)W/FANTASMA PAULINO MR#: [id number] Acct: [id number] Name: ADE VILLAR Rep #: [id number] : 1955 F 68 From: Sally Greene MD PCP: VINAY Acevedo Status: REG CLI Study: SCRN MAMM (CAD)W/FANTASMA BILAT Date of Exam: 05/22 01/11 Exam# [id number] Ordering Dr: Sally Gonzalez NP HORSE EXERCISER-C [id number] MAMMOGRAPHY - BILATERAL SCREENING 3-D TOMOSYNTHESIS REASON [...] change since the prior study. BI/SCRN MAMM (CAD)W/FANTASMA BILAT IMPRESSION: No mammographic signs of malignancy. [...] at 14:50 EST , CC: VINAY Gonzalez Branch Manager: Signed Normal [facility] Comprehensive Metabolic Prof matthew 05-12-2024 Albumin [Mass/Vol] 3.6 g/dL Normal 3.2-5.[address] [facility] Comment on above: Performed By: #### L 500.4100, L501.9985, L500.4050 ####[facility] [address] [place], [address] Albumin/Globulin [Mass ratio] 0.9 {ratio} Normal 0.9-2.4 [facility] Comment on above: Performed By: #### L 500.4100, L501.9985, L500.4050 ####[facility] [address] [place], [address] ALK P 90 U/L Normal 45-117 [facility] Comment on above: Performed By: #### L 500.4100, L501.9985, L500.4050 ####[facility] [address] [place], [address] ALT [Catalytic activity/Vol] 65 U/L High 13-56 [facility] Comment on above: Performed By: #### L 500.4100, L501.9985, L500.4050 ####[facility] [address] [place], [address] AST [Catalytic activity/Vol] 55 U/L High 15-37 [facility] Comment on above: Result Comment: Mode rate Hemolysis, Result may be falsely increased. Performed By: #### L 500.4100, L501.9985, L500.4050 ####[facility] [address] [place], [address] Bilirubin [Mass/Vol] 0.40 mg/dL Normal 0.20-1.00 [facility] Comment on above: Result Comment: For patients on eltrombopag therapy, use of Dimension [place] TBIL is not recommended. Performed By: #### L 500.4100, L501.9985, L500.4050 ####[facility] [address] [place], [address] BUN/CRE 14.3 RATIO Normal 10-20 [facility] Comment on above: Performed By: #### L 500.4100, L501.9985, L500.4050 ####[facility] [address] [place], [address] CA,Total 9.4 mg/dL Normal 8.5-10.1 [facility] Comment on above: Performed By: #### L 500.4100, L501.9985, L500.4050 ####[facility] [address] [place], [address] Chloride [Moles/Vol] 103 mmol/L Normal 98-107 [facility] Comment on above: Performed By: #### L 500.4100, L501.9985, L500.4050 ####[facility] [address] [place], [address] CO2 [Moles/Vol] 26.0 mmol/L Normal 21.0-32.0 [facility] Comment on above: Performed By: #### L 500.4100, L501.9985, L500.4050 ####[facility] [address] [place], [address] Creatinine [Mass/Vol] 0.70 mg/dL Normal 0.55-1.02 [facility] Comment on above: Result Comment: The validity of the calculated GFR GFRAA in patients over 70 years has not been determined. Clinical correlation is essential. Performed By: #### L 500.4100, L501.9985, L500.4050 ####[facility] [address] [place], [address] EST GFR - AA 107 mL/min Normal >60 [facility] Comment on above: Result Comment: Afri can [place] GFR Calc Performed By: #### L 500.4100, L501.9985, L500.4050 ####[facility] [address] [place], [address] GAP 7 Normal 5-15 [facility] Comment on above: Performed By: #### L 500.4100, L501.9985, L500.4050 ####[facility] [address] [place], [address] GFR/1.73 sq M.predicted among non-blacks MDRD (S/P/Bld) [Vol rate/Area] 89 mL/min/{1.73_m2} Normal >60 [facility] Comment on above: Result Comment: Non- GFR Calc Performed By: #### L 500.4100, L501.9985, L500.4050 ####[facility] [address] [place], [address] Globulin (S) [Mass/Vol] 3.9 g/dL Normal 2.2-4.2 [facility] Comment on above: Performed By: #### L 500.4100, L501.9985, L500.4050 ####[facility] [address] [place], [address] Glucose [Mass/Vol] 100 mg/dL Normal 74-[address] [facility] Comment on above: Result Comment: Fast ing Glucose result from 100 to 125 mg/dL suggests IMPAIRED HOMEOSTASIS per A.D.A. criteria. Performed By: #### L 500.4100, L501.9985, L500.4050 ####[facility] [address] [place], [address] Potassium [Moles/Vol] 4.2 mmol/L Normal 3.5-5.1 [facility] Comment on above: Result Comment: Mode rate Hemolysis, Result may be falsely increased. Performed By: #### L 500.4100, L501.9985, L500.4050 ####[facility] [address] [place], [address] Sodium [Moles/Vol] 136 mmol/L Normal 136-[address] [facility] Comment on above: Performed By: #### L 500.4100, L501.9985, L500.4050 ####[facility] [address] [place], [address] T PROT 7.5 g/dL Normal 6.4-8.2 [facility] Comment on above: Performed By: #### L 500.4100, L501.9985, L500.4050 ####[facility] [address] [place], [address] Urea nitrogen [Mass/Vol] 10 mg/dL Normal 7-18 [facility] Comment on above: Performed By: #### L 500.4100, L501.9985, L500.4050 ####[facility] [address] [place], [address] Hemoglobin A1con 05-12-2024 HbA1c (Bld) [Mass fraction] 5.7 % High 3.8-5.6 [facility] Comment on above: Result Comment: Norm al < 5.7 % Prediabetic 5.7 - 6.4 % Diabetic >or= 6.5 % Please note range changes. Performed By: #### L 500.4100, L501.9985, L500.4050 ####[facility] [address] [place], [address] Lipid Profileon 05-12-2024 Cholesterol [Mass/Vol] 157 mg/dL Normal 200 [facility] Comment on above: Result Comment: <200 mg/dL Desirable 200-240 mg/dL Borderline >240 mg/dL High Risk Performed By: #### L 500.4100, L501.9985, L500.4050 ####[facility] [address] [place], [address] Cholesterol in HDL [Mass/Vol] 53 mg/dL Normal [facility] Comment on above: Result Comment: The drugs N-Acetylcysteine and Metamizole may falsely depress this assay. Reference Range HDL <40 mg/dL Low HDL Cholesterol HDL >or= 60 mg/dL High HDL Cholesterol Performed By: #### L 500.4100, L501.9985, L500.4050 ####[facility] [address] [place], [address] Cholesterol in LDL [Mass/Vol] 35 mg/dL Normal 0-130 [facility] Comment on above: Performed By: #### L 500.4100, L501.9985, L500.4050 ####[facility] [address] [place], [address] Cholesterol in VLDL [Mass/Vol] 69 mg/dL High 5-40 [facility] Comment on above: Performed By: #### L 500.4100, L501.9985, L500.4050 ####[facility] [address] [place], [address] Triglyceride [Mass/Vol] 346 mg/dL High [facility] Comment on above: Result Comment: The drugs N-Acetylcysteine and Metamizole may falsely depress this assay. Serum Triglycerides Reference Interval Normal <150 mg/dL Borderline high 150 - 199 mg/dL High 200 - 499 mg/dL Very High > or = 500 mg/dL Performed By: #### L 500.4100, L501.9985, L500.4050 ####[facility] [address] [place], [address] Gastroenterology Visit Repor ton 04-12-2024 Gastroenterology Visit Report [facility] [address] [place] [address] OFFICE VISIT Date of Service: 04/12/24 MR#: [id number] Acct: [id number] Name: ADE VILLAR Rep #: [id number] : 1955 Provider: [place] DO Age/Sex: 68/F Location: [facility] [place] Status: Signed Intake Vital Signs 06/05/23 07:13 [...] 8-10 years prior without polyps *BGI established 2. with referral from PCP. Constipation (straining with [...] pain with swallowing. ? EGD 06.05.23 short-segment Wright???s, metaplasia +; medium hiatal hernia; gastritis; duodenal [...] been consistent with her fiber intake. OV 5.. pt reports that she has been experiencing [...] the mid to distal descending colon. OV 04.12. pt reports that she is feeling well overall and denies GI symptoms of concern at this time. Pt states that she has occasional gas and bloating and will take a Gas-X which she reports is effective. ROS Const Constitutional: No fatigue, fever(s) or weight change ENT ENT: No difficulty swallowing Gastro GI: Positive for bloating and exces (more content not included)... Normal [facility] No Panel Informationon Culture Urine 10,000 - 50,000 cfu/ ml Mixed growth consistent with normal urogenital jaret. [facility] Work Phone: Basophil percentageOrdered B y: Sally Lisa on 05-12-2023 Bilirubin [Mass/Vol] 0.60 mg/dL 0.20-1.00 [facility] Comment on above: For patients on eltr ombopag therapy, use of Dimension [place] TBIL is not recommended. Chloride [Moles/Vol] 105 mmol/L 98-107 [facility] Cholesterol [Mass/Vol] 206 mg/dL <200 [facility] Comment on above: <200 mg/dL Desirable 200-240 mg/dL Borderline >240 mg/dL High Risk Glucose [Mass/Vol] 98 mg/dL 74-[address] [facility] Potassium [Moles/Vol] 3.8 mmol/L 3.5-5.1 [facility] Comment on above: Moderate Hemolysis, Result may be falsely increased. Protein [Mass/Vol] 7.7 g/dL 6.4-8.[address] [facility] Sodium [Moles/Vol] 140 mmol/L 136-[address] [facility] Triglyceride [Mass/Vol] 186 mg/dL <199 [facility] Comment on above: The drugs N-Acetylcy steine and Metamizole may falsely depress this assay.Serum Triglycerides Reference Interval Normal <150 mg/dL Borderline high 150 - 199 mg/dL High 200 - 499 mg/dL Very High > or = 500 mg/dL Laboratory - Chemistry and C hemistry - challengeOrdered By: Sally Gonzalez on 05-12-2023 ALP [Catalytic activity/Vol] 60 U/L 45-117 [facility] ALT [Catalytic activity/Vol] 44 U/L 13-56 [facility] CO2 [Moles/Vol] 31.0 mmol/L 21.0-32.0 [facility] Globulin (S) [Mass/Vol] 4.0 g/dL 2.2-4.2 [facility] Urea nitrogen/Creatinine [Mass ratio] 14.3 mg/mg 10-20 [facility] No Panel InformationOrdered By: Sally Gonzalez on 05-12-2023 Estimated GFR (MDRD) Amer 96 mL/min >60 [facility] Comment on above: GFR Calc Estimated GFR (MDRD) Non-Af Amer 80 mL/min >60 [facility] Comment on above: Non- GFR Calc Serum or plasma albumin jen urement (mass/volume)Ordered By: Sally Gonzalez on 05-12-2023 Albumin [Mass/Vol] 3.7 g/dL 3.2-5.[address] [facility] Serum or plasma albumin/glob ulin mass ratioOrdered By: Sally Gonzalez on 05-12-2023 Albumin/Globulin [Mass ratio] 0.9 {ratio} 0.9-2.4 [facility] Serum or plasma calcium jen urement (mass/volume)Ordered By: Sally Gonzalez on 05-12-2023 Calcium [Mass/Vol] 9.2 mg/dL 8.5-10.[address] [facility] Serum or plasma cholesterol in HDL measurement (mass/volume)Ordered By: Sally Gonzalez on 05-12-2023 Cholesterol in HDL [Mass/Vol] 62 mg/dL >40 [facility] Comment on above: The drugs N-Acetylcy steine and Metamizole may falsely depress this assay. Reference Range HDL <40 mg/dL Low HDL Cholesterol HDL >or= 60 mg/dL High HDL Cholesterol Serum or plasma cholesterol in VLDL measurement (mass/volume)Ordered By: Sally Gonzalez on 05-12-2023 Cholesterol in VLDL [Mass/Vol] 37 mg/dL 5-40 [facility] Serum or plasma creatinine m easurement (mass/volume)Ordered By: Sally Gonzalez on 05-12-2023 Creatinine [Mass/Vol] 0.77 mg/dL 0.55-1.02 [facility] Comment on above: The validity of the calculated GFR & GFRAA in patients over 70 years has not been determined. Clinical correlation is essential. Serum or plasma low density lipoprotein (LDL) cholesterol measurement (mass/volume)Ordered By: Sally Gonzalez on 05-12-2023 Cholesterol in LDL [Mass/Vol] 107 mg/dL 0-130 [facility] Serum or plasma urea nitroge n measurement (mass/volume)Ordered By: Sally Gonzalez on 05-12-2023 Urea nitrogen [Mass/Vol] 11 mg/dL 7-18 [facility] Thin prep Papanicolaou smear with manual screeningOrdered By: Sally Gonzalez on 05-12-2023 Thin prep Papanicolaou smear with manual screening 41 U/L 15-37 [facility] Comment on above: Moderate Hemolysis, Result may be falsely increased. Thin prep Papanicolaou smear with manual screening 4 5-15 [facility] Whole blood hemoglobin A1c/t otal hemoglobin ratio (mass fraction)Ordered By: Sally Gonzalez on 05-12-2023 HbA1c (Bld) [Mass fraction] 5.4 % 3.8-5.6 [facility] Comment on above: Normal < 5.7 % Predi abetic 5.7 - 6.4 % Diabetic >or= 6.5 % Please note range changes. MA MAMMOGRAM SCREENING BILAT ERAL W/TOMOon 02-10-2023 MA MAMMOGRAM SCREENING BILATERAL W/FANTASMA ORIGINAL FROM: [facility]STER [address] [address] PROCEDURE FOR: ADE MauroAlisson [address] [address] Home: PID#: [id number] Exam#: [id number] : 1955 Age: 67 TO: SALLY GONZALEZ [employer]TERY CHARGER [facility] [address] [address] Fax: NO FAX EXAMINATION: SCREENING DIGITAL BILATERAL [...] 02/10/2023 6:38:30 PM Ordering Provider: SALLY GONZALEZ Precision Filer Hand: SANDY WILLIS RT(R) (M) letter sent: Normal BI-RADS 1 and 2 Mammogram BI-RADS: 2 Benign Normal [facility] ([place]) Basophil percentageOrdered B y: Sally Gonzalez on 10-24-2022 Bilirubin [Mass/Vol] 0.60 mg/dL 0.20-1.00 [facility] Comment on above: For patients on eltr ombopag therapy, use of Dimension [place] TBIL is not recommended. Chloride [Moles/Vol] 106 mmol/L 98-107 [facility] Cholesterol [Mass/Vol] 196 mg/dL <200 [facility] Comment on above: <200 mg/dL Desirable 200-240 mg/dL Borderline >240 mg/dL High Risk Glucose [Mass/Vol] 91 mg/dL 74-[address] [facility] Potassium [Moles/Vol] 3.6 mmol/L 3.5-5.1 [facility] Protein [Mass/Vol] 7.3 g/dL 6.4-8.[address] [facility] Sodium [Moles/Vol] 137 mmol/L 136-[address] [facility] Triglyceride [Mass/Vol] 138 mg/dL <199 [facility] Comment on above: The drugs N-Acetylcy steine and Metamizole may falsely depress this assay.Serum Triglycerides Reference Interval Normal <150 mg/dL Borderline high 150 - 199 mg/dL High 200 - 499 mg/dL Very High > or = 500 mg/dL Laboratory - Chemistry and C hemistry - challengeOrdered By: Sally Gonzalez on 10-24-2022 ALP [Catalytic activity/Vol] 59 U/L 45-117 [facility] ALT [Catalytic activity/Vol] 49 U/L 13-56 [facility] CO2 [Moles/Vol] 28.0 mmol/L 21.0-32.0 [facility] Globulin (S) [Mass/Vol] 3.6 g/dL 2.2-4.2 [facility] Urea nitrogen/Creatinine [Mass ratio] 15.8 mg/mg 10-20 [facility] No Panel InformationOrdered By: Sally Gonzalez on 10-24-2022 Estimated GFR (MDRD) Amer 108 mL/min >60 [facility] Comment on above: GFR Calc Estimated GFR (MDRD) Non-Af Amer 89 mL/min >60 [facility] Comment on above: Non- GFR Calc Serum or plasma albumin jen urement (mass/volume)Ordered By: Sally Gonzalez on 10-24-2022 Albumin [Mass/Vol] 3.7 g/dL 3.2-5.[address] [facility] Serum or plasma albumin/glob ulin mass ratioOrdered By: Sally Gonzalez on 10-24-2022 Albumin/Globulin [Mass ratio] 1.0 {ratio} 0.9-2.4 [facility] Serum or plasma calcium jen urement (mass/volume)Ordered By: Sally Gonzalez on 10-24-2022 Calcium [Mass/Vol] 8.9 mg/dL 8.5-10.[address] [facility] Serum or plasma cholesterol in HDL measurement (mass/volume)Ordered By: Sally Gonzalez on 10-24-2022 Cholesterol in HDL [Mass/Vol] 63 mg/dL >40 [facility] Comment on above: The drugs N-Acetylcy steine and Metamizole may falsely depress this assay. Reference Range HDL <40 mg/dL Low HDL Cholesterol HDL >or= 60 mg/dL High HDL Cholesterol Serum or plasma cholesterol in VLDL measurement (mass/volume)Ordered By: Sally Gonzalez on 10-24-2022 Cholesterol in VLDL [Mass/Vol] 28 mg/dL 5-40 [facility] Serum or plasma creatinine m easurement (mass/volume)Ordered By: Sally Gonzalez on 10-24-2022 Creatinine [Mass/Vol] 0.70 mg/dL 0.55-1.02 [facility] Comment on above: The validity of the calculated GFR & GFRAA in patients over 70 years has not been determined. Clinical correlation is essential. Serum or plasma low density lipoprotein (LDL) cholesterol measurement (mass/volume)Ordered By: Sally Gonzalez on 10-24-2022 Cholesterol in LDL [Mass/Vol] 105 mg/dL 0-130 [facility] Serum or plasma urea nitroge n measurement (mass/volume)Ordered By: Sally Gonzalez on 10-24-2022 Urea nitrogen [Mass/Vol] 11 mg/dL 7-18 [facility] Thin prep Papanicolaou smear with manual screeningOrdered By: Sally Gonzalez on 10-24-2022 Thin prep Papanicolaou smear with manual screening 27 U/L 15-37 [facility] Thin prep Papanicolaou smear with manual screening 3 5-15 [facility] DUTY,ADE Mauro ([id number]) 1955 F Date Time Provider Department 10/13/22 JOSE MATTHEWS [facility] During your visit today, we recorded the following information about you: Jose Matthews APRN.[facility] 10/13/2022 8:12 AM Signed Patient was negative [...] Encounter Status:Closed by KALEY HENDRICKS on 10/13/22 Normal [facility] CNOVon 10-12-2022 CNOV Office Visit ([facility] ) ADE VILLAR ([id number]) 1955 F Date Time Provider Department 10/12/22 11:00 AM JOSE MATTHEWS [facility] During your visit today, we recorded the following information about you: Temperature Pulse Respiration Blood pressure 98.7 degrees 88/minute 18/minute 132/76 Weight 88.5 kg Jose Matthews APRN.[facility] 10/12/2022 11:14 AM Signed CC: Patient presents with: Sinus Problem: drainage and right ear pain x 3 days HPI: Ade Mauro Aurea is a 66 year old female who [...] Problem Relation Age of Onset Heart Father [place] Thyroid Mother Hypertension Sister Hypertension Sister Thyroid [...] Patient agreeable to treatment plan. Jose Matthews APRN.BUSINESS SERVICES ASSOCIATE Allergies As of Date: 10/12/2022 Noted Allergy [...] use.Disp: 1 (more content not included)... Normal [facility] FLUABV + SARS-CoV-2 Pnl Resp BATSHEVA+prbon 10-12-2022 Influenza virus A and B RNA and SARS-CoV-2 (COVID-19) N gene panel BATSHEVA+probe (Resp) COVID 19 RESULT: Not detected The method used is RT-PCR or an equivalent NAAT method. Reference Range (the expected result in uninfected individuals): Not detected INFLUENZA A PCR: Not detected INFLUENZA B PCR: Not detected Normal [facility] Comment on above: Performed By: #### 9 5422-2 #### [facility] CLIA [id number] [address] [place] [address] [place] [address] [place] Vital Signs Date Time Vital Sign Value Performing Clinician Facility 02-15-2025 07:48-0400 Body temperature 98.4 [degF] Sally Gonzalez [employer]ERC[employer] Work Phone: [facility] 02-15-2025 07:48-0400 Diastolic blood pressure 57 mm[Hg] Sally Gonzalez [employer]ORSE EXERCISER-C Work Phone: [facility] 02-15-2025 07:48-0400 Heart rate 62 /min Sally Menard [employer]ORSE EXERCISER-C Work Phone: [facility] 02-15-2025 07:48-0400 Respiratory rate 16 /min Sally Menard [employer]ORSE EXERCISER-C Work Phone: [facility] 02-15-2025 07:48-0400 SaO2% (BldA) [Mass fraction] 97 % Sally Menard [employer]ORSE EXERCISER-C Work Phone: [facility] 02-15-2025 07:48-0400 Systolic blood pressure 102 mm[Hg] Sally Gonzalez [employer]ORSE EXERCISER-C Work Phone: [facility] 02-15-2025 06:20-0400 Body height 152.4 cm Sally Lisa [employer]ORSE EXERCISER-C Work Phone: [facility] 02-15-2025 06:20-0400 Body mass index (BMI) [Ratio] 34.9 kg/m2 Sally Lisa [employer]ORSE EXERCISER-C Work Phone: [facility] 02-15-2025 06:20-0400 Body weight 81 kg Sally Menard [employer]ORSE EXERCISER-C Work Phone: [facility] 06-05-2023 08:25-0500 Body temperature 98.2 [degF] [employer] Sally Myerspkins HORSE EXERCISER Work Phone: [facility] 06-05-2023 08:25-0500 Diastolic blood pressure 71 mm[Hg] [employer]ERC[employer]C Sally Gonzalez HORSE EXERCISER Work Phone: [facility] 06-05-2023 08:25-0500 Heart rate 67 /min [employer]ERC[employer]C Sally Myerspkins HORSE EXERCISER Work Phone: [facility] 06-05-2023 08:25-0500 Respiratory rate 18 /min [employer]ERC[employer] Sally Gonzalez HORSE EXERCISER Work Phone: [facility] 06-05-2023 08:25-0500 SaO2% (BldA) [Mass fraction] 97 % [employer] Sally Gonzalez HORSE EXERCISER Work Phone: [facility] 06-05-2023 08:25-0500 Systolic blood pressure 110 mm[Hg] [employer] EXERC[employer]ER[employer]C Sally Gonzalez HORSE EXERCISER Work Phone: [facility] 06-05-2023 07:13-0500 Body height 152.4 cm [employer]SE EXERCISER-C Sally Gonzalez HORSE EXERCISER Work Phone: [facility] 06-05-2023 07:13-0500 Body mass index (BMI) [Ratio] 36.5 kg/m2 [employer] Sally Myerspkins HORSE EXERCISER Work Phone: [facility] 06-05-2023 07:13-0500 Body weight 84.82 kg [employer]SE EXERCISER-C Sally Gonzalez HORSE EXERCISER Work Phone: [facility] 11-12-2022 15:10-0400 Body temperature 97 [degF] Dr. Jackson Roman Work Phone: [facility] 11-12-2022 15:10-0400 Diastolic blood pressure 68 mm[Hg] Dr. Jackson Roman Work Phone: [facility] 11-12-2022 15:10-0400 Heart rate 62 /min Dr. Jackson Roman Work Phone: [facility] 11-12-2022 15:10-0400 Respiratory rate 16 /min Dr. Jackson Roman Work Phone: [facility] 11-12-2022 15:10-0400 SaO2% (BldA) [Mass fraction] 93 % Dr. Jackson Roman Work Phone: [facility] 11-12-2022 15:10-0400 Systolic blood pressure 124 mm[Hg] Dr. Jackson Roman Work Phone: [facility] 11-12-2022 13:57-0400 Body height 167.[address] Jackson Roman Work Phone: [facility] 11-12-2022 13:57-0400 Body mass index (BMI) [Ratio] 30.2 kg/m2 Dr. Jackson Roman Work Phone: [facility] 11-12-2022 13:57-0400 Body weight [address] Jackson Roman Work Phone: [facility] 10-12-2022 10:51-0400 Body temperature 98.71 [degF] Jose Matthews APRN.BUSINESS SERVICES ASSOCIATE Work Phone: [facility] 10-12-2022 10:51-0400 Body weight 88.45 kg Jose Matthews APRN.BUSINESS SERVICES ASSOCIATE Work Phone: [facility] 10-12-2022 10:51-0400 Diastolic blood pressure 76 mm[Hg] Jose Matthews APRN.BUSINESS SERVICES ASSOCIATE Work Phone: [facility] 10-12-2022 10:51-0400 Heart rate 88 /min Jose Matthews APRN.BUSINESS SERVICES ASSOCIATE Work Phone: [facility] 10-12-2022 10:51-0400 Respiratory rate 18 /min Jose Matthews APRN.BUSINESS SERVICES ASSOCIATE Work Phone: [facility] 10-12-2022 10:51-0400 SaO2% (BldA) [Mass fraction] 96 % Jose Matthews APRN.BUSINESS SERVICES ASSOCIATE Work Phone: [facility] 10-12-2022 10:51-0400 Systolic blood pressure 132 mm[Hg] Jose Matthews [employer]TERY CHARGER.BUSINESS SERVICES ASSOCIATE Work Phone: [facility] Encounters Encounter Date Encounter Type Care Provider Facility Start: 05-16-2025 End: 05-20-2025 ambulatory SALLY GONZALEZ [employer]Y CHARGER - BUSINESS SERVICES ASSOCIATE Facility:[facility] Start: 05-16-2025 End: 05-20-2025 Outreach Lab SALLY Sinai LISA [employer] BATTERY CHARGER - BUSINESS SERVICES ASSOCIATE [facility] Start: 05-13-2025 End: 05-13-2025 ambulatory SALLY Sinai MYERSLISA [employer]GER - BUSINESS SERVICES ASSOCIATE Facility:[facility] Start: 05-13-2025 End: 05-13-[address] RANDY PICKERING DO [facility] Start: 04-28-2025 End: 04-28-2025 ambulatory SALLY MYERSPKINS [employer]GER - BUSINESS SERVICES ASSOCIATE Facility:[facility] Start: 04-28-2025 End: 04-28-2025 Patient encounter procedure SALLY GONZALEZ [employer] BATTERY CHARGER - BUSINESS SERVICES ASSOCIATE [facility] Start: 04-21-2025 End: 04-21-2025 ambulatory SALLY MYERSPKINS [employer] BATTERY CHARGER - BUSINESS SERVICES ASSOCIATE Facility:[facility] Start: 04-21-2025 End: 04-21-2025 Patient encounter procedure JACKSON JACKSON [employer] CHARGER-BUSINESS SERVICES ASSOCIATE [facility] Start: 04-13-2025 End: 04-13-[address] RANDY PICKERING DO Facility:[facility] Start: 04-13-2025 End: 04-13-[address] RANDY PICKERING DO [facility] Start: 04-13-2025 End: 04-17-2025 ambulatory SALLY GONZALEZ [employer] BATTERY CHARGER - BUSINESS SERVICES ASSOCIATE Facility:[facility] Start: 04-13-2025 End: 04-17-[address] RANDY PICKERING DO [facility] Start: 02-16-2025 End: 02-20-2025 ambulatory VIKY MILES [employer] BATTERY CHARGER-BUSINESS SERVICES ASSOCIATE Facility:[facility] Start: 02-16-2025 End: 02-20-2025 Outreach Lab VIKY MILES [employer] BATTERY CHARGER-BUSINESS SERVICES ASSOCIATE [facility] Start: 02-15-2025 Non-patient / Non-visit [facility] -[facility] Start: 02-15-2025 End: 02-15-2025 Admission to same day surgery center [facility] -Endoscopy Work Phone: Start: 02-15-2025 End: 02-15-2025 ambulatory Sally Gonzalez HORSE EXERCISER-C Work Phone: -Endoscopy Start: 12-03-2024 End: 12-03-2024 Patient encounter procedure [facility] DO -[facility] Work Phone: Start: 12-03-2024 End: 12-03-2024 ambulatory Sally Gonzalez HORSE EXERCISER-C Work Phone: [facility] Work Phone: Start: 11-02-2024 End: 11-02-2024 ambulatory Sally Gonzalez HORSE EXERCISER-C Work Phone: [facility] Work Phone: Start: 11-02-2024 End: 11-02-[address] Javier Conner MD -Laboratory Work Phone: Start: 11-02-2024 End: 11-02-2024 ambulatory Javire Conner Facility:[facility] Start: 10-18-2024 End: 10-18-2024 ambulatory HAMIDA GODINEZ [employer] BATTERY CHARGER-BUSINESS SERVICES ASSOCIATE Facility:[facility] Start: 09-28-2024 End: 09-28-2024 ambulatory Sally Gonzalez [employer]ORSE EXERCISER-C Work Phone: [facility] Work Phone: Start: 09-28-2024 End: 09-28-2024 Patient encounter procedure Sally Gonzalez HORSE EXERCISER-C -[facility] Work Phone: Start: 09-28-2024 End: 09-28-2024 ambulatory Sally Gnozalez HORSE EXERCISER Facility:[facility] Start: 09-17-2024 ambulatory SALLY WEIR [employer] BATTERY CHARGER - BUSINESS SERVICES ASSOCIATE Facility:[facility] Start: 06-15-2024 End: 06-15-2024 Patient encounter procedure Sally Gonzalez HORSE EXERCISER-C -Outpatient Bone Densitometry Work Phone: Start: 06-15-2024 End: 06-15-2024 ambulatory Sally Gonzalez HORSE EXERCISER Facility:[facility] Start: 05-12-2024 End: 05-12-2024 ambulatory Sally Gonzalez HORSE EXERCISER Facility:[facility] Start: 04-12-2024 End: 04-12-2024 [address] [facility] Facility:[facility] Start: 09-18-2023 End: 09-23-2023 ambulatory SALLY GONZALEZ [employer] BAT[employer]Y CHARGER - BUSINESS SERVICES ASSOCIATE Facility:[facility] Start: 09-18-2023 End: 09-22-2023 Outreach Lab SALLY GONZALEZ [employer] BATTERY CHARGER - BUSINESS SERVICES ASSOCIATE [facility] Start: 06-05-2023 Non-patient / Non-visit [employer]ERC[employer]ER-C Sally Gonzalez HORSE EXERCISER Work Phone: [facility] Start: 06-05-2023 End: 06-05-2023 Admission to same day surgery center [employer]ORSE EXERCISER-C Sally Gonzalez HORSE EXERCISER Work Phone: [facility]-Endoscopy Work Phone: Start: 06-05-2023 End: 06-05-2023 ambulatory HORSE EXERCISER-C Sally Gonzalez HORSE EXERCISER Work Phone: [facility] Work Phone: Start: 05-12-2023 End: 05-12-2023 ambulatory [facility] Work Phone: Start: 05-12-2023 End: 05-12-2023 Patient encounter procedure [facility]-Laboratory Work Phone: Start: 02-10-2023 End: 02-11-2023 ambulatory SALLY GONZALEZ [employer] BATTERY CHARGER - BUSINESS SERVICES ASSOCIATE Facility: Start: 11-12-2022 Non-patient / Non-visit Dr. Jackson Roman Work Phone: [facility] Start: 11-12-2022 End: 11-12-2022 Admission to same day surgery center Dr. Jackson Roman Work Phone: [facility]-Endoscopy Start: 11-12-2022 End: 11-12-[address] Jackson Roman Work Phone: [facility] Work Phone: Start: 10-24-2022 End: 10-24-[address] Jackson Roman Work Phone: [facility] Work Phone: Start: 10-24-2022 End: 10-24-[address] Jackson Roman Work Phone: [facility]-Laboratory Start: 10-13-2022 Telephone encounter Jose Matthews APRN.BUSINESS SERVICES ASSOCIATE Work Phone: [facility] Comment on above: Results Start: 10-12-2022 End: 10-12-2022 ambulatory SALLY GONZALEZ Facility:[facility] Start: 10-12-2022 End: 10-12-2022 Patient encounter procedure Jose Matthews APRN.BUSINESS SERVICES ASSOCIATE Work Phone: [facility] Comment on above: Acute cough (Primary Dx); Nasal congestion; URI, acute Start: 09-06-2022 End: 09-06-[address] Jackson Roman Work Phone: [facility] Start: 02-08-2022 End: 02-08-2022 Patient encounter procedure SALLY GONZALEZ [employer] BATTERY CHARGER - BUSINESS SERVICES ASSOCIATE [facility] Procedures Date Procedure Procedure Detail Performing Clinician Start: 02-15-2025 Esophagogastroduodenoscopy Sally Qureshi ins [employer]ORSE EXERCISER-C Work Phone: Start: 11-02-2024 AYDIN measurement Sally Gonzalez HORSE EXERCISER-C Work Phone: Comment on above: Performed at: [facility] [id number] Director: Ted Collins PhD, Phone: [phone] Start: 11-02-2024 Antibody to centromere measurement Jemima Gonzalez HORSE EXERCISER-C Work Phone: Comment on above: Test not performed Start: 11-02-2024 Antibody to extractable nuclear antigen measurement Sally Gonzalez HORSE EXERCISER-C Work Phone: Comment on above: Test not performed Start: 11-02-2024 Antibody to KYLEIGH-1 measurement Sally rose [employer]ORSE EXERCISER-C Work Phone: Comment on above: Test not performed Start: 11-02-2024 Antibody to lupus La protein measurement Sally Gonzalez HORSE EXERCISER-C Work Phone: Comment on above: Test not performed Start: 11-02-2024 Antibody to SS-A measurement Sally rose [employer]ORSE EXERCISER-C Work Phone: Comment on above: Test not performed Start: 11-02-2024 Autoantibody measurement Sally Rouse s [employer]ORSE EXERCISER-C Work Phone: Comment on above: Test not performed Start: 11-02-2024 Immunoglobulin M measurement Sally rose [employer]ORSE EXERCISER-C Work Phone: Start: 11-02-2024 Procedure Sally Gonzalez HORSE EXERCISER-C Work Phone: Comment on above: Test Ordered: [id number] Mannose Binding Lec tin (MBL)Test(s) 062839-[id number] Binding Lectin (MBL)This test was developed and its performance characteristicsdetermined by [employer]. It has not been cleared orapproved by the Food and Drug Administration.Mannose Binding Lectin (MBL) 2460 ng/mL Reference Range: . Low: 0 - 50 Intermediate: 51 - 500 Normal: >500Performed at: - Lab[address] [id number] Director: Mukund Marlow MD, Phone: [phone] at: [facility] [id number] Director: Ted Collins PhD, Phone: [phone] Start: 11-02-2024 CORRECTIONAL CASE RECORDS SUPERVISOR antibody measurement Sally Baldevstephane ríos HORSE EXERCISER-C Work Phone: Comment on above: Test not performed Start: 09-28-2024 Ultrasonography of breast Sally yepez [employer]ORSE EXERCISER-C Work Phone: Start: 09-28-2024 Vitamin D, 25-hydroxy measurement Pachecowon Gonzalez HORSE EXERCISER-C Work Phone: Comment on above: Vitamin D StatusDeficiency: <20 ng/mL (5 0nmol/L)Insufficiency: 20-30 ng/mL (50-75 nmol/L)Sufficiency: 30-100 ng/mL (75-250 nmol/L)Toxicity: >100 ng/mL (>250 nmol/L) Start: 06-15-2024 Dual energy X-ray absorptiometry Sally Gonzalez HORSE EXERCISER-C Work Phone: Start: 06-15-2024 Screening mammography Sally Lisa HORSE EXERCISER-C Work Phone: Start: 06-05-2023 Esophagogastroduodenoscopy [employer]ORSE EXERCISER-C Sally Goznalez HORSE EXERCISER Work Phone: Start: 11-12-[address] Jackson Roman Work Phone: Start: 03-31-2015 Mammography Jose Matthews APRN.BUSINESS SERVICES ASSOCIATE Work Phone: Start: 07-22-2011 Colonoscopy Jose Matthews APRN.BUSINESS SERVICES ASSOCIATE Work Phone: section JACKSON NEWMAN IN [employer] BATTERY CHARGER-BUSINESS SERVICES ASSOCIATE Sinus (morphologic abnormality) JACKSON JACKSON [facility] Structure of rotator cuff of right shoulder JACKSON J[facility]SON [facility] Plan of Treatment Date Care Activity Detail Author Start: 02-15-2025 Patient discharge [facility] Start: 06-05-2023 Patient discharge [facility] Start: 11-12-2022 Colonoscopy flexible with band ligation(s) COLONOSCOPY W/BAND LIGATION [facility] Start: 11-12-2022 Colonoscopy w/biopsy single/multiple COLONOSCOPY AND BIOPSY [facility] Start: 11-12-2022 Patient discharge [facility] Start: 10-12-2022 End: 10-26-2022 Influenza virus A and B RNA and SARS-CoV-2 (COVID-19) N gene panel - Respiratory specimen by BATSHEVA with probe detection COVID WITH FLUA+B, ROUTINE Microbiology Routine URI, acute Expected: 10/12/2022, Expires: 10/26/2022 [facility] Work Phone: Comment on above: Expected: 10/12/2022 , Expires: 10/26/2022 Start: 07-21-2022 ADVANCE DIRECTIVE DISCUSSION ADVANCE DIRECTIVE DISCUSSION [facility] Start: 07-21-2022 DEPRESSION ASSESSMENT DEPRESSION ASS ESSMENT [facility] Start: 03-21-2022 Influenza vaccination INFLUENZA (#1) [facility] Start: 2021 BONE DENSITY BONE DENSITY [facility] Start: 2021 PNEUMOCOCCAL: 65+ (1 - PCV) PNEUMOCOCCAL: 65+ (1 - PCV) [facility] Start: 07-22-2021 Colonoscopy COLONOSCOPY [facility] Start: 07-22-2021 COLORECTAL CANCER SCREENING COLORECTAL CANCER SCREENING [facility] Start: 01-13-2020 LIPID SCREEN LIPID SCREEN [facility] Start: 03-31-2016 Mammography MAMMOGRAM [facility] Start: 01-10-2012 DIABET[facility]CRE[facility] Start: 2006 SHINGRIX VACCINE (1 of 2) SHINGRIX VACCINE (1 of 2) [facility] Start: 2001 COLOGUARD (FIT-DNA) COLOGUARD (FIT-D NA) [facility] Start: [address] COLONOGRAPHY [facility] Start: 2001 FECAL OCCULT BLOOD FECAL OCCULT BLOO D [facility] Start: 2001 SIGMOIDOSCOPY SIGMOIDOSCOPY [facility] Start: 11-21-1975 Urine microalbumin profile DTAP,TDAP,TD (1 - Tdap) [facility] Start: 1974 HEPATITIS C SCREENING HEPATITIS C SC REENING [facility] Start: 1974 HIV SCREENING HIV SCREENING [facility] Start: [birth year]-23-1956 COVID-19 VACCINE (#1) COVID-19 VACCI NE (#1) [facility] Patient referral [facility] Work Phone: Procedure [facility] Immunizations Immunization Date Immunization Notes Care Provider Emery baltazar 05-08-2015 tetanus toxoid, redu dillon diphtheria toxoid, and acellular pertussis vaccine, adsorbed DR RANDY PICKERING DO [facility] Payers Date Payer Category Payer Self-pay [id number] 2021 Medicare AETNA MEDICARE A ETNA MEDICARE O [id number] 2021-Present [phone] [address] [place] [address] O [id number] 2017 Private Health Insurance [id number] 2011 Medicare [id number] 1955 Unknown [id number] 2.16.840.1.220159.3.579.2.6 1955 Unknown [id number] 2.16.840.1.827232.3.579.2.6 1956 Unknown [id number] 2.16.840.1.789599.3.579.2.6 1956 Unknown [id number] 2.16.840.1.346647.3.579.2.6 1956 Unknown [id number] 2.16.840.1.122189.3.579.2.6 1956 Unknown [id number] 2.16.840.1.079094.3.579.2.6 1956 Unknown [id number] 2.16.840.1.582118.3.579.2.6 1956 Unknown [id number] 2.16.840.1.632160.3.579.2.6 1956 Unknown [id number] 2.16.840.1.028647.3.579.2.6 1956 Unknown [id number] 2.16.840.1.204554.3.579.2.6 1956 Unknown [id number] 2.16.840.1.004733.3.579.2.6 27 Unknown [facility] [id number] Unknown [id number] 2.16.840.1.399479.3.579.2.4 62 Unknown [id number] 2.16.840.1.701418.3.579.2.4 62 Unknown [id number] 2.16.840.1.689171.3.579.2.4 62 Unknown [id number] 2.16.840.1.138260.3.579.2.4 62 Unknown [id number] 2.16.840.1.131162.3.579.2.4 62 Unknown [id number] 2.16.840.1.154721.3.579.2.4 62 Unknown [id number] 2.16.840.1.446524.3.579.2.4 62 Unknown [id number] 2.16.840.1.558211.3.579.2.4 62 Social History Date Type Detail Facility Start: 04-17-2020 End: 05-16-2025 Tobacco smoking status Never smoked tobacco (finding) [facility] Sex Assigned At [facility] Start: 10-12-2022 Tobacco use and exposure Smokeless tobacco non-user [facility] Work Phone: Start: 10-12-2022 Alcohol intake 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 (finding) [facility] Start: 10-12-2022 Alcohol intake [facility] Start: 1955 Sex Assigned At Not on file [facility] Start: 10-11-2022 End: 06-03-2023 Tobacco smoking status NHIS Unknown if ever smoked [facility] Start: 06-11-2022 Rare [facility] Start: 06-11-2022 None [facility] Start: 06-11-2022 Non-smoker [facility] Start: 1955 Sex Assigned At Female [facility] Start: 10-29-2013 End: 10-08-2024 Sex Female (finding) [facility] NEGATED: Highlighted row [facility] Goals Date Patient Goal Desired Activity /State Mental Status Date Assessment Result Facility 02-15-2025 Cognitive function Voice/Name [facility] Work Phone: 06-05-2023 Cognitive function Voice/Name;Touch/Shaki ng [facility] Work Phone: 11-12-2022 Cognitive function Voice/Name [facility] Work Phone: Clinical Notes 01-31-2022 to 05-18-2025 Note Date & Type Note Facility 05-18-2025 Note . MICRO - Microbiology PROCEDURE: Urine Culture [*1] SOURCE: Urine, Clean Catch BODY SITE: COLLECTED DATE/TIME: 05/16/2025 16:27 EDT RECEIVED DATE/TIME: 05/16/2025 18:59 EDT START DATE/TIME: 05/16/2025 19:00 EDT FREE TEXT SOURCE: FINAL REPORTS Final Report [] Verified Date/Time/Personnel: 05/18/2025 08:43 EDT >100,000 cfu/ml Escherichia coli PRELIMINARY REPORTS Preliminary Report [] Verified Date/Time/Personnel: 05/17/2025 10:24 EDT >100,000 cfu/ml Escherichia coli WILEY to follow Preliminary Report [] Verified Date/Time/Personnel: 05/16/2025 19:59 EDT Specimen received in lab. SUSCEPTIBILITY RESULTS Escherichia coli Antibiotic WILEY Dilut WILEY Inter Ampicillin >16 Resistant Ampicillin/ 16/8 Intermediate Sulbactam Aztreonam <=4 Susceptible Cefazolin <=2 Susceptible Cefepime <=2 Susceptible Ceftolozane/ <=2 Susceptible Tazobactam Ciprofloxacin 0.5 Intermediate Ertapenem <=0.5 Susceptible Gentamicin <=2 Susceptible ID Panel Not Not Applicable Applicable Imipenem <=1 Susceptible Levofloxacin <=0.5 Susceptible Meropenem <=1 Susceptible Minocycline <=4 Susceptible Nitrofurantoin <=32 Susceptible Piperacillin/ <=8 Susceptible Tazobactam Trimethoprim/ >2/38 Resistant Sulfa Performing Locations *1: This test was performed at: [address], [address] [place] [address] 04-21-2025 Note Exam Date Time Procedure Performing Provider Status 04/21/25 10:37 AM US Axilla Breast Right DESTINY ASHLEE Macedo MD; Auth (Verified) [id number] ORIGINAL FROM: [place] [address] PROCEDURE FOR: ADE Pulido [address] [address] Home: PID#: [id number] Exam#: [id number] : 1955 Age: 69 TO: JACKSON JACKSON [employer] [place] [address] Fax: NO FAX EXAMINATION: ULTRASOUND OF THE RIGHT AXILLA 04/21/2025 9:27 am TECHNIQUE: Color flow and reece scale targeted ultrasound of the right axilla were performed. Permanently stored images were reviewed. COMPARISON: 09/28/2024 HISTORY: ORDERING SYSTEM PROVIDED HISTORY: Reason for Exam: Palpable lump right axilla. Right axilla lymphadenopathy FINDINGS: In the right axilla corresponding to the area palpable clinical concern there is a 1.9 by 1 x 1.5 cm lymph node with a normal fatty hilum and smooth thin cortex. No other significant finding. IMPRESSION: Lymph node in the right axilla corresponding the area of palpable clinical concern, this is consistent with a benign reactive lymph node. Clinical follow up is recommended. The patient may return to annual mammographic screening. [facility], generated with the history provided, report this patient's 10 year risk and lifetime risk for developing breast cancer at 4.9% and 8.8%, respectively. Based on this assessment tool, if the patient's calculated lifetime risk is below 20%, then the patient is considered at average risk for developing breast cancer. If the patient's calculated lifetime risk is at or above 20%, then the patient is considered high risk for developing breast cancer and may be a candidate for supplemental breast MRI screening in addition to annual mammographic screening per the [employer]. BIRADS: BI-RADS: 2: Benign RECALL: 1 year screening RECALL TYPE: mammo LETTER SENT: Normal BI-RADS 1 and 2 Interpreted by: Lucila Shukla MD Preliminary Report By: Lucila Shukla MD Electronically signed By Lucila Shukla MD Dictated Date: 04/21/2025 10:42:11 AM Prelim Date: 04/21/2025 10:45:05 AM Sign Date: 04/21/2025 10:45:05 AM Ordering Provider: JACKSON JACKSON RP Precision Filer Hand: JAGRUTI REESE RT (R, CT), RDMS letter sent: Normal BI-RADS 1 and 2 Ultrasound BI-RADS: 2 Benign [facility]10-02-2025 Note* Exam Date Time Procedure Performing Provider Status 04/21/25 9:45 AM MA Mammo Diagnostic Bilateral w/LUCILA March MD; Auth (Verified) [id number] ORIGINAL FROM: [place] [id number] PROCEDURE FOR: ADE Pulido [address] [place] [address] Home: PID#: [id number] Exam#: [id number] : 1955 Age: 69 TO: JACKSON Faviola REN[place] [employer] [facility] [address] [facility] [address] [place], [place] [address] Fax: NO FAX EXAMINATION: DIAGNOSTIC BILATERAL MAMMOGRAM WITH TOMOSYNTHESIS, 04/21/2025 9:26 am TECHNIQUE: Tomosynthesis was performed as part of the diagnostic bilateral mammogram. 2D standard and 3D tomosynthesis combination imaging performed. Current study was also evaluated with a Computer Aided Detection (CAD) system. COMPARISON: 09/28/2024 ultrasound 01/08/2024 mammogram HISTORY: ORDERING SYSTEM PROVIDED HISTORY: Reason for Exam: Right axilla enlarged lymph node FINDINGS: BREAST DENSITY: There are scattered areas of fibroglandular density. No significant masses, calcifications, or other findings. IMPRESSION: No mammographic findings to correlate with the patient's palpable lump. An ultrasound will be performed today and will be reported separately. Tyrdominga Cuzick risk calculations, generated with the history provided, report this patient's 10 year risk and lifetime risk for developing breast cancer at 4.9% and 88.8%, respectively. Based on this assessment tool, if the patient's calculated lifetime risk is below 20%, then the patient is considered at average risk for developing breast cancer. If the patient's calculated lifetime risk is at or above 20%, then the patient is considered high risk for developing breast cancer and may be a candidate for supplemental breast MRI screening in addition to annual mammographic screening per the [employer]. BIRADS: BI-RADS: 0: Incomplete: Need Additional Imaging Evaluation RECALL: immediate RECALL TYPE: US LETTER SENT: Normal-Needs additional work up BI-RADS 0 Interpreted by: Lucila Shukla MD Preliminary Report By: Lucila Shukla MD Electronically signed By Lucila Shukla MD Dictated Date: 04/21/2025 10:25:36 AM Prelim Date: 04/21/2025 10:30:28 AM Sign Date: 04/21/2025 10:30:28 AM Ordering Provider: JACKSON JACKSON RP Precision Filer Hand: SANDY CARTER RT(R)(M)(CT) letter sent: Normal-Needs additional work up BI-RADS 0 Mammogram BI-RADS: 0 Needs additional imaging evaluation [facility]09-26-2025 Note. MICRO - Microbiology PROCEDURE: Urine Culture [*1] SOURCE: Urine BODY SITE: COLLECTED DATE/TIME: 04/13/2025 15:11 EDT RECEIVED DATE/TIME: 04/14/2025 16:07 EDT START DATE/TIME: 04/14/2025 16:07 EDT FREE TEXT SOURCE: FINAL REPORTS Final Report [] Verified Date/Time/Personnel: 04/15/2025 14:10 EDT 10,000 - 50,000 cfu/ml Mixed growth consistent with normal urogenital jaret. PRELIMINARY REPORTS Preliminary Report [] Verified Date/Time/Personnel: 04/14/2025 16:59 EDT Specimen received in lab. Performing Locations *1: This test was performed at: [facility], [address] [place] [address], [facility] , [facility]08-01-2025 Note. MICRO - Microbiology PROCEDURE: Urine Culture [*1] SOURCE: Urine, Clean Catch BODY SITE: COLLECTED DATE/TIME: 02/16/2025 13:45 EDT RECEIVED DATE/TIME: 02/16/2025 19:07 EDT START DATE/TIME: 02/16/2025 19:08 EDT FREE TEXT SOURCE: FINAL REPORTS Final Report [] Verified Date/Time/Personnel: 02/18/2025 06:45 EDT >100,000 cfu/ml Escherichia coli ESBL Extended-Spectrum B-Lactamase isolate may be clinically resistant to therapy with Penicillins, Cephalosporinsor Aztreonam despite apparent in vitro susceptibility to some of these agents. Use of Imipenem is currently restricted to Infectious Disease /Intensivists. Please consult Physicians accordingly. PRELIMINARY REPORTS Preliminary Report [] Verified Date/Time/Personnel: 02/17/2025 10:18 EDT >100,000 cfu/ml Escherichia coli WILEY to follow Preliminary Report [] Verified Date/Time/Personnel: 02/16/2025 19:59 EDT Specimen received in lab. SUSCEPTIBILITY RESULTS Escherichia coli ESBL Antibiotic WILEY Dilut WILEY Inter Ampicillin >16 Resistant Ampicillin/ <=4/2 Resistant Sulbactam Aztreonam 16 Resistant Cefazolin >16 Resistant Cefepime 16 Resistant Ceftolozane/ <=2 Susceptible Tazobactam Ceftriaxone >32 Suspected ESBL Skidder Driver Cefuroxime >16 Resistant Ciprofloxacin >2 Resistant Ertapenem <=0.5 Susceptible Gentamicin >8 Resistant ID Panel Not Not Applicable Applicable Imipenem <=1 Susceptible Levofloxacin >4 Resistant Meropenem <=1 Susceptible Minocycline <=4 Susceptible Nitrofurantoin <=32 Susceptible Tobramycin 4 Susceptible Trimethoprim/ <=0.5/9.5 Susceptible Sulfa Performing Locations *1: This test was performed at: [address], [address] , [facility]07-29-2025 Consult note [facility] Medical Records Department [address] [place] [address] Anesthesia Postop Eval I 02/15/25729 MR#: [id number] Acct: [id number] Name: ADE VILLAR Rep #:[id number] : 1955 69 From: Rao Duong PCP: VINAY Acevedo Sta tus:REG SDC Y Race: C Location: [place] [address] Anesthesia: Postop Eval I Current Vital Signs Temperature: 98.4 F Pulse Rate: 62 Blood Pressure: 102/57 Respiratory Rate: 16 Pulse Ox: 97 Oxygen Delivery Method: Room Air Assessment Airway patent: Yes Spontaneous unlabored respirations: Yes Mental status: Awake and Calm nausea: No Vomiting: No Anesthesia Complication: No Fluid Hydration Crystalloid volume administer (ml): 300 Total IV fluid infused: 300 Progress Note Anesthesia document: Postop Eval 1 completed: Yes 02/15/25 0748 > Date _ Rao Duong Cosigner Signature: Date CC: ~ Signed [facility]07-29-2025 Procedure note [facility] Medical Records Department [address] [place] [address] EGD Report MR#: [id number] Acct: [id number] Name: ADE VILLAR Rep #:[id number] : 1955 69 From: Mt Hope DO PCP: VINAY Acevedo tus:REG SDC Patient Name: Ade Villar Procedure Date: 02/15/2025 7:02 AM Date of : 1955 Age: 69 Procedure: Upper GI endoscopy Indications: Follow-up of Wright's esophagus Providers: Mt Hope DO Medicines: Monitored Anesthesia Care Patient Profile: This is a 69 year old female. Refer to note in patient chart for documentation of history and physical. Patient has symptoms of chronic heartburn. Complications: No immediate complications. Procedure: Pre-Anesthesia Assessment: - Prior to the procedure, a History and Physical was performed, and patient medications and allergies were reviewed. The patient is competent. The risks and benefits of the procedure and the sedation options and risks were discussed with the patient. All questions were answered and informed consent was obtained. Patient identification and proposed procedure were verified by the physician in the pre-procedure area. Mental Status Examination: alert and oriented. Airway Examination: normal oropharyngeal airway and neck mobility. Respiratory Examination: clear to auscultation. CV Examination: normal. Prophylactic Antibiotics: The patient does not require prophylactic antibiotics. Prior Anticoagulants: The patient has taken no anticoagulant or antiplatelet agents except for NSAID medication. ASA Grade Assessment: II - A patient with mild systemic disease. After reviewing the risks and benefits, the patient was deemed in satisfactory condition to undergo the procedure. The anesthesia plan was to use monitored anesthesia care (MAC). Immediately prior to administration of medications, the patient was re-assessed for adequacy to receive sedatives. The heart rate, respiratory rate, oxygen saturations, blood pressure, adequacy of pulmonary ventilation, and response to care were monitored throughout the procedure. The physical status of the patient was re-assessed after the procedure. After obtaining informed consent, the endoscope was passed under direct vision. Throughout the procedure, the patient's blood pressure, pulse, and oxygen saturations were monitored continuously. The gastroscope was introduced through the mouth, and advanced to the second part of duodenum. The upper GI endoscopy was accomplished without difficulty. The patient tolerated the procedure well. 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 The maximum longitudinal extent of these mucosal changes was 2 cm in length. Mucosa was biopsied with a cold forceps for histology in a targeted manner at intervals of 1 cm in the lower third of the esophagus. One specimen bottle was sent to pathology. Verification of patient identification for the specimen was done. Estimated blood loss was minimal. The entire examined stomach was normal. The examined duodenum was normal. Impression: - Esophageal mucosal changes secondary to established short-segment Wright's disease. Biopsied. - Normal stomach. - Normal examined duodenum. Recommendation: - Discharge patient to home. - Resume previous diet. - Continue present medications. - Await pathology results. Procedure Code(s): --- Professional --- 87901, Esophagogastroduodenoscopy, flexible, transoral; with biopsy, single or multiple CPT copyright 2021 [employer]. All rights reserved. The codes documented in this report are preliminary and upon manufacturing area manager review may be revised to meet current compliance requirements. Mt Hope DO 02/15/2025 7:20:47 AM This report has been signed electronically. Number of Addenda: 0 Note Initiated On: 02/15/2025 7:02 AM 02/15/25 0721 Date _ Mt Dow Signature: Date (if indicated) CC: HORSE EXERCISER-C Sally Killian Lisa; Mt Hope DO ~ Date Dictated: 02/15/25701 Date Transcribed: Branch Manager: OLEGARIO Signed [facility]07-29-2025 Procedure note [facility] Medical Records Department [address] [address] Provation Physician Letter MR#: [id number] Acct: [id number] Name: ADE VILLAR Rep #:[id number] : 1955 69 From: Mt Hope DO PCP: VINAY Acevedo tus:REG SDC 02/15/2025 Sally Gonzalez Re : Upper GI endoscopy procedure for Ade Villar Dear Lisa This procedure was performed on Friday, February 15, 2025. My impressions and recommendations are as follows: Impressions : - Esophageal mucosal changes secondary to established short-segment Wright's disease. Biopsied. - Normal stomach. - Normal examined duodenum. Recommendations : - Discharge patient to home. - Resume previous diet. - Continue present medications. - Await pathology results. My findings are described in the full procedure note, which is enclosed. If I can be of further assistance, please feel free to contact me at . Sincerely, Mt Hope DO 02/15/2025 7:20:47 AM This report has been signed electronically. 02/15/25720 Date _ Mt Dow Signature: Date (if indicated) CC: VINAY Hope DO ~ Date Dictated: 02/15/25701 Date Transcribed: Branch Manager: OLEGARIO Signed [facility]07-29-2025 Consult note [facility] Medical Records Department [address] [place] [address] Pre-Anesthesia Evaluation 02/15/25 0659 MR#: [id number] Acct: [id number] Name: ADE VILLAR Rep #:[id number] : 1955 69 From: Jax Bowles MD PCP: Sally Gonzalez, HORSE EXERCISERSherine Maher tus:REG SDC Y Race: C Location: [place] [address] ASA Classification* ASA Classification ASA Classification: 2 Assessment & Plan Anesthesia* Anesthesia Assessment Anesthesia Assessment: Discussed sedation and/or anesthesia options, risks, benefits, and alternatives with patient/parents/legal guardian/POA. Questions invited. The patient/parents/legal guardian/POA seems to understand and agrees to proceedwith anesthesia plan. Reviewed the physical assessment, medical history, allergy history and patient home medications list prior to surgery/procedure/anesthetic and documented any changes. Performed airway and anesthesia risk assessments. Anesthesia Type Anesthesia Type: MAC History Source History Obtained from:: Patient and Chart Anesthesia Focused Assessment* Temperature: 99.0 F Pulse Rate: 76 Blood Pressure: 146/74 Respiratory Rate: 16 Pulse Ox: 99 Oxygen Delivery Method: Room Air Airway Assessment Mouth opens: >3 cm Mallampati Score: I Teeth Condition: Caps/Crowns (Patient has couple caps on the front incisor. They are tight.) Neck Range of motion (ROM): Full ROM Labs Anesthesia Preop lab: CBC WBC 8.2 K/mm3 (4.4-11.0) 11/02/24 11:14 11/02/24 RBC 4.60 M/mm3 (4.2-5.4) 11/02/24 11:14 11/02/24 Hgb 13.9 g/dL (12.0-15.0) 11/02/24 11:14 11/02/24 Hct 41.6 % (37-47) 11/02/24 11:14 11/02/24 Plt Count 383 K/mm3 (150-450) 11/02/24 11:14 11/02/24 CHEMISTRY Potassium 3.5 mmol/L (3.3-5.1) 11/02/24 11:14 11/02/24 Sodium 137 mmol/L (133-145) 11/02/24 11:14 11/02/24 BUN 10 mg/dL (4-19) 11/02/24 11:14 11/02/24 Creatinine 0.75 mg/dL (0.70-1.20) 11/02/24 11:14 11/02/24 Glucose 92 mg/dL (70-99) 11/02/24 11:14 11/02/24 TSH 0.58 uIU/mL (0.358-3.74) 10/04/20 15:33 COAG Pre-Assessment Diagnosis/Proposed Procedure Planned Operative Procedure(s): EGD Anesthesia History Anesthesia History - staff midwife: Anesthesia History - staff midwife Hx Hospitalization No 02/09/25 12:36 Any Problems With Anesthesia No 02/09/25 12:36 Cholinesterase deficiency No 02/09/25 12:36 You/Your Family Experience No 02/09/25 12:36 fever (hyperthermia) with Relationship Recent Exposure to Contagious No 02/15/25 06:20 Disease Does patient have nerve No 02/09/25 12:36 stimulator Patient instructed to have device shut off --Does patient have Pacemaker No 02/15/25 06:20 or ICD? When Was Last Pacemaker Check QUESTION #4 FULL TEXT: You/Your Family Experience fever (hyperthermia) with Anesthesia Last Oral Intake Last Oral intake: Last Oral Intake NPO since 18:30 02/15/25 06:20 Meds taken in AM with sips of No 02/15/25 06:20 water? Meds patient instructed to take am of surgery PONV PONV - staff midwife: PONV - staff midwife Female Yes 02/09/25 12:36 HX of Motion Sickness No 02/09/25 12:36 HX of N/V After Surgery No 02/09/25 12:36 Non-Smoker No 02/09/25 12:36 Duration of Surgery greater No 02/09/25 12:36 than 60 minutes Number of Risk Factors 1 02/09/25 12:36 PONV Score Low Risk 02/09/25 12:36 Height & Weight Height & Weight: Anesthesia: Height & Weight Height 5 ft 02/15/25 06:20 Weight: 81 kg 02/15/25 06:20 Body Mass Index (BMI) 34.9 02/15/25 06:20 Respiratory Assessment Respiratory Assessment - staff midwife: Respiratory Tract Infection Hx - staff midwife Hx Respiratory Tract Infection No 02/09/25 12:36 STOP Sleep Apnea STOP Sleep Apnea - staff midwife: STOP Sleep Apnea - staff midwife Hx Hypertension Yes: CONTROLLED WITH MED 02/09/25 12:36 Hx Sleep Apnea No 02/09/25 12:36 CPAP BIPAP Do you snore loudly (louder Yes 02/09/25 12:36 than talking or can be heard Do you often feel tired/ Yes 02/09/25 12:36 fatigued/ sleepy during daytime? Has anyone observed you stop Yes 02/09/25 12:36 breathing during sleep? STOP Results Positive 02/09/25 12:36 QUESTION #5 FULL TEXT : Do you snore loudly (louder than talking or can be heard through closeddoors)? Tobacco Use History Tobacco Use History - staff midwife: Tobacco Use History - staff midwife Tobacco Use Non-smoker 06/11/22 16:22 Smoking Status Never smoker 02/09/25 12:36 Hx Tobacco Use No 02/09/25 12:36 Years Smoking Packs Smoked per Day Smoking Cessation Date was within the last 15 years Hx Smoking Cessation Date Hx Smoking Cessation Counseling Hematologic Medial History Hematologic Hx - staff midwife: Hematologic Medical Hx - registered radiation therapist Hx of Blood Transfusion No 02/09/25 12:36 Hx of Transfusion in last 3 No 02/09/25 12:36 Months Date of Last Transfusion (if within last 3 months) Ever experience any problems No 02/09/25 12:36 with transfusion(s)? Specify any problems Hx of Preganancy in last 3 No 02/09/25 12:36 Months Nurse Filling Out Transfusion DSCHRIBER 02/09/25 12:36 & Questions: Date: 02/09/25 02/09/25 12:36 Time: 12:38 02/09/25 12:36 Patient unable to answer at this time (ie. confused, unrespo /Reproduction History /Reproductive History - staff midwife: /Reproductive Hx- staff midwife Hx Now Gestational Age (in weeks): EDC: Hx Hx Para Hx Section SAB No 02/09/25 12:36 Active Medications Active Medications: Current Medications Generic Name Dose Route Start Last Admin Trade Name Freq PRN Reason Stop Dose Admin Lactated Ringer's 1,000 mls @ 15 mls/hr 02/15/25 06:15 02/15/25 06:25 IV 15 mls/hr .Q48H PALMA Administration PFSH Medical History Gastric reflux Leg cramps Anxiety Arthritis Wears glasses Post-menopausal Depression Bladder disease Restless legs Non-smoker Shortness of breath on exertion History of edema History of stress test Cardiology follow-up encounter Diverticulitis Lymphadenopathy, axillary HTN (hypertension) [place] (generalized anxiety disorder) Rectal prolapse Hemorrhoids Diverticulosis of sigmoid colon Home Medications ?Medication ?Instructions ?Recorded ?Last Taken ?Type hydrochlorothiazide 25 mg tablet 25 mg PO DAILY 02/14/25 History loratadine 10 mg tablet (Claritin) 10 mg PO DAILY 11/1802/14/25 History omeprazole 20 mg capsule,delayed 20 mg PO QDAY 4 02/14/25 History release hydrocortisone acetate 25 mg 25 mg RI QHS 21 days #12 ea 12/03/24 Unknown Rx rectal suppository cholecalciferol (vitamin D3) 25 25 mcg PO DAILY Unknown History mcg (1,000 unit) capsule (Vitamin D3) fluoxetine 20 mg capsule 20 mg PO DAILY 02/09/2501/19 History Allergy/AdvReac Type Severity Reaction Status Date / Time CAT Inhibitors Allergy Intermediate Other Verified 02/09/25 12:35 erythromycin base AdvReac Upset Verified 02/09/25 12:35 Stomach Family History Sister Breast cancer Hypertension Thyroid disorder Father Kidney disease Mother Thyroid disorder Surgical History Hx of esophagogastroduodenoscopy Hx of colonoscopy Hx of rotator cuff surgery History of Social History Smoking Status: Never smoker Review of Systems (Anesthesia) ROS Narrative System reviewed and no additional complaints, except as documented. 02/15/25704 jessica MENDEZ> Date _ Jax Sullivan Signature: Date CC: ~ Signed [facility]07-29-2025 History and physical note [facility] Medical Records Department [address] [place] [address] History & Physical Exam 02/15/25 0653 MR#: [id number] Acct: [id number] Name: ADE VILLAR Rep #:[id number] : 1955 69 From: Mt Friend PCP: VINAY Acevedo tus:[facility] [place] Location: [place] [address] HPI - General General Date of Admission: 02/15/25 Date of Service: 02/15/25 Chief Complaint: wright's esophagus HPI Narrative ADE VILLAR, is a 69 F who presents for surveillance of Wright's esophagus. *BGI established 09.06.22 with referral from PCP. Constipation (straining with difficulty initiatingBM that is relieved with manual manipulation. Stool is then soft/formed but thin, BM occur daily) is an issue recently with subsequent intermittent BRBPR with concern for hemorrhoids, rectal pain andfecal smearing approximately 3 times a week, though not consistent. Focuses on increased dietary fiber following diverticulitis; if she does not feel she gets enough during the day she supplements with Metamucil. Has noted decreased movement r/t husbands? recent hospitalizations. Colonoscopy 11.12.22 colonic diverticulosis; congested mucosa; nonbleeding internal hemorrhoids, banded. Random biopsy TA. OV 11.27.22 BM in the morning with initial incomplete evacuation and second evacuation with complete; no straining but will sometimes use perineal pressure, but not as often. Bleeding has resolved. Notes some chronic urinary difficulty whichshe has discussed with PCP and will follow up with PCP and/or urology in the future. Contact 04.14.23 reporting being seen by ENT who said she needed EGD for hoarse voice; also reports pain with swallowing. ? EGD 06.05.23 short-segment Wright?s, metaplasia +; medium hiatalhernia; gastritis; duodenal metaplasia. H.Pylori neg. OV 07.01.23 continues to have some pain with swallowing; reports recent family emergency with family member being life-flighted. Reports a lot of anxiety/stress/depression of recent months and this could be the reason she continues to have pain with swallowing and epigastric upset. Has a concern that a hemorrhoid has returned; she has been having difficult BM as she has not been consistent with her fiber intake. OV 5. pt reports that she has been experiencing fecal incontinence when sheis moving around during her day; reports this [...] feeling well overall and denies GI symptoms ofconcern at this time. Pt states that she has occasional gas and bloating and will take a Gas-X which she reports is effective. OV .- Pt states she is well since last visit. States she has a hemorrhoid that has flared up due to eating some prunes. Continues with Omeprazole 20mg QD.Denies heartburn, abd pain, dysphagia N&V. [facility] Medical History Gastric reflux Leg cramps Anxiety Arthritis Wears glasses Post-menopausal Depression Bladder disease Restless legs Non-smoker Shortness of breath on exertion History of edema History of stress test Cardiology follow-up encounter Diverticulitis Lymphadenopathy, axillary HTN (hypertension) DAKOTA (generalized anxiety disorder) Rectal prolapse Hemorrhoids Diverticulosis of sigmoid colon Home Medications ?Medication ?Instructions ?Recorded ?Last Taken ?Type hydrochlorothiazide 25 mg tablet 25 mg PO DAILY 02/14/25 History loratadine 10 mg tablet (Claritin) 10 mg PO DAILY 11/1802/14/25 History omeprazole 20 mg capsule,delayed 20 mg PO QDAY 4 02/14/25 History release hydrocortisone acetate 25 mg 25 mg RI QHS 21 days #12 ea 12/03/24 Unknown Rx rectal suppository cholecalciferol (vitamin D3) 25 25 mcg PO DAILY Unknown History mcg (1,000 unit) capsule (Vitamin D3) fluoxetine 20 mg capsule 20 mg PO DAILY 02/09/2501/19 History Allergy/AdvReac Type Severity Reaction Status Date / Time CAT Inhibitors Allergy Intermediate Other Verified 02/09/25 12:35 erythromycin base AdvReac Upset Verified 02/09/25 12:35 Stomach Family History Sister Breast cancer Hypertension Thyroid disorder Father Kidney disease Mother Thyroid disorder Surgical History Hx of esophagogastroduodenoscopy Hx of colonoscopy Hx of rotator cuff surgery History of Social History Smoking Status: Never smoker ROS Constitutional Constitutional: Denies fatigue, fever(s), poor appetite, weight gain or weight loss Gastrointestinal Gastrointestinal: Denies belching, bloating, change in bowel habits, change in stool character, chewing difficulty, coffee ground emesis, constipation, cramping, diarrhea, dyspepsia, dysphagia, earlysatiety, excessive flatus, fecalincontinence, heartburn, hematemesis, hematochezia, hemorrhoids, loose stools, melena, nausea, odynophagia, rectal bleeding, tenesmus, vomiting or weight changes Vital Signs Vital Signs Vital Signs: 02/15/25 06:20 02/15/25 06:20 Temperature 99.0 F Temperature Source Temporal Pulse Rate 76 Respiratory Rate 16 Respiratory Pattern Normal Blood Pressure 146/74 H Blood Pressure Mean 98 Blood Pressure Source Monitor Blood Pressure Position Sitting Blood Pressure Location Left Arm Pulse Ox 99 Oxygen Delivery Method Room Air Weight Weight: 178 lb 9.191 oz Body Mass Index (BMI) 34.9 Physical Exam Const alert, oriented x3, no apparent distress and healthy appearing General Appearance: cooperative GI normal to inspection, nondistended, normoactive bowel sounds, soft to palpation,non-tender and non-distended Percussion: normal to percussion Rectal Exam: deferred Assessment & Plan Assessment/Plan (1) Barretts esophagus: QUALIFIERS: Wright's esophagus type: without dysplasia QualifiedCode(s): K22.70 - Wright's esophagus without dysplasia (2) Dysphagia: QUALIFIERS: Dysphagia type: esophageal phase Qualified Code(s): R13.19 - Other dysphagia PLAN: Assessment and Plan Assessment and Plan (1) Acute hemorrhoid: Status: Acute Plan: I will send her hydrocortisone suppositories. (2) Barretts esophagus: Status: Acute Qualifiers: Wright's esophagus type: without dysplasia Qualified Code(s): K22.70 -Wright's esophagus without dysplasia Plan: She will need surveillance upper endoscopy in approximately 6 months for short segment Wright's esophagus. (3) Dysphagia: Status: Chronic Qualifiers: Dysphagia type: esophageal phase Qualified Code(s): R13.19 - Other dysphagia Plan: This is alot better on PPI therapy after dilation of the distal esophagus. (4) Constipation: Status: Chronic Qualifiers: Constipation type: slow transit constipation Qualified Code(s): K59.01 - Slow transit constipation Plan: Constipation secondary to hemorrhoidal disease status post banding. She has a history of chronic idiopathic constipation that is likely secondary to slow transit constipation with the presence of a pelvic floor dysfunction with perineal manipulation in order to have a complete evacuation. That is alot better and she is having 2 bowel [...] in 5 years. Continue current bowel regimen. (5) Fecal incontinence: Status: Acute Plan: Patient is stable since she has fecal incontinence and stress incontinence. I think she may have a pelvic floor problem. We will check a CT scan abdomen pelvis to evaluate her pelvic floor and also get CT scan of the abdomen pelvis. She will also undergo a sits marker test and stool testing for exocrine pancreatic insufficiency. Medications: New hydrocortisone acetate 25 mg RI QHS 12 ea 2RF 21 days 02/15/25 0655 Cosigner Signature (if applicable): CC: VINAY Gonzalez; [place], DO~ Signed [facility]07-29-2025 [facility] Medical Records Department [address] [place] [address] History Physical Exam 02/15/25 0653 MR#: [id number] Acct: [id number] Name: ADE VILLAR Rep #: [id number] : 1955 69 From: Mt Hope DO PCP: VINAY Acevedo Status:REG [facility] [place] Location: [place] [address] HPI - General General Date of Admission: 02/15/25 Date of Service: 02/15/25 Chief Complaint: wright's esophagus HPI Narrative ADE VILLAR, is a 69 F who presents for surveillance of Wright's esophagus. *BGI established 09.06.22 with referral from PCP. [...] pain with swallowing. ? EGD 06.05.23 short-segment Wright???s, metaplasia +; medium hiatal hernia; gastritis; duodenal metaplasia. H.Pylori neg. OV 07.01.23 continues to have some pain with swallowing; reports recent family emergency with family member being life-flighted. Reports a lot of anxiety/stress/depression of recent months and this c ould be the reason she continues to have pain with swallowing and epigastric upset. Has a concern that a hemorrhoid has returned; she has been having difficult BM as she has not been consistent with her fiber intake. OV 5.. pt reports that she has been experiencing [...] Gas-X which she reports is effective. OV ..- Pt states she is well since last visit. States she has a hemorrhoid that has flared up due to eating some prunes. Continues with Omeprazole 20mg QD. Denies heartburn, abd pain, dysphagia N V. [facility] Medical History Gastric reflux Leg cramps Anxiety Arthritis Wears glasses Post-menopausal Depression Bladder disease Restless legs Non-smoker Shortness of breath on exertion History of edema History of stress test Cardiology follow-up encounter Diverticulitis Lymphadenopathy, axillary HTN (hypertension) DAKOTA (generalized anxiety disorder) Rectal prolapse Hemorrhoids Diverticulosis of sigmoid colon Home Medications ???Medication ???Instructions ???Recorded ???Last Taken ???Type hydrochlorothiazide 25 mg tablet 25 mg PO DAILY 07/12/20 02/14/25 H istory loratadine 10 mg tablet (Claritin) 10 mg PO DAILY 12/05/23 02/14/25 History omeprazole 20 mg capsule,delayed 20 mg PO QDAY 04/12/24 02/14/25 Hi story release hydrocortisone acetate 25 mg 25 mg RI QHS 21 days #12 ea Unknown Rx rectal suppository cholecalciferol (vitamin D3) 25 25 mcg PO DAILY 02/09/25 Unknown H istory mcg (1,000 unit) capsule (Vitamin D3) fluoxetine 20 mg capsule 20 mg PO DAILY 02/09/25 02/14/25 H istory Allergy/AdvReac Type Severity Reaction Status Date / Time CAT Inhibitors Allergy Intermediate Other Verified 02/09/25 12:35 erythromycin base AdvReac Upset Verified 02/09/25 12:35 Stomach Family History Sister Breast cancer Hypertension Thyroid disorder Father Kidney disease Mother Thyroid disorder Surgical His (more content not included)...[facility]05-16-2025 Evaluation note* Diagnosis Onset Date Resolution Status Admit Date Acute hemorrhoid acute November 8:37am Barretts esophagus acute December 032024 8:37am Fecal incontinence acute December 032024 8:37am Constipation chronic December 03 8:37am Dysphagia chronic December 03, 2024 8:37am Barretts esophagus acute January 192024 5:58am Dysphagia chronic February 15 5:58am [facility] Work Phone: [phone]) 691-793403-11-2025 Radiology Diagnostic study note [facility] Imaging Services [address] [place] [address] Breast Limited Unilateral MR#: [id number] Acct: [id number] Name: ADE VILLAR Rep #: [id number] : 1955 F 68 From: Genna Rodriguez MD PCP: VINAY Acevedo Status: REG CLI Study:Breast Limited Unilateral Date of Exam: 09/28/24 Exam# [id number] Ordering Dr: Sally Gonzalez NP HORSE EXERCISER-C PROCEDURE: BREAST LIMITED UNILATERAL REASON FOR EXAM: [...] node with preserved fatty derrell and normalcortical thickness,measuring 2.4 x 1.3 x 0.7 cm. Otherwise, there are no suspicious sonographic findings. US/Breast Limited Unilateral IMPRESSION: Palpable area of concern with associated pain in the right axilla correlates to a normal right axillary lymph node. There are no suspicious sonographic findings. BI-RADS 2: BENIGN. RECOMMEND ANNUAL MAMMOGRAPHIC SCREENING. Follow-up code: Routine Follow-up Reading Location: [id number] CC: VINAY Gonzalez ~ Branch Manager: Signed [facility]03-02-2024 Note. MICRO - Microbiology PROCEDURE: Urine Culture [*1] [...] Locations *1: This test was performed at: [facility], [address] [place] [address], [address] , Formerly [facility] ([place])06-05-2023 [facility] Procedure [facility]04-25-2023 Procedure [facility]03-26-2023 Miscellaneous Notes* Telephone Encounter - Kaley Hendricks - 10/13/2022 8:24 AM EDT Patient given results and verbalized understanding of instructions given. Kaley Meka * Telephone Encounter - Jose Matthews APRN.CNP - 10/13/2022 8:12 AM EDT Patient was negative for COVID and flu. Please notify thank you documented [facility]-2023 NoteHNO ID: [id number] Author: Jose Matthews APRN.DEANDRE Service: ? Author [...] Problem Relation Age of Onset Heart Father CA Thyroid Mother Hypertension Sister Hypertension Sister Thyroid [...] Patient agreeable to treatment plan. Jose Matthews APRN.[facility]03-25-2023 History of Present illness Narrative* Jose Matthews APRN.[facility] - 10/12/2022 11:09 AM EDT CC: Patient presents with: Sinus Problem: drainage [...] Wt 88.5 kg (195 lb) LMP 10/29/2006 HiG393% BMI 32.95 kg/m General appearance: alert, cooperative, [...] Problem Relation Age of Onset Heart Father CA Thyroid Mother Hypertension Sister Hypertension Sister Thyroid [...] Patient agreeable to treatment plan. Jose Matthews APRN.BUSINESS SERVICES ASSOCIATE documented in this encounterKind[facility]07-22-2022 Note ORIGINAL FROM: [address] [address] PROCEDURE FOR: ADE VILLAR [address] [facility] [place] [address] Home: PID#: [id number] Exam#: [id number] : 1955 Age: 66 TO: SALLY GONZALEZ [employer] BUSINESS SERVICES ASSOCIATE [address] [facility] [address] [place], [place] [address] Fax: NO FAX EXAMINATION: SCREENING DIGITAL BILATERAL [...] 02/08/2022 2:55:39 PM Ordering Provider: SALLY GONZALEZ Precision Filer Hand: ELY ROGERS RT (R) (M) (CT) letter sent: Normal BI-RADS 1 and 2 Mammogram BI-RADS: 2 [facility]07-22-2022 Note ORIGINAL FROM: [address] [address] PROCEDURE FOR: ADE Pulido DUTY [address] [place] [address] Home: PID#: [id number] Exam#: [id number] : 1955 Age: 66 TO: SALLY GONZALEZ [employer] BUSINESS SERVICES ASSOCIATE [address] [address] Fax: NO FAX EXAMINATION: SCREENING DIGITAL BILATERAL [...] 02/08/2022 2:55:39 PM Ordering Provider: SALLY GONZALEZ Precision Filer Hand: ELY ROGERS RT (R) (M) (CT) letter sent: Normal BI-RADS 1 and 2 Mammogram BI-RADS: 2 Benign [facility]07-14-2022 Evaluation + Plan note Future Scheduled Tests Laboratory* Lipid Profile 01/31/22 * Complete Metabolic Panel 01/31/22 [facility] Consult note [facility] Note Date/Time February 15, 2025 7:05 am [facility] Medical Records Department [address] [place] [address] Pre-Anesthesia Evaluation 02/15/25 0659 MR#: [id number] Acct: [id number] Name: ADE VILLAR Rep #:[id number] : 1955 69 From: Jax Bowles MD PCP: VINAY Acevedo Sta tus:REG SDC Y Race: C Location: [place] [address] ASA Classification* ASA Classification ASA Classification: 2 Assessment & Plan Anesthesia* Anesthesia Assessment Anesthesia Assessment: Discussed sedation and/or anesthesia options, risks, benefits, and alternatives with patient/parents/legal guardian/POA. Questions invited. The patient/parents/legal guardian/POA seems to understand and agrees to proceedwith anesthesia plan. Reviewed the physical assessment, medical history, allergy history and patient home medications list prior to surgery/procedure/anesthetic and documented any changes. Performed airway and anesthesia risk assessments. Anesthesia Type Anesthesia Type: MAC History Source History Obtained from:: Patient and Chart Anesthesia Focused Assessment* Temperature: 99.0 F Pulse Rate: 76 Blood Pressure: 146/74 Respiratory Rate: 16 Pulse Ox: 99 Oxygen Delivery Method: Room Air Airway Assessment Mouth opens: >3 cm Mallampati Score: I Teeth Condition: Caps/Crowns (Patient has couple caps on the front incisor. They are tight.) Neck Range of motion (ROM): Full ROM Labs Anesthesia Preop lab: CBC WBC 8.2 K/mm3 (4.4-11.0) 11/02/24 11:14 11/02/24 RBC 4.60 M/mm3 (4.2-5.4) 11/02/24 11:14 11/02/24 Hgb 13.9 g/dL (12.0-15.0) 11/02/24 11:14 11/02/24 Hct 41.6 % (37-47) 11/02/24 11:14 11/02/24 Plt Count 383 K/mm3 (150-450) 11/02/24 11:14 11/02/24 CHEMISTRY Potassium 3.5 mmol/L (3.3-5.1) 11/02/24 11:14 11/02/24 Sodium 137 mmol/L (133-145) 11/02/24 11:14 11/02/24 BUN 10 mg/dL (4-19) 11/02/24 11:14 11/02/24 Creatinine 0.75 mg/dL (0.70-1.20) 11/02/24 11:14 11/02/24 Glucose 92 mg/dL (70-99) 11/02/24 11:14 11/02/24 TSH 0.58 uIU/mL (0.358-3.74) 10/04/20 15:33 COAG Pre-Assessment Diagnosis/Proposed Procedure Planned Operative Procedure(s): EGD Anesthesia History Anesthesia History - staff midwife: Anesthesia History - staff midwife Hx Hospitalization No 02/09/25 12:36 Any Problems With Anesthesia No 02/09/25 12:36 Cholinesterase deficiency No 02/09/25 12:36 You/Your Family Experience No 02/09/25 12:36 fever (hyperthermia) with Relationship Recent Exposure to Contagious No 02/15/25 06:20 Disease Does patient have nerve No 02/09/25 12:36 stimulator Patient instructed to have device shut off --Does patient have Pacemaker No 02/15/25 06:20 or ICD? When Was Last Pacemaker Check QUESTION #4 FULL TEXT: You/Your Family Experience fever (hyperthermia) with Anesthesia Last Oral Intake Last Oral intake: Last Oral Intake NPO since 18:30 02/15/25 06:20 Meds taken in AM with sips of No 02/15/25 06:20 water? Meds patient instructed to take am of surgery PONV PONV - staff midwife: PONV - staff midwife Female Yes 02/09/25 12:36 HX of Motion Sickness No 02/09/25 12:36 HX of N/V After Surgery No 02/09/25 12:36 Non-Smoker No 02/09/25 12:36 Duration of Surgery greater No 02/09/25 12:36 than 60 minutes Number of Risk Factors 1 02/09/25 12:36 PONV Score Low Risk 02/09/25 12:36 Height & Weight Height & Weight: Anesthesia: Height & Weight Height 5 ft 02/15/25 06:20 Weight: 81 kg 02/15/25 06:20 Body Mass Index (BMI) 34.9 02/15/25 06:20 Respiratory Assessment Respiratory Assessment - staff midwife: Respiratory Tract Infection Hx - staff midwife Hx Respiratory Tract Infection No 02/09/25 12:36 STOP Sleep Apnea STOP Sleep Apnea - staff midwife: STOP Sleep Apnea - staff midwife Hx Hypertension Yes: CONTROLLED WITH MED 02/09/25 12:36 Hx Sleep Apnea No 02/09/25 12:36 CPAP BIPAP Do you snore loudly (louder Yes 02/09/25 12:36 than talking or can be heard Do you often feel tired/ Yes 02/09/25 12:36 fatigued/ sleepy during daytime? Has anyone observed you stop Yes 02/09/25 12:36 breathing during sleep? STOP Results Positive 02/09/25 12:36 QUESTION #5 FULL TEXT : Do you snore loudly (louder than talking or can be heard through closed doors)? Tobacco Use History Tobacco Use History - staff midwife: Tobacco Use History - staff midwife Tobacco Use Non-smoker 06/11/22 16:22 Smoking Status Never smoker 02/09/25 12:36 Hx Tobacco Use No 02/09/25 12:36 Years Smoking Packs Smoked per Day Smoking Cessation Date was within the last 15 years Hx Smoking Cessation Date Hx Smoking Cessation Counseling Hematologic Medial History Hematologic Hx - staff midwife: Hematologic Medical Hx - registered radiation therapist Hx of Blood Transfusion No 02/09/25 12:36 Hx of Transfusion in last 3 No 02/09/25 12:36 Months Date of Last Transfusion (if within last 3 months) Ever experience any problems No 02/09/25 12:36 with transfusion(s)? Specify any problems Hx of Preganancy in last 3 No 02/09/25 12:36 Months Nurse Filling Out Transfusion DSCHRIBER 02/09/25 12:36 & Questions: Date: 02/09/25 02/09/25 12:36 Time: 12:38 02/09/25 12:36 Patient unable to answer at this time (ie. confused, unrespo /Reproduction History /Reproductive History - staff midwife: /Reproductive Hx- staff midwife Hx Now Gestational Age (in weeks): EDC: Hx Hx Para Hx Section SAB No 02/09/25 12:36 Active Medications Active Medications: Current Medications Generic Name Dose Route Start Last Admin Trade Name Freq PRN Reason Stop Dose Admin Lactated Ringer's 1,000 mls @ 15 mls/hr 02/15/25 06:15 02/15/25 06:25 IV 15 mls/hr .Q48H PALMA Administration PFSH Medical History Gastric reflux Leg cramps Anxiety Arthritis Wears glasses Post-menopausal Depression Bladder disease Restless legs Non-smoker Shortness of breath on exertion History of edema History of stress test Cardiology follow-up encounter Diverticulitis Lymphadenopathy, axillary HTN (hypertension) DAKOTA (generalized anxiety disorder) Rectal prolapse Hemorrhoids Diverticulosis of sigmoid colon Home Medications ?Medication ?Instructions ?Recorded ?Last Taken ?Type hydrochlorothiazide 25 mg tablet 25 mg PO DAILY 02/14/25 History loratadine 10 mg tablet (Claritin) 10 mg PO DAILY 11/1802/14/25 History omeprazole 20 mg capsule,delayed 20 mg PO QDAY 4 02/14/25 History release hydrocortisone acetate 25 mg 25 mg RI QHS 21 days #12 ea 12/03/24 Unknown Rx rectal suppository cholecalciferol (vitamin D3) 25 25 mcg PO DAILY Unknown History mcg (1,000 unit) capsule (Vitamin D3) fluoxetine 20 mg capsule 20 mg PO DAILY 02/09/2501/19 History Allergy/AdvReac Type Severity Reaction Status Date / Time CAT Inhibitors Allergy Intermediate Other Verified 02/09/25 12:35 erythromycin base AdvReac Upset Verified 02/09/25 12:35 Stomach Family History Sister Breast cancer Hypertension Thyroid disorder Father Kidney disease Mother Thyroid disorder Surgical History Hx of esophagogastroduodenoscopy Hx of colonoscopy Hx of rotator cuff surgery History of Social History Smoking Status: Never smoker Review of Systems (Anesthesia) ROS Narrative System reviewed and no additional complaints, except as documented. 02/15/25704 <Electronically signed by Jax lopez MD> Date _ Jax Bowles MD Sullivan Signature: Date CC: ~ Signed [facility] Work Phone: Consult note Author AA Rao Duong [facility] Note Date/Time February 15, 2025 7:48 am [facility] Medical Records Department [address] [place] [address] Anesthesia Postop Eval I 02/15/25729 MR#: [id number] Acct: [id number] Name: ADE VILLAR Rep #:[id number] : 1955 69 From: Rao Duong PCP: Sally Gonzalez, HORSE EXERCISER-C Sta tus:REG SD Y Race: C Location: [place] [address] Anesthesia: Postop Eval I Current Vital Signs Temperature: 98.4 F Pulse Rate: 62 Blood Pressure: 102/57 Respiratory Rate: 16 Pulse Ox: 97 Oxygen Delivery Method: Room Air Assessment Airway patent: Yes Spontaneous unlabored respirations: Yes Mental status: Awake and Calm nausea: No Vomiting: No Anesthesia Complication: No Fluid Hydration Crystalloid volume administer (ml): 300 Total IV fluid infused: 300 Progress Note Anesthesia document: Postop Eval 1 completed: Yes 02/15/25747 <Electronically signed by Rao Duong > Date _ Rao Sullivan Signature: Date CC: ~ Signed [facility] Work Phone: Evaluation + Plan note Future Appointments Appointment Date:11/03/2023 02:00:00 PM Scheduled Provider:SALLY GONZALEZ APRN, CNP Location:[employer] [facility] Appointment Type:PC OV Follow Up Future Scheduled Tests Laboratory* Stool Culture 09/28/23 * Clostridium difficile toxin A and B (PCR) (AO) 09/28/23 * Complete Blood Count 09/28/23 * Complete Metabolic Panel 09/28/23 Radiology* XR Sinuses Paranasal Minimum 3 Views 09/28/23 [facility] Evaluation + Plan note Future Appointments Appointment Date:05/16/2025 01:00:00 PM Scheduled Provider:SALLY GONZALEZ APRN, CNP Location:[facility] [facility] Appointment Type:PC OV Follow Up Future Scheduled Tests Laboratory* A1C Hemoglobin 05/04/24 * Lipid Profile 05/17/25 * Lipid Profile 05/04/24 * Albumin/Creatinine Ratio, Random Urine 11/15/24 * Albumin/Creatinine Ratio, Random Urine 05/17/25 * Vitamin D Level 05/17/25 * Complete Metabolic Panel 05/17/25 * Complete Metabolic Panel 05/04/24 Radiology* MA Mammo Diagnostic Right w/ Fantasma 09/20/24 * BD Bone Density DEXA Axial Skeleton Adult (21 yrs or older) 05/17/24 * MA Mammogram Diagnostic Bilateral w/o Fantasma 09/20/24 * US Breast Bilateral Complete 09/20/24 * US Breast Right Complete 09/20/24 * MA Mammogram Screening Bilateral Routine w/o Fantasma 05/17/24 [facility] Evaluation + Plan note Future Appointments Appointment Date:05/16/2025 01:00:00 PM Scheduled Provider:SALLY GONZALEZ APRN, CNP Location:[facility] Appointment Type:PC OV Follow Up Future Scheduled Tests Laboratory* Urine Culture 04/13/25 * A1C Hemoglobin 05/04/24 * Lipid Profile 05/17/25 * Albumin/Creatinine Ratio, Random Urine 05/17/25 * Vitamin D Level 05/17/25 * Complete Metabolic Panel 05/17/25 Radiology* MA Mammo Diagnostic Right w/ Fantasma 09/20/24 * BD Bone Density DEXA Axial Skeleton Adult (21 yrs or older) 05/17/24 * MA Mammogram Diagnostic Bilateral w/o Fantasma 09/20/24 * US Breast Bilateral Complete 09/20/24 * US Breast Right Complete 09/20/24 * MA Mammogram Screening Bilateral Routine w/o Fantasma 05/17/24 [facility] Evaluation + Plan note Future Appointments Appointment Date:04/18/2025 01:40:00 PM Scheduled Provider:ANNA SANDOVAL MD Location:[facility] Appointment Type: HORSE EXERCISER Appointment Date:05/16/2025 01:00:00 PM Scheduled Provider:SALLY GONZALEZ CONVEYOR LINE BATTERY CHARGER - BUSINESS SERVICES ASSOCIATE Location:[employer] [facility] Appointment Type:PC OV Follow Up Future Scheduled Tests Laboratory* A1C Hemoglobin 05/04/24 * Lipid Profile 05/17/25 * Albumin/Creatinine Ratio, Random Urine 05/17/25 * Vitamin D Level 05/17/25 * Complete Metabolic Panel 05/17/25 Radiology* MA Mammo Diagnostic Right w/ Fantasma 09/20/24 * BD Bone Density DEXA Axial Skeleton Adult (21 yrs or older) 05/17/24 * MA Mammogram Diagnostic Bilateral w/o Fantasma 09/20/24 * US Breast Bilateral Complete 09/20/24 * US Breast Right Complete 09/20/24 * MA Mammogram Screening Bilateral Routine w/o Fantasma 05/17/24 [facility] Evaluation + Plan note Future Appointments Appointment Date:04/28/2025 01:10:00 PM Scheduled Provider:ANNA SANDOVAL MD Location:[facility] Appointment Type: OV Check after Mammogram Appointment Date:05/16/2025 01:00:00 PM Scheduled Provider:SALLY GONZALEZ CONVEYOR LINE BATTERY CHARGER - BUSINESS SERVICES ASSOCIATE Location:[employer] [facility] Appointment Type:PC OV Follow Up Future Scheduled Tests Laboratory* A1C Hemoglobin 05/04/24 * Lipid Profile 05/17/25 * Albumin/Creatinine Ratio, Random Urine 05/17/25 * Vitamin D Level 05/17/25 * Complete Metabolic Panel 05/17/25 Radiology* MA Mammo Diagnostic Right w/ Fantasma 09/20/24 * BD Bone Density DEXA Axial Skeleton Adult (21 yrs or older) 05/17/24 * MA Mammogram Diagnostic Bilateral w/o Fantasma 09/20/24 * US Breast Bilateral Complete 09/20/24 * US Breast Right Complete 09/20/24 * MA Mammogram Screening Bilateral Routine w/o Fantasma 05/17/24 [facility] evaluation + Plan note Future Appointments Appointment Date:05/16/2025 01:00:00 PM Scheduled Provider:SALLY GONZALEZ APRN - DEANDRE Location:[employer] [facility] Appointment Type: OV Follow Up Appointment Date:09/01/2025 01:00:00 PM Scheduled Provider:ANNA SANDOVAL MD Location:[facility] Appointment Type: OV Follow Up Future Scheduled Tests Laboratory* A1C Hemoglobin 05/04/24 Radiology* MA Mammo Diagnostic Right w/ Fantasma 09/20/24 * BD Bone Density DEXA Axial Skeleton Adult (21 yrs or older) 05/17/24 * MA Mammogram Diagnostic Bilateral w/o Fantasma 09/20/24 * US Breast Bilateral Complete 09/20/24 * US Breast Right Complete 09/20/24 * CT Abdomen and Pelvis w/o contrast 04/22/25 * MA Mammogram Screening Bilateral Routine w/o Fantasma 05/17/24 [facility] Evaluation + Plan note Future Appointments Appointment Date:05/16/2025 01:00:00 PM Scheduled Provider:SALLY GONZALEZ APRN, CNP Location:[employer] Appointment Type: OV Follow Up Appointment Date:09/01/2025 01:00:00 PM Scheduled Provider:ANNA SANDOVAL MD Location:[facility] Appointment Type: OV Follow Up Future Scheduled Tests Laboratory* A1C Hemoglobin 05/04/24 Radiology* MA Mammo Diagnostic Right w/ Fantasma 09/20/24 * BD Bone Density DEXA Axial Skeleton Adult (21 yrs or older) 05/17/24 * MA Mammogram Diagnostic Bilateral w/o Fantasma 09/20/24 * US Breast Bilateral Complete 09/20/24 * US Breast Right Complete 09/20/24 * MA Mammogram Screening Bilateral Routine w/o Fantasma 05/17/24 [facility] evaluation + Plan note Future Appointments Appointment Date:09/01/2025 01:00:00 PM Scheduled Provider:ANNA SANDOVAL MD Location:[facility] Appointment Type:GS OV Follow Up Appointment Date:11/14/2025 01:00:00 PM Scheduled Provider:SALLY GONZALEZ APRN DEANDRE Location:[facility] Appointment Type:PC OV Follow Up Future Scheduled Tests Laboratory* A1C Hemoglobin 05/04/24 * Lipid Profile 11/14/25 * Albumin/Creatinine Ratio, Random Urine 11/14/25 * Vitamin D Level 11/14/25 * Complete Metabolic Panel 11/14/25 Radiology* MA Mammo Diagnostic Right w/ Fantasma 09/20/24 * MA Mammogram Diagnostic Bilateral w/o Fantasma 09/20/24 * US Breast Bilateral Complete 09/20/24 * US Breast Right Complete 09/20/24 [facility] Evaluation note* Diagnosis Acute cough- Primary Nasal congestion Other diseases of nasal cavity and sinuses URI, acute Acute upper respiratory infections of unspecified site documented in this [facility] Onset Date Resolution Status Constipation chronic [facility] Work Phone: Evaluation noteNo assessment information available [facility] Work Phone: History and physical note Author [facility] November 12, 2022 2:24pm Note Date/Time November 12, 2022 2:2 4pm [facility] Medical Records Department [address] [place] [id number] History & Physical Exam 11/12/22 1423 MR#: [id number] Acct: [id number] Name: ADE VILLAR Rep #:[id number] : 1955 66 From: [facility] DO PCP: Sally Gonzalez, HORSE EXERCISER-C Sta tus:[facility] Location: [place] [address] History and Physical Date of Admission: 11/12/22 66 F who presents to the office today for Initial consult. GI Hx diverticulitis with hospitalization. PMH anxiety, HTN, hyperinflation of lung, axillary lymphadenopathy Colonoscopy approximately 8-10 years prior without polyps. *BGI established 2.. with referral from PCP. Constipation (straining with [...] Appearance: average body habitus and well nourished [facility] Head: normal to inspection Ears: hearing grossly [...] Affect: normal affect Quality Reporting Tobacco Screening ([facility] 138) Smoking Status: Never smoker Assessment [...] no clinicalchanges since date of exam. 11/12/22 1424 <Electronically signed by Mt Hope DO> Cosigner Signature (if applicable): CC: VINAY Gonzalez; [facility] Hope DO~ Signed [facility] Work Phone: History and physical note Author [facility] Hope [facility] June 05, 2023 7:10am Note Date/Time June 05, 2023 7:10am [facility] Medical Records Department [address] [place] [address] History & Physical Exam 06/05/23 0710 MR#: [id number] Acct: [id number] Name: ADE VILLAR Rep #:[id number] : 1955 67 From: [facility] DO PCP: VINAY Acevedo Sta tus:[facility] Location: [place] [address] History and Physical Date of Admission: 06/05/23 [...] decreased movement r/t husbands? recent hospitalizations. Colonoscopy 11.12.22 colonic diverticulosis; congested RS through splenic flexureand [...] Appearance: average body habitus and well nourished [facility] Head: normal to inspection Ears: hearing grossly [...] Affect: normal affect Quality Reporting Tobacco Screening ([facility] 138) Smoking Status: Never smoker Assessment [...] CC: VINAY Gonzalez; [facility] DO~ Signed [facility] Work Phone: History and physical note Author [facility] Hope [facility] Note Date/Time February 15, 2025 6:55 am [facility] Medical Records Department [address] [place] [id number] History & Physical Exam 02/15/25 0653 MR#: [id number] Acct: [id number] Name: ADE VILLAR Rep #:[id number] : 1955 69 From: [facility] DO PCP: VINAY Acevedo Sta tus:[facility] Location: [place] [address] HPI - General General Date of Admission: 02/15/25 Date of Service: 02/15/25 Chief Complaint: wright's esophagus HPI Narrative ADE VILLAR, is a 69 F who presents for surveillance of Wright's esophagus. *BGI established 2. with referral from PCP. Constipation (straining with [...] decreased movement r/t husbands? recent hospitalizations. Colonoscopy 11.12.22 colonic diverticulosis; congested mucosa; nonbleeding internal hemorrhoids, banded. Random biopsy TA. OV 11.27.22 BM in the morning with initial incomplete evacuation and second evacuation with complete; no straining but will sometimes use perineal pressure, but not as often. Bleeding has resolved. Notes some chronic urinary difficulty whichshe has discussed with PCP and will follow up with PCP and/or urology in the future. Contact 04.14.23 reporting being seen by ENT who said she needed EGD for hoarse voice; also reports pain with swallowing. ? EGD 06.05.23 short-segment Wright?s, metaplasia +; medium hiatalhernia; gastritis; duodenal metaplasia. H.Pylori neg. OV 07.01.23 continues to have some pain with swallowing; reports recent family emergency with family member being life-flighted. Reports a lot of anxiety/stress/depression of recent months and this could be the reason she continues to have pain with swallowing and epigastric upset. Has a concern that a hemorrhoid has returned; she has been having difficult BM as she has not been consistent with her fiber intake. OV 12.05.23 pt reports that she has been experiencing fecal incontinence when sheis moving around during her day; reports this [...] the mid to distal descending colon. OV 9.23.24 pt reports that she is feeling well overall and denies GI symptoms ofconcern at this time. Pt states that she has occasional gas and bloating and will take a Gas-X which she reports is effective. OV 5.16.25- Pt states she is well since last visit. States she has a hemorrhoid that has flared up due to eating some prunes. Continues with Omeprazole 20mg QD.Denies heartburn, abd pain, dysphagia N&V. PFSH Medical History Gastric reflux Leg cramps Anxiety Arthritis Wears glasses Post-menopausal Depression Bladder disease Restless legs Non-smoker Shortness of breath on exertion History of edema History of stress test Cardiology follow-up encounter Diverticulitis Lymphadenopathy, axillary HTN (hypertension) [place] (generalized anxiety disorder) Rectal prolapse Hemorrhoids Diverticulosis of sigmoid colon Home Medications ?Medication ?Instructions ?Recorded ?Last Taken ?Type hydrochlorothiazide 25 mg tablet 25 mg PO DAILY 02/14/25 History loratadine 10 mg tablet (Claritin) 10 mg PO DAILY 11/1802/14/25 History omeprazole 20 mg capsule,delayed 20 mg PO QDAY 4 02/14/25 History release hydrocortisone acetate 25 mg 25 mg RI QHS 21 days #12 ea 12/03/24 Unknown Rx rectal suppository cholecalciferol (vitamin D3) 25 25 mcg PO DAILY Unknown History mcg (1,000 unit) capsule (Vitamin D3) fluoxetine 20 mg capsule 20 mg PO DAILY 02/09/2501/19 History Allergy/AdvReac Type Severity Reaction Status Date / Time CAT Inhibitors Allergy Intermediate Other Verified 02/09/25 12:35 erythromycin base AdvReac Upset Verified 02/09/25 12:35 Stomach Family History Sister Breast cancer Hypertension Thyroid disorder Father Kidney disease Mother Thyroid disorder Surgical History Hx of esophagogastroduodenoscopy Hx of colonoscopy Hx of rotator cuff surgery History of Social History Smoking Status: Never smoker ROS Constitutional Constitutional: Denies fatigue, fever(s), poor appetite, weight gain or weight loss Gastrointestinal Gastrointestinal: Denies belching, bloating, change in bowel habits, change in stool character, chewing difficulty, coffee ground emesis, constipation, cramping, diarrhea, dyspepsia, dysphagia, early satiety, excessive flatus, fecalincontinence, heartburn, hematemesis, hematochezia, hemorrhoids, loose stools, melena, nausea, odynophagia, rectal bleeding, tenesmus, vomiting or weight changes Vital Signs Vital Signs Vital Signs: 02/15/25 06:20 02/15/25 06:20 Temperature 99.0 F Temperature Source Temporal Pulse Rate 76 Respiratory Rate 16 Respiratory Pattern Normal Blood Pressure 146/74 H Blood Pressure Mean 98 Blood Pressure Source Monitor Blood Pressure Position Sitting Blood Pressure Location Left Arm Pulse Ox 99 Oxygen Delivery Method Room Air Weight Weight: 178 lb 9.191 oz Body Mass Index (BMI) 34.9 Physical Exam Const alert, oriented x3, no apparent distress and healthy appearing General Appearance: cooperative GI normal to inspection, nondistended, normoactive bowel sounds, soft to palpation,non-tender and non-distended Percussion: normal to percussion Rectal Exam: deferred Assessment & Plan Assessment/Plan (1) Barretts esophagus: QUALIFIERS: Wright's esophagus type: without dysplasia QualifiedCode(s): K22.70 - Wright's esophagus without dysplasia (2) Dysphagia: QUALIFIERS: Dysphagia type: esophageal phase Qualified Code(s): R13.19 - Other dysphagia PLAN: Assessment and Plan Assessment and Plan (1) Acute hemorrhoid: Status: Acute Plan: I will send her hydrocortisone suppositories. (2) Barretts esophagus: Status: Acute Qualifiers: Wright's esophagus type: without dysplasia Qualified Code(s): K22.70 -Wright's esophagus without dysplasia Plan: She will need surveillance upper endoscopy in approximately 6 months for short segment Wright's esophagus. (3) Dysphagia: Status: Chronic Qualifiers: Dysphagia type: esophageal phase Qualified Code(s): R13.19 - Other dysphagia Plan: This is alot better on PPI therapy after dilation of the distal esophagus. (4) Constipation: Status: Chronic Qualifiers: Constipation type: slow transit constipation Qualified Code(s): K59.01 - Slow transit constipation Plan: Constipation secondary to hemorrhoidal disease status [...] in 5 years. Continue current bowel regimen. (5) Fecal incontinence: Status: Acute Plan: Patient is stable since she has fecal incontinence and stress incontinence. I think she may have a pelvic floor problem. We will check a CT scan abdomen pelvis to evaluate her pelvic floor and also get CT scan of the abdomen pelvis. She will also undergo a sits marker test and stool testing for exocrine pancreatic insufficiency. Medications: New hydrocortisone acetate 25 mg RI QHS 12 ea 2RF 21 days 02/15/25 0655 <Electronically signed by [facility] Hope DO> Cosigner Signature (if applicable): CC: VINAY Gonzalez; Mt Hope DO~ Signed [facility] Work Phone: Hospital course Narrative No data available for this section [facility] Hospital Discharge instructions No data available for this section [facility] Progress note No data available for this section [facility] Reason for referral (narrative)No reason for referral information availableW[facility] Work Phone: Health Concerns Infection [...] Date/ Time Name of Medical Power of Deep Well Contractor SPOUSE October 11, 2022 9:07am Living Will Yes October 11, 2022 9:07am Power of Deep Well Contractor Yes October 11 9:07am Advance Directive Response Recorded Date/ Time Living Will Yes October 11, 2022 9:07am Power of Deep Well Contractor Yes October 11 9:07am Advance Directive Response Recorded Date/ Time Living Will No June 03 9:40am Power of Deep Well Contractor No June 03, 2023 9:40am Advance Directive Response Recorded Date/ Time Living Will No June 03 10:40am Do you have a Healthcare Power of Deep Well Contractor? No June 03, 2023 10:40am Advance Directive Response Recorded Date/ Time Do you have a Healthcare Power of Deep Well Contractor? No February 09, 2025 12:36pm Chief Complaint and Reason for Visit Chief [...] M FU December 03, 2024 8:37a m Chief Complaint Admit Date 6 M FU December 03, 2024 8:37a m Reason for Visit Admit Date Acute hemorrhoid December 03, 2024 8:37a m Barretts esophagus December 03, 2024 8:37a m Fecal incontinence December 03, 2024 8:37a m Constipation December 03, 2024 8:37a m Dysphagia December 03, 2024 8:37a m Barretts esophagus February 15, 2025 5:58 am Dysphagia February 15, 2025 5:58 am Additional Source Comments Care Team (unrecognized sect ion and content) Care Team Personnel Name: SALLY GONZALEZ CONVEYOR LINE BATTERY CHARGER - BUSINESS SERVICES ASSOCIATE Position: P4 Advanced Practice Nurse Med Service: Employed Provider Member Role: Primary Care Physician Address: Address: [address], [place] [address] Care Team Related Persons Name: PATTY VILLAR Source Comments (unrecognize d section and content) In the event this informatio n is protected by the Federal Confidentiality of Alcohol and Drug Abuse Patient Records regulations: The Federal rules restrict any use of the information to criminally investigate or prosecute any alcohol or drug abuse patient.[facility] the event this information is protected by the Federal Confidentiality of Alcohol and Drug Abuse Patient Records regulations: The Federal rules restrict any use of the information to criminally investigate or prosecute any alcohol or drug abuse patient.[facility] Reason for Visit (unrecogniz ed section and content) Reason Comments Sinus Problem drainage and right e ar pain x 3 days Reason Comments Results Care Teams (unrecognized sec tion and content) Change Control Coordinator Relationship Specialty Start Date End Date Sally Gonzalez, BUSINESS SERVICES ASSOCIATE [address] [place] [address] PCP - General Family Medicine 12/19/15 Change Control Coordinator Relationship Specialty Start Date End Date Sally Gonzalez, BUSINESS SERVICES ASSOCIATE [address] [place] [address] PCP - General Family Medicine 12/19/15 Team Status: Active Member Role Status Dates Sally Gonzalez HORSE EXERCISER, HORSE EXERCISER-C Family Provider Activ e Sally Gonzalez HORSE EXERCISER, HORSE EXERCISER-C Primary Care Provider Active Team Status: Inactive Member Role Status Dates Dr. Jackson Roman MD Primary Care Provider, Referring Provider Active Dr. Mt Friend , DO Attending Provider Active Team Status: Active Member Role Status Dates Sally Gonzalez HORSE EXERCISER, HORSE EXERCISER-C Primary Care Provider, Referring Provider Active Dr. Mt Hope DO Attending Provider, Other Prov ider Active Team Status: Inactive Member Role Status Dates Sally Gonzalez HORSE EXERCISER, HORSE EXERCISER-C Primary Care Provider, Referring Provider Active Dr. Mt Hope , Attending Provider Active Team Status: Active Member Role Status Dates Sally Gonzalez HORSE EXERCISER, HORSE EXERCISER-C Primary Care Provider, Attending Provider, Referring Provider Active Team Status: Inactive Member Role Status Dates Sally Gonzalez HORSE EXERCISER, HORSE EXERCISER-C Primary Care Provider, Attending Provider, Referring Provider Active Team Status: Active Member Role Status Dates Sally Gonzalez HORSE EXERCISER, HORSE EXERCISER-C Primary Care Provider Active Team Status: Inactive Member Role Status Dates Sally Gonzalez HORSE EXERCISER, HORSE EXERCISER-C Primary Care Provider Active Start: June 152023 End: June 15, 2024 Sally Gonzalez HORSE EXERCISER, HORSE EXERCISER-C Attending Provider Active Start: May End: June 15, 2024 Sally Gonzalez HORSE EXERCISER, HORSE EXERCISER-C Referring Provider Active Start: May End: June 15, 2024 Team Status: Inactive Member Role Status Dates Sally Gonzalez HORSE EXERCISER, HORSE EXERCISER-C Primary Care Provider Active Start: September 28, 2024 End: September 28, 2024 Sally Gonzalez HORSE EXERCISER, HORSE EXERCISER-C Attending Provider Ac tive Start: September 28, 2024 End: September 28, 2024 Sally Gonzalez HORSE EXERCISER, HORSE EXERCISER-C Referring Provider Ac tive Start: September 28, 2024 End: September 28, 2024 Team Status: Inactive Member Role Status Dates Sally Gonzalez HORSE EXERCISER, HORSE EXERCISER-C Primary Care Provider Active Start: November 02, 2024 End: November 02, 2024 Dr. Javier Conner MD Attending Provider Active Start: November 02, 2024 End: November 02, 2024 Dr. Javier Conner MD Referring Provider Active Start: November 02, 2024 End: November 02, 2024 Team Status: Inactive Member Role Status Dates Sally Gonzalez HORSE EXERCISER, HORSE EXERCISER-C Primary Care Provider Active Start: December 03, 2024 End: December 03, 2024 Sally Gonzalez HORSE EXERCISER, HORSE EXERCISER-C Referring Provider Ac tive Start: December 03, 2024 End: December 03, 2024 Dr. Mt Hope DO Attending Provider Active Start: December 03, 2024 End: December 03, 2024 Team Status: Active Member Role/Relationship Status Dates Sally Gonzalez HORSE EXERCISER, HORSE EXERCISER-C Primary Care Provider Active Team Status: Inactive Member Role/Relationship Status Dates Sally Gonzalez HORSE EXERCISER, HORSE EXERCISER-C Primary Care Provider Active Start: November 02, 2024 End: November 02, 2024 Dr. Javier Conner MD Attending Provider Active Start: November 02, 2024 End: November 02, 2024 Dr. Javier Conner MD Referring Provider Active Start: November 02, 2024 End: November 02, 2024 Team Status: Inactive Member Role/Relationship Status Dates Sally Gonzalez HORSE EXERCISER, HORSE EXERCISER-C Primary Care Provider Active Start: December 03, 2024 End: December 03, 2024 Sally Gonzalez HORSE EXERCISER, HORSE EXERCISER-C Referring Provider Ac tive Start: December 03, 2024 End: December 03, 2024 Dr. Mt Hope DO Attending Provider Active Start: December 03, 2024 End: December 03, 2024 Team Status: Inactive Member Role/Relationship Status Dates Sally Gonzalez HORSE EXERCISER, HORSE EXERCISER-C Primary Care Provider Active Start: February 15, 2025 End: February 15, 2025 Sally Gonzalez HORSE EXERCISER, HORSE EXERCISER-C Referring Provider Ac tive Start: February 15, 2025 End: February 15, 2025 Dr. Mt Hope DO Attending Provider Active Start: February 15, 2025 End: February 15, 2025 Team Status: Active Member Role/Relationship Status Dates Sally Gonzalez HORSE EXERCISER, HORSE EXERCISER-C Primary Care Provider Active Start: February 15, 2025 Sally Gonzalez HORSE EXERCISER, HORSE EXERCISER-C Referring Provider Ac tive Start: February 15, 2025 Dr. Mt Hope DO Attending Provider Active Start: February 15, 2025 Dr. Mt Hope DO Other Provider Active St art: February 15, 2025 INFORMATION SOURCE (unrecogn ized section and content) DATE CREATED AUTHOR 10/13/2022 [facility] DATE CREATED AUTHOR AUTHOR'S ORGANIZ ATION 09/23/2023 [facility] ([place] DATE CREATED AUTHOR AUTHOR'S ORGANIZ ATION 03/15/2025 [facility] DATE CREATED AUTHOR AUTHOR'S ORGANIZ ATION 05/22/2025 [facility] Goals (unrecognized section and content) Goals may [...] BE BASED ON THE PRIMARY CLINICAL RECORDS. [employer] [facility]. provides no warranty or guarantee of the accuracy or completeness of information in this document.
[2025-07-16 23:07] LABS: Calprotectin, Stool 33 ug/g (0-120)
[2025-07-17 19:07] LABS: Pancreatic Elastase, Fecal > 800 (>200)
== END | disposition home or self-care (01) ==
LOC: LABSPEC 09:07
PROVIDERS: PCP Nurse Practitioner Family; Referring Provider Student in an Organized Health Care Education/Training Program; Visit Provider Student in an Organized Health Care Education/Training Program
DX: R15.9 Full incontinence of feces (principal)
CPT/HCPCS: 82653; 83993; 87177; 87209; 87329